=== PATIENT | male | born 1950 | race Caucasian/White ===

== ENCOUNTER 2023-01-15 08:57 | Outpatient (OUT) | payer MEDICARE, SELFPAY ==
[2023-01-16 02:07] LABS: Testosterone 367 ng/dL (264-916)
== END 2023-01-15 08:58 | disposition home or self-care (01) ==
LOC: LAB 08:59
PROVIDERS: PCP Internal Medicine; Visit Provider Internal Medicine
DX: R53.83 Other fatigue (principal)
CPT/HCPCS: 36415; 84403

== ENCOUNTER 2023-03-29 12:37 | Outpatient (OUT) | payer MEDICARE, SELFPAY ==
--- NOTE | 2023-03-29 12:39 | CA_ITS ---
[facility] Test Date: 2023-04-15 Pat Name: JERRI SOSA Department: Room: - Gender: Male Bartender: : 1950 Requested By: CLARE RODRIGUES Order Number: [id number] Reading MD: CLARE RODRIGUES Interpretive Statements Predominant rhythm is sinus with average rate of 67 bpm Tachycardia - max rate of 139 bpm - one episode of PSVT w/ duration of 3 beats - longest episode of 13sec with rates between 102-103 bpm Bradycardia - min rate of 52 bpm - longest episode [id number] w/ rates between 52-56 bpm Ventricular ectopy - none Patient triggered events: 2 - associated with palpitations and fatigue - associated with NSR Impression: Predominant rhythm is sinus with average rate of 67 bpm Fastest rate of 139 bpm and slowest rate of 52 bpm No ventricular ectopy No atrial fibrillation No pauses or blocks Electronically Signed On 04-18-2023 12:30:31 EST by CLARE RODRIGUES
== END 2023-03-29 12:38 | disposition home or self-care (01) ==
LOC: CARD 12:38
PROVIDERS: PCP Internal Medicine; Visit Provider Internal Medicine
DX: I47.9 Paroxysmal tachycardia, unspecified (principal)
CPT/HCPCS: 93242

== ENCOUNTER 2023-09-15 21:59 | Emergency (ER) | payer MEDICARE, SELFPAY ==
[2023-09-15 22:06] VITALS: BP 189/101; PULSE 89; TEMP 36.9; O2SAT 96; BMI 36.5
--- OUTSIDE RECORDS SUMMARY | 2023-09-15 22:08 | XMS_ITS | CCD ---
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 Screening and history of mental health and substance abuse codes (19 sources) Ex-smoker; Translations: [Personal history of tobacco use] Onset: 06-25-2017 Episodic Comment on above: QUIT 2001 2PPD; Skin and subcutaneous tissue infections (11 sources) Cellulitis and abscess of trunk; Translations: [Cellulitis and abscess of trunk] Onset: 01-25-2015 Episodic Unclassified (11 sources) Long-term current use of drug therapy; Translations: [Long-term (current) use of other medications] Onset: 01-24-2018 Viral infection (15 sources) Disease caused by 2019-nCoV; Translations: [COVID-19] Results Test Name Value Interpretation Reference Range Facility [facility] 04-30-2023 L Specimen: [id number] Received: 04/30/23 Status: SOFIA Hoffmann Num: [id number] Spec Type: Surgical Subm Dr: Emerson Contreras MD Tissues: A Colon Biopsy (CECAL POLYPS) B Colon Biopsy (SIGMOID POLYP) Procedures: HE/4, Gross/Micro L4/2 Age/ Patient Sex Location Account Attending Physician Jerri Horne 72/M [id number] Emerson Contreras MD SPEC NUM: [id number] RECD: 04/30/23 STATUS: SOFIA HOFFMANN NUM: [id number] WERNER: 04/30/[address]: Emerson Contreras MD ENTERED: 04/30/[address] [facility] DR: SPEC TYPE: Surgical DEPT: S ORDERED: HE/4, Gross/Micro L4/2 ORDERED: HE/4, Gross/Micro L4/2 Pathological Diagnosis A. Cecal polyp, biopsies: - Fragments of tubular adenoma with no high-grade dysplasia. B. Sigmoid polyp, biopsies: - Tubular adenoma with no high-grade dysplasia. Clinical Information Screening Gross Description A. Received in formalin labeled with the patient's name, date of and cecal polyp are multiple tamayo tissues fragments and vegetative material together aggregating 2.2 x 0.6 x 0.2 cm. Entirely submitted in one cassette labeled A1. B. Received in formalin labeled with the patient's name, date of and sigmoid polyp are multiple tamayo tissues fragments and vegetative material together aggregating 1.2 x 0.9 x 0.3 cm. There is 1 dominant polypoid fragment, 0.5 x 0.3 x 0.2 cm. Entirely submitted in one cassette labeled B1. Specimen: [id number] Received: 04/30/23 Status: SOFIA Hoffmann Num: [id number] Spec Type: Surgical Subm Dr: Emerson Contreras MD Tissues: A Colon Biopsy (CECAL POLYPS) B Colon Biopsy (SIGMOID POLYP) Procedures: HE/Neema, Gross/Micro L4/2 Patient: IrenemabelJerri [id number] (Continued) Specimen: [id number] Received: 04/30/23 (Continued) Signed (signature on file) Jackie Padgett MD 05/03/23 1013 Specimen: [id number] Received: 04/30/23 Status: SOFIA Hoffmann Num: [id number] Spec Type: Surgical Subm Dr: Emerson Contreras MD Tissues: A Colon Biopsy (CECAL POLYPS) B Colon Biopsy (SIGMOID POLYP) Procedures: HE/Neema, Gross/Micro L4/2 Patient: Jerri Horne [id number] (Continued) Specimen: [id number] Received: 04/30/23 (Continued) CPT Codes 24526d7 Specimen: [id number] Received: 04/30/23 Status: SOFIA Hoffmann Num: [id number] Spec Type: Surgical Subm Dr: Emerson Contreras MD Tissues: A Colon Biopsy (CECAL POLYPS) B Colon Biopsy (SIGMOID POLYP) Procedures: HE/Neema, Janette/Fred L4/2 Patient: Jerri Horne [id number] (Continued) Signed (signature on file) Jackie Padgett MD 05/03/23 [facility]3 [facility] Coding Summary.on 07-15-2022 Coding Summary. CD:[id number] Ww+PG hlYWQ+SH8ULHAjF22yjFQtfQ9 bA8BHJYwPNdbzXJPQMMpHWbCi msLgXO8hzZSrUHYk IC8+NK8rZXFjXificUOrk4U2q DW6H20cbw6fKAaoeYB9ONMcIo Bnmppja7gtaWm3QWkuDisaCxH t DSOqyX59MIB6bP85Zw95aJZla AOxz0pyyBt1UfTrUVSwAEJ3mE qmSVgkf9PhDNXaK43czWSib9D 6 BQLkmGkmeQYdRiYexEJ5oZ3hE Ozpymnuj6atqgjeVbk9qc02gQ Mqc4R7zEQ2G9MdqpE4IGMmpSI g SvynuRXInM2pfhoge1bdhyokO eMnUOKdIFe6ITi3KZPfkNenNd PvMM57VYH0GTHqrkObR3EhTPW s uAmsKmW9l8S7Xk4EE6HMAlkbV 1VNTUFSWTwvdGQ+GR97by44O6 RwArajUmg9NMPfEBK4uSI1nJ4 n XXYwXPjat0C5kYX2R2YetvXpc t7hc3yuSOUqPWqbE30snLPyr8 Q1GFRhrWJ8JJWqkKzdKuQsvA2 3 Oyc+UAPefOlmn0SuYsqeq3phu 5ocjBh4JxptDNTpwcPyzMitOV A1b7TvTn4wATVdnGO2qUY0wJ9 i YrBjHlH5YJqaV616ZiUeeIXpH dciS25jG4VonGZ+EDQyFos6EH GwaLojZD9oY6PpRQKxbodrfUR m mOilJE1kGQLnbsnsGNLtiQ9jW XRhW4a0QcLxOuY9PEazE5GzAS HilxsqFr72oG2nVhHeKbI5KPw u P2AtuxR0OBUhoVGeQSzsWCE8Y 05qe0Q8KFFcNPCcMLX6gMZ1iP 1hbGlnbjogbGVmdDsgdmVydGl j HBjfMWejG076IRLwwVikLqJeF GluZyBEYXRlOiAgMDQvMDUvMj AyMzwvdGQ+PMIxKNS7cKbaBLV n zBXyFFedAj9dfFfzqBlkIA2zN AQihutxCHWvuS8xJARwyFBdjJ pjFP0oAVWenqcsx009EdOvUCM 0 XTCgdIVeS5IdcI0iGgOpEQYjM SEbM7ZowSLvRZbhG998GWhvJt A9DLYdqcOxJ9InWONfgRieYuS 0 w6A4Rm4Fj2GbkdyqH5ZrmSWtH tPpAquuFNg2W2NsKiysaED+PC 43TJSkKG50JAf8WEG2uSwoGKg i VSJuG2FxoS3sGnCdNHBhGSHdL yc+PHRhYmxlIHdpZHRoPScxMD HpHzYwxCroRA9aAc3fFGGyODZ v iIqzlKDvHgAcr7qaSLWgBAokD W2wnDefX6JhyNP1DHDyl0e2Ra 29A19uB7CxlPE+WPArcHD8vKX 0 uI5cDjIsNiK6POmpP781McOei KCdPorof3uwr3dhwKh0ZcA0GI GpmtBjnAhrWQB5k3WmPl87W45 s IHdpZHRoPSIxNSUiIHZhbGlnb n6fvG8eNj7+LZCrvQM7aZA3eN 6yVaLzAcN1ORzkV139OpLygDM v Crfmj4rlu7vsfTw4FiFnDHNrr pGeaHlgYWY7s6QmDp16G6UjtS teo4PpAci6us66qFMgl4O2wCZ 9 M3YqXECtphwhlBDyrOcwGA3sF JLefhqgYQMcpF9jKWRpB1n3Wf AlZjR6OWwxN9PpblN7HIUjfZC g MSOhvARZuX9nhrdmn7avndzeZ aFeYKKwWIa1AIn9PCBetAcmGh ZjPHW4ZuW5FAZ4fBFatE4wpUj n afacjR8lGwo+TPS4lISfxVQTK F4cKuamqFX+XTHmBRC9cRciTM usWPUloF8yYUAhB9n6BdPjHsV 1 JCdzA9MpfuX6YEGpkLVvPDUka UPKrG8yyzlwt4sucuzkGtTgNW ZbDAq2TGq7BBZhvSwjAcSxPAB 0 OfP8YMV8wVYycC8czDezvctfl G9wOyc+GwldpNxtNOU3WCz0U5 JePzq4URKjhCvrBB1beLKyQEk u Ko5ogYbciPflZX3oHBCnircwc 457JkQgk6daYCUjyNTzMBkjMD R5E77nk7W6NKNuYIOpAIR5pLP 4 wO7tlDtotxwheJJruSrbeuHkh PptLWbqHRxfU245IPGawGunTw WwHKk0S1TjXxa3QJBfxPqpYT5 n yBZqVVscSz2nqWozzEpkEC1fZ THzflonr353AqGxp3fnDLIjqS SkCLhhOCL4C62oq9S5EAIiSJI w DOO1jZE0qE5olDzddnhrsVWio MhnbvAmiXliRTldCGkuN666FY GzaEgvZxPthVr4T6LdMcx5GUE z uJtjCJ4cpBEtOLngDb3nxVbmb KklBX1wXAXyawmlx352CxIsx5 ipDXCapHKjXFedMGT8C99ig7U 6 JFGlTPAcGOR3uXZ6rD6hzPwqn jogbGVmdDsgdmVydGljYWwtYW gqH569GHCqrHeuSnCnvLrmgrA g REqiXQw7I4IuGaifsVY+PC90Y TScME28yNSwsDQek1qshAa9Xq EpQPCsJCW2jCbvKQrzt4YxZTE t Q82dpPAek0X7NOOitHtrpXBdF fNgmOR3dG3hSEwdarfgb6hrbh fxSgfqp9clch39pH44U33lJGu p WNGoLRBqTWAdRAFdyBwehc0aq G9wIi8+QTWxjUU4eIS7iO6mGP DgTzY4OGbsN907EuSoyEShImq j u3ipj4avaUl9ZjJ6YNLicnXxm YpcMLN5h8CuKv38V55cRWukKU XdPLLwMQNaLNFanSnmuz9tkT3 w Ii8+VBVsvBE3kCW5vL2rWaThJ qY9LJmeW714SjNjeEGvMuuyM8 3uY0PnrRX+TFGdPan3IFXgeNs s LR1xpGSbIEdlUb4vUWN0DiJnN vFfFWmqF0WaFKHrudphvvnegC F0ADVrQETwrR46Pb9jkFfzAEF w eGYPpU7wazruq2iyuxrsWrMiY EIaKLs5ZCv2ZLVzrShlCdWoKY Z1VaX3QUX4hLZphW7yeHkpboz g gS4iE0CmNRBmzhjfTl38yT4oS tNtArZ2SMbuUps+A1ZFVLXUNB tRBEWTZOUJUTRSKT82UB38rBO g j9R5jVP8Q4PtNSWspbvhmnrhg UR8BMKfFLHyuX44dPKiICzjXs 6rp6U4u647NODiEGVgjR61Uy4 u qGbmYRTtbUTYrR9qyxiun6ozo gpsAhHuKCQzZZh3IMf5HHWeyQ cdIiOhOVI7WjU6VSX6lJVkvW1 h xIhrotqpjD7wWtt+MDQvMjkvM Ut8XgjdkEA+MARcQLV0mQpnEU yfFSSypT9lKZTdR9c1LgPsFlW 1 TSrkN6KaKTUacmoyUc00lJ7xJ uYdToF4SYkmO7AgyiS9WIPtwL FrFPlnZMI2S43jl4F9UVHsXEQ w IDB1kPF0nB9crJgxmaglfTVdy VagikRfzRjeDVfwYGglJ742OD IpuPdgUhM5ZPeiCTNyLG34DB6 8 tKWqc2F3oRC4Z7HzEGJsaujwg begnQU4WFAlHSUarB29mKSnPU rmAj9sj1F7q859NBKlYNYfhF9 7 Qm2vbKohDUHnvIVPpC0usyqdz 8twfepyOlDwITKuBIw8QIb6IY NqjAwjGzMyDNP0GqW9QFS6sWW h hC6rtGfaidpnoS3bJdk+TWFsZ TwvdGQ+QYFxIYA7aOaqIHdpER GoyW7yYBYsC7g4GdZqCaP3JRg u W0XiIRJtqgfqBb73iI2tZlIcQ gP3WVgaF8PwmaX0NPOsdTVfVX auSNW6S66be9W8KQMzROKqSOB 7 wFP9jE5itGizdwyfnYKslHidk fQcgEwvAFmhFStcR617JOUjwP rgJx67jBVzuMxvozA8F2RfLik v dHI+FF13SHWuAI19qZJybUByf 1qwmAr9QrPrHNIlPAI6sKvcLS eng9AgQXNzH44ewVBjh6O5FJX v dDalsDSbHwFelVS1mJ6nZFurr ezzm1lchbxhBinpf9voxr42fS 12F74fQFtoRPLrVTSnDGJjMWQ h hTipsm9izS2bSt5+EIXzwCV8f EU2sR2yYpIxLtY7CLebH125Eb AlkXUeYitzn2myo8tvsJz2GbI w GPSpoeYbxApeSMC6h3JpZt38O 29sIHdpZHRoPSIyMCUiIHZhbG edol5brN9mBv8+UN7uk2cjbz0 1 bE25vPK+OTDkBKR1uCedHFflJ ZUgrD3kGBhdOmJ7PPPgZpSiyG 93rMYbMNlqTz7vhGpkrYqaUX4 w OCCjhczwu057QzTzr3htQANuz WMqNNnxDAE4Q01rb1B8RNOyAH YcFXV1cWE0vH0jmIatvaiceTV m fFyonhOnuNwlBRmfWDnsU904Q OHuiLlcOnFutQKfR9dnhiOOTQ 1lOjwvdGQ+RDAnAGZ5aAulGCz w AYRlgG3bZIJuR3r8BoEnFzQ4F KrkX1RkugZ8TRVswBNjFOCvtV GJrB2jjyvdh6uqetzuPxTmTDF w DQs7YVz9NHKydQiwXyZcZNJ8C aG7LGK0nPUtrR3baAijdsxyrZ 9wOyc+RklOOjwvdGQ+PHRkIHN 0 kVakOLeaOQMflT7gHRPmL8l9S hWaYbK7ZWyyH2JjuvW0WGCcgZ TgGCNfgNSAzH3engczr9pgjul g PzUuDORvXIy6TRk4HNNssVzhU gMlWWS9OqC9XEO4iMVzfL7qwZ hwetzxzC7xEif+TVJOOjwvdGQ + NDSaUBO0cLvpPUccCFNdmO8mC TIqQ2l2LoDoReG0VMjgJ2Rwey H1YMOevGLiBDTkzWEKuW9dljg j u2isoifiAdHtKEKlUBd6RLv2U WCzlUdqAvOpNQM5RxW7VRD4hI BwtL0msPfrqpgjcB0pJys+UGF 5 TAU7RP82PK60W6OdAlucwNKun +PHRhYmxlIHdpZHRoPScxMD IoKdAubTrmVW9zJg5uEQJoAAK v bGxhcHNl (more content not included)... Normal [facility] Basic Metabolic Panelon 06-10 Basic Metabolic Panel [facility] [place] Other CBC AUTO DIFFon 06-26-2022 BASO # 0.0 103/ul Normal 0.0-0.1 [facility] Comment on above: Performed By: #### D [facility], DAT[facility]A #### [facility] [address] [place] [address] Dr. Maureen Mcdonough Basophils/100 WBC (Bld) 0.7 % Normal 0.2-2.0 [facility] Comment on above: Performed By: #### D ATP, DATPSA #### [facility] [address] [place] [address] Dr. Maureen Mcdonough EO # 0.3 103/ul Normal 0.0-0.7 [facility] Comment on above: Performed By: #### D [facility], DATPSA #### [facility] [address] [place] [address] Dr. Maureen Mcdonough Eosinophils/100 WBC (Bld) 4.3 % Normal 0.9-7.0 [facility] Comment on above: Performed By: #### D [facility], DAT[facility]A #### [facility] [address] [place] [address] Dr. Maureen Mcdonough Erythrocyte distribution width (RBC) [Ratio] 13.5 % Normal 11.0-15.0 [facility] Comment on above: Performed By: #### D [facility], [facility] #### [facility] [address] [place] [address] Dr. Maureen Mcdonough Hematocrit (Bld) [Volume fraction] 40.2 % Critically low 42.0-54.0 [facility] Comment on above: Performed By: #### D [facility], [facility] #### [facility] [address] [place] [address] Dr. Maureen Mcdonough Hemoglobin (Bld) [Mass/Vol] 13.4 g/dL Critically low 14.0-18.0 [facility] Comment on above: Performed By: #### D ATP, DATPSA #### [facility] [address] [place] [address] Dr. Maureen Mcdonough IG # 0.02 10e3/ul Normal 0.00-0.03 [facility] Comment on above: Performed By: #### D ATBMP, DATPSA #### [facility] [address] [place] [address] Dr. Maureen Mcdonough IG % 0.3 % Normal 0.0-0.5 [facility] Comment on above: Performed By: #### D ATBMP, DATPSA #### [facility] [address] [place] [address] Dr. Maureen Mcdonough LYMPH # 2.1 103/ul Normal 1.2-3.8 [facility] Comment on above: Performed By: #### D ATBMP, DATPSA #### [facility] [address] [place] [address] Dr. Maureen Mcdonough Lymphocytes/100 WBC (Bld) 34.3 % Normal 20.5-60.0 [facility] Comment on above: Performed By: #### D ATBMP, DATPSA #### [facility] [address] [place] [address] Dr. Maureen Mcdonough MANUAL DIFF REQ NO Normal [facility] Comment on above: Performed By: #### D ATP, DATPSA #### [facility] [address] [place] [address] Dr. Maureen Mcdonough MCH (RBC) [Entitic mass] 29.8 pg Normal 25.9-34.0 [facility] Comment on above: Performed By: #### D ATBMP, DATPSA #### [facility] [address] [place] [address] Dr. Maureen Mcdonough MCHC (RBC) [Mass/Vol] 33.3 g/dL Normal 29.9-35.2 [facility] Comment on above: Performed By: #### D ATBMP, DATPSA #### [facility] [address] [place] [address] Dr. Maureen Mcdonough MCV (RBC) [Entitic vol] 89.5 fL Normal 80.0-94.0 [facility] Comment on above: Performed By: #### D ATBMP, DATPSA #### [facility] [address] [place] [address] Dr. Maureen Mcdonough MONO # 0.7 103/ul Normal 0.3-0.8 [facility] Comment on above: Performed By: #### D [facility], [facility] #### [facility] [address] [place] [address] Dr. Maureen Mcdonough Monocytes/100 WBC (Bld) 11.4 % Normal 1.7-12.0 [facility] Comment on above: Performed By: #### D [facility], [facility] #### [facility] [address] [place] [address] Dr. Maureen Mcdonough NEUT # 2.9 103/ul Normal 1.4-6.5 [facility] Comment on above: Performed By: #### D [facility], [facility] #### [facility] [address] [place] [address] Dr. Maureen Mcdonough Neutrophils/100 WBC (Bld) 49.0 % Normal 43.0-75.0 [facility] Comment on above: Performed By: #### D [facility], [facility] #### [facility] [address] [place] [address] Dr. Maureen Mcdonough Platelet mean volume (Bld) [Entitic vol] 9.6 fL Normal 9.5-13.5 [facility] Comment on above: Performed By: #### D [facility], [facility] #### [facility] [address] [place] [address] Dr. Maureen Mcdonough PLT 198 103/ul Normal 150-450 [facility] Comment on above: Performed By: #### D ATP, DATPSA #### [facility] [address] [place] [address] Dr. Maureen Mcdonough RBC 4.49 106/ul Critically low 4.70-6.10 [facility] Comment on above: Performed By: #### D ATP, DATPSA #### [facility] [address] [place] [address] Dr. Maureen Mcdonough WBC 6.0 103/ul Normal 4.0-11.0 [facility] Comment on above: Performed By: #### D ATBMP, DATPSA #### [facility] [address] [address] [address] Maureen Mcdonough Complete Blood Count and Dif lucia 06-26-2022 Anisocytosis Ql (Bld) [facility] Other Basophilic stippling LM Ql (Bld) [facility] Other RBC morphology finding Nom (Bld) [facility] Other PROF CHEM 8 (BAS METB)on Anion gap [Moles/Vol] 12.2 mmol/L Normal [facility] Comment on above: Performed By: #### B MP #### [facility] [address] [place] [address] Dr. Maureen Mcdonough Calcium [Mass/Vol] 9.1 mg/dL Normal 8.5-10.1 [facility] Comment on above: Performed By: #### B MP #### [facility] [address] [address] [address] Maureen Mcdonough Chloride [Moles/Vol] 106 mmol/L Normal 98-107 [facility] Comment on above: Performed By: #### B MP #### [facility] [address] [address] [address] Maureen Mcdonough CO2 [Moles/Vol] 28.7 mmol/L Normal 21.0-32.0 [facility] Comment on above: Performed By: #### B MP #### [facility] [address] [address] [address] Maureen Mcdonough Creatinine [Mass/Vol] 0.85 mg/dL Normal 0.70-1.30 [facility] Comment on above: Performed By: #### B MP #### [facility] [address] [place] [address] Dr. Maureen Mcdonough EGFR-AF COMORAN >60 Normal >=60 [facility] Comment on above: Performed By: #### B MP #### [facility] [address] [place] [address] Dr. Maureen Mcdonough EGFR-NON AF COMORAN >60 Normal >=60 [facility] Comment on above: Performed By: #### B MP #### [facility] [address] [address] [address] Maureen Mcdonough Glucose [Mass/Vol] 97 mg/dL Normal 74-106 [facility] Comment on above: Performed By: #### B MP #### [facility] [address] [address] [address] Maureen Mcdonough Potassium [Moles/Vol] 4.9 mmol/L Normal 3.5-5.1 [facility] Comment on above: Performed By: #### B MP #### [facility] [address] [address] [address] Maureen Mcdonough Sodium [Moles/Vol] 142 mmol/L Normal 136-145 [facility] Comment on above: Performed By: #### B MP #### [facility] [address] [address] [address] Maureen Mcdonough Urea nitrogen [Mass/Vol] 11.0 mg/dL Normal 7.0-18.0 [facility] Comment on above: Performed By: #### B MP #### [facility] [address] [address] [address] Maureen Mcdonough Urea nitrogen/Creatinine [Mass ratio] 12.9 mg/mg Normal [facility] Comment on above: Performed By: #### B MP #### [facility] [address] [address] [address] Maureen Mcdonough Heart and Vascular Office/Cl inic Noteon 06-18-2022 Heart and Vascular Office/Clinic Note Chief Complaint 3 month F/U History of Present Illness Jerri Horne is a 71-year-old male patient recently established with Dr. Martinez with past medical history positive for CAD post CABG x2 in January [address] Guillen at . He has normal LV function. He has hypertension, hyperlipidemia. He is here today for 3-month follow-up. He has no new cardiac complaints and feels he is progressing well postoperatively. Patient specifically denies chest pain, palpitations, SOB at rest, GARCIA, edema, orthopnea, PND, dizziness, near syncope, or syncope. Recently started on levothyroxine and has questions if this medication needs to be continued. Review of Systems PHQ Score Initial Depression Screen Score: 0 Constitutional: no fever, no chills, no weakness, no fatigue Respiratory: no shortness of breath, no cough, no orthopnea, no wheezing Cardiovascular: no chest pain, no palpitations, no edema Neuro:no dizziness no light headed no syncope Additional ROS info: Except as noted in the above Review of Systems and in the History of Present Illness all other systems have been reviewed and are negative or noncontributory. Physical Exam Vitals & Measurements HR: 67(Peripheral) BP: 140/82 SpO2: 99% HT: 68 in HT: 172 cm WT: 100.0 kg WT: 220 lb BMI: 33.8 General: alert, no acute distress Neck: Supple, noJVD nocarotid bruit Cardiovascular: regular rate and rhythm, no murmur normal peripheral perfusion Respiratory: Lungs CTA, respirations non labored Extremities:no edema Neurological: oriented x 4, LOC appropriate for age, sensation equal & normal bilaterally, speech normal Skin: Warm, dry, intact- no rash or concerning lesions Assessment/Plan 1. CAD in ruby artery (I25.10: Atherosclerotic heart disease of ruby coronary artery without angina pectoris) CAD with prior bypass. Normal LV function. He will continue his aspirin, beta-rossana, statin. No anginal symptoms. 2. Hx of CABG (Z95.1: Presence of aortocoronary bypass graft) 3. Hypertension (I10: Essential (primary) hypertension) Blood pressure is controlled for his age on present medications. 4. Hyperlipidemia (E78.5: Hyperlipidemia, unspecified) Patient is currently on statin and tolerating without myalgias. We will check lipid panel. 5. Hypothyroid (E03.9: Hypothyroidism, unspecified) Check TSH and will forward results to PCP. Jerri is doing well from cardiac perspective. He will continue current medications. We will check labs and call with results. Follow-up with MD in 6 months, call for new/worsening symptoms. Follow-up With When Contact Information Juan MANDEL, Suresh Foster Within [address] [place] [phone] Additional Instructions: Problem List/Past Medical History Ongoing No qualifying data Historical No qualifying data Procedure/Surgical History CABG x 2 - Coronary artery bypass grafts x 2. Medications aspirin Lasix 20 mg Tab, Not taking levothyroxine 50 mcg (0.05 mg) Tab Metoprolol tartrate 25 mg Tab rosuvastatin 10 mg Tab Allergies rosuvastatin (Other, Unknown, Abdominal pain, Cramping of the Muscles) Social History Alcohol Current, 03/09/2022 Tobacco - Denies Tobacco Use, 03/09/2022 Former smoker, quit more than 30 days ago Tobacco Use:. Never Smokeless Tobacco Use:., 06/09/[address] [facility] Comment on above: Result Comment: Elec tronically Signed By: Regina RASCON CNP\.br\Date and Time Signed: 06/18/22 12:08 EST Coding Summary.on 06-13-2022 Coding Summary. [id number] Gh0bW w+PGhlYWQ+TA9MZIKuM13crZH tvM7NQ9hERI4QQZZYVVUSUV4E LU7swRX1ITitI3VuvgPf MpbtkXNpSQ46RIh6LCG6jRnhS ZldnX0poMRqJ4t8KbRrFG20cT 29CJohZQAuTtL8GbPdgerdbPE y X2wxPaXxmMUqMid+PHRhYmxlI HdpZHRoPScxMDAlJyBzdHlsZT 3mCj1pITEmNMTkvTkisUDxQuY j v7flPLElVHkpOW2feGpqW1Qtb CU9SWRax7d9Mf59jYS+PHRkIH G4aNpzRMufp434UbAlw5vsZYL 3 rLCiBBwbZLD5V49kf0S5PLCaD PDtPHP7tCO1vE5xuGcexiueX5 HtyQYbUkD7XZE9lPOeyX6rfCj n fwqkmR6zEdp+H33YUY3FTAUST O2KFvn2Z0XdAeoofRO+PC90YW HrYC50hJTqzGCuj3cquLp9XsK w PTUyAZM0dJosKMntd0SgDDEaC 90qdNTjc1V9BHDrtWmcrLXiVz TwbUJ9rT8rXQdnswdqy0hiyhg n Lsevr4bxly00xI89I15iTUseU LKiXWK2BFKbNJUviTskhm9wiM 9wIi8+HBgut3ppo2ixvUq1JyQ w RBNuelFbfZiyKTZ1f0NiQh41D 8LeuKqki0McHha3qy19tDEvs7 P2lCQ0XDeyNETeeT1dTHodXkA 6 SQFlAaHryK31uEVvOMkkKr9zs AabuGhoPK7cPNRfxgkmEMNxqY 0iJDWfnQPakWlpKG7aSWApyjg m j142HsCrEJB4YSHpjMPnM2Scm R2yEeJvBWVpSGJmN3XzyMUrLP xkD956LMcyQrP1CRCjtnFxD3M s MMFgcFtmPeO1t1L5Ji8Ja8Tem tjfQGJ0ZIulKXNkFfH0NhVaKz Y6M7JiRih3WMKveDbaCQ7jG0Z h NMYfrfqqnbuorTC2MJAiPRHtd L08vBEcQEoaVb4ay4H0e649PJ QaDVVhbM76It7zxKguWNQrwHO U xV5lkhaat7sbyneyLnRuLOCnM Eq0GJw0GGVftZolKcUeUIU0Fa K7XHI3lDKzsZ2ueMqlrrolzT7 w Oyc+O12vcW9rESU5SKB3qkrsP ZAifrSdRX28ZL94H2LeOgnsaI FibGU+THGmxfRdkAozPQ6nXuY j m4ssl4IvFAeqA6HcMSXfNWawO xy9HYYwPSX0qVE9aL0fACJrYS ual8E6aDQ5M6LtufSulz7pf7f s KCXeJHlzW89vgPFmr3I8WUKwr UY9SZEcoUybGeKizI17Jme+PG WkuFfyq2OtTcojl1wxv0sdrBr 9 IqTaDZLsvfLjhRepOAY2y4ClI a86P81xUKjhSNAwSLWnUOKdFU BtpNmeji6gaP4aYk9+PGNvbCB 3 sJR2qW2gIXJbSkE6RUejK309D wKfgXKeCzcdm4qei6ymiLd3Ip CmVDOcvbKueUijEDT6h7FdYj0 8 Y68qOUibJFGoFPWfHTSfFLQtf Wlaph5syL7cTt3+NH5rp5jnxt 01lF64gOM+QAReFYY5mLbxHJa w FTVaqT0ePNesKpT9AZGdTmMhb S53iUSuJVdmPv1miLszbSovBU 1cZVSpkfoxm086JfAkh4jfFYP w cRYzLIhqEOA9O46ai7K5PZSuB GXdARP2dQW0cP7lpMdabxtmtR XtjLjecnJsxHdhTNulNGfrJ21 6 IHRvcDsnPlBhdGllbnQgTmFtZ Ex4H4XvVut1KHGhtGqiHX6qnT QtFQdbEo2jhJircCzvNU4tMNB p khisx226XuXtz7irKYXxcKDbR LcsOVQ9S48ys8U0MFFyPSRoNF R0xNR9tP1dvNxstgnukFEipTn g kiEtaQmaHXqbJTmwD200KWTtf FwjOlJozoQeJWGeuLH6KT76XA 14wMQhr3I1sNI0I8JjCAUfegn t sardzNR7PMEwDPOzmG51Yb4bf JryCe1sHDEwWJG8KXPawYJuN7 AcnR3vApFuKFUuMRFiF2CbpIS t UQtfM682PWjiHeB4UXQmdpNfY 2GxBSPcqRerYbU5b3B1Yt4PD2 O3ST14NM48iDYlf4P6oLY6V5J h JIWubftjmmhmvQE4WTAgNGEdb D96Fk4izIjxGv0vHIHlGAY0XD FroZZvV8UjaB7dBiOrLYJbSUG w N2GilXKrBZogV094QLwvWmL9N SAvqiOaU7KoMQSvqFysDmP3r4 E1Wu0BQAr0GR68UY33iYMri4Z 5 uPN1V8QeIBNynqhytquagLT1S EIuRCLhqA25Zb6mpOdrBs4oNS KzTLB9GVSvqGPsE8ZwdG7aUeQ j QRXgRSEzR7KidFAvFCbmW352V WkeKcF3KCNhmyVrK6DzUXQguD ssUjF0g8V3Qb7DXDXrBM42OMP 5 vGO5LV36YL01B0ApMimxeOGun +PHRhYmxlIHdpZHRoPScxMD PvBpVygLuoNR5mXg2tKBMnFHH v aLzutKTyZmNxj7voRWOwVFaxX O9bdChvN4KqdZF0GZYbm2z0Gg 35W81rO1OrnXO+UEMbkSH0mCZ 0 vB1xKzEpTtZ1FYzjW406AtNes SUyPfhuu4uki0cjeGc7HzU3FE CsdqWfkZeuYQB5y4OlDi15D64 s IHdpZHRoPSIxNSUiIHZhbGlnb c8deS7xZm7+TPIrrJY7xZV6cE 8oYmNoMdG0URxxY196TdLfmOH v Mvede2uuh0ujvIy2YhFqIDBik yPexScrVZF3x7EiVj16L6OqgD eif7OrKun0qm92oVZxi6I9oWZ 9 L7LbOSNpocfkkPOxeDxfBW0iD IXopsvzVCOssJ5yNNBiP0y6Co RuOvW0IGoiM8ZjodB6MCFpeAF g IWwsFVB8V47ic3L8XVJmQXZnD WS1mRA0uD8rsArqjfgutQMmqQ tkwkRdsIfzOClaFDmrZ939QIN v jHyqWHJpuA3dBICpkCIlyAubA V6nJQCdwvldDeFAV33VUGGKSV wgUklDSEFSRDwvdGQ+PHRkIHN 0 iKnbRGujRNGobU0kNOPmN9k1E yReFkC3AMrpR7TsDIHypihsYj 85kD0mTdKwOlS4SQkzY6YgipK 6 FHNymOTkRQvaXAL7N50yu7K0A SSfQDCbAFW6cJR0fC2otMiqnc ogbGVmdDsgdmVydGljYWwtYWx p F987MTSjtQenFgD2BdV6MfK7L AK8C4UpOzd2VNFzhOdkKI8lxW GyMCmzAo3uuHdynOxcLL7tTNS p qnxxFJCyvK7kOPBngZCdhLaoL Z5sSOZzhgyfc454OkLmTEU5PK VmgPYxR4ArqY8pZsHcFTCnTKB w I1OonRWzPJqoZ251SFlfTeL1B BCmcgYaL1IaZJKwgAdjPbE2r9 P8Ou28XJOGFZLtqbqhtVJ+PHR k CRY5eUixLZysQFLmnE2gONHiY 1m5ZuDhAfZ3XKftX2VeWXAmpo goRh96cG9pXbFhEkB0FRapP8Y v tyR6BTCbuKLrVFlpLRB9U91jm 4A3RMMdMVZhJBO5iLE1rL1ykZ lnbjogbGVmdDsgdmVydGljYWw t RJmfX054MPKzdVhiZp2lpFL2X 9YaKoc8LONvcAzpPQ6lcLUpFQ yfYf6izXgmyDhsRE1eHUXhhur w BUNmsV0pIDDijCVjkQelJN9lU BSsnakqa953VnCoSLI6FEPprF UxA3NcbZ0kYePjDGTyMJVgO0P l zRLyGTmaK207XAmeWvR8HIBns tZeW3WqLPOaiSrlPuP1p3X7Rc 3ZtINeTVRnID91TY40KD71I9T y PjwvdGFibGU+PHRhYmxlIHdpZ VJbAKhyKQLlXbAfnDbsWZ9vIv 5lQQGxZLIeeAyzfIHdEzZhe1t s RPKcRCzsRS3msTvvG8YtcBX4A FBjn7i3Gf97K44vP2EixGA+PG TksRG8mJV7oL5vYnSxEmK4RCf p J735VdOjiQSzPzjum9rnp1siu Dg8TwPpZYMfixYbhOdfQKY3f2 OrOj58W49lEHxpFISfMZVnXUR i OROerPqtkd0gtV8zSk6+PGNvb TV0eTW3aH1bQpYkAzA6MYygX0 80YiJnuTVmQldjG17lM9GuaUB + RMJdByz6PLHqcGlzPS6qgMDdQ OmdNw6cFUD2TuTvYkUnJJdgI7 HaZRXgfqrpdtixhGF2EHQhTNM w vV64Jr1ghIrqCd6hCKOmOWC9I LLclNSsO2FpwX2zGfBiVPQmIH EjG1BweDMbPFgsH833IOkjCbD 7 BCOsodCxG2JxYYXswHmiMrV6a 3O9Ia1VbJbrwHIcTQ2xBnPdSP s4T7UxQzj0RJWsjRgvKZ9lfHZ k JRnuCf5uqBvstYijZQ6jBEWti jeoi245OpAos9kfSAUmpSBuQH vdRIQ4H93qd7F3EXHiOQUzNEZ 7 hLN2hE3xhEvwqegpiMHysNcir kUnpEvlFAnhLRluC123EECjwH uxZtGOJxa5L3YbSha3DLVpwEp s IW1rdGKkVUmnZn5vzPkqfKmbZ G4wSLGqnhccz275NvOdg3lcJO NzaMWwSIodVLM1V63au4K1RIV w BINoPUX1dBP4iI7dlZrzsydwz GVmdDsgdmVydGljYWwtYWxpZ2 04MVXgeAezNi7YRmj8R7QvOsc 0 LMDnaWniHY2uhADnIGueHa9sf XnmuOvmRE8tICWoxzbao678Qz Fjz0hxIOUavRLqUIevPKS8I83 s x2R0IOYdPYDqHSN3yRA9bI7uu GlnbjogbGVmdDsgdmVydGljYW kzPIwhF216IAIqgTrvUcGsaRO y OjwvdGQ+ND15dh78L0TxXrpaI wf0IYPjZYC3sNZ8wW6zWNRhRE pbn0R0bZI8R0GhtjJhva2fv5y s YXBz (more content not included)... Normal [facility] CHEMISTRYOrdered By: SYSTEM SYSTEM on 06-09-2022 Cholesterol [Mass/Vol] 128 mg/dL Normal 120 - 200 mg/dL [facility] Cholesterol in HDL [Mass/Vol] 60 mg/dL Invalid Interpretation Code [facility] Cholesterol in LDL [Mass/Vol] 59 mg/dL Normal <=129mg/dL [facility] Cholesterol in VLDL [Mass/Vol] 11 mg/dL Normal 7 - 40 mg/dL [facility] Triglyceride [Mass/Vol] 57 mg/dL Normal <=149mg/dL [facility] TSH Qn 3.32 m[IU]/L Normal 0.34 - 5.60 mcIU/mL [facility] Consent for Treatmenton 05-14 Consent for Treatment [id number]#1.00CD:[address] [facility] Consent for Treatment [id number]#1.00CD:[address] [facility] Lipid Panelon 06-09-2022 Cholesterol [Mass/Vol] 128 mg/dL Normal 120-200 [facility] Comment on above: Performed By: #### 1 [id number], [id number] ####[facility] [address]N[place] [address] Cholesterol in HDL [Mass/Vol] 60 mg/dL Invalid Interpretation Code [facility] Comment on above: Result Comment: HDL > or equal to 60 mg/dL: Low cardiovascular risk HDL < 40 mg/dL : High cardiovascular risk Performed By: #### 1 [id number], [id number] ####[facility] [address] [address] Cholesterol in LDL [Mass/Vol] 59 mg/dL Normal <=129 [facility] Comment on above: Performed By: #### 1 [id number], [id number] ####[facility] [address] [place] [address] Cholesterol in VLDL [Mass/Vol] 11 mg/dL Normal 7-40 [facility] Comment on above: Performed By: #### 1 [id number], [id number] ####[facility] [address] [place] [address] Triglyceride [Mass/Vol] 57 mg/dL Normal <=149 [facility] Comment on above: Performed By: #### 1 [id number], [id number] ####[facility] [address] [address] Outside Labson 06-09-2022 Outside Labs [id number]#1.00CD:[address] [facility] Progress Note-Nurseon 2022 Progress Note-Nurse [id number]#1.00CD:[address] [facility] Reminderson 06-09-2022 Reminders - From: Ashley Blackwell To: Mary Rodriguez; Sent: 06/09/2022 13:41:18 EST Show up: 11/06/2022 14:41:00 EDT Subject: 6 month follow up Due Date/Time: 12/07/2022 14:41:00 EDT Reminder/Recall 6 month follow up with Dr. Martinez (November 2022) Normal [facility] TSH With T4fr Reflexon 06-09 TSH Qn 3.32 m[IU]/L Normal 0.34-5.60 [facility] Comment on above: Performed By: #### 1 [id number], [id number] ####[facility] [address] [place] [address] CBC AUTO DIFFon 04-30-2022 BASO # 0.0 103/ul Normal 0.0-0.1 [facility] Comment on above: Performed By: #### D ATP, DATPSA #### [facility] [address] [place] [address] Dr. Maureen Mcdonough Basophils/100 WBC (Bld) 0.6 % Normal 0.2-2.0 [facility] Comment on above: Performed By: #### D ATBMAmber, DATPSA #### [facility] [address] [place] [address] Dr. Maureen Mcdonough EO # 0.2 103/ul Normal 0.0-0.7 [facility] Comment on above: Performed By: #### D ATBMP, DATPSA #### [facility] [address] [place] [address] Dr. Maureen Mcdonough Eosinophils/100 WBC (Bld) 3.3 % Normal 0.9-7.0 [facility] Comment on above: Performed By: #### D ATBMP, DATPSA #### [facility] [address] [place] [address] Dr. Maureen Mcdonough Erythrocyte distribution width (RBC) [Ratio] 13.1 % Normal 11.0-15.0 [facility] Comment on above: Performed By: #### D ATBMP, DATPSA #### [facility] [address] [place] [address] Dr. Maureen Mcdonough Hematocrit (Bld) [Volume fraction] 41.1 % Critically low 42.0-54.0 [facility] Comment on above: Performed By: #### D [facility], DATPSA #### [facility] [address] [place] [address] Dr. Maureen Mcdonough Hemoglobin (Bld) [Mass/Vol] 13.4 g/dL Critically low 14.0-18.0 [facility] Comment on above: Performed By: #### D [facility], DATPSA #### [facility] [address] [place] [address] Dr. Maureen Mcdonough IG # 0.03 10e3/ul Normal 0.00-0.03 [facility] Comment on above: Performed By: #### D [facility], DATPSA #### [facility] [address] [place] [address] Dr. Maureen Mcdonough IG % 0.4 % Normal 0.0-0.5 [facility] Comment on above: Performed By: #### D [facility], DATPSA #### [facility] [address] [place] [address] Dr. Maureen Mcdonough LYMPH # 2.5 103/ul Normal 1.2-3.8 [facility] Comment on above: Performed By: #### D [facility], DATPSA #### [facility] [address] [place] [address] Dr. Maureen Mcdonough Lymphocytes/100 WBC (Bld) 35.2 % Normal 20.5-60.0 [facility] Comment on above: Performed By: #### D [facility], DATPSA #### [facility] [address] [place] [address] Dr. Maureen Mcdonough MANUAL DIFF REQ NO Normal [facility] Comment on above: Performed By: #### D ATP, DATPSA #### [facility] [address] [place] [address] Dr. Maureen Mcdonough MCH (RBC) [Entitic mass] 29.6 pg Normal 25.9-34.0 [facility] Comment on above: Performed By: #### D ATP, DATPSA #### [facility] [address] [place] [address] Dr. Maureen Mcdonough MCHC (RBC) [Mass/Vol] 32.6 g/dL Normal 29.9-35.2 [facility] Comment on above: Performed By: #### D ATP, DATPSA #### [facility] [address] [place] [address] Dr. Maureen Mcdonough MCV (RBC) [Entitic vol] 90.9 fL Normal 80.0-94.0 [facility] Comment on above: Performed By: #### D ATP, DATPSA #### [facility] [address] [place] [address] Dr. Maureen Mcdonough MONO # 0.8 103/ul Normal 0.3-0.8 [facility] Comment on above: Performed By: #### D [facility], DATPSA #### [facility] [address] [place] [address] Dr. Maureen Mcdonough Monocytes/100 WBC (Bld) 10.7 % Normal 1.7-12.0 [facility] Comment on above: Performed By: #### D ATP, DATPSA #### [facility] [address] [place] [address] Dr. Maureen Mcdonough NEUT # 3.5 103/ul Normal 1.4-6.5 [facility] Comment on above: Performed By: #### D ATP, DATPSA #### [facility] [address] [place] [address] Dr. Maureen Mcdonough Neutrophils/100 WBC (Bld) 49.8 % Normal 43.0-75.0 [facility] Comment on above: Performed By: #### D ATP, DATPSA #### [facility] [address] [place] [address] Dr. Maureen Mcdonough Platelet mean volume (Bld) [Entitic vol] 9.2 fL Critically low 9.5-13.5 [facility] Comment on above: Performed By: #### D ATP, DATPSA #### [facility] [address] [place] [address] Dr. Maureen Mcdonough PLT 204 103/ul Normal 150-450 [facility] Comment on above: Performed By: #### D ATP, DATPSA #### [facility] [address] [place] [address] Dr. Maureen Mcdonough RBC 4.52 106/ul Critically low 4.70-6.10 [facility] Comment on above: Performed By: #### D ATP, DATPSA #### [facility] [address] [place] [address] Dr. Maureen Mcdonough WBC 7.0 103/ul Normal 4.0-11.0 [facility] Comment on above: Performed By: #### D [facility], DATPSA #### [facility] [address] [place] [address] Dr. Maureen Mcdonough CKMBon 04-30-2022 CK.MB [Mass/Vol] 1.23 ng/mL Normal <=3.60 [facility] Comment on above: Performed By: #### L IPA, CKMB #### [facility] [address] [place] [address] Dr. Maureen Mcdonough LIPASEon 04-30-2022 Lipase [Catalytic activity/Vol] 67.0 U/L Critically low 73.0-393.0 [facility] Comment on above: Performed By: #### L IPA, CKMB #### [facility] [address] [place] [address] Dr. Maureen Mcdonough UA RANDOM W/MICROSCOPICon BACTERIA NONE SEEN Normal NONE SEEN [facility] Comment on above: Performed By: #### U AMIC #### [facility] [address] [place] [address] Dr. Maureen Mcdonough Bilirubin Ql (U) Negative Normal NEGATIVE [facility] Comment on above: Performed By: #### U AMIC #### [facility] [address] [place] [address] Dr. Maureen Mcdonough CAST NONE SEEN Normal NONE SEEN [facility] Comment on above: Performed By: #### U AMIC #### [facility] [address] [address] [address] Maureen Mcdonough Clarity (U) CLEAR Normal CLEAR [facility] Comment on above: Performed By: #### U AMIC #### [facility] [address] [address] [address] Maureen Mcdonough Color (U) YELLOW Normal YELLOW [facility] Comment on above: Performed By: #### U AMIC #### [facility] [address] [place] [address] Dr. Maureen Mcdonough Crystals LM Nom (Urine sed) NONE SEEN Normal NONE SEEN [facility] Comment on above: Performed By: #### U AMIC #### [facility] [address] [place] [address] Dr. Maureen Mcdonough Epithelial cells LM Ql (Urine sed) RARE Normal NONE SEEN /RARE [facility] Comment on above: Performed By: #### U AMIC #### [facility] [address] [address] [address] Maureen Mcdonough Glucose Ql (U) Negative Normal NEGATIVE [facility] Comment on above: Performed By: #### U AMIC #### [facility] [address] [place] [address] Dr. Maureen Mcdonough Hemoglobin Ql (U) Negative Normal NEGATIVE [facility] Comment on above: Performed By: #### U AMIC #### [facility] [address] [address] [address] Maureen Mcdonough Ketones Ql (U) Negative Normal NEGATIVE [facility] Comment on above: Performed By: #### U AMIC #### [facility] [address] [address] [address] Maureen Mcdonough LEUKOCYTES Negative Normal NEGATIVE [facility] Comment on above: Performed By: #### U AMIC #### [facility] [address] [place] [address] Dr. Maureen Mcdonough MUCOUS NONE SEEN Normal NONE SEEN [facility] Comment on above: Performed By: #### U AMIC #### [facility] [address] [place] [address] Dr. Maureen Mcdonough Nitrite Ql (U) Negative Normal NEGATIVE [facility] Comment on above: Performed By: #### U AMIC #### [facility] [address] [address] [address] Maureen Mcdonough pH (U) 5.0 [pH] Normal 5-9 [facility] Comment on above: Performed By: #### U AMIC #### [facility] [address] [address] [address] Maureen Mcdonough RBC NONE SEEN Abnormal 0-2 [facility] Comment on above: Performed By: #### U AMIC #### [facility] [address] [address] [address] Maureen Mcdonough SPEC GRAVITY 1.025 Normal 1.005-<=1. 025 [facility] Comment on above: Performed By: #### U AMIC #### [facility] [address] [place] [address] Dr. Maureen Mcdonough UA PROTEIN Negative Normal NEGATIVE/ TRACE [facility] Comment on above: Performed By: #### U AMIC #### [facility] [address] [address] [address] Maureen Mcdonough Urobilinogen Qn (U) 0.2 {Jose David'U}/dL Normal 0.2 - 1. 0 [facility] Comment on above: Performed By: #### U AMIC #### [facility] [address] [place] [address] Dr. Maureen Mcdonough WBC NONE SEEN Normal NONE SEEN [facility] Comment on above: Performed By: #### U AMIC #### [facility] [address] [place] [address] Dr. Maureen Mcdonough CBC AUTO DIFFon 04-08-2022 BASO # 0.0 103/ul Normal 0.0-0.1 [facility] Comment on above: Performed By: #### D ATBMP, DATPSA #### [facility] [address] [address] [address] Maureen Mcdonough Basophils/100 WBC (Bld) 0.6 % Normal 0.2-2.0 [facility] Comment on above: Performed By: #### D [facility], DATPSA #### [facility] [address] [place] [address] Dr. Maureen Mcdonough EO # 0.2 103/ul Normal 0.0-0.7 [facility] Comment on above: Performed By: #### D ATP, DATPSA #### [facility] [address] [place] [address] Dr. Maureen Mcdonuogh Eosinophils/100 WBC (Bld) 3.4 % Normal 0.9-7.0 [facility] Comment on above: Performed By: #### D [facility], DATPSA #### [facility] [address] [place] [address] Dr. Maureen Mcdonough Erythrocyte distribution width (RBC) [Ratio] 13.0 % Normal 11.0-15.0 [facility] Comment on above: Performed By: #### D [facility], DATPSA #### [facility] [address] [place] [address] Dr. Maureen Mcdonough Hematocrit (Bld) [Volume fraction] 40.9 % Critically low 42.0-54.0 [facility] Comment on above: Performed By: #### D [facility], DATPSA #### [facility] [address] [place] [address] Dr. Maureen Mcdonough Hemoglobin (Bld) [Mass/Vol] 13.2 g/dL Critically low 14.0-18.0 [facility] Comment on above: Performed By: #### D [facility], DATPSA #### [facility] [address] [place] [address] Dr. Maureen Mcdonough IG # 0.03 10e3/ul Normal 0.00-0.03 [facility] Comment on above: Performed By: #### D ATP, DATPSA #### [facility] [address] [place] [address] Dr. Maureen Mcdonough IG % 0.5 % Normal 0.0-0.5 [facility] Comment on above: Performed By: #### D ATBMP, DATPSA #### [facility] [address] [place] [address] Dr. Maureen Mcdonough LYMPH # 2.5 103/ul Normal 1.2-3.8 [facility] Comment on above: Performed By: #### D ATP, DATPSA #### [facility] [address] [place] [address] Dr. Maureen Mcdonough Lymphocytes/100 WBC (Bld) 38.3 % Normal 20.5-60.0 [facility] Comment on above: Performed By: #### D [facility], DATPSA #### [facility] [address] [place] [address] Dr. Maureen Mcdonough MANUAL DIFF REQ NO Normal [facility] Comment on above: Performed By: #### D [facility], DATPSA #### [facility] [address] [place] [address] Dr. Maureen Mcdonough MCH (RBC) [Entitic mass] 29.5 pg Normal 25.9-34.0 [facility] Comment on above: Performed By: #### D [facility], DATPSA #### [facility] [address] [place] [address] Dr. Maureen Mcdonough MCHC (RBC) [Mass/Vol] 32.3 g/dL Normal 29.9-35.2 [facility] Comment on above: Performed By: #### D [facility], DATPSA #### [facility] [address] [place] [address] Dr. Maureen Mcdonough MCV (RBC) [Entitic vol] 91.5 fL Normal 80.0-94.0 [facility] Comment on above: Performed By: #### D [facility], DATPSA #### [facility] [address] [place] [address] Dr. Maureen Mcdonough MONO # 0.7 103/ul Normal 0.3-0.8 [facility] Comment on above: Performed By: #### D ATBMP, DATPSA #### [facility] [address] [place] [address] Dr. Maureen Mcdonough Monocytes/100 WBC (Bld) 10.9 % Normal 1.7-12.0 [facility] Comment on above: Performed By: #### D ATAmber DATPSA #### [facility] [address] [address] [address] Maureen Mcdonough NEUT # 3.0 103/ul Normal 1.4-6.5 [facility] Comment on above: Performed By: #### D ATAmber DATPSA #### [facility] [address] [place] [address] Dr. Maureen Mcdonough Neutrophils/100 WBC (Bld) 46.3 % Normal 43.0-75.0 [facility] Comment on above: Performed By: #### D ATAmber DATPSA #### [facility] [address] [place] [address] Dr. Maureen Mcdonough Platelet mean volume (Bld) [Entitic vol] 9.3 fL Critically low 9.5-13.5 [facility] Comment on above: Performed By: #### D ATAmber DATPSA #### [facility] [address] [place] [address] Dr. Maureen Mcdonough PLT 208 103/ul Normal 150-450 [facility] Comment on above: Performed By: #### D ATAmber DATPSA #### [facility] [address] [place] [address] Dr. Maureen Mcdonough RBC 4.47 106/ul Critically low 4.70-6.10 [facility] Comment on above: Performed By: #### D ATAmber, DATPSA #### [facility] [address] [place] [address] Dr. Maureen Mcdonough WBC 6.5 103/ul Normal 4.0-11.0 [facility] Comment on above: Performed By: #### D ATAmber, DATPSA #### [facility] [address] [place] [address] Dr. Maureen Mcdonough TSHon 04-08-2022 TSH 12.231 uIU/mL Critically high 0.358-3.74 0 [facility] Comment on above: Performed By: #### D [facility], DATPSA #### [facility] [address] [place] [address] Dr. Maureen Mcdonough Coding Summary.on 03-18-2022 Coding Summary. CD:[id number] Gh0bW w+PGhlYWQ+YF5BMRLvW73exYH wyA2QH6xVFW8WRBUALTSZSQ6E CQ1dxBS3RMgrT0QpcjMq TvypjQGfLV34MDi6WYT6bHwmO YiwvJ1zuJTsX8u8SkGnBS16iH 21XExjQYFkJdY7GeZqiyhkqVY y I1mvWrGmtYJnQwi+PHRhYmxlI HdpZHRoPScxMDAlJyBzdHlsZT 0yMs7zJNSsCCAbiMddmZQtVwS j p8fgDDUnPPibIZ8lmRjtD2Pkj QI7DTNhw0r3Ib85kEU+PHRkIH S8fCpbDIoha607UvKva5cwDQL 3 oALkRFzzKED5J49td8H8DJKyM DKyLQM1sGD6fA2juVeguuobY0 FcnMJzMkA2BVV3hQReyA7cnPo n cghdxT4wVyd+K74MKP8UTNTNE R0TVab5B7OmWfhxtQY+PC90YW JcDH65nPGjaHOez0ifoVd3ZvI w XTHaWAF8xMpvBXyoy2LcMHQdF 63utRGxb6J3KVYrnGgrbCYzSq OjbXX0xX0eZMhfmsgpd4tkykb n Rcmed9pcwb32nQ24N76xIGhxO HGgURR3CHWrOVDjgKvxgn1ueD 9wIi8+NQows8hxv1rilRu8RtS w QAVdnhSuxPyoQUA1n2LaAk53J 7JawEqzz2WwInp7ja40kTOpz6 U9cZD6ASixRAHvcW0gDDqmDzT 6 VNAzHcZqwA17wLDfMKyoQs1ip HxoqYsrCW6kNHCwmbfqNTOnqW 5hTZOgjYXgsWziTS6vAHEmhbl m o571QiKrQBZ2MBKgaHPxX1Qty A3oDnWxGYHwTQQhX8HcyCLdVK taO783AElzSpP0RIYqkrBgG4X s BNBquDnxCpX1s5C9Ag3Pz6Yec vadKYU2SWzfVKTuVzW6FdVcLb C7F4DoBwv6TSPblJgxNV3oN7C h MJFouvsrsjblcZH4ZHYvDZVzh V00xFDqWDyiGx9qv2U4e119OF UhYPTsmR32Vj7lfGvkKLYgfUX U xM7ponjlm6pgslovUiIpFAOqY Uh8RJu7YIWuiIfnOwQyGQF3Xm W1AYO6fSFbvN1anJibcmknnE9 w Oyc+P05gtH1lFBT5VXE2fxuuR GDcjqJrTS55PZ28D7OqYyexkM FibGU+BXXpuyQfhSuuQR0eRzA j v8rpv5HcBZpcN4SyMWRgWGsdQ kg0GIWmBTZ5iND4eD1cYDJrNM lfk9U2xFW2W7QhhhAijk4lx4c s DCBsVBtxU25uyIUew0X9JLKto EP1XZZnuOzyNfZknC28Gzh+PG XnhVjuo3TuTzgyt1tte8btmKi 9 DpBeYGVvokFpsHsiVOO2w1CdX m22F97dQQagBXYzEJZzVUByMT OscJlrbb1xqI7xTi0+PGNvbCB 3 lZS4jF8wOEUqHxN7YLzbL623F rUvwNXfKyuph9zgm3nooQt0Pk YiDHEfbvAkpXotDGY2y4OnZw5 8 S09mJKmtNPZkPPWsWXJbZDNcl Qklzr1yhY4wTv0+ET8gd4qdvn 05dJ85rSD+IOLaXPL3yFvtCRs w DEEejN8sNLxtShM4KBTmQtEpx U91eTJnQLejPn5qpYttmOroKA 8jUPLywzzmk599VaNvq1gwSMG w sACcSXhfYTD1Y56cs2D9EPJmM MYvEPG2eRV8jY7fhUddvsseqY DdnVdpemKhePugGEnvBIrrE26 6 IHRvcDsnPlBhdGllbnQgTmFtZ Is8H0BtVwl0AKAvsFluUA7fjP CzRQnlCe1czExkxLqpYJ0zXFY p wzjnd108NeDrw6axLINctJPfM YsfSYQ8L95az6E1VQJiNYCxYJ D2cIZ8iB3zqFvourloaTTyeUu g wbCgkVylCVlaNJpoE078MMPgk PnfRfEvzvRgUGSdqSO3LU37YY 96pLKkc6P0cTK3Z5LaKTDfzmn t heipwTA6ZDOjVRXcjH61Hf9fn OdhFr4oVTSqKGA8VFOkuIWaK5 VizP6cTmKbURKnOYYpQ9AerEU t DCegP983AIbtAtX4WOUadtDeP 2ZcATCasZwjFxF3u8X5Ox0IC9 I1AU75VS60mTRkv4W2zWC0U4R h BJDnrodldeaxqLZ0RPGmKITdy G71Ba2kuFygWc8wZGBfGPW6GB LugBNrH9ZanS6jPzThJQSuTBI w Z7NqoDAgGPedV354UAzwBvI1H SFnzaOfK3XfPQFpmAhuVyL3c8 V6Yo0JVLh5AF35ZB54gIMcd3I 5 mEN7N2BiWTXygwltpqujeDV9B HUsGQFgwK63Su1jwHliFv8zKG CqFPR1ZVNqbHBbI2GqzV9nTqK j BWQkIMNcU1PbsUWoYDdnH093N TvqZuR5QJMqufGvE5FsRQHgsM prDcS3v8K7Tt3XAFMuHA48ZYN 5 kGY6WC02YD84B4SiKjiiaCEhu +PHRhYmxlIHdpZHRoPScxMD IkElJkvAxnIS8gTm8cOROgUUI v iZzagDLhNwFds0slYCNkJZfkS L9olQteD6KurCM5CLEvg6l1Sg 77E78wM6HaqYN+HKMggEX0oJA 0 gI0hDwSpDaB2CUddJ927MxAnh SOkXrtlp4okj9tcwXl3WuK9BF FvxsWoaTiqBDQ7t8BcLf70P05 s IHdpZHRoPSIxNSUiIHZhbGlnb f7osP5yBj1+PFLfsRL3nPD8kQ 8kDbUfIkV4VMwyM469FlTgeHU v Oguik3kdu1gkmVg9XrXfZHXtu gKcaZtvMLO1i3YrXn38K5CblE jov2FoVya1yh57lVEys8U7oCZ 9 N1TeFWOmsjcnlROazPqgWB0cS BLfzvpoEFKcsL3uVETcN5s8Lw AdNaU5SLtpL8IkyfI4ATChpWQ g WTiuTYZ1N79ii0B2PJDaLURlA UY8kTL0oC6zsUhesbsivFYbvD somwUluXshVTpwVUosU385PGH v dZbzRSVthA8aZSJzjXXwoYwwD Q9dUIXovmqsUlTKU02KAZNZJQ wgUklDSEFSRDwvdGQ+PHRkIHN 0 xGscOTnsJGVrzY8lILBdL2n1Z oOpKaD9XBvuD7ZsHAJgikqwGo 03aK4mJbCgImI0SZkkZ3YoneM 6 MFYbdNCwLLjwJHK8V28na7G8J VJoGOQjQXC1zSY5oN3jaNhmwc ogbGVmdDsgdmVydGljYWwtYWx p H001DQNskLrxWpU8MxJ3TxW5F QD9Y2GkNyb5PPZnfJbzTN4srE YlRJotWr2wmInafAnfUC9yGWT p htoxYEObiR1pLCFoeAPklBunF X5wFVBsmzgfm604JaXkMJK9QV JdvXLbP7QtyN1iGeQlJTRxWPH w O7TirYLvAPnxB426UPerWyW1I WMtrvTyF4XyHHAtmCyfXaZ1r6 Y3Ja44KXFUFTJjcsipgSZ+PHR k YAL6eFteJQsqBXVetO9kMANtO 9e4QnXvTpZ3UJkdD2SeIJAggk kxEg16aY8cGxCuAmZ3RAfmZ6V v otJ4NBBsgGLsXXetEXX8G51ds 2K5DRAyJAJgQAZ5aPW8iD7kuY lnbjogbGVmdDsgdmVydGljYWw t ZRrjG378ZAHdwArnEu0htYX5Y 7MdVue3JHGrsWdmWE4kwWKsQR izLg5hcZlonSkaLP7aBYXtwcz w MYCmuQ7lSESztKHkaHmcRP2kB AUdyryec060SvNjAAC5CBTjeF HhF1AbpW3gYoXxTXVnTMFlS5F l sVAhLVpaW482AAuvVcF0YYCun sVuA5OyQZUheBroCcW6a4G0Zx 3HmOJjJKGpFH52SM00QB38K9A y PjwvdGFibGU+PHRhYmxlIHdpZ SHbXZiqRVMiOxIgiYbmYQ6nRe 7mJONnDWJjzOksqCNuAeYyr7v s HYTfKMqeAT0waWnpQ0RxxIZ7O IXav3e2Fz63D53rA6PcjNC+PG WptGK2xGM0qV6bHeJpSaB7PDn p H425KtEocYHiBzwxd3ree1cjl Hz1PeIbOMScqaPhaAzkYFI4j0 WmFw90T41wJAegURRfCNPaUOC i YLNbgRooye7oiK7nEx2+PGNvb EY7lPP3cZ7hPzIsThA9LZwoX0 12PuNqnCXyKlqtY84xG7IbqWP + LAAhMhv5YUXajPeoIA9yaZWcA PhyWs2bMKL3UbYlNxRsLOoiU3 FoBNZzajoivfevqWS1QKGwVBG w mT81Ap8mlYbxYb7pUMLtZFT0K JCfqLLlR9UsfD2iEzDkYPXzLU DlL7TttHKrXJzyI226GSyeZhZ 7 VLIwkxDgR5VsZURzyLtrKtO7o 9P1Tb4XgIkarKDqNX1xVfIwRH o7S5JwQjz7HIHvjAauUT7xjXD k KMpwCn7bpHwyqTtfSE8pVQTej khkm733UxIhy0nvGIXjzCNoQB zeYIJ7B78iv2U6TUKoHBTlTCU 7 uLD7tG0awBmauwwkoYDxtImbt iHooZqpIPhiMTxiW670TEHgyQ idGoSTSmp9D4QtNct8WWKsnWk s GA3zaHHdVUldNa7naTrtpEhyP P5mNVHroiztk309PaVde2izKN IbvPNaGPadUNX6R97if8Y6IKR w HKEoXMA7jFE9cE4siSklbgvqf GVmdDsgdmVydGljYWwtYWxpZ2 42TYKpaDxhUi0FJkl1X5AeVcs 0 ZVAcqDaqSW7kjCLqUEofBa7ny TqwlCpoXB7lWSZmcihld186Gi Ovm1skERSeoLZsYYrjBIJ8M54 s w0N8GBByQZLbVXL6qAC7zH0gi GlnbjogbGVmdDsgdmVydGljYW epRDgjY215VVNjbGzrCvRpcDD y OjwvdGQ+HO75jv27P0BuSrktI mb4BUQePKI8hMG7sS0sEEXnDL vwd7C1xMR9B6HijoTgrj1km7c s YXBz (more content not included)... Normal [facility] Physician Orderon 03-10-2022 Physician Order [id number]#1.00CD:[address] [facility] Consent for Treatmenton 02-11 Consent for Treatment [id number]#1.00CD:[address] [facility] Heart and Vascular Office/Cl inic Noteon 03-09-2022 Heart and Vascular Office/Clinic Note Chief Complaint CABG x 2 Follow Up History of Present Illness Jerri Horne is a 71-year-old male who presents to [facility]. He is accompanied by an adult female. Mr. 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 Mr. Horne was started on isosorbide by Dr. Rodrigues who also referred him to Dr. Deisy Rausch for chest pains. He was then sent to Dr. Simon in [place] who performed his cardiac catheterization six weeks ago. Prior to the catheterization, he was suffering and could hardly walk. He was also having a difficult time breathing. He was not using nitroglycerine. Today, he reports that he is still having a little discomfort with deep breathing and that he would like to start cardiac rehab. Dr. Simon has asked him not to drive until the new year. He admits to recently overdoing it and possibly pulling a muscle. He explains that he is a slow healer and anemic. He explains that he has an unspecified ankle deformity that requires him to wear a large boot due to swelling and a lack of support. There is also swelling in his left lower extremity that he wears compression stockings for. The swelling is located where he has had past vascular surgery. Mr. Horne also explains that he had a skin graft on this leg which has left a line that looks like swelling. His feet are always cold, but he is unsure if he has ever been checked for blockages in his lower extremities. Review of Systems PHQ Score Initial Depression Screen Score: 0 Constitutional: no fever, no sweats, no weakness Skin: no rash, no lesions, no bruising/petechiae ENMT: no sore throat, no congestion, no hoarseness Respiratory: no shortness of breath, no cough, no orthopnea, no wheezing Cardiovascular: no chest pain, no palpitations, no edema Gastrointestinal: no nausea, no vomiting, no diarrhea, no GI bleeding Genitourinary: no anuria/oliguria no hematuria Musculoskeletal: no back pain, no trauma Neurologic: no headache, no dizziness, no numbness, no weakness Psychiatric: no sleeping problems, no irritability, no anxiety/depression. Heme/Lymph: no bleeding tendency, no bruising tendency Allergy/Immunologic: no recurrent infections, no impaired immunity Additional ROS info: Except as noted in the above Review of Systems and in the History of Present Illness all other systems have been reviewed and are negative or noncontributory Physical Exam Vitals & Measurements HR: 89(Peripheral) RR: 18 BP: 134/80 SpO2: 98% HT: 68 in HT: 172 cm WT: 97 kg WT: 213.4 lb BMI: 32.79 General: alert, no acute distress Skin: warm, dry intact Head: atraumatic, normocephalic Neck: Trachea midline, no JVD, no bruit Eye: normal conjunctiva, sclera clear ENMT: oral mucosa moist Cardiovascular: regular rate and rhythm, no murmur, normal peripheral perfusion Respiratory: Lungs CTA, respirations non labored Chest wall: no deformity. Gastrointestinal: soft, non-distended, no tenderness, no guarding. Back: No tenderness, Normal ROM, Normal alignment. Extremities: no edema, no deformity, no trauma Neurological: oriented x 4, LOC appropriate for age, sensation equal & normal bilaterally, speech normal Psychiatric: cooperative, affect appropriate for age, normal judgement, normal psychiatric thoughts. Assessment/Plan 1. 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 I advised the patient to continue wearing the compression stockings and to let me know if he starts to have any redness or pain. 2. Hyperlipidemia. Patient will continue on his statin as before. 3. Chest pain. I have referred the patient to cardiac rehabilitation at [place]. Follow Up: 3 months. Documentation services were performed after patient or guardian consented to allow Aniyah Chandni Garcia to record this visit. LISA customer relations specialist and provider reviewed before signing. LISA: Elif Ruiz. Follow-up No qualifying data available Problem List/Past Medical History Ongoing No qualifying data Historical No qualifying data Procedure/Surgical History CABG x 2 - Coronary artery bypass grafts x 2. Medications acetaminophen 325 mg Tab aspirin atorvastatin 40 mg Tab Lasix 20 mg Tab levothyroxine 50 mcg (0.05 mg) Tab magnesium oxide Metoprolol tartrate 25 mg Tab potassium chloride 20 mEq ER Tab rosuvastatin 10 mg Tab Allergies rosuvastatin (Other, Unknown, Abdominal pain, Cramping of the Muscles) Social History Alcohol Current, 03/09/2022 Tobacco - Denies Tobacco Use, 03/09/2022 [facility] Comment on above: Result Comment: Elec tronically Signed By: Juan MANDEL, Suresh Foster\.br\Date and Time Signed: 03/09/22 19:55 EST\.br\Electronically Co-Signed By: Elif Ibanez\.br\Date and Time Co-Signed: 03/09/22 16:35 EST Outside Cardiovascularon Outside Cardiovascular [id number]#1.00CD:1 27 [facility] Facesheeton 03-02-2022 Facesheet [id number]#1.00CD:1 27 [facility] Outside Cardiovascularon Outside Cardiovascular [id number]#1.00CD:1 27 [facility] Outside Labson 03-02-2022 Outside Labs [id number]#1.00CD:[address] [facility] Outside Operativeon 03-02-20 22 Outside Operative [id number]#1.00CD:[address] [facility] Outside Operative [id number]#1.00CD:[address] [facility] Outside Radiologyon 03-02-20 Outside Radiology [id number]#1.00CD:1 27 [facility] CHEST 2 VIEW PA AND LATon CHEST 2 VIEW PA AND LAT Normal [facility] Facesheeton 02-27-2022 Facesheet [id number]#1.00CD:1 27 [facility] Office Visit (Cardiac Surger y)on 02-27-2022 Follow-up visit Diagnoses/Problems Assessed S/P CABG (coronary artery bypass graft) (V45.81) (Z95.1) Chief Complaint History of Present IllnessThis 71 year old status [place] [facility] discharged from hospital on 02/03/22. Patient seen today as post operative visit. Midline sternal incision is well approximated with no redness or drainage noted. Lungs are clear bilaterally, CXR looks normal. Right leg vein harvest sites X2 are well approximated with no redness or drainage noted. He has no complaints of pain at this time. He has no edema and pedal pulses palpable bilaterally. He has been taking short walks without shortness of breath. Heart sounds are normal. Bowel sounds are active with patient reporting normal bowel movements. Patient instructed to call with any questions or concerns. Active Problems Problems 2-vessel coronary artery disease (414.00) (I25.10) Abnormal stress test (794.39) (R94.39) Angina pectoris (413.9) (I20.9) Benign prostatic hyperplasia with nocturia (600.01,788.43) (N40.1,R35.1) Chest pain (786.50) (R07.9) Class 1 obesity with body mass index (BMI) of 33.0 to 33.9 in adult (278.00,V85.33) (E66.9,Z68.33) Dyspnea on exertion (786.09) (R06.09) Former smoker (V15.82) (Z87.891) QUIT 2000 2PPD Hyperlipidemia (272.4) (E78.5) Hypertension (401.9) (I10) S/P CABG (coronary artery bypass graft) (V45.81) (Z95.1) Surgical History Problems History of Colonoscopy History of Stomach surgery MUSCLE REMOVED History of [place] tooth extraction Family History Father Family history of myocardial infarction (V17.3) (Z82.49) Sister Family history of stent (V19.8) (Z84.89) Social History Problems Daily alcohol use 4-6 BEERS DAILY Daily caffeine consumption, 1 serving a day 1 1/2 COFFEE DAILY Former smoker (V15.82) (Z87.891) QUIT 2000 2PPD 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 Benazepril HCl - 20 MG Oral TabletTAKE 1 TABLET DAILY. Docusate Sodium 100 MG Oral TabletTAKE 1 TABLET TWICE DAILY WHILE ON IRON Iron TABSTAKE 1 TABLET ONCE DAILY. Isosorbide Mononitrate 30 MG ZR38NKPS 1 TABLET DAILY. Levothyroxine Sodium 50 MCG Oral CapsuleTAKE 1 CAPSULE BY MOUTH EVERY MORNING BEFORE BREAKFAST ON EMPTY STOMACH Metoprolol Tartrate 25 MG Oral TabletTAKE 1 TABLET TWICE DAILY. Multi Vitamin TABSTAKE 1 TABLET EVERYOTHER DAY DAILY. Nitroglycerin 0.4 MG Sublingual Tablet SublingualPLACE 1 TABLET UNDER THE TONGUE EVERY 5 MINUTES FOR UP TO 3 DOSES NEEDED FOR CHEST PAIN.CALL 911 IF PAIN PERSISTS. Polyethylene Glycol 3350 17 GM Oral PacketMIX 1 PACKET IN 8 OUNCES OF LIQUID AND DRINK ONCE DAILY NEEDED Rosuvastatin Calcium 10 MG Oral TabletTAKE 1 TABLET AT BEDTIME traMADol HCl - 50 MG Oral TabletTAKE 1 TABLET EVERY 6 HOURS NEEDED FOR PAIN. Vitamin B + C Complex TABS1 tab every other day Vitamin C TABSTAKE 1 TABLET EVRY OTHER DAY. Zinc CAPS1 tab every other day Vitals Vital Signs Recorded: 27Feb2022 11:04AM Hclactpkxqf14.1 F Heart Vnaw632 Ipvmsqgmvgu68 Zhdzjyog047 Xfnlvsacf56 Height5 ft 8 in Vypyga074 lb BMI Vddosavsrd36.69 kg/m2 BSA Calculated2.11 O2 Pdpypdetlh68 Signatures Electronically signed by : Jt Guillen MD; Feb 27 2022 11:38AM EST (Author) Normal [facility] Outside Cardiovascularon Outside Cardiovascular [id number]#1.00CD:[address] [facility] Outside Cardiovascular [id number]#1.00CD:[address] [facility] Outside Cardiovascular [id number]#1.00CD:[address] [facility] Outside Cardiovascular [id number]#1.00CD:[address] [facility] Outside Cardiovascular [id number]#1.00CD:[address] [facility] Outside Cardiovascular [id number]#1.00CD:[address] [facility] Outside Cardiovascular [id number]#1.00CD:[address] [facility] Outside HPon 02-27-2022 Outside HP [id number]#1.00CD:[address] [facility] Outside Labson 02-27-2022 Outside Labs [id number]#1.00CD:[address] [facility] Outside Operativeon 02-28-20 Outside Operative [id number]#1.00CD:[address] [facility] Outside Radiologyon 02-28-20 22 Outside Radiology [id number]#1.00CD:[address] [facility] Outside Radiology [id number]#1.00CD:[address] [facility] Radiologyon 02-27-2022 XR Chest 2 Views Please click on the link to view the study images Normal [facility] [facility] Work Phone: CBCon 02-13-2022 Erythrocyte distribution width (RBC) [Ratio] 12.5 % Normal 11.5 - 14.5 [facility] Comment on above: Performed By: #### C BC ####[address] [id number] Hematocrit (Bld) [Volume fraction] 31.4 % Low 41.0 - 52.0 [facility] Comment on above: Performed By: #### C BC ####[address] [id number] Hemoglobin (Bld) [Mass/Vol] 10.2 g/dL Low 13.5 - 17.5 [facility] Comment on above: Performed By: #### C BC ####[address] [id number] MCHC (RBC) [Mass/Vol] 32.5 g/dL Normal 32.0 - 36.0 [facility] Comment on above: Performed By: #### C BC ####[address] [id number] MCV (RBC) [Entitic vol] 96 fL Normal 80 - 100 [facility] Comment on above: Performed By: #### C BC ####[address] [id number] Platelets (Bld) [#/Vol] 406 10*3/uL Normal 150 - 450 [facility] Comment on above: Result Comment: Delt a Check investigation completed per policy.Platelet count verified by smear review. Performed By: #### C BC ####[address] [id number] RBC 3.26 x10E12/L Low 4.50 - 5.90 [facility] Comment on above: Performed By: #### C BC ####[address] [id number] WBC (Bld) [#/Vol] 7.9 10*3/uL Normal 4.4 - 11.3 [facility] Comment on above: Performed By: #### C BC ####[address] [id number] COMPREHENSIVE PANELon 2021 Albumin [Mass/Vol] 4.1 g/dL Normal 3.4 - 5.0 [facility] Comment on above: Performed By: #### C MP ####[address] [id number] ALP [Catalytic activity/Vol] 52 U/L Normal 33 - 136 [facility] Comment on above: Performed By: #### C MP ####[address] [id number] ALT [Catalytic activity/Vol] 22 U/L Normal 10 - 52 [facility] Comment on above: Result Comment: Lynn ents treated with Sulfasalazine may generate falsely decreased results for ALT. Performed By: #### C MP ####[address] [id number] Anion gap [Moles/Vol] 11 mmol/L Normal 10 - 20 [facility] Comment on above: Performed By: #### C MP ####[address] [id number] AST [Catalytic activity/Vol] 21 U/L Normal 9 - 39 [facility] Comment on above: Performed By: #### C MP ####[address] [id number] Bilirubin [Mass/Vol] 0.4 mg/dL Normal 0.0 - 1.2 [facility] Comment on above: Performed By: #### C MP ####[address] [place], [place] [id number] Calcium [Mass/Vol] 9.3 mg/dL Normal 8.6 - 10.3 [facility] Comment on above: Performed By: #### C MP ####[address] [id number] Chloride [Moles/Vol] 102 mmol/L Normal 98 - 107 [facility] Comment on above: Performed By: #### C MP ####[address] [id number] Creatinine [Mass/Vol] 1.06 mg/dL Normal 0.50 - 1.30 [facility] Comment on above: Performed By: #### C MP ####[address] [id number] GFR/1.73 sq M.predicted among non-blacks MDRD (S/P/Bld) [Vol rate/Area] 76 mL/min/{1.73_m2} Normal >90 [facility] Comment on above: Result Comment: CALC ULATIONS OF ESTIMATED GFR ARE PERFORMED USING THE 2020 CKD-EPI STUDY REFIT EQUATION WITHOUT THE RACE VARIABLE FOR THE IDMS-TRACEABLE CREATININE METHODS.https://jasn.asnjournals.org/content//A .4159288843 Performed By: #### C MP ####[address] [place], [place] [id number] Glucose [Mass/Vol] 98 mg/dL Normal 74 - 99 [facility] Comment on above: Performed By: #### C MP ####[address] [place], [place] [id number] HCO3 (Bld) [Moles/Vol] 29 mmol/L Normal 21 - 32 [facility] Comment on above: Performed By: #### C MP ####[facility] [place], [place] [id number] Potassium [Moles/Vol] 3.9 mmol/L Normal 3.5 - 5.3 [facility] Comment on above: Performed By: #### C MP ####[facility] [place], [place] [id number] Protein [Mass/Vol] 7.5 g/dL Normal 6.4 - 8.2 [facility] Comment on above: Performed By: #### C MP ####[facility] [place], [place] [id number] Sodium [Moles/Vol] 138 mmol/L Normal 136 - 145 [facility] Comment on above: Performed By: #### C MP ####[facility] [place], [place] [id number] Urea nitrogen [Mass/Vol] 15 mg/dL Normal 6 - 23 [facility] Comment on above: Performed By: #### C MP ####[facility] [place], [place] [id number] Laboratory - Chemistry and C hemistry - challengeon 02-13-2022 Albumin BCP dye [Mass/Vol] 4.1 g/dL 3.4 - 5.0 [facility] Work Phone: ALP [Catalytic activity/Vol] 52 U/L 33 - 136 [facility] Work Phone: ALT With P-5'-P [Catalytic activity/Vol] 22 U/L 10 - 52 [facility] Work Phone: Comment on above: Patients treated wit h Sulfasalazine may generate falsely decreased results for ALT. Anion gap [Moles/Vol] 11 mmol/L 10 - [address] [facility] Work Phone: AST With P-5'-P [Catalytic activity/Vol] 21 U/L 9 - 39 [facility] Work Phone: Bilirubin [Mass/Vol] 0.4 mg/dL 0.0 - 1.2 [facility] Work Phone: Calcium [Mass/Vol] 9.3 mg/dL 8.6 - 10.3 [facility] Work Phone: Chloride [Moles/Vol] 102 mmol/L 98 - 107 [facility] Work Phone: CO2 [Moles/Vol] 29 mmol/L 21 - 32 [facility] Work Phone: Creatinine [Mass/Vol] 1.06 mg/dL See Below [facility] Work Phone: Comment on above: Reference Range: 0.5 0 - 1.30 Glucose [Mass/Vol] 98 mg/dL 74 - 99 [facility] Work Phone: Potassium [Moles/Vol] 3.9 mmol/L 3.5 - 5.3 [facility] Work Phone: Protein [Mass/Vol] 7.5 g/dL 6.4 - 8.2 [facility] Work Phone: Sodium [Moles/Vol] 138 mmol/L 136 - 145 [facility] Work Phone: Urea nitrogen [Mass/Vol] 15 mg/dL 6 - 23 [facility] Work Phone: Laboratory - Hematology and Cell countson 02-13-2022 Erythrocyte distribution width (RBC) [Ratio] 12.5 % See Below [facility] Work Phone: Comment on above: Reference Range: 11. 5 - 14.5 Hematocrit (Bld) [Volume fraction] 31.4 % below low threshold See Below [facility] Work Phone: Comment on above: Reference Range: 41. 0 - 52.0 Hemoglobin (Bld) [Mass/Vol] 10.2 g/dL below low threshold See Below [facility] Work Phone: Comment on above: Reference Range: 13. 5 - 17.5 MCHC (RBC) [Mass/Vol] 32.5 g/dL See Below [facility] Work Phone: Comment on above: Reference Range: 32. 0 - 36.0 MCV (RBC) [Entitic vol] 96 fL 80 - 100 [facility] Work Phone: Platelets (Bld) [#/Vol] 406 10*3/uL 150 - 450 [facility] Work Phone: Comment on above: Delta Check investig ation completed per policy.Platelet count verified by smear review. RBC (Bld) [#/Vol] 3.26 {x10E12/L} below low threshold See Below [facility] Work Phone: Comment on above: Reference Range: 4.5 0 - 5.90 WBC (Bld) [#/Vol] 7.9 10*3/uL 4.4 - 11.3 [facility] Work Phone: MAGNESIUMon 02-13-2022 Magnesium [Mass/Vol] 2.10 mg/dL Normal 1.60 - 2.40 [facility] Comment on above: Performed By: #### M G ####[facility] [place], [place] [id number] Magnesium, Serumon Magnesium [Mass/Vol] 2.10 mg/dL See Below [facility] Work Phone: Comment on above: Reference Range: 1.6 0 - 2.40 No Panel Informationon 02-13 76 {mL/min/1.73m2} >90 [facility] Work Phone: Comment on above: CALCULATIONS OF ALVINA MATED GFR ARE PERFORMED USING THE 2020 CKD-EPI STUDY REFIT EQUATION WITHOUT THE RACE VARIABLE FOR THE IDMS-TRACEABLE CREATININE METHODS.https://jasn.asnjournals.org/content//A SN.9781003823 Tobacco Screening.on 022 Fall risk assessment a) No falls within the last year [facility] Work Phone: Tobacco use status CP b) No [facility] Work Phone: COMPREHENSIVE PANELon 2021 Albumin [Mass/Vol] 3.6 g/dL Normal 3.4 - 5.0 [facility] Comment on above: Performed By: #### C MP ####[address] [id number] ALP [Catalytic activity/Vol] 37 U/L Normal 33 - 136 [facility] Comment on above: Performed By: #### C MP ####[address] [id number] ALT [Catalytic activity/Vol] 21 U/L Normal 10 - 52 [facility] Comment on above: Result Comment: Lynn ents treated with Sulfasalazine may generate falsely decreased results for ALT. Performed By: #### C MP ####[address] [id number] Anion gap [Moles/Vol] 10 mmol/L Normal 10 - 20 [facility] Comment on above: Performed By: #### C MP ####[address] [id number] AST [Catalytic activity/Vol] 21 U/L Normal 9 - 39 [facility] Comment on above: Performed By: #### C MP ####[address] [id number] Bilirubin [Mass/Vol] 0.5 mg/dL Normal 0.0 - 1.2 [facility] Comment on above: Performed By: #### C MP ####[address] [id number] Calcium [Mass/Vol] 9.0 mg/dL Normal 8.6 - 10.3 [facility] Comment on above: Performed By: #### C MP ####[address] [place], [place] [id number] Chloride [Moles/Vol] 97 mmol/L Low 98 - 107 [facility] Comment on above: Performed By: #### C MP ####[address] [place], [place] [id number] Creatinine [Mass/Vol] 1.07 mg/dL Normal 0.50 - 1.30 [facility] Comment on above: Performed By: #### C MP ####[address] [id number] GFR/1.73 sq M.predicted among non-blacks MDRD (S/P/Bld) [Vol rate/Area] 75 mL/min/{1.73_m2} Normal >90 [facility] Comment on above: Result Comment: CALC ULATIONS OF ESTIMATED GFR ARE PERFORMED USING THE 2020 CKD-EPI STUDY REFIT EQUATION WITHOUT THE RACE VARIABLE FOR THE IDMS-TRACEABLE CREATININE METHODS.https://jasn.asnjournals.org/content//[email or web address] Performed By: #### C MP ####[address] [place], [place] [id number] Glucose [Mass/Vol] 95 mg/dL Normal 74 - 99 [facility] Comment on above: Performed By: #### C MP ####[address] [place], [place] [id number] HCO3 (Bld) [Moles/Vol] 32 mmol/L Normal 21 - 32 [facility] Comment on above: Performed By: #### C MP ####[address] [place], [place] [id number] Potassium [Moles/Vol] 4.2 mmol/L Normal 3.5 - 5.3 [facility] Comment on above: Performed By: #### C MP ####[facility] [place], [place] [id number] Protein [Mass/Vol] 6.6 g/dL Normal 6.4 - 8.2 [facility] Comment on above: Performed By: #### C MP ####[facility] [place] [address] [id number] Sodium [Moles/Vol] 135 mmol/L Low 136 - 145 [facility] Comment on above: Performed By: #### C MP ####[facility] [place] [address] [phone] Urea nitrogen [Mass/Vol] 15 mg/dL Normal 6 - 23 [facility] Comment on above: Performed By: #### C MP ####[id number] [place], [place] [id number] Daily Progress Note-Cardiac Surgeryon 02-03-2022 Daily Progress Note-Cardiac Surgery Normal [facility] Daily Progress Note-Cardiolo gyon 02-03-2022 Daily Progress Note-Cardiology Normal [facility] GLUCOSE-POCTon 02-03-2022 Glucose [Mass/Vol] 100 mg/dL High 74 - 99 [facility] Comment on above: Performed By: #### G ALEC ####[id number] [place], [place] [id number] Glucose [Mass/Vol] 79 mg/dL Normal 74 - 99 [facility] Comment on above: Performed By: #### G ALEC ####[address] [id number] Laboratory - Chemistry and C hemistry - challengeon 02-03-2022 Glucose [Mass/Vol] 100 mg/dL above high threshold 74 - 99 [facility]: Glucose [Mass/Vol] 79 mg/dL 74 - 99 [facility] Work [facility]: Albumin BCP dye [Mass/Vol] 3.6 g/dL 3.4 - 5.0 [facility] Work Phone: ALP [Catalytic activity/Vol] 37 U/L 33 - 136 [facility] Work Phone: ALT With P-5'-P [Catalytic activity/Vol] 21 U/L 10 - 52 [facility] Work Phone: Comment on above: Patients treated wit h Sulfasalazine may generate falsely decreased results for ALT. Anion gap [Moles/Vol] 10 mmol/L 10 - 20 MG- CT Surgery-[facility] Work Phone: AST With P-5'-P [Catalytic activity/Vol] 21 U/L 9 - 39 [facility] Work Phone: Bilirubin [Mass/Vol] 0.5 mg/dL 0.0 - 1.2 MG-C T Surgery-[facility] Work Phone: Calcium [Mass/Vol] 9.0 mg/dL 8.6 - 10.3 [facility] Work Phone: Chloride [Moles/Vol] 97 mmol/L below low threshold 98 - 107 [facility] Work Phone: CO2 [Moles/Vol] 32 mmol/L 21 - 32 [facility] Work Phone: Creatinine [Mass/Vol] 1.07 mg/dL See Below MG- CT Surgery-[facility] Work Phone: Comment on above: Reference Range: 0.5 0 - 1.30 Glucose [Mass/Vol] 95 mg/dL 74 - 99 [facility] Work Phone: Potassium [Moles/Vol] 4.2 mmol/L 3.5 - 5.3 MG- CT Surgery-[facility] Work Phone: Protein [Mass/Vol] 6.6 g/dL 6.4 - 8.2 [facility] Work Phone: Sodium [Moles/Vol] 135 mmol/L below low threshold 136 - 145 [facility] Work Phone: Urea nitrogen [Mass/Vol] 15 mg/dL 6 - 23 [facility] Work Phone: MAGNESIUMon 02-03-2022 Magnesium [Mass/Vol] 2.00 mg/dL Normal 1.60 - 2.40 [facility] Comment on above: Performed By: #### M G ####[facility] [place], [place] [phone] Magnesium, Serumon Magnesium [Mass/Vol] 2.00 mg/dL See Below MG-C T Surgery-[facility] Work Phone: Comment on above: Reference Range: 1.6 0 - 2.40 No Panel Informationon 02-03 75 {mL/min/1.73m2} >90 MG-CT Surgery-[facility] Work Phone: Comment on above: CALCULATIONS OF ALVINA MATED GFR ARE PERFORMED USING THE 2020 CKD-EPI STUDY REFIT EQUATION WITHOUT THE RACE VARIABLE FOR THE IDMS-TRACEABLE CREATININE METHODS.https://jasn.asnjournals.org/content//A SN.1140800221 BASIC METABOLIC PANELon -2 Anion gap [Moles/Vol] 9 mmol/L Low 10 - 20 [facility] Comment on above: Performed By: #### B MP ####[facility] [place], [place] [phone] Calcium [Mass/Vol] 9.2 mg/dL Normal 8.6 - 10.3 [facility] Comment on above: Performed By: #### B MP ####[facility] [place], [place] [phone] Chloride [Moles/Vol] 95 mmol/L Low 98 - 107 [facility] Comment on above: Performed By: #### B MP ####[facility] [place], [place] [phone] Creatinine [Mass/Vol] 0.94 mg/dL Normal 0.50 - 1.30 [facility] Comment on above: Performed By: #### B MP ####[address] [id number] GFR/1.73 sq M.predicted among non-blacks MDRD (S/P/Bld) [Vol rate/Area] 87 mL/min/{1.73_m2} Normal >90 [facility] Comment on above: Result Comment: CALC ULATIONS OF ESTIMATED GFR ARE PERFORMED USING THE 2020 CKD-EPI STUDY REFIT EQUATION WITHOUT THE RACE VARIABLE FOR THE IDMS-TRACEABLE CREATININE METHODS.https://jasn.asnjournals.org/content//A SN.2683634342 Performed By: #### B MP ####[address] [id number] Glucose [Mass/Vol] 96 mg/dL Normal 74 - 99 [facility] Comment on above: Performed By: #### B MP ####[address] [id number] HCO3 (Bld) [Moles/Vol] 32 mmol/L Normal 21 - 32 [facility] Comment on above: Performed By: #### B MP ####[address] [id number] Potassium [Moles/Vol] 4.3 mmol/L Normal 3.5 - 5.3 [facility] Comment on above: Performed By: #### B MP ####[address] [id number] Sodium [Moles/Vol] 132 mmol/L Low 136 - 145 [facility] Comment on above: Performed By: #### B MP ####[address] [id number] Urea nitrogen [Mass/Vol] 17 mg/dL Normal 6 - 23 [facility] Comment on above: Performed By: #### B MP ####[address], [place] [id number] CBCon 02-02-2022 Erythrocyte distribution width (RBC) [Ratio] 11.7 % Normal 11.5 - 14.5 [facility] Comment on above: Performed By: #### C BC ####[facility] [place], [place] [phone] Hematocrit (Bld) [Volume fraction] 27.8 % Low 41.0 - 52.0 [facility] Comment on above: Performed By: #### C BC ####[address] [id number] Hemoglobin (Bld) [Mass/Vol] 9.0 g/dL Low 13.5 - 17.5 [facility] Comment on above: Performed By: #### C BC ####[address] [id number] MCHC (RBC) [Mass/Vol] 32.4 g/dL Normal 32.0 - 36.0 [facility] Comment on above: Performed By: #### C BC ####[address] [id number] MCV (RBC) [Entitic vol] 95 fL Normal 80 - 100 [facility] Comment on above: Performed By: #### C BC ####[address] [id number] Platelets (Bld) [#/Vol] 254 10*3/uL Normal 150 - 450 [facility] Comment on above: Performed By: #### C BC ####[address] [id number] RBC 2.93 x10E12/L Low 4.50 - 5.90 [facility] Comment on above: Performed By: #### C BC ####[address] [id number] WBC (Bld) [#/Vol] 7.9 10*3/uL Normal 4.4 - 11.3 [facility] Comment on above: Performed By: #### C BC ####[facility] [place] [address] [phone] Daily Progress Note-Cardiac Surgeryon 02-02-2022 Daily Progress Note-Cardiac Surgery Normal [facility] Daily Progress Note-Cardiolo gyon 02-02-2022 Daily Progress Note-Cardiology Normal [facility] Daily Progress Note-Endocrin ologyon 02-02-2022 Daily Progress Note-Endocrinology Normal [facility] GLUCOSE-POCTon 02-02-2022 Glucose [Mass/Vol] 169 mg/dL High 74 - 99 [facility] Comment on above: Performed By: #### G ALEC ####[address] [id number] Glucose [Mass/Vol] 83 mg/dL Normal 74 - 99 [facility] Comment on above: Performed By: #### Adrianne MICHAEL ####[address] [place], [place] [phone] Glucose [Mass/Vol] 139 mg/dL High 74 - 99 [facility] Work Phone: Comment on above: Performed By: #### Adrianne MICHAEL ####[address] [id number] Glucose [Mass/Vol] 90 mg/dL Normal 74 - 99 [facility] Comment on above: Performed By: #### Adrianne MICHAEL ####[address] [id number] Laboratory - Chemistry and C hemistry - challengeon 02-02-2022 Glucose [Mass/Vol] 169 mg/dL above high threshold 74 - 99 [facility] Work Phone: Glucose [Mass/Vol] 83 mg/dL 74 - 99 [facility] Work Phone: Glucose [Mass/Vol] 90 mg/dL 74 - 99 [facility] Work Phone: Anion gap [Moles/Vol] 9 mmol/L below low threshold 10 - 20 [facility] Work Phone: Calcium [Mass/Vol] 9.2 mg/dL 8.6 - 10.3 [facility] Work Phone: Chloride [Moles/Vol] 95 mmol/L below low threshold 98 - 107 [facility] Work Phone: CO2 [Moles/Vol] 32 mmol/L 21 - 32 [facility] Work Phone: Creatinine [Mass/Vol] 0.94 mg/dL See Below MG- CT Surgery[facility] Work Phone: Comment on above: Reference Range: 0.5 0 - 1.30 Glucose [Mass/Vol] 96 mg/dL 74 - 99 [facility] Work Phone: Potassium [Moles/Vol] 4.3 mmol/L 3.5 - 5.3 MG- CT [facility] Work Phone: Sodium [Moles/Vol] 132 mmol/L below low threshold 136 - 145 [facility] Work Phone: Urea nitrogen [Mass/Vol] 17 mg/dL 6 - 23 [facility] Work Phone: Laboratory - Hematology and Cell countson 02-02-2022 Erythrocyte distribution width (RBC) [Ratio] 11.7 % See Below MG-CT [facility] Work Phone: Comment on above: Reference Range: 11. 5 - 14.5 Hematocrit (Bld) [Volume fraction] 27.8 % below low threshold See Below MG-CT Surgery[facility] Work Phone: Comment on above: Reference Range: 41. 0 - 52.0 Hemoglobin (Bld) [Mass/Vol] 9.0 g/dL below low threshold See Below MG-CT [facility] Work Phone: Comment on above: Reference Range: 13. 5 - 17.5 MCHC (RBC) [Mass/Vol] 32.4 g/dL See Below MG- CT Surgery-[facility] Work Phone: Comment on above: Reference Range: 32. 0 - 36.0 MCV (RBC) [Entitic vol] 95 fL 80 - 100 [facility] Work Phone: [phone] Platelets (Bld) [#/Vol] 254 10*3/uL 150 - 450 [facility] Work Phone: [phone] RBC (Bld) [#/Vol] 2.93 {x10E12/L} below low threshold See Below MG-CT [facility] Work Phone: Comment on above: Reference Range: 4.5 0 - 5.90 WBC (Bld) [#/Vol] 7.9 10*3/uL 4.4 - 11.3 [facility] Work Phone: MAGNESIUMon 02-02-2022 Magnesium [Mass/Vol] 2.10 mg/dL Normal 1.60 - 2.40 [facility] Comment on above: Performed By: #### M G ####[facility] [place], [place] [phone] Magnesium, Serumon Magnesium [Mass/Vol] 2.10 mg/dL See Below MG-C T Surgery[facility] Work Phone: Comment on above: Reference Range: 1.6 0 - 2.40 No Panel Informationon 02-02 87 {mL/min/1.73m2} >90 MG[facility]CT [facility] Work Phone: Comment on above: CALCULATIONS OF ALVINA MATED GFR ARE PERFORMED USING THE 2020 CKD-EPI STUDY REFIT EQUATION WITHOUT THE RACE VARIABLE FOR THE IDMS-TRACEABLE CREATININE METHODS.https://jasn.asnjournals.org/content//A SN.2935936350 Order Reconciliationon 02-02 Order Reconciliation Normal [facility] Rehab Note-occupational therapy aides teacher apyon 02-02-2022 Rehab Note-occupational therapy Normal [facility] Rehab Note-physical therapyo n 02-02-2022 Rehab Note-physical therapy Normal [facility] BASIC METABOLIC PANELon 01-11 Anion gap [Moles/Vol] 10 mmol/L Normal 10 - 20 [facility] Comment on above: Performed By: #### B MP ####[facility] [place], [place] [id number] Calcium [Mass/Vol] 8.5 mg/dL Low 8.6 - 10.3 [facility] Comment on above: Performed By: #### B MP ####[address] [place], [place] [phone] Chloride [Moles/Vol] 96 mmol/L Low 98 - 107 [facility] Comment on above: Performed By: #### B MP ####[address] [id number] Creatinine [Mass/Vol] 0.91 mg/dL Normal 0.50 - 1.30 [facility] Comment on above: Performed By: #### B MP ####[address] [id number] eGFR MALE >90 Normal >90 [facility] Comment on above: Result Comment: CALC ULATIONS OF ESTIMATED GFR ARE PERFORMED USING THE 2020 CKD-EPI STUDY REFIT EQUATION WITHOUT THE RACE VARIABLE FOR THE IDMS-TRACEABLE CREATININE METHODS.https://jasn.asnjournals.org/content//A SN.8412840865 Performed By: #### B MP ####[facility] [place], [place] [phone] Glucose [Mass/Vol] 104 mg/dL High 74 - 99 [facility] Comment on above: Performed By: #### B MP ####[address] [id number] HCO3 (Bld) [Moles/Vol] 30 mmol/L Normal 21 - 32 [facility] Comment on above: Performed By: #### B MP ####[facility] [place] [address] [phone] Potassium [Moles/Vol] 3.6 mmol/L Normal 3.5 - 5.3 [facility] Comment on above: Performed By: #### B MP ####[facility] [place] [address] [phone] Sodium [Moles/Vol] 132 mmol/L Low 136 - 145 [facility] Comment on above: Performed By: #### B MP ####[address] [id number] Urea nitrogen [Mass/Vol] 14 mg/dL Normal 6 - 23 [facility] Comment on above: Performed By: #### B MP ####[address] [id number] CBCon 02-01-2022 Erythrocyte distribution width (RBC) [Ratio] 11.7 % Normal 11.5 - 14.5 [facility] Comment on above: Performed By: #### C BC ####[address] [id number] Hematocrit (Bld) [Volume fraction] 26.3 % Low 41.0 - 52.0 [facility] Comment on above: Performed By: #### C BC ####[address] [id number] Hemoglobin (Bld) [Mass/Vol] 8.8 g/dL Low 13.5 - 17.5 [facility] Comment on above: Performed By: #### C BC ####[address] [id number] MCHC (RBC) [Mass/Vol] 33.5 g/dL Normal 32.0 - 36.0 [facility] Comment on above: Performed By: #### C BC ####[address] [id number] MCV (RBC) [Entitic vol] 94 fL Normal 80 - 100 [facility] Comment on above: Performed By: #### C BC ####[facility] [place], [place] [id number] Platelets (Bld) [#/Vol] 188 10*3/uL Normal 150 - 450 [facility] Comment on above: Performed By: #### C BC ####[facility] [place], [place] [id number] RBC 2.81 x10E12/L Low 4.50 - 5.90 [facility] Comment on above: Performed By: #### C BC ####[facility] [place] [address] [phone] WBC (Bld) [#/Vol] 7.9 10*3/uL Normal 4.4 - 11.3 [facility] Comment on above: Performed By: #### C BC ####[address] [id number] Daily Progress Note-Cardiac Surgeryon 02-01-2022 Daily Progress Note-Cardiac Surgery Normal [facility] Daily Progress Note-Cardiolo gyon 02-01-2022 Daily Progress Note-Cardiology Normal [facility] GLUCOSE-POCTon 02-01-2022 Glucose [Mass/Vol] 120 mg/dL High 74 - 99 [facility] Comment on above: Performed By: #### G ALEC ####[address] [id number] Glucose [Mass/Vol] 117 mg/dL High 74 - 99 [facility] Comment on above: Performed By: #### G ALEC ####[address] [id number] Glucose [Mass/Vol] 106 mg/dL High 74 - 99 [facility] Comment on above: Performed By: #### G ALEC ####[address] [id number] Glucose [Mass/Vol] 104 mg/dL High 74 - 99 [facility] Comment on above: Performed By: #### G ALEC ####[facility] [place], [place] [phone] Laboratory - Chemistry and C hemistry - challengeon 02-01-2022 Glucose [Mass/Vol] 120 mg/dL above high threshold 74 - 99 [facility] Work Phone: Glucose [Mass/Vol] 117 mg/dL above high threshold 74 - 99 [facility] Work Phone: [phone] Glucose [Mass/Vol] 106 mg/dL above high threshold 74 - 99 [facility] Work Phone: Glucose [Mass/Vol] 104 mg/dL above high threshold 74 - 99 [facility] Work Phone: Anion gap [Moles/Vol] 10 mmol/L 10 - 20 MG- CT [facility] Work Phone: Calcium [Mass/Vol] 8.5 mg/dL below low threshold 8.6 - 10.3 [facility] Work Phone: Chloride [Moles/Vol] 96 mmol/L below low threshold 98 - 107 [facility] Work Phone: CO2 [Moles/Vol] 30 mmol/L 21 - 32 [facility] Work Phone: [phone] Creatinine [Mass/Vol] 0.91 mg/dL See Below MG- CT [facility] Work Phone: Comment on above: Reference Range: 0.5 0 - 1.30 Glucose [Mass/Vol] 104 mg/dL above high threshold 74 - 99 [facility] Work Phone: [phone] Potassium [Moles/Vol] 3.6 mmol/L 3.5 - 5.3 MG- CT [facility] Work Phone: Sodium [Moles/Vol] 132 mmol/L below low threshold 136 - 145 [facility] Work Phone: Urea nitrogen [Mass/Vol] 14 mg/dL 6 - 23 [facility] Work Phone: Laboratory - Hematology and Cell countson 02-01-2022 Erythrocyte distribution width (RBC) [Ratio] 11.7 % See Below MG-CT [facility] Work Phone: Comment on above: Reference Range: 11. 5 - 14.5 Hematocrit (Bld) [Volume fraction] 26.3 % below low threshold See Below MG-CT [facility] Work Phone: Comment on above: Reference Range: 41. 0 - 52.0 Hemoglobin (Bld) [Mass/Vol] 8.8 g/dL below low threshold See Below MG-CT [facility] Work Phone: Comment on above: Reference Range: 13. 5 - 17.5 MCHC (RBC) [Mass/Vol] 33.5 g/dL See Below MG- CT [facility] Work Phone: Comment on above: Reference Range: 32. 0 - 36.0 MCV (RBC) [Entitic vol] 94 fL 80 - 100 [facility] Work Phone: Platelets (Bld) [#/Vol] 188 10*3/uL 150 - 450 [facility] Work Phone: RBC (Bld) [#/Vol] 2.81 {x10E12/L} below low threshold See Below MG-CT [facility] Work Phone: Comment on above: Reference Range: 4.5 0 - 5.90 WBC (Bld) [#/Vol] 7.9 10*3/uL 4.4 - 11.3 [facility] Work Phone: MAGNESIUMon 02-01-2022 Magnesium [Mass/Vol] 2.20 mg/dL Normal 1.60 - 2.40 [facility] Comment on above: Performed By: #### M G ####[facility] [place], [place] [phone] Magnesium, Serumon 2 Magnesium [Mass/Vol] 2.20 mg/dL See Below MG-C T Surgery-[facility] a Work Phone: Comment on above: Reference Range: 1.6 0 - 2.40 No Panel Informationon 02-01 >90 >90 [facility] Work [facility]: Comment on above: CALCULATIONS OF ALVINA MATED GFR ARE PERFORMED USING THE 2020 CKD-EPI STUDY REFIT EQUATION WITHOUT THE RACE VARIABLE FOR THE IDMS-TRACEABLE CREATININE METHODS.https://jasn.asnjournals.org/content/early//A .7673406910 Rehab Note-physical therapyo n 02-01-2022 Rehab Note-physical therapy Normal [facility] CALCIUM, IONIZEDon 2 CALCIUM,IONIZED Canceled Normal [facility] Comment on above: Order Comment: TEST CALCIUM, IONIZED WAS CANCELLED, 01/31/2022 21:07 NO SPECIMEN IN LAB 01/31/2022 21:07. Performed By: #### I ONC1 ####[address] [id number] CBCon 01-31-2022 Erythrocyte distribution width (RBC) [Ratio] 11.9 % Normal 11.5 - 14.5 [facility] Comment on above: Performed By: #### C BC ####[address] [id number] Hematocrit (Bld) [Volume fraction] 25.7 % Low 41.0 - 52.0 [facility] Comment on above: Performed By: #### C BC ####[address] [id number] Hemoglobin (Bld) [Mass/Vol] 8.6 g/dL Low 13.5 - 17.5 [facility] Comment on above: Performed By: #### C BC ####[address] [id number] MCHC (RBC) [Mass/Vol] 33.5 g/dL Normal 32.0 - 36.0 [facility] Comment on above: Performed By: #### C BC ####[address] [id number] MCV (RBC) [Entitic vol] 96 fL Normal 80 - 100 [facility] Comment on above: Performed By: #### C BC ####[address] [id number] Platelets (Bld) [#/Vol] 156 10*3/uL Normal 150 - 450 [facility] Comment on above: Performed By: #### C BC ####[address] [id number] RBC 2.69 x10E12/L Low 4.50 - 5.90 [facility] Comment on above: Performed By: #### C BC ####[address] [id number] WBC (Bld) [#/Vol] 8.0 10*3/uL Normal 4.4 - 11.3 [facility] Comment on above: Performed By: #### C BC ####[address] [id number] COMPREHENSIVE PANELon 2021 Albumin [Mass/Vol] 3.5 g/dL Normal 3.4 - 5.0 [facility] Comment on above: Performed By: #### C MP ####[address] [id number] ALP [Catalytic activity/Vol] 30 U/L Low 33 - 136 [facility] Comment on above: Performed By: #### C MP ####[address] [id number] ALT [Catalytic activity/Vol] 13 U/L Normal 10 - 52 [facility] Comment on above: Result Comment: Lynn ents treated with Sulfasalazine may generate falsely decreased results for ALT. Performed By: #### C MP ####[facility] [place], [place] [id number] Anion gap [Moles/Vol] 8 mmol/L Low 10 - 20 [facility] Comment on above: Performed By: #### C MP ####[facility] [place], [place] [id number] AST [Catalytic activity/Vol] 18 U/L Normal 9 - 39 [facility] Comment on above: Performed By: #### C MP ####[facility] [place], [place] [id number] Bilirubin [Mass/Vol] 0.6 mg/dL Normal 0.0 - 1.2 [facility] Comment on above: Performed By: #### C MP ####[facility] [place], [place] [phone] Calcium [Mass/Vol] 8.3 mg/dL Low 8.6 - 10.3 [facility] Comment on above: Performed By: #### C MP ####[facility] [place], [place] [phone] Chloride [Moles/Vol] 95 mmol/L Low 98 - 107 [facility] Comment on above: Performed By: #### C MP ####[facility] [place], [place] [id number] Creatinine [Mass/Vol] 1.03 mg/dL Normal 0.50 - 1.30 [facility] Comment on above: Performed By: #### C MP ####[facility] [place] [address] [phone] GFR/1.73 sq M.predicted among non-blacks MDRD (S/P/Bld) [Vol rate/Area] 78 mL/min/{1.73_m2} Normal >90 [facility] Comment on above: Result Comment: CALC ULATIONS OF ESTIMATED GFR ARE PERFORMED USING THE 2020 CKD-EPI STUDY REFIT EQUATION WITHOUT THE RACE VARIABLE FOR THE IDMS-TRACEABLE CREATININE METHODS.https://jasn.asnjournals.org/content/early//A SN.1572678995 Performed By: #### C MP ####[facility] [place], [place] [id number] Glucose [Mass/Vol] 106 mg/dL High 74 - 99 [facility] Comment on above: Performed By: #### C MP ####[facility] [place], [place] [phone] HCO3 (Bld) [Moles/Vol] 30 mmol/L Normal 21 - 32 [facility] Comment on above: Performed By: #### C MP ####[facility] [place] [address] [phone] Potassium [Moles/Vol] 4.3 mmol/L Normal 3.5 - 5.3 [facility] Comment on above: Performed By: #### C MP ####[facility] [place] [address] [phone] Protein [Mass/Vol] 6.3 g/dL Low 6.4 - 8.2 [facility] Comment on above: Performed By: #### C MP ####[address] [id number] Sodium [Moles/Vol] 129 mmol/L Low 136 - 145 [facility] Comment on above: Performed By: #### C MP ####[facility] [place] [address] [id number] Urea nitrogen [Mass/Vol] 12 mg/dL Normal 6 - 23 [facility] Comment on above: Performed By: #### C MP ####[facility] [place] [address] [phone] Daily Progress Note-Cardiac Surgeryon 01-31-2022 Daily Progress Note-Cardiac Surgery Normal [facility] Daily Progress Note-Cardiolo gyon 01-31-2022 Daily Progress Note-Cardiology Normal [facility] GLUCOSE-POCTon 01-31-2022 Glucose [Mass/Vol] 124 mg/dL High 74 - 99 [facility] Comment on above: Performed By: #### G ALEC ####[facility] [place], [place] [id number] Glucose [Mass/Vol] 113 mg/dL High 74 - 99 [facility] Comment on above: Performed By: #### G ALEC ####[facility] [place], [place] [phone] Glucose [Mass/Vol] 97 mg/dL Normal 74 - 99 [facility] Comment on above: Performed By: #### G ALEC ####[facility] [place], [place] [id number] Glucose [Mass/Vol] 88 mg/dL Normal 74 - 99 [facility] Comment on above: Performed By: #### G ALEC ####[address] [place], [place] [phone] LIPID PANEL (CORONARY RISK 2 )on 01-31-2022 Cholesterol [Mass/Vol] 89 mg/dL Normal 0 - 199 [facility] Comment on above: Result Comment: . AG E DESIRABLE BORDERLINE HIGH HIGH 0-19 Y 0 - 169 170 - 199 >/= 200 20-24 Y 0 - 189 190 - 224 >/= 225 >24 Y 0 - 199 200 - 239 >/= 240 All ranges are based on fasting samples. Specific therapeutic targets will vary based on patient-specific cardiac risk.. Pediatric guidelines reference:Pediatrics 2011, 128(S5). Adult guidelines reference: NCEP ATPIII Guidelines, ABBY 2001, 258:2486-97. Venipuncture immediately after or during the administration of Metamizole may lead to falsely low results. Testing should be performed immediately prior to Metamizole dosing. Performed By: #### L IPID ####[address] [id number] Cholesterol in HDL [Mass/Vol] 42.0 mg/dL Normal [facility] Comment on above: Result Comment: . AG E VERY LOW LOW NORMAL HIGH 0-19 Y < 35 < 40 40-45 ---- 20-24 Y ---- < 40 >45 ---- >24 Y ---- < 40 40-60 >60. Performed By: #### L IPID ####[id number] [place], [place] [id number] Cholesterol in LDL [Mass/Vol] 33 mg/dL Normal 0 - 99 [facility] Comment on above: Result Comment: . VISHNU RANKIN AGE DESIRABLE OPTIMAL HIGH HIGH VERY HIGH 0-19 Y 0 - 109 --- 110-129 >/= 130 ---- 20-24 Y 0 - 119 --- 120-159 >/= 160 ---- >24 Y 0 - 99 100-129 130-159 160-189 >/=190. Performed By: #### L IPID ####[address] [id number] Cholesterol in VLDL [Mass/Vol] 14 mg/dL Normal 0 - 40 [facility] Comment on above: Performed By: #### L IPID ####[address] [id number] Cholesterol.total/Chol esterol in HDL [Mass ratio] 2.1 {ratio} Normal [facility] Comment on above: Result Comment: REF VALUESDESIRABLE < 3.4HIGH RISK > 5.0 Performed By: #### L IPID ####[address] [id number] Triglyceride [Mass/Vol] 70 mg/dL Normal 0 - 149 [facility] Comment on above: Result Comment: . AG E DESIRABLE BORDERLINE HIGH HIGH VERY HIGH 0 D-90 D 19 - 174 ---- ---- ----91 D- 9 Y 0 - 74 75 - 99 >/= 100 ---- 10-19 Y 0 - 89 90 - 129 >/= 130 ---- 20-24 Y 0 - 114 115 - 149 >/= 150 ---- >24 Y 0 - 149 150 - 199 200- 499 >/= 500. Venipuncture immediately after or during the administration of Metamizole may lead to falsely low results. Testing should be performed immediately prior to Metamizole dosing. Performed By: #### L IPID ####[address] [id number] Laboratory - Chemistry and C hemistry - challenge 01-31-2022 Glucose [Mass/Vol] 124 mg/dL above high threshold 74 - 99 [facility] Work Phone: Glucose [Mass/Vol] 113 mg/dL above high threshold 74 - 99 [facility] Work Phone: Glucose [Mass/Vol] 97 mg/dL 74 - 99 [facility] Work Phone: Glucose [Mass/Vol] 88 mg/dL 74 - 99 [facility] Work Phone: Albumin BCP dye [Mass/Vol] 3.5 g/dL 3.4 - 5.0 [facility] Work Phone: ALP [Catalytic activity/Vol] 30 U/L below low threshold 33 - 136 [facility] Work Phone: ALT With P-5'-P [Catalytic activity/Vol] 13 U/L 10 - 52 [facility] Work Phone: Comment on above: Patients treated wit h Sulfasalazine may generate falsely decreased results for ALT. Anion gap [Moles/Vol] 8 mmol/L below low threshold 10 - 20 [facility] Work Phone: AST With P-5'-P [Catalytic activity/Vol] 18 U/L 9 - 39 [facility] Work Phone: Bilirubin [Mass/Vol] 0.6 mg/dL 0.0 - 1.2 [facility] Work Phone: Calcium [Mass/Vol] 8.3 mg/dL below low threshold 8.6 - 10.3 [facility] Work Phone: Chloride [Moles/Vol] 95 mmol/L below low threshold 98 - 107 [facility] Work Phone: CO2 [Moles/Vol] 30 mmol/L 21 - 32 [facility] Work Phone: Creatinine [Mass/Vol] 1.03 mg/dL See Below [facility]- [facility] Work Phone: Comment on above: Reference Range: 0.5 0 - 1.30 Glucose [Mass/Vol] 106 mg/dL above high threshold 74 - 99 [facility] Work Phone: Potassium [Moles/Vol] 4.3 mmol/L 3.5 - 5.3 MG- [facility] Work Phone: Protein [Mass/Vol] 6.3 g/dL below low threshold 6.4 - 8.2 [facility] Work Phone: Sodium [Moles/Vol] 129 mmol/L below low threshold 136 - 145 [facility] Work Phone: Urea nitrogen [Mass/Vol] 12 mg/dL 6 - 23 [facility] Work Phone: Laboratory - Hematology and Cell countson 01-31-2022 Erythrocyte distribution width (RBC) [Ratio] 11.9 % See Below [facility] Work Phone: Comment on above: Reference Range: 11. 5 - 14.5 Hematocrit (Bld) [Volume fraction] 25.7 % below low threshold See Below [facility] Work Phone: Comment on above: Reference Range: 41. 0 - 52.0 Hemoglobin (Bld) [Mass/Vol] 8.6 g/dL below low threshold See Below [facility] Work Phone: Comment on above: Reference Range: 13. 5 - 17.5 MCHC (RBC) [Mass/Vol] 33.5 g/dL See Below MG- [facility] Work Phone: Comment on above: Reference Range: 32. 0 - 36.0 MCV (RBC) [Entitic vol] 96 fL 80 - 100 [facility] Work Phone: Platelets (Bld) [#/Vol] 156 10*3/uL 150 - 450 [facility] Work Phone: RBC (Bld) [#/Vol] 2.69 {x10E12/L} below low threshold See Below [facility] Work Phone: Comment on above: Reference Range: 4.5 0 - 5.90 WBC (Bld) [#/Vol] 8.0 10*3/uL 4.4 - 11.3 [facility] Work Phone: Lipid Panelon 01-31-2022 Cholesterol [Mass/Vol] 89 mg/dL 0 - 199 [facility] Work Phone: Comment on above: . AGE DESIRABLE BORD PEG HIGH HIGH 0-19 Y 0 - 169 170 - 199 >/= 200 20-24 Y 0 - 189 190 - 224 >/= 225 >24 Y 0 - 199 200 - 239 >/= 240 All ranges are based on fasting samples. Specific therapeutic targets will vary based on patient-specific cardiac risk.. Pediatric guidelines reference:Pediatrics 2011, 128(S5). Adult guidelines reference: NCEP ATPIII Guidelines, ABBY 2001, 258:2486-97. Venipuncture immediately after or during the administration of Metamizole may lead to falsely low results. Testing should be performed immediately prior to Metamizole dosing. Cholesterol in HDL [Mass/Vol] 42.0 mg/dL [facility] Work Phone: Comment on above: . AGE VERY LOW LOW N ORMAL HIGH 0-19 Y < 35 < 40 40-45 ---- 20-24 Y ---- < 40 >45 ---- >24 Y ---- < 40 40-60 >60. Cholesterol in LDL [Mass/Vol] 33 mg/dL 0 - 99 [facility] Work Phone: Comment on above: . NEAR BORD AGE NIKKO RABLE OPTIMAL HIGH HIGH VERY HIGH 0-19 Y 0 - 109 --- 110-129 >/= 130 ---- 20-24 Y 0 - 119 --- 120-159 >/= 160 ---- >24 Y 0 - 99 100-129 130-159 160-189 >/=190. Cholesterol.total/Chol esterol in HDL [Mass ratio] 2.1 {ratio} [facility] Work Phone: Comment on above: REF VALUESDESIRABLE < 3.4HIGH RISK > 5.0 Triglyceride [Mass/Vol] 70 mg/dL 0 - 149 [facility] Work Phone: Comment on above: . AGE DESIRABLE BORD PEG HIGH HIGH VERY HIGH 0 D-90 D 19 - 174 ---- ---- ----91 D- 9 Y 0 - 74 75 - 99 >/= 100 ---- 10-19 Y 0 - 89 90 - 129 >/= 130 ---- 20-24 Y 0 - 114 115 - 149 >/= 150 ---- >24 Y 0 - 149 150 - 199 200- 499 >/= 500. Venipuncture immediately after or during the administration of Metamizole may lead to falsely low results. Testing should be performed immediately prior to Metamizole dosing. Lipid Panel 14 mg/dL 0 - 40 [facility] Work Phone: MAGNESIUMon 01-31-2022 Magnesium [Mass/Vol] 2.30 mg/dL Normal 1.60 - 2.40 [facility] Comment on above: Performed By: #### M G ####[facility] [place], [place] [id number] Magnesium, Serumon Magnesium [Mass/Vol] 2.30 mg/dL See Below [facility] Work Phone: Comment on above: Reference Range: 1.6 0 - 2.40 No Panel Informationon 01-31 78 {mL/min/1.73m2} >90 [facility] Work Phone: Comment on above: CALCULATIONS OF ALVINA MATED GFR ARE PERFORMED USING THE 2020 CKD-EPI STUDY REFIT EQUATION WITHOUT THE RACE VARIABLE FOR THE IDMS-TRACEABLE CREATININE METHODS.https://jasn.asnjournals.org/content/early/A SN.3309950743 PHOSPHORUSon 01-31-2022 Phosphate [Mass/Vol] 3.0 mg/dL Normal 2.5 - 4.9 [facility] Comment on above: Result Comment: The performance characteristics of phosphorus testing in heparinized plasma have been validated by the individual laboratory site where testing is performed. Testing on heparinized plasma is not approved by the FDA; however, such approval is not necessary. Performed By: #### P HOS ####[facility] [place], [place] [id number] Phosphorus, Serumon 02-01-20 Phosphate [Mass/Vol] 3.0 mg/dL 2.5 - 4.9 [facility] Work Phone: Comment on above: The performance lucas acteristics of phosphorus testing in heparinized plasma have been validated by the individual laboratory site where testing is performed. Testing on heparinized plasma is not approved by the FDA; however, such approval is not necessary. Radiologyon 01-31-2022 XR Chest Single view Normal [facility] Work Phone: CBCon 01-30-2022 Erythrocyte distribution width (RBC) [Ratio] 12.2 % Normal 11.5 - 14.5 [facility] Comment on above: Performed By: #### C BC ####[facility] [place], [place] [id number] Hematocrit (Bld) [Volume fraction] 28.6 % Low 41.0 - 52.0 [facility] Comment on above: Performed By: #### C BC ####[facility] [place], [place] [id number] Hemoglobin (Bld) [Mass/Vol] 9.2 g/dL Low 13.5 - 17.5 [facility] Comment on above: Performed By: #### C BC ####[address] [id number] MCHC (RBC) [Mass/Vol] 32.2 g/dL Normal 32.0 - 36.0 [facility] Comment on above: Performed By: #### C BC ####[address] [id number] MCV (RBC) [Entitic vol] 97 fL Normal 80 - 100 [facility] Comment on above: Performed By: #### C BC ####[address] [id number] Platelets (Bld) [#/Vol] 147 10*3/uL Low 150 - 450 [facility] Comment on above: Performed By: #### C BC ####[address] [id number] RBC 2.95 x10E12/L Low 4.50 - 5.90 [facility] Comment on above: Performed By: #### C BC ####[address] [id number] WBC (Bld) [#/Vol] 10.8 10*3/uL Normal 4.4 - 11.3 [facility] Comment on above: Performed By: #### C BC ####[address] [id number] COAGULATION SCREENon 01-30- 022 aPTT Coag (Bld) [Time] 27 s Normal 26 - 39 [facility] Comment on above: Result Comment: THE APTT IS NO LONGER USED FOR MONITORING UNFRACTIONATED HEPARIN THERAPY. FOR MONITORING HEPARIN THERAPY, USE THE HEPARIN ASSAY. Performed By: #### C OAGS ####[address] [id number] PT Coag (PPP) [Time] 14.9 s High 9.8 - 13.4 [facility] Comment on above: Performed By: #### C OAGS ####[address] [id number] PT, INR 1.3 High 0.9 - 1.1 [facility] Comment on above: Performed By: #### C OAGS ####[address] [id number] COMPREHENSIVE PANELon 2021 Albumin [Mass/Vol] 3.2 g/dL Low 3.4 - 5.0 [facility] Comment on above: Performed By: #### C MP ####[facility] [place], [place] [id number] ALP [Catalytic activity/Vol] 28 U/L Low 33 - 136 [facility] Comment on above: Performed By: #### C MP ####[address] [place], [place] [id number] ALT [Catalytic activity/Vol] 15 U/L Normal 10 - 52 [facility] Comment on above: Result Comment: Lynn ents treated with Sulfasalazine may generate falsely decreased results for ALT. Performed By: #### C MP ####[address] [id number] Anion gap [Moles/Vol] 8 mmol/L Low 10 - 20 [facility] Comment on above: Performed By: #### C MP ####[address] [id number] AST [Catalytic activity/Vol] 21 U/L Normal 9 - 39 [facility] Comment on above: Performed By: #### C MP ####[address] [id number] Bilirubin [Mass/Vol] 0.6 mg/dL Normal 0.0 - 1.2 [facility] Comment on above: Performed By: #### C MP ####[address] [id number] Calcium [Mass/Vol] 8.1 mg/dL Low 8.6 - 10.3 [facility] Comment on above: Performed By: #### C MP ####[address] [place] [id number] Chloride [Moles/Vol] 100 mmol/L Normal 98 - 107 [facility] Comment on above: Performed By: #### C MP ####[address] [place], [place] [id number] Creatinine [Mass/Vol] 0.90 mg/dL Normal 0.50 - 1.30 [facility] Comment on above: Performed By: #### C MP ####[address] [id number] eGFR MALE >90 Normal >90 [facility] Comment on above: Result Comment: CALC ULATIONS OF ESTIMATED GFR ARE PERFORMED USING THE 2020 CKD-EPI STUDY REFIT EQUATION WITHOUT THE RACE VARIABLE FOR THE IDMS-TRACEABLE CREATININE METHODS.https://jasn.asnjournals.org/content//A .2311196892 Performed By: #### C MP ####[address] [id number] Glucose [Mass/Vol] 107 mg/dL High 74 - 99 [facility] Comment on above: Performed By: #### C MP ####[address] [id number] HCO3 (Bld) [Moles/Vol] 28 mmol/L Normal 21 - 32 [facility] Comment on above: Performed By: #### C MP ####[address] [id number] Potassium [Moles/Vol] 4.1 mmol/L Normal 3.5 - 5.3 [facility] Comment on above: Performed By: #### C MP ####[address] [id number] Protein [Mass/Vol] 5.9 g/dL Low 6.4 - 8.2 [facility] Comment on above: Performed By: #### C MP ####[address] [id number] Sodium [Moles/Vol] 132 mmol/L Low 136 - 145 [facility] Comment on above: Performed By: #### C MP ####[facility] [place], [place] [id number] Urea nitrogen [Mass/Vol] 10 mg/dL Normal 6 - 23 [facility] Comment on above: Performed By: #### C MP ####[facility] [place], [place] [id number] Daily Progress Note - Critic al Care-SICUon 01-30-2022 Daily Progress Note - Critical Care-SICU Normal [facility] Daily Progress Note-Cardiac Surgeryon 01-30-2022 Daily Progress Note-Cardiac Surgery Normal [facility] Daily Progress Note-Cardiolo gyon 01-30-2022 Daily Progress Note-Cardiology Normal [facility] Daily Progress Note-Endocrin ologyon 01-30-2022 Daily Progress Note-Endocrinology Normal [facility] Daily Progress Note-Endocrinology Normal [facility] Discharge [id number] Discharge Profile2 Normal [facility] Electrocardiogram 12 Leadon 01-30-2022 Electrocardiogram 12 Lead Ventricular Rate 83 Atrial Rate 83 P-R Interval 178 QRS Duration 82 Q-T Interval 354 QTC Calculation(Bazett) 415 P Sherman 5 R Sherman -9 T Sherman 11 QRS Count 13 Q Onset 225 P Onset 136 P Offset 196 T Offset 402 QTC Fredericia 394 Diagnosis Class Borderline Abnormal Diagnosis Normal sinus rhythm Moderate voltage criteria for LVH, may be normal variant Borderline ECG When compared with ECG of 29-JAN-2022 06:25, No significant change was found Confirmed by Boris Light ([id number]) on 01/30/2022 10:34:46 AM Normal [facility] GLUCOSE-POCTon 01-30-2022 Glucose [Mass/Vol] 127 mg/dL High 74 - 99 [facility] Comment on above: Performed By: #### G ALEC ####[facility] [place], [place] [id number] Glucose [Mass/Vol] 104 mg/dL High 74 - 99 [facility] Comment on above: Performed By: #### G ALEC ####[facility] [place], [place] [id number] Glucose [Mass/Vol] 97 mg/dL Normal 74 - 99 [facility] Comment on above: Performed By: #### G ALEC ####[facility] [place], [place] [id number] Glucose [Mass/Vol] 99 mg/dL Normal 74 - 99 [facility] Comment on above: Performed By: #### G ALEC ####[facility] [place], [place] [id number] Glucose [Mass/Vol] 96 mg/dL Normal 74 - 99 [facility] Comment on above: Performed By: #### G ALEC ####[facility] [place], [place] [phone] Laboratory - Chemistry and C hemistry - challengeon 01-30-2022 Glucose [Mass/Vol] 127 mg/dL above high threshold 74 - 99 [facility] Work Phone: Glucose [Mass/Vol] 104 mg/dL above high threshold 74 - 99 [facility] Work Phone: Glucose [Mass/Vol] 97 mg/dL 74 - 99 [facility] Work Phone: Albumin BCP dye [Mass/Vol] 3.2 g/dL below low threshold 3.4 - 5.0 [facility] Work Phone: ALP [Catalytic activity/Vol] 28 U/L below low threshold 33 - 136 [facility] Work Phone: ALT With P-5'-P [Catalytic activity/Vol] 15 U/L 10 - 52 [facility] Work Phone: Comment on above: Patients treated wit h Sulfasalazine may generate falsely decreased results for ALT. Anion gap [Moles/Vol] 8 mmol/L below low threshold 10 - 20 [facility] Work Phone: AST With P-5'-P [Catalytic activity/Vol] 21 U/L 9 - 39 [facility] Work Phone: Bilirubin [Mass/Vol] 0.6 mg/dL 0.0 - 1.2 [facility] Work Phone: Calcium [Mass/Vol] 8.1 mg/dL below low threshold 8.6 - 10.3 [facility] Work Phone: [phone] Chloride [Moles/Vol] 100 mmol/L 98 - 107 [facility] Work Phone: CO2 [Moles/Vol] 28 mmol/L 21 - 32 [facility] Work Phone: Creatinine [Mass/Vol] 0.90 mg/dL See Below MG- [facility] Work Phone: Comment on above: Reference Range: 0.5 0 - 1.30 Glucose [Mass/Vol] 107 mg/dL above high threshold 74 - 99 [facility] Work Phone: [phone] Potassium [Moles/Vol] 4.1 mmol/L 3.5 - 5.3 MG- [facility] Work Phone: Protein [Mass/Vol] 5.9 g/dL below low threshold 6.4 - 8.2 [facility] Work Phone: Sodium [Moles/Vol] 132 mmol/L below low threshold 136 - 145 [facility] Work Phone: [phone] Urea nitrogen [Mass/Vol] 10 mg/dL 6 - 23 [facility] Work Phone: Glucose [Mass/Vol] 99 mg/dL 74 - 99 [facility] Work Phone: [phone] Laboratory - Coagulationon 1 0- aPTT Coag (PPP) [Time] 27 s 26 - 39 [facility] Work Phone: Comment on above: THE APTT IS NO LONGE R USED FOR MONITORING UNFRACTIONATED HEPARIN THERAPY. FOR MONITORING HEPARIN THERAPY, USE THE HEPARIN ASSAY. INR Coag (PPP) [Relative time] 1.3 {INR} above high threshold 0.9 - 1.1 [facility] Work Phone: PT Coag (PPP) [Time] 14.9 s above high threshold 9.8 - 13.4 [facility] Work Phone: Laboratory - Hematology and Cell countson 01-30-2022 Erythrocyte distribution width (RBC) [Ratio] 12.2 % See Below [facility] Work Phone: Comment on above: Reference Range: 11. 5 - 14.5 Hematocrit (Bld) [Volume fraction] 28.6 % below low threshold See Below [facility] Work Phone: Comment on above: Reference Range: 41. 0 - 52.0 Hemoglobin (Bld) [Mass/Vol] 9.2 g/dL below low threshold See Below [facility] Work Phone: Comment on above: Reference Range: 13. 5 - 17.5 MCHC (RBC) [Mass/Vol] 32.2 g/dL See Below MG- [facility] Work Phone: Comment on above: Reference Range: 32. 0 - 36.0 MCV (RBC) [Entitic vol] 97 fL 80 - 100 [facility] Work Phone: Platelets (Bld) [#/Vol] 147 10*3/uL below low threshold 150 - 450 [facility] Work Phone: RBC (Bld) [#/Vol] 2.95 {x10E12/L} below low threshold See Below [facility] Work Phone: Comment on above: Reference Range: 4.5 0 - 5.90 WBC (Bld) [#/Vol] 10.8 10*3/uL 4.4 - 11.3 [facility] Work Phone: [phone] MAGNESIUMon 01-30-2022 Magnesium [Mass/Vol] 2.10 mg/dL Normal 1.60 - 2.40 [facility] Comment on above: Performed By: #### M G ####[facility] [place], [place] [id number] Magnesium, Serumon 2 Magnesium [Mass/Vol] 2.10 mg/dL See Below [facility] Work Phone: [phone] Comment on above: Reference Range: 1.6 0 - 2.40 No Panel Informationon 01-30 [email or web address] ?[email or web address]&Date =30-01-2022&Time=07%3a23% 3a45%3a00&TestType=ECG&Si te=11&OutputType=PDF&Ext= PDF [facility] Work Phone: [phone] Normal sinus rhythm [facility] Work Phone: [phone] Borderline Abnormal [facility] Work Phone: [phone] 1 [facility] Work Phone: [phone] 1 [facility] Work Phone: [phone] 1 [facility] Work Phone: [phone] 1 [facility] Work Phone: [phone] 1 [facility] Work Phone: [phone] 1 [facility] Work Phone: [phone] 1 [facility] Work Phone: [phone] [facility] Work Phone: [phone] 1 [facility] Work Phone: [phone] 1 [facility] Work Phone: [phone] 1 [facility] Work Phone: [phone] [facility] Work Phone: [phone] 1 [facility] Work Phone: [phone] 1 [facility] Work Phone: [phone] >90 >90 [facility] Work Phone: [phone] Comment on above: CALCULATIONS OF ALVINA MATED GFR ARE PERFORMED USING THE 2020 CKD-EPI STUDY REFIT EQUATION WITHOUT THE RACE VARIABLE FOR THE IDMS-TRACEABLE CREATININE METHODS.https://jasn.asnjournals.org/content/early/A .1916158337 OT Evaluation v2-occupationa l therapyon 01-30-2022 OT Evaluation v2-occupational therapy Normal [facility] PHOSPHORUSon 01-30-2022 Phosphate [Mass/Vol] 2.3 mg/dL Low 2.5 - 4.9 [facility] Comment on above: Result Comment: The performance characteristics of phosphorus testing in heparinized plasma have been validated by the individual laboratory site where testing is performed. Testing on heparinized plasma is not approved by the FDA; however, such approval is not necessary. Performed By: #### P HOS ####[facility] [place], [place] [id number] PT Evaluation v2-physical th erapyon 01-30-2022 PT Evaluation v2-physical therapy Normal [facility] Phosphorus, Serumon 01-31-20 Phosphate [Mass/Vol] 2.3 mg/dL below low threshold 2.5 - 4.9 [facility] Work Phone: Comment on above: The performance lucas acteristics of phosphorus testing in heparinized plasma have been validated by the individual laboratory site where testing is performed. Testing on heparinized plasma is not approved by the FDA; however, such approval is not necessary. Radiologyon 01-30-2022 XR Chest Single view Normal [facility] Work Phone: XR Chest Single view Normal [facility] Work Phone: VANCOMYCINon 01-30-2022 VANCOMYCIN 11.9 ug/mL Normal [facility] Comment on above: Result Comment: .The rapeutic Ranges: Peak: All ages: 30.0-40.0 ug/mL. Trough: Age <18y: 5.0-10.0 ug/mL. Age >/= 18y: 5.0-20.0 ug/mL. Vancomycin trough concentrations drawn immediately prior to the next dose at steady-state are preferred for monitoring patients treated with vancomycin. Ref.: Am J Health-Syst Pharm 66: 83-98, 2008. Performed By: #### V ANCU ####[address] [place], [place] [id number] VANCOMYCIN,TROUGHon 01-31-20 VANCOMYCIN,TROUGH 14.0 ug/mL Normal 5.0 - 20.0 [facility] Comment on above: Result Comment: Vanc omycin levels should be interpreted in conjunction with the dose, disease being treated, vancomycin JESSICA, time of draw (trough concentrations should be obtained just before the next dose at steady-state), and other clinical information. Trough concentrations of 15-20 ug/mL are desired for severe infections. Ref.: Am J Health-Syst Pharm 66: 83-98, 2008. Performed By: #### V ANCT ####[address] [place], [place] [id number] Vancomycin Level, Troughon Vancomycin trough [Mass/Vol] 14.0 ug/mL 5.0 - 20.0 [facility] Work Phone: Comment on above: Vancomycin levels sh ould be interpreted in conjunction with the dose, disease being treated, vancomycin JESSICA, time of draw (trough concentrations should be obtained just before the next dose at steady-state), and other clinical information. Trough concentrations of 15-20 ug/mL are desired for severe infections. Ref.: Am J Health-Syst Pharm 66: 83-98, 2009. ARTERIAL FULL PANELon 2021 OMAIRA'S TEST[COLLATERAL CIRCULATION] Normal [facility] Comment on above: Performed By: #### A FPA4 ####[facility] [place], [place] [phone] Anion gap [Moles/Vol] 10 mmol/L Normal 10 - 25 [facility] Comment on above: Performed By: #### A FPA4 ####[address] [place], [place] [id number] BASE EXCESS-BLOOD 0.5 mmol/L Normal -2.0 - 3.0 [facility] Comment on above: Performed By: #### A FPA4 ####[address] [id number] BICARB, CALCULATED 25.4 mmol/L Normal 22.0 - 26.0 [facility] Comment on above: Performed By: #### A FPA4 ####[address] [id number] CALCIUM,IONIZED 1.15 mmol/L Normal 1.10 - 1.33 [facility] Comment on above: Performed By: #### A FPA4 ####[address] [id number] Chloride [Moles/Vol] 104 mmol/L Normal 98 - 107 [facility] Comment on above: Performed By: #### A FPA4 ####[address] [id number] Glucose [Mass/Vol] 151 mg/dL High 74 - 99 [facility] Comment on above: Performed By: #### A FPA4 ####[address] [id number] Hematocrit (Bld) [Volume fraction] 35.0 % Low 41.0 - 52.0 [facility] Comment on above: Performed By: #### A FPA4 ####[address] [id number] Hemoglobin (Bld) [Mass/Vol] 11.7 g/dL Low 13.5 - 17.5 [facility] Comment on above: Performed By: #### A FPA4 ####[address] [id number] Lactate [Moles/Vol] 0.8 mmol/L Normal 0.4 - 2.0 [facility] Comment on above: Performed By: #### A FPA4 ####[address] [id number] OXY HGB 94.9 % Normal 94.0 - 98.0 [facility] Comment on above: Performed By: #### A FPA4 ####[address] [id number] Oxygen (Bld) [Partial pressure] 81 mm[Hg] Low 85 - 95 [facility] Comment on above: Performed By: #### A FPA4 ####[address] [id number] PATIENT TEMPERATURE 37.0 degrees C Normal [facility] Comment on above: Result Comment: NOTE : PATIENT RESULTS ARE NOT CORRECTED FOR TEMPERATURE. Performed By: #### A FPA4 ####[address] [id number] PCO2 41 mmHg Normal 38 - 42 [facility] Comment on above: Performed By: #### A FPA4 ####[address] [id number] pH (Bld) 7.40 [pH] Normal 7.38 - 7.42 [facility] Comment on above: Performed By: #### A FPA4 ####[address] [id number] Potassium [Moles/Vol] 4.6 mmol/L Normal 3.5 - 5.3 [facility] Comment on above: Performed By: #### A FPA4 ####[address] [id number] SITE OF ARTERIAL PUNCTURE DANYELLE Normal [facility] Comment on above: Performed By: #### A FPA4 ####[address] [place], [place] [id number] SO2 96 % Normal 94 - 100 [facility] Comment on above: Performed By: #### A FPA4 ####[address] [id number] Sodium [Moles/Vol] 135 mmol/L Low 136 - 145 [facility] Comment on above: Performed By: #### A FPA4 ####[address] [id number] CALCIUM, IONIZEDon 2 CALCIUM,IONIZED Canceled Normal [facility] Comment on above: Order Comment: TEST CALCIUM, IONIZED WAS CANCELLED, 01/29/2022 19:01 Performed By: #### I ONC1 ####[address] [id number] CBCon 01-29-2022 Erythrocyte distribution width (RBC) [Ratio] 12.1 % Normal 11.5 - 14.5 [facility] Comment on above: Performed By: #### C BC ####[address] [id number] Hematocrit (Bld) [Volume fraction] 34.2 % Low 41.0 - 52.0 [facility] Comment on above: Performed By: #### C BC ####[address] [id number] Hemoglobin (Bld) [Mass/Vol] 11.2 g/dL Low 13.5 - 17.5 [facility] Comment on above: Performed By: #### C BC ####[address] [id number] MCHC (RBC) [Mass/Vol] 32.7 g/dL Normal 32.0 - 36.0 [facility] Comment on above: Performed By: #### C BC ####[address] [id number] MCV (RBC) [Entitic vol] 95 fL Normal 80 - 100 [facility] Comment on above: Performed By: #### C BC ####[address] [place], [place] [id number] Platelets (Bld) [#/Vol] 200 10*3/uL Normal 150 - 450 [facility] Comment on above: Performed By: #### C BC ####[address] [id number] RBC 3.59 x10E12/L Low 4.50 - 5.90 [facility] Comment on above: Performed By: #### C BC ####[address] [id number] WBC (Bld) [#/Vol] 11.8 10*3/uL High 4.4 - 11.3 [facility] Comment on above: Performed By: #### C BC ####[address] [id number] COAGULATION SCREENon 022 aPTT Coag (Bld) [Time] 30 s Normal 26 - 39 [facility] Comment on above: Result Comment: THE APTT IS NO LONGER USED FOR MONITORING UNFRACTIONATED HEPARIN THERAPY. FOR MONITORING HEPARIN THERAPY, USE THE HEPARIN ASSAY. Performed By: #### C OAGS ####[address] [id number] PT Coag (PPP) [Time] 15.5 s High 9.8 - 13.4 [facility] Comment on above: Performed By: #### C OAGS ####[address] [id number] PT, INR 1.3 High 0.9 - 1.1 [facility] Comment on above: Performed By: #### C OAGS ####[address] [id number] COMPREHENSIVE PANELon 2021 Albumin [Mass/Vol] 3.7 g/dL Normal 3.4 - 5.0 [facility] Comment on above: Performed By: #### C MP ####[address] [id number] ALP [Catalytic activity/Vol] 29 U/L Low 33 - 136 [facility] Comment on above: Performed By: #### C MP ####[address] [id number] ALT [Catalytic activity/Vol] 18 U/L Normal 10 - 52 [facility] Comment on above: Result Comment: Lynn ents treated with Sulfasalazine may generate falsely decreased results for ALT. Performed By: #### C MP ####[address] [id number] Anion gap [Moles/Vol] 11 mmol/L Normal 10 - 20 [facility] Comment on above: Performed By: #### C MP ####[address] [id number] AST [Catalytic activity/Vol] 27 U/L Normal 9 - 39 [facility] Comment on above: Performed By: #### C MP ####[address] [id number] Bilirubin [Mass/Vol] 0.4 mg/dL Normal 0.0 - 1.2 [facility] Comment on above: Performed By: #### C MP ####[address] [id number] Calcium [Mass/Vol] 8.4 mg/dL Low 8.6 - 10.3 [facility] Comment on above: Performed By: #### C MP ####[address] [id number] Chloride [Moles/Vol] 104 mmol/L Normal 98 - 107 [facility] Comment on above: Performed By: #### C MP ####[address] [id number] Creatinine [Mass/Vol] 0.81 mg/dL Normal 0.50 - 1.30 [facility] Comment on above: Performed By: #### C MP ####[address] [id number] eGFR MALE >90 Normal >90 [facility] Comment on above: Result Comment: CALC ULATIONS OF ESTIMATED GFR ARE PERFORMED USING THE 2020 CKD-EPI STUDY REFIT EQUATION WITHOUT THE RACE VARIABLE FOR THE IDMS-TRACEABLE CREATININE METHODS.https://jasn.asnjournals.org/content/early/A SN.8923698011 Performed By: #### C MP ####[address] [id number] Glucose [Mass/Vol] 142 mg/dL High 74 - 99 [facility] Comment on above: Performed By: #### C MP ####[address] [id number] HCO3 (Bld) [Moles/Vol] 25 mmol/L Normal 21 - 32 [facility] Comment on above: Performed By: #### C MP ####[address] [id number] Potassium [Moles/Vol] 4.3 mmol/L Normal 3.5 - 5.3 [facility] Comment on above: Performed By: #### C MP ####[address] [id number] Protein [Mass/Vol] 6.2 g/dL Low 6.4 - 8.2 [facility] Comment on above: Performed By: #### C MP ####[address] [id number] Sodium [Moles/Vol] 136 mmol/L Normal 136 - 145 [facility] Comment on above: Performed By: #### C MP ####[address] [id number] Urea nitrogen [Mass/Vol] 10 mg/dL Normal 6 - 23 [facility] Comment on above: Performed By: #### C MP ####[facility] [place], [place] [id number] Calcium, Ionized Levelon Calcium, Ionized Level Canceled MG -CT [facility] a Work Phone: Consult-Cardiologyon 022 Consult-Cardiology Normal [facility] Daily Progress Note - Critic al Care-SICUon 01-29-2022 Daily Progress Note - Critical Care-SICU Normal [facility] Daily Progress Note-Cardiac Surgeryon 01-29-2022 Daily Progress Note-Cardiac Surgery Normal [facility] Discharge Planning [id number] 1 Discharge Planning Note2 Normal [facility] Electrocardiogram 12 Leadon 01-29-2022 Electrocardiogram 12 Lead Ventricular Rate 77 Atrial Rate 77 P-R Interval 158 QRS Duration 80 Q-T Interval 368 QTC Calculation(Bazett) 416 P Sherman 32 R Sherman -5 T Sherman 22 QRS Count 13 Q Onset 226 P Onset 147 P Offset 200 T Offset 410 QTC Fredericia 399 Diagnosis Class Borderline Abnormal Diagnosis Normal sinus rhythm Moderate voltage criteria for LVH, may be normal variant Borderline ECG When compared with ECG of 28-JAN-2022 14:03, No significant change was found Confirmed by Boris Light ([id number]) on 01/30/2022 10:22:32 AM Normal [facility] GLUCOSE-POCTon 01-29-2022 Glucose [Mass/Vol] 112 mg/dL High 74 - 99 [facility] Comment on above: Performed By: #### G ALEC ####[facility] [place], [place] [phone] Glucose [Mass/Vol] 124 mg/dL High 74 - 99 [facility] Comment on above: Performed By: #### G ALEC ####[facility] [place], [place] [id number] Glucose [Mass/Vol] 194 mg/dL High 74 - 99 [facility] Comment on above: Performed By: #### G ALEC ####[facility] [place], [place] [id number] Glucose [Mass/Vol] 141 mg/dL High 74 - 99 [facility] Comment on above: Performed By: #### G ALEC ####[facility] [place], [place] [id number] Glucose [Mass/Vol] 108 mg/dL High 74 - 99 [facility] Comment on above: Performed By: #### G ALEC ####[facility] [place], [place] [id number] Glucose [Mass/Vol] 129 mg/dL High 74 - 99 [facility] Comment on above: Performed By: #### G ALEC ####[facility] [place], [place] [id number] Laboratory - Chemistry and C hemistry - challengeon 01-29-2022 Glucose [Mass/Vol] 96 mg/dL 74 - 99 [facility] a Work Phone: Glucose [Mass/Vol] 112 mg/dL above high threshold 74 - 99 [facility] Work Phone: Glucose [Mass/Vol] 124 mg/dL above high threshold 74 - 99 [facility] Work Phone: Glucose [Mass/Vol] 194 mg/dL above high threshold 74 - 99 [facility] Work Phone: Glucose [Mass/Vol] 141 mg/dL above high threshold 74 - 99 [facility] Work Phone: [phone] Anion gap 4 (BldA) [Moles/Vol] 10 mmol/L 10 - 25 [facility] Work Phone: Base excess Calc (Bld) [Moles/Vol] 0.5 mmol/L -2.0 - 3.0 [facility] Work Phone: Calcium.ionized (BldA) [Moles/Vol] 1.15 mmol/L See Below [facility] Work Phone: Comment on above: Reference Range: 1.1 0 - 1.33 Chloride (BldA) [Moles/Vol] 104 mmol/L 98 - 107 [facility] Work Phone: CO2 (Bld) [Partial pressure] 41 mm[Hg] 38 - 42 [facility] Work Phone: Glucose [Mass/Vol] 151 mg/dL above high threshold 74 - 99 [facility] Work Phone: HCO3 (Bld) [Moles/Vol] 25.4 mmol/L See Below M [facility] Work Phone: Comment on above: Reference Range: 22. 0 - 26.0 Lactate (BldA) [Moles/Vol] 0.8 mmol/L 0.4 - 2.0 [facility] Work Phone: Oxygen (Bld) [Partial pressure] 81 mm[Hg] below low threshold 85 - 95 [facility] Work Phone: Oxyhemoglobin (BldA) [Mass fraction] 94.9 % See Below [facility] Work Phone: Comment on above: Reference Range: 94. 0 - 98.0 pH (Bld) 7.40 [pH] See Below [facility] Work Phone: Comment on above: Reference Range: 7.3 8 - 7.42 Potassium (BldA) [Moles/Vol] 4.6 mmol/L 3.5 - 5.3 [facility] Work Phone: Sodium (BldA) [Moles/Vol] 135 mmol/L below low threshold 136 - 145 [facility] Work Phone: Albumin BCP dye [Mass/Vol] 3.7 g/dL 3.4 - 5.0 [facility] Work Phone: ALP [Catalytic activity/Vol] 29 U/L below low threshold 33 - 136 [facility] Work Phone: ALT With P-5'-P [Catalytic activity/Vol] 18 U/L 10 - 52 [facility] Work Phone: Comment on above: Patients treated wit h Sulfasalazine may generate falsely decreased results for ALT. Anion gap [Moles/Vol] 11 mmol/L 10 - 20 MG- CT [facility] Work Phone: AST With P-5'-P [Catalytic activity/Vol] 27 U/L 9 - 39 [facility] Work Phone: Bilirubin [Mass/Vol] 0.4 mg/dL 0.0 - 1.2 [facility] T [facility] Work Phone: Calcium [Mass/Vol] 8.4 mg/dL below low threshold 8.6 - 10.3 [facility] Work Phone: Chloride [Moles/Vol] 104 mmol/L 98 - 107 [facility] Work Phone: CO2 [Moles/Vol] 25 mmol/L 21 - 32 [facility] Work Phone: Creatinine [Mass/Vol] 0.81 mg/dL See Below MG- [facility] Work Phone: Comment on above: Reference Range: 0.5 0 - 1.30 Glucose [Mass/Vol] 142 mg/dL above high threshold 74 - 99 [facility] Work Phone: Potassium [Moles/Vol] 4.3 mmol/L 3.5 - 5.3 MG- [facility] Work Phone: Protein [Mass/Vol] 6.2 g/dL below low threshold 6.4 - 8.2 [facility] Work Phone: Sodium [Moles/Vol] 136 mmol/L 136 - 145 [facility] Work Phone: Urea nitrogen [Mass/Vol] 10 mg/dL 6 - 23 [facility] Work Phone: Glucose [Mass/Vol] 108 mg/dL above high threshold 74 - 99 [facility] Work Phone: Laboratory - Coagulationon 1 aPTT Coag (PPP) [Time] 30 s 26 - 39 [facility] Work Phone: Comment on above: THE APTT IS NO LONGE R USED FOR MONITORING UNFRACTIONATED HEPARIN THERAPY. FOR MONITORING HEPARIN THERAPY, USE THE HEPARIN ASSAY. INR Coag (PPP) [Relative time] 1.3 {INR} above high threshold 0.9 - 1.1 [facility] Work Phone: PT Coag (PPP) [Time] 15.5 s above high threshold 9.8 - 13.4 [facility] Work Phone: Laboratory - Hematology and Cell countson 01-29-2022 Hematocrit Est (Bld) [Volume fraction] 35.0 % below low threshold See Below [facility] Work Phone: Comment on above: Reference Range: 41. 0 - 52.0 Hemoglobin (Bld) [Mass/Vol] 11.7 g/dL below low threshold See Below [facility] Work Phone: Comment on above: Reference Range: 13. 5 - 17.5 Erythrocyte distribution width (RBC) [Ratio] 12.1 % See Below [facility] Work Phone: Comment on above: Reference Range: 11. 5 - 14.5 Hematocrit (Bld) [Volume fraction] 34.2 % below low threshold See Below [facility] Work Phone: Comment on above: Reference Range: 41. 0 - 52.0 Hemoglobin (Bld) [Mass/Vol] 11.2 g/dL below low threshold See Below [facility] Work Phone: Comment on above: Reference Range: 13. 5 - 17.5 MCHC (RBC) [Mass/Vol] 32.7 g/dL See Below MG- CT [facility] Work Phone: Comment on above: Reference Range: 32. 0 - 36.0 MCV (RBC) [Entitic vol] 95 fL 80 - 100 [facility] Work Phone: Platelets (Bld) [#/Vol] 200 10*3/uL 150 - 450 [facility] Work Phone: RBC (Bld) [#/Vol] 3.59 {x10E12/L} below low threshold See Below [facility] Work Phone: Comment on above: Reference Range: 4.5 0 - 5.90 WBC (Bld) [#/Vol] 11.8 10*3/uL above high threshold 4.4 - 11.3 [facility] Work Phone: MAGNESIUMon 01-29-2022 Magnesium [Mass/Vol] 2.00 mg/dL Normal 1.60 - 2.40 [facility] Comment on above: Performed By: #### M G ####[facility] [place], [place] [id number] Magnesium, Serumon 2 Magnesium [Mass/Vol] 2.00 mg/dL See Below [facility] Work Phone: Comment on above: Reference Range: 1.6 0 - 2.40 No Panel Informationon 01-29 [email or web address] ?[email or web address]&Date =29-01-2022&Time=06%3a25% 3a19%3a00&TestType=ECG&Si te=11&OutputType=PDF&Ext= PDF [facility] Work Phone: Normal sinus rhythm [facility] Work Phone: [phone] Borderline Abnormal [facility] Work Phone: [phone] 1 [facility] Work Phone: [phone] 1 [facility] Work Phone: [phone] 1 [facility] Work Phone: [phone] 1 [facility] Work Phone: [phone] 1 [facility] Work Phone: [phone] 1 [facility] Work Phone: [phone] 1 [facility] Work Phone: [phone] 1 [facility] Work Phone: [phone] 1 [facility] Work Phone: [phone] 1 [facility] Work Phone: [phone] 1 [facility] Work Phone: [phone] 1 [facility] Work Phone: [phone] 1 [facility] Work Phone: [phone] 1 [facility] Work Phone: [phone] Arterial patency Wrist artery --pre arterial puncture [facility] Work Phone: [phone] DANYELLE [facility] Work Phone: [phone] >[phone] >90 [facility] Work Phone: [phone] Comment on above: CALCULATIONS OF ALVINA MATED GFR ARE PERFORMED USING THE 2020 CKD-EPI STUDY REFIT EQUATION WITHOUT THE RACE VARIABLE FOR THE IDMS-TRACEABLE CREATININE METHODS.https://jasn.asnjournals.org/content//A SN.2232305473 OT Evaluation v2-attemptedon 01-29-2022 OT Evaluation v2-attempted Normal [facility] PHOSPHORUSon 01-29-2022 Phosphate [Mass/Vol] 3.5 mg/dL Normal 2.5 - 4.9 [facility] Comment on above: Result Comment: The performance characteristics of phosphorus testing in heparinized plasma have been validated by the individual laboratory site where testing is performed. Testing on heparinized plasma is not approved by the FDA; however, such approval is not necessary. Performed By: #### P HOS ####[facility] [place], [place] [id number] PT Evaluation v2-attemptedon 01-29-2022 PT Evaluation v2-attempted Normal [facility] Phosphorus, Serumon 01-30-20 Phosphate [Mass/Vol] 3.5 mg/dL 2.5 - 4.9 [facility] T [facility] a Work Phone: Comment on above: The performance lucas acteristics of phosphorus testing in heparinized plasma have been validated by the individual laboratory site where testing is performed. Testing on heparinized plasma is not approved by the FDA; however, such approval is not necessary. Radiologyon 01-29-2022 XR Chest Single view Normal [facility] a Work Phone: Vancomycin Level, Randomon 1 Vancomycin [Mass/Vol] 11.9 ug/mL [facility]: Comment on above: .Therapeutic Ranges: Peak: All ages: 30.0-40.0 ug/mL. Trough: Age <18y: 5.0-10.0 ug/mL. Age >/= 18y: 5.0-20.0 ug/mL. Vancomycin trough concentrations drawn immediately prior to the next dose at steady-state are preferred for monitoring patients treated with vancomycin. Ref.: Am J Health-Syst Pharm 66: 83-98, 2009. ACT-HIGH RANGEon 01-28-2022 ACT-HIGH RANGE 118 SECONDS Normal 96 - 152 [facility] Comment on above: Result Comment: Note new reference range as of 07/15/2018. Target ACT range will vary based on the patient population, clinical status, and surgical intervention occurring. Performed By: #### A CTP ####[address] [id number] ACT-HIGH RANGE 534 SECONDS High 96 - 152 [facility] Comment on above: Result Comment: Note new reference range as of 07/15/2018. Target ACT range will vary based on the patient population, clinical status, and surgical intervention occurring. Performed By: #### A CTP ####[address] [id number] ACT-HIGH RANGE 605 SECONDS High 96 - 152 [facility] Comment on above: Result Comment: Note new reference range as of 07/15/2018. Target ACT range will vary based on the patient population, clinical status, and surgical intervention occurring. Performed By: #### A CTP ####[address] [id number] ACT-HIGH RANGE 884 SECONDS High 96 - 152 [facility] Comment on above: Result Comment: Note new reference range as of 07/15/2018. Target ACT range will vary based on the patient population, clinical status, and surgical intervention occurring. Performed By: #### A CTP ####[address] [id number] ACT-HIGH RANGE 116 SECONDS Normal 96 - 152 [facility] Comment on above: Result Comment: Note new reference range as of 07/15/2018. Target ACT range will vary based on the patient population, clinical status, and surgical intervention occurring. Performed By: #### A CTP ####[address] [id number] ARTERIAL FULL PANELon 2021 OMAIRA'S TEST[COLLATERAL CIRCULATION] Normal [facility] Comment on above: Performed By: #### A FPA4 ####[address] [id number] Anion gap [Moles/Vol] 9 mmol/L Low 10 - 25 [facility] Comment on above: Performed By: #### A FPA4 ####[facility] [place], [place] [id number] BASE EXCESS-BLOOD -1.6 mmol/L Normal -2.0 - 3.0 [facility] Comment on above: Performed By: #### A FPA4 ####[facility] [place], [place] [id number] BICARB, CALCULATED 24.3 mmol/L Normal 22.0 - 26.0 [facility] Comment on above: Performed By: #### A FPA4 ####[facility] [place], [place] [id number] CALCIUM,IONIZED 1.13 mmol/L Normal 1.10 - 1.33 [facility] Comment on above: Performed By: #### A FPA4 ####[facility] [place], [place] [id number] Chloride [Moles/Vol] 106 mmol/L Normal 98 - 107 [facility] Comment on above: Performed By: #### A FPA4 ####[address] [place], [place] [id number] Glucose [Mass/Vol] 137 mg/dL High 74 - 99 [facility] Comment on above: Performed By: #### A FPA4 ####[address] [place], [place] [id number] Hematocrit (Bld) [Volume fraction] 34.0 % Low 41.0 - 52.0 [facility] Comment on above: Performed By: #### A FPA4 ####[facility] [place], [place] [phone] Hemoglobin (Bld) [Mass/Vol] 11.3 g/dL Low 13.5 - 17.5 [facility] Comment on above: Performed By: #### A FPA4 ####[facility] [place], [place] [phone] Lactate [Moles/Vol] 0.7 mmol/L Normal 0.4 - 2.0 [facility] Comment on above: Performed By: #### A FPA4 ####[address] [id number] OXY HGB 96.2 % Normal 94.0 - 98.0 [facility] Comment on above: Performed By: #### A FPA4 ####[address] [id number] Oxygen (Bld) [Partial pressure] 97 mm[Hg] High 85 - 95 [facility] Comment on above: Performed By: #### A FPA4 ####[address] [id number] PATIENT TEMPERATURE 37.0 degrees C Normal [facility] Comment on above: Result Comment: NOTE : PATIENT RESULTS ARE NOT CORRECTED FOR TEMPERATURE. Performed By: #### A FPA4 ####[address] [id number] PCO2 45 mmHg High 38 - 42 [facility] Comment on above: Performed By: #### A FPA4 ####[address] [id number] pH (Bld) 7.34 [pH] Low 7.38 - 7.42 [facility] Comment on above: Performed By: #### A FPA4 ####[address] [id number] Potassium [Moles/Vol] 4.7 mmol/L Normal 3.5 - 5.3 [facility] Comment on above: Performed By: #### A FPA4 ####[address] [id number] SITE OF ARTERIAL PUNCTURE DANYELLE Normal [facility] Comment on above: Performed By: #### A FPA4 ####[address] [id number] SO2 97 % Normal 94 - 100 [facility] Comment on above: Performed By: #### A FPA4 ####[address] [id number] Sodium [Moles/Vol] 135 mmol/L Low 136 - 145 [facility] Comment on above: Performed By: #### A FPA4 ####[address] [id number] Performed By: #### Gonzalez FPA4 ####[address] [id number] OMAIRA'S TEST[COLLATERAL CIRCULATION] Normal [facility] Comment on above: Performed By: #### A FPA4 ####[address] [id number] Anion gap [Moles/Vol] 10 mmol/L Normal 10 - 25 [facility] Comment on above: Performed By: #### A FPA4 ####[address] [id number] BASE EXCESS-BLOOD -1.5 mmol/L Normal -2.0 - 3.0 [facility] Comment on above: Performed By: #### A FPA4 ####[address] [id number] BICARB, CALCULATED 24.8 mmol/L Normal 22.0 - 26.0 [facility] Comment on above: Performed By: #### A FPA4 ####[address] [id number] CALCIUM,IONIZED 1.16 mmol/L Normal 1.10 - 1.33 [facility] Comment on above: Performed By: #### A FPA4 ####[address] [id number] Chloride [Moles/Vol] 104 mmol/L Normal 98 - 107 [facility] Comment on above: Performed By: #### A FPA4 ####[address] [id number] Performed By: #### Gonzalez FPA4 ####[address] [id number] FIO2 40 % Normal [facility] Comment on above: Performed By: #### A FPA4 ####[address] [id number] Glucose [Mass/Vol] 138 mg/dL High 74 - 99 [facility] Comment on above: Performed By: #### A FPA4 ####[address] [id number] Hematocrit (Bld) [Volume fraction] 38.0 % Low 41.0 - 52.0 [facility] Comment on above: Performed By: #### A FPA4 ####[address] [id number] Hemoglobin (Bld) [Mass/Vol] 12.6 g/dL Low 13.5 - 17.5 [facility] Comment on above: Performed By: #### A FPA4 ####[address] [id number] Lactate [Moles/Vol] 0.9 mmol/L Normal 0.4 - 2.0 [facility] Comment on above: Performed By: #### A FPA4 ####[address] [id number] OXY HGB 96.2 % Normal 94.0 - 98.0 [facility] Comment on above: Performed By: #### A FPA4 ####[address] [id number] Oxygen (Bld) [Partial pressure] 99 mm[Hg] High 85 - 95 [facility] Comment on above: Performed By: #### A FPA4 ####[address] [id number] PATIENT TEMPERATURE 37.0 degrees C Normal [facility] Comment on above: Result Comment: NOTE : PATIENT RESULTS ARE NOT CORRECTED FOR TEMPERATURE. Performed By: #### A FPA4 ####[address] [id number] Performed By: #### V FPA4 ####[address] [id number] PCO2 47 mmHg High 38 - 42 [facility] Comment on above: Performed By: #### A FPA4 ####[address] [id number] PEEP CMH2O 5.0 cm H2O Normal [facility] Comment on above: Performed By: #### A FPA4 ####[address] [id number] Performed By: #### V FPA4 ####[address] [id number] pH (Bld) 7.33 [pH] Low 7.38 - 7.42 [facility] Comment on above: Performed By: #### A FPA4 ####[address] [id number] Potassium [Moles/Vol] 4.5 mmol/L Normal 3.5 - 5.3 [facility] Comment on above: Performed By: #### A FPA4 ####[address] [id number] SITE OF ARTERIAL PUNCTURE DANYELLE Normal [facility] Comment on above: Performed By: #### A FPA4 ####[address] [id number] SO2 97 % Normal 94 - 100 [facility] Comment on above: Performed By: #### A FPA4 ####[address] [id number] Sodium [Moles/Vol] 134 mmol/L Low 136 - 145 [facility] Comment on above: Performed By: #### A FPA4 ####[address] [id number] VENTILATOR MODE CPAP Normal [facility] Comment on above: Performed By: #### A FPA4 ####[address] [id number] OMAIRA'S TEST[COLLATERAL CIRCULATION] Normal [facility] Comment on above: Performed By: #### A FPA4 ####[facility] [place], [place] [id number] Anion gap [Moles/Vol] 9 mmol/L Low 10 - 25 [facility] Comment on above: Performed By: #### A FPA4 ####[address] [place], [place] [id number] BASE EXCESS-BLOOD -0.5 mmol/L Normal -2.0 - 3.0 [facility] Comment on above: Performed By: #### A FPA4 ####[address] [id number] BICARB, CALCULATED 24.2 mmol/L Normal 22.0 - 26.0 [facility] Comment on above: Performed By: #### A FPA4 ####[address] [id number] CALCIUM,IONIZED 1.22 mmol/L Normal 1.10 - 1.33 [facility] Comment on above: Performed By: #### A FPA4 ####[address] [id number] Chloride [Moles/Vol] 105 mmol/L Normal 98 - 107 [facility] Comment on above: Performed By: #### A FPA4 ####[address] [id number] Glucose [Mass/Vol] 117 mg/dL High 74 - 99 [facility] Comment on above: Performed By: #### A FPA4 ####[address] [id number] Lactate [Moles/Vol] 1.0 mmol/L Normal 0.4 - 2.0 [facility] Comment on above: Performed By: #### A FPA4 ####[address] [id number] OXY HGB 96.1 % Normal 94.0 - 98.0 [facility] Comment on above: Performed By: #### A FPA4 ####[address] [id number] Oxygen (Bld) [Partial pressure] 88 mm[Hg] Normal 85 - 95 [facility] Comment on above: Performed By: #### A FPA4 ####[address] [id number] PATIENT TEMPERATURE 37.0 degrees C Normal [facility] Comment on above: Result Comment: NOTE : PATIENT RESULTS ARE NOT CORRECTED FOR TEMPERATURE. Performed By: #### A FPA4 ####[address] [id number] PCO2 39 mmHg Normal 38 - 42 [facility] Comment on above: Performed By: #### A FPA4 ####[address] [id number] PEEP CMH2O 5.0 cm H2O Normal [facility] Comment on above: Performed By: #### A FPA4 ####[address] [id number] pH (Bld) 7.40 [pH] Normal 7.38 - 7.42 [facility] Comment on above: Performed By: #### A FPA4 ####[address] [id number] Potassium [Moles/Vol] 4.1 mmol/L Normal 3.5 - 5.3 [facility] Comment on above: Performed By: #### A FPA4 ####[address] [id number] SITE OF ARTERIAL PUNCTURE DANYELLE Normal [facility] Comment on above: Performed By: #### A FPA4 ####[address] [id number] SO2 97 % Normal 94 - 100 [facility] Comment on above: Performed By: #### A FPA4 ####[address] [id number] Sodium [Moles/Vol] 134 mmol/L Low 136 - 145 [facility] Comment on above: Performed By: #### A FPA4 ####[address] [id number] Anion gap [Moles/Vol] 9 mmol/L Low 10 - 25 [facility] Comment on above: Performed By: #### A FPA4 ####[address] [id number] BASE EXCESS-BLOOD -1.2 mmol/L Normal -2.0 - 3.0 [facility] Comment on above: Performed By: #### A FPA4 ####[address] [id number] BICARB, CALCULATED 23.6 mmol/L Normal 22.0 - 26.0 [facility] Comment on above: Performed By: #### A FPA4 ####[address] [id number] CALCIUM,IONIZED 1.34 mmol/L High 1.10 - 1.33 [facility] Comment on above: Performed By: #### A FPA4 ####[address] [id number] Chloride [Moles/Vol] 105 mmol/L Normal 98 - 107 [facility] Comment on above: Performed By: #### A FPA4 ####[address] [id number] FIO2 100 % Normal [facility] Comment on above: Performed By: #### A FPA4 ####[address] [id number] Glucose [Mass/Vol] 98 mg/dL Normal 74 - 99 [facility] Comment on above: Performed By: #### A FPA4 ####[address] [id number] Hematocrit (Bld) [Volume fraction] 34.0 % Low 41.0 - 52.0 [facility] Comment on above: Performed By: #### A FPA4 ####[address] [id number] Oxygen (Bld) [Partial pressure] 234 mm[Hg] High 85 - 95 [facility] Comment on above: Performed By: #### A FPA4 ####[address] [id number] PATIENT TEMPERATURE 37.0 degrees C Normal [facility] Comment on above: Result Comment: NOTE : PATIENT RESULTS ARE NOT CORRECTED FOR TEMPERATURE. Performed By: #### A FPA4 ####[address] [id number] PCO2 39 mmHg Normal 38 - 42 [facility] Comment on above: Performed By: #### A FPA4 ####[address] [id number] pH (Bld) 7.39 [pH] Normal 7.38 - 7.42 [facility] Comment on above: Performed By: #### A FPA4 ####[address] [id number] Potassium [Moles/Vol] 4.6 mmol/L Normal 3.5 - 5.3 [facility] Comment on above: Performed By: #### A FPA4 ####[address] [id number] SO2 98 % Normal 94 - 100 [facility] Comment on above: Performed By: #### A FPA4 ####[address] [id number] Sodium [Moles/Vol] 133 mmol/L Low 136 - 145 [facility] Comment on above: Performed By: #### A FPA4 ####[address] [id number] Anion gap [Moles/Vol] 9 mmol/L Low 10 - 25 [facility] Comment on above: Performed By: #### A FPA4 ####[address] [id number] BASE EXCESS-BLOOD -1.2 mmol/L Normal -2.0 - 3.0 [facility] Comment on above: Performed By: #### A FPA4 ####[address] [id number] BICARB, CALCULATED 24.3 mmol/L Normal 22.0 - 26.0 [facility] Comment on above: Performed By: #### A FPA4 ####[address] [id number] CALCIUM,IONIZED 1.12 mmol/L Normal 1.10 - 1.33 [facility] Comment on above: Performed By: #### A FPA4 ####[address] [id number] Chloride [Moles/Vol] 104 mmol/L Normal 98 - 107 [facility] Comment on above: Performed By: #### A FPA4 ####[address] [id number] FIO2 70 % Normal [facility] Comment on above: Performed By: #### A FPA4 ####[address] [id number] Hematocrit (Bld) [Volume fraction] 31.0 % Low 41.0 - 52.0 [facility] Comment on above: Performed By: #### A FPA4 ####[address] [id number] Hemoglobin (Bld) [Mass/Vol] 10.2 g/dL Low 13.5 - 17.5 [facility] Comment on above: Performed By: #### A FPA4 ####[address] [id number] Performed By: #### C OXA1 ####[address] [id number] Lactate [Moles/Vol] 1.0 mmol/L Normal 0.4 - 2.0 [facility] Comment on above: Performed By: #### A FPA4 ####[address] [id number] OXY HGB 98.0 % Normal 94.0 - 98.0 [facility] Comment on above: Performed By: #### A FPA4 ####[address] [id number] Performed By: #### C OXA1 ####[address] [id number] Oxygen (Bld) [Partial pressure] 319 mm[Hg] High 85 - 95 [facility] Comment on above: Performed By: #### A FPA4 ####[address] [id number] PATIENT TEMPERATURE 37.0 degrees C Normal [facility] Comment on above: Result Comment: NOTE : PATIENT RESULTS ARE NOT CORRECTED FOR TEMPERATURE. Performed By: #### A FPA4 ####[address] [id number] PCO2 43 mmHg High 38 - 42 [facility] Comment on above: Performed By: #### A FPA4 ####[address] [id number] pH (Bld) 7.36 [pH] Low 7.38 - 7.42 [facility] Comment on above: Performed By: #### A FPA4 ####[address] [id number] Potassium [Moles/Vol] 5.4 mmol/L High 3.5 - 5.3 [facility] Comment on above: Performed By: #### A FPA4 ####[address] [id number] SO2 99 % Normal 94 - 100 [facility] Comment on above: Performed By: #### A FPA4 ####[address] [id number] Sodium [Moles/Vol] 132 mmol/L Low 136 - 145 [facility] Comment on above: Performed By: #### A FPA4 ####[address] [id number] Anion gap [Moles/Vol] 8 mmol/L Low 10 - 25 [facility] Comment on above: Performed By: #### A FPA4 ####[address] [id number] BASE EXCESS-BLOOD 1.2 mmol/L Normal -2.0 - 3.0 [facility] Comment on above: Performed By: #### A FPA4 ####[address] [id number] BICARB, CALCULATED 26.0 mmol/L Normal 22.0 - 26.0 [facility] Comment on above: Performed By: #### A FPA4 ####[address] [id number] CALCIUM,IONIZED 1.04 mmol/L Low 1.10 - 1.33 [facility] Comment on above: Performed By: #### A FPA4 ####[address] [id number] Chloride [Moles/Vol] 105 mmol/L Normal 98 - 107 [facility] Comment on above: Performed By: #### A FPA4 ####[address] [id number] FIO2 80 % Normal [facility] Comment on above: Performed By: #### A FPA4 ####[address] [id number] Glucose [Mass/Vol] 105 mg/dL High 74 - 99 [facility] Comment on above: Performed By: #### A FPA4 ####[address] [id number] Hematocrit (Bld) [Volume fraction] 30.0 % Low 41.0 - 52.0 [facility] Comment on above: Performed By: #### A FPA4 ####[address] [id number] Lactate [Moles/Vol] 1.1 mmol/L Normal 0.4 - 2.0 [facility] Comment on above: Performed By: #### A FPA4 ####[address] [place], [place] [id number] Oxygen (Bld) [Partial pressure] 485 mm[Hg] High 85 - 95 [facility] Comment on above: Performed By: #### A FPA4 ####[address] [id number] PATIENT TEMPERATURE 37.0 degrees C Normal [facility] Comment on above: Result Comment: NOTE : PATIENT RESULTS ARE NOT CORRECTED FOR TEMPERATURE. Performed By: #### A FPA4 ####[address] [id number] PCO2 41 mmHg Normal 38 - 42 [facility] Comment on above: Performed By: #### A FPA4 ####[address] [id number] pH (Bld) 7.41 [pH] Normal 7.38 - 7.42 [facility] Comment on above: Performed By: #### A FPA4 ####[address] [id number] Potassium [Moles/Vol] 5.3 mmol/L Normal 3.5 - 5.3 [facility] Comment on above: Performed By: #### A FPA4 ####[address] [id number] SO2 98 % Normal 94 - 100 [facility] Comment on above: Performed By: #### A FPA4 ####[address] [id number] Sodium [Moles/Vol] 134 mmol/L Low 136 - 145 [facility] Comment on above: Performed By: #### A FPA4 ####[address] [id number] Anion gap [Moles/Vol] 9 mmol/L Low 10 - 25 [facility] Comment on above: Performed By: #### A FPA4 ####[address] [place], [place] [id number] BASE EXCESS-BLOOD -0.8 mmol/L Normal -2.0 - 3.0 [facility] Comment on above: Performed By: #### A FPA4 ####[address] [id number] BICARB, CALCULATED 24.3 mmol/L Normal 22.0 - 26.0 [facility] Comment on above: Performed By: #### A FPA4 ####[address] [id number] CALCIUM,IONIZED 1.10 mmol/L Normal 1.10 - 1.33 [facility] Comment on above: Performed By: #### A FPA4 ####[address] [id number] Chloride [Moles/Vol] 105 mmol/L Normal 98 - 107 [facility] Comment on above: Performed By: #### A FPA4 ####[address] [id number] FIO2 100 % Normal [facility] Comment on above: Performed By: #### A FPA4 ####[address] [id number] Glucose [Mass/Vol] 98 mg/dL Normal 74 - 99 [facility] Comment on above: Performed By: #### A FPA4 ####[address] [id number] Hematocrit (Bld) [Volume fraction] 34.0 % Low 41.0 - 52.0 [facility] Comment on above: Performed By: #### A FPA4 ####[address] [id number] Lactate [Moles/Vol] 1.1 mmol/L Normal 0.4 - 2.0 [facility] Comment on above: Performed By: #### A FPA4 ####[address] [id number] Oxygen (Bld) [Partial pressure] 365 mm[Hg] High 85 - 95 [facility] Comment on above: Performed By: #### A FPA4 ####[address] [id number] PATIENT TEMPERATURE 37.0 degrees C Normal [facility] Comment on above: Result Comment: NOTE : PATIENT RESULTS ARE NOT CORRECTED FOR TEMPERATURE. Performed By: #### A FPA4 ####[address] [id number] PCO2 41 mmHg Normal 38 - 42 [facility] Comment on above: Performed By: #### A FPA4 ####[address] [id number] pH (Bld) 7.38 [pH] Normal 7.38 - 7.42 [facility] Comment on above: Performed By: #### A FPA4 ####[address] [id number] Potassium [Moles/Vol] 3.9 mmol/L Normal 3.5 - 5.3 [facility] Comment on above: Performed By: #### A FPA4 ####[address] [id number] SO2 99 % Normal 94 - 100 [facility] Comment on above: Performed By: #### A FPA4 ####[address] [id number] Sodium [Moles/Vol] 134 mmol/L Low 136 - 145 [facility] Comment on above: Performed By: #### A FPA4 ####[address] [id number] Anion gap [Moles/Vol] 9 mmol/L Low 10 - 25 [facility] Comment on above: Performed By: #### A FPA4 ####[address] [place], [place] [id number] BASE EXCESS-BLOOD 1.6 mmol/L Normal -2.0 - 3.0 [facility] Comment on above: Performed By: #### A FPA4 ####[facility] [place], [place] [id number] BICARB, CALCULATED 27.7 mmol/L High 22.0 - 26.0 [facility] Comment on above: Performed By: #### A FPA4 ####[address] [place], [place] [id number] CALCIUM,IONIZED 1.17 mmol/L Normal 1.10 - 1.33 [facility] Comment on above: Performed By: #### A FPA4 ####[address] [id number] Chloride [Moles/Vol] 102 mmol/L Normal 98 - 107 [facility] Comment on above: Performed By: #### A FPA4 ####[address] [id number] FIO2 21 % Normal [facility] Comment on above: Performed By: #### A FPA4 ####[address] [id number] Glucose [Mass/Vol] 94 mg/dL Normal 74 - 99 [facility] Comment on above: Performed By: #### A FPA4 ####[address] [id number] Hematocrit (Bld) [Volume fraction] 37.0 % Low 41.0 - 52.0 [facility] Comment on above: Performed By: #### A FPA4 ####[address] [id number] Lactate [Moles/Vol] 0.9 mmol/L Normal 0.4 - 2.0 [facility] Comment on above: Performed By: #### A FPA4 ####[address] [id number] Oxygen (Bld) [Partial pressure] 83 mm[Hg] Low 85 - 95 [facility] Comment on above: Performed By: #### A FPA4 ####[address] [id number] PATIENT TEMPERATURE 37.0 degrees C Normal [facility] Comment on above: Result Comment: NOTE : PATIENT RESULTS ARE NOT CORRECTED FOR TEMPERATURE. Performed By: #### A FPA4 ####[address] [id number] PCO2 49 mmHg High 38 - 42 [facility] Comment on above: Performed By: #### A FPA4 ####[address] [id number] pH (Bld) 7.36 [pH] Low 7.38 - 7.42 [facility] Comment on above: Performed By: #### A FPA4 ####[address] [id number] SO2 97 % Normal 94 - 100 [facility] Comment on above: Performed By: #### A FPA4 ####[address] [id number] Sodium [Moles/Vol] 135 mmol/L Low 136 - 145 [facility] Comment on above: Performed By: #### A FPA4 ####[address] [id number] CBCon 01-28-2022 HCT Canceled Normal [facility] Comment on above: Order Comment: TEST CBC WAS CANCELLED, 01/28/2022 15:37 DUPLICATE ORDER. Performed By: #### C BC ####[address] [id number] HGB Canceled Normal [facility] Comment on above: Order Comment: TEST CBC WAS CANCELLED, 01/28/2022 15:37 DUPLICATE ORDER. Performed By: #### C BC ####[address] [id number] MCHC Canceled Normal [facility] Comment on above: Order Comment: TEST CBC WAS CANCELLED, 01/28/2022 15:37 DUPLICATE ORDER. Performed By: #### C BC ####[address] [id number] MCV Canceled Normal [facility] Comment on above: Order Comment: TEST CBC WAS CANCELLED, 01/28/2022 15:37 DUPLICATE ORDER. Performed By: #### C BC ####[address] [id number] NUCLEATED RBC Canceled Normal [facility] Comment on above: Order Comment: TEST CBC WAS CANCELLED, 01/28/2022 15:37 DUPLICATE ORDER. Performed By: #### C BC ####[address] [id number] PLT Canceled Normal [facility] Comment on above: Order Comment: TEST CBC WAS CANCELLED, 01/28/2022 15:37 DUPLICATE ORDER. Performed By: #### C BC ####[address] [id number] RBC Canceled Normal [facility] Comment on above: Order Comment: TEST CBC WAS CANCELLED, 01/28/2022 15:37 DUPLICATE ORDER. Performed By: #### C BC ####[address] [id number] RDW-CV Canceled Normal [facility] Comment on above: Order Comment: TEST CBC WAS CANCELLED, 01/28/2022 15:37 DUPLICATE ORDER. Performed By: #### C BC ####[address] [id number] WBC Canceled Normal [facility] Comment on above: Order Comment: TEST CBC WAS CANCELLED, 01/28/2022 15:37 DUPLICATE ORDER. Performed By: #### C BC ####[address] [id number] Erythrocyte distribution width (RBC) [Ratio] 11.9 % Normal 11.5 - 14.5 [facility] Comment on above: Performed By: #### C BC ####[address] [place], [place] [id number] Hematocrit (Bld) [Volume fraction] 34.2 % Low 41.0 - 52.0 [facility] Comment on above: Performed By: #### C BC ####[address] [id number] Hemoglobin (Bld) [Mass/Vol] 11.5 g/dL Low 13.5 - 17.5 [facility] Comment on above: Performed By: #### C BC ####[address] [place], [place] [id number] MCHC (RBC) [Mass/Vol] 33.6 g/dL Normal 32.0 - 36.0 [facility] Comment on above: Performed By: #### C BC ####[address] [id number] MCV (RBC) [Entitic vol] 93 fL Normal 80 - 100 [facility] Comment on above: Performed By: #### C BC ####[address] [id number] Platelets (Bld) [#/Vol] 198 10*3/uL Normal 150 - 450 [facility] Comment on above: Performed By: #### C BC ####[address] [id number] RBC 3.68 x10E12/L Low 4.50 - 5.90 [facility] Comment on above: Performed By: #### C BC ####[address] [id number] WBC (Bld) [#/Vol] 13.1 10*3/uL High 4.4 - 11.3 [facility] Comment on above: Performed By: #### C BC ####[address] [id number] CHEST 1 VIEWon 10-19-2022 CHEST 1 VIEW Normal [facility] CHEST 1 VIEW Normal [facility] COAGULATION SCREENon 022 APTT Canceled Normal [facility] Comment on above: Order Comment: TEST COAGULATION SCREEN WAS CANCELLED, 01/28/2022 15:37 DUPLICATE ORDER. Result Comment: THE APTT IS NO LONGER USED FOR MONITORING UNFRACTIONATED HEPARIN THERAPY. FOR MONITORING HEPARIN THERAPY, USE THE HEPARIN ASSAY. Performed By: #### C OAGS ####[address] [id number] PROTHROMBIN TIME Canceled Normal [facility] Comment on above: Order Comment: TEST COAGULATION SCREEN WAS CANCELLED, 01/28/2022 15:37 DUPLICATE ORDER. Performed By: #### C OAGS ####[address] [id number] PT, INR Canceled Normal [facility] Comment on above: Order Comment: TEST COAGULATION SCREEN WAS CANCELLED, 01/28/2022 15:37 DUPLICATE ORDER. Performed By: #### C OAGS ####[address] [id number] aPTT Coag (Bld) [Time] 29 s Normal 26 - 39 [facility] Comment on above: Result Comment: THE APTT IS NO LONGER USED FOR MONITORING UNFRACTIONATED HEPARIN THERAPY. FOR MONITORING HEPARIN THERAPY, USE THE HEPARIN ASSAY. Performed By: #### C OAGS ####[address] [id number] PT Coag (PPP) [Time] 14.3 s High 9.8 - 13.4 [facility] Comment on above: Performed By: #### C OAGS ####[address] [id number] PT, INR 1.2 High 0.9 - 1.1 [facility] Comment on above: Performed By: #### C OAGS ####[address] [id number] COOX PANEL, ARTERIALon 01-28 CO HGB 0.2 % Normal [facility] Comment on above: Result Comment: REF VALUESNONSMOKERS 0.5-1.5%SMOKERS 0.5-10.0% Performed By: #### C OXA1 ####[address] [id number] DEOXY HGB 1.9 % Normal 0.0 - 5.0 [facility] Comment on above: Performed By: #### C OXA1 ####[address] [id number] Hemoglobin (Bld) [Mass/Vol] 11.3 g/dL Low 13.5 - 17.5 [facility] Comment on above: Performed By: #### C OXA1 ####[address] [id number] Performed By: #### A FPA4 ####[address] [id number] MET HGB 0.6 % Normal 0.0 - 1.5 [facility] Comment on above: Performed By: #### C OXA1 ####[address] [id number] OXY HGB 97.3 % Normal 94.0 - 98.0 [facility] Comment on above: Performed By: #### C OXA1 ####[address] [id number] Performed By: #### A FPA4 ####[address] [id number] CO HGB 0.9 % Normal [facility] Comment on above: Result Comment: REF VALUESNONSMOKERS 0.5-1.5%SMOKERS 0.5-10.0% Performed By: #### C OXA1 ####[address] [id number] DEOXY HGB 0.8 % Normal 0.0 - 5.0 [facility] Comment on above: Performed By: #### C OXA1 ####[address] [place] [id number] MET HGB 0.3 % Normal 0.0 - 1.5 [facility] Comment on above: Performed By: #### C OXA1 ####[address] [id number] CO HGB 0.3 % Normal [facility] Comment on above: Result Comment: REF VALUESNONSMOKERS 0.5-1.5%SMOKERS 0.5-10.0% Performed By: #### C OXA1 ####[address] [id number] DEOXY HGB 1.6 % Normal 0.0 - 5.0 [facility] Comment on above: Performed By: #### C OXA1 ####[address] [id number] Hemoglobin (Bld) [Mass/Vol] 9.9 g/dL Low 13.5 - 17.5 [facility] Comment on above: Performed By: #### C OXA1 ####[address] [id number] Performed By: #### A FPA4 ####[address] [id number] MET HGB 0.0 % Normal 0.0 - 1.5 [facility] Comment on above: Performed By: #### C OXA1 ####[address] [id number] OXY HGB 98.1 % High 94.0 - 98.0 [facility] Comment on above: Performed By: #### C OXA1 ####[address] [id number] Performed By: #### A FPA4 ####[address] [id number] CO HGB 0.6 % Normal [facility] Comment on above: Result Comment: REF VALUESNONSMOKERS 0.5-1.5%SMOKERS 0.5-10.0% Performed By: #### C OXA1 ####[address] [id number] DEOXY HGB 1.1 % Normal 0.0 - 5.0 [facility] Comment on above: Performed By: #### C OXA1 ####[address] [id number] Hemoglobin (Bld) [Mass/Vol] 11.3 g/dL Low 13.5 - 17.5 [facility] Comment on above: Performed By: #### C OXA1 ####[address] [id number] Performed By: #### A FPA4 ####[address] [id number] MET HGB 0.1 % Normal 0.0 - 1.5 [facility] Comment on above: Performed By: #### C OXA1 ####[address] [id number] OXY HGB 98.2 % High 94.0 - 98.0 [facility] Comment on above: Performed By: #### C OXA1 ####[address] [id number] Performed By: #### A FPA4 ####[address] [id number] CO HGB 1.0 % Normal [facility] Comment on above: Result Comment: REF VALUESNONSMOKERS 0.5-1.5%SMOKERS 0.5-10.0% Performed By: #### C OXA1 ####[address] [id number] DEOXY HGB 3.3 % Normal 0.0 - 5.0 [facility] Comment on above: Performed By: #### C OXA1 ####[address] [id number] Hemoglobin (Bld) [Mass/Vol] 12.4 g/dL Low 13.5 - 17.5 [facility] Comment on above: Performed By: #### C OXA1 ####[address] [id number] Performed By: #### A FPA4 ####[address] [id number] MET HGB 0.2 % Normal 0.0 - 1.5 [facility] Comment on above: Performed By: #### C OXA1 ####[address] [id number] OXY HGB 95.4 % Normal 94.0 - 98.0 [facility] Comment on above: Performed By: #### C OXA1 ####[address] [id number] Performed By: #### A FPA4 ####[address] [id number] COOX PANEL,VENOUSon 01-29-20 22 CO HGB 1.5 % Normal [facility] Comment on above: Result Comment: REF VALUESNONSMOKERS 0.5-1.5%SMOKERS 0.5-10.0% Performed By: #### C OXV1 ####[address] [id number] MET HGB 0.1 % Normal 0.0 - 1.5 [facility] Comment on above: Performed By: #### C OXV1 ####[address] [id number] Calcium, Ionized Levelon Calcium, Ionized Level Canceled [facility] Work Phone: Comment on above: CALCULATIONS OF ALVINA MATED GFR ARE PERFORMED USING THE 2020 CKD-EPI STUDY REFIT EQUATION WITHOUT THE RACE VARIABLE FOR THE IDMS-TRACEABLE CREATININE METHODS.https://jasn.asnjournals.org/content/early/A SN.5628845929 Clinical Event Note-Second s urgical assistanton 01-28-2022 Clinical Event Note-Second surgical assistant certified Normal [facility] Consult-Critical Careon 01-10 Consult-Critical Care Normal [facility] Electrocardiogram 12 Leadon 01-28-2022 Electrocardiogram 12 Lead Ventricular Rate 74 Atrial Rate 74 P-R Interval 206 QRS Duration 88 Q-T Interval 390 QTC Calculation(Bazett) 432 P Sherman 38 R Sherman 18 T Sherman -2 QRS Count 12 Q Onset 223 P Onset 120 P Offset 179 T Offset 418 QTC Fredericia 418 Diagnosis Class Normal Diagnosis Normal sinus rhythm Normal ECG When compared with ECG of 27-JAN-2022 15:25, No significant change was found Confirmed by Boris Light ([id number]) on 01/29/2022 4:13:14 PM Normal [facility] GLUCOSE-POCTon 01-28-2022 Glucose [Mass/Vol] 135 mg/dL High 74 - 99 [facility] Comment on above: Performed By: #### G ALEC ####[facility] [place], [place] [id number] Glucose [Mass/Vol] 129 mg/dL High 74 - 99 [facility] Comment on above: Performed By: #### G ALEC ####[facility] [place], [place] [id number] Glucose [Mass/Vol] 118 mg/dL High 74 - 99 [facility] Comment on above: Performed By: #### G ALEC ####[facility] [place], [place] [id number] Laboratory - Chemistry and C hemistry - challengeon 01-28-2022 Glucose [Mass/Vol] 129 mg/dL above high threshold 74 - 99 MG-CT Surgery[facility] a Work Phone: Anion gap 4 (BldA) [Moles/Vol] 9 mmol/L below low threshold 10 - 25 [facility] Work Phone: Base excess Calc (Bld) [Moles/Vol] -1.6000 mmol/L -2.0 - 3.0 [facility] Work Phone: Calcium.ionized (BldA) [Moles/Vol] 1.13 mmol/L See Below MG-CT Surgery-[facility] Work Phone: Comment on above: Reference Range: 1.1 0 - 1.33 Chloride (BldA) [Moles/Vol] 106 mmol/L 98 - 107 [facility] Work Phone: CO2 (Bld) [Partial pressure] 45 mm[Hg] above high threshold 38 - 42 [facility] Work Phone: Glucose [Mass/Vol] 137 mg/dL above high threshold 74 - 99 [facility] Work Phone: HCO3 (Bld) [Moles/Vol] 24.3 mmol/L See Below M G-CT Surgery-[facility] Work Phone: Comment on above: Reference Range: 22. 0 - 26.0 Lactate (BldA) [Moles/Vol] 0.7 mmol/L 0.4 - 2.0 MG[facility] Work Phone: Oxygen (Bld) [Partial pressure] 97 mm[Hg] above high threshold 85 - 95 MG[facility] Work Phone: Oxyhemoglobin (BldA) [Mass fraction] 96.2 % See Below MG-CT Surgery-[facility] Work Phone: Comment on above: Reference Range: 94. 0 - 98.0 pH (Bld) 7.34 [pH] below low threshold See Below MG-CT Surgery-[facility] Work Phone: Comment on above: Reference Range: 7.3 8 - 7.42 Potassium (BldA) [Moles/Vol] 4.7 mmol/L 3.5 - 5.3 MG[facility] Work Phone: Sodium (BldA) [Moles/Vol] 135 mmol/L below low threshold 136 - 145 [facility] Work Phone: [phone] Potassium [Moles/Vol] 4.3 mmol/L 3.5 - 5.3 MG- CT Surgery-[facility] Work Phone: Glucose [Mass/Vol] 135 mg/dL above high threshold 74 - 99 [facility] Work Phone: Anion gap 4 (BldA) [Moles/Vol] 10 mmol/L 10 - 25 MG[facility] Work Phone: Base excess Calc (Bld) [Moles/Vol] -1.5000 mmol/L -2.0 - 3.0 [facility] Work Phone: Calcium.ionized (BldA) [Moles/Vol] 1.16 mmol/L See Below MG-CT [facility] Work Phone: Comment on above: Reference Range: 1.1 0 - 1.33 Chloride (BldA) [Moles/Vol] 104 mmol/L 98 - 107 [facility] Work Phone: CO2 (Bld) [Partial pressure] 47 mm[Hg] above high threshold 38 - 42 MG[facility] Work Phone: Glucose [Mass/Vol] 138 mg/dL above high threshold 74 - 99 [facility] Work Phone: HCO3 (Bld) [Moles/Vol] 24.8 mmol/L See Below M G-CT Surgery-[facility] Work Phone: Comment on above: Reference Range: 22. 0 - 26.0 Lactate (BldA) [Moles/Vol] 0.9 mmol/L 0.4 - 2.0 MG-[facility] Work Phone: Oxygen (Bld) [Partial pressure] 99 mm[Hg] above high threshold 85 - 95 MG[facility] Work Phone: Oxyhemoglobin (BldA) [Mass fraction] 96.2 % See Below MG-CT [facility] Work Phone: Comment on above: Reference Range: 94. 0 - 98.0 pH (Bld) 7.33 [pH] below low threshold See Below MG-CT Surgery-[facility] Work Phone: Comment on above: Reference Range: 7.3 8 - 7.42 Potassium (BldA) [Moles/Vol] 4.5 mmol/L 3.5 - 5.3 [facility] Work Phone: Sodium (BldA) [Moles/Vol] 134 mmol/L below low threshold 136 - 145 [facility] Work Phone: Glucose [Mass/Vol] 129 mg/dL above high threshold 74 - 99 [facility] Work Phone: Anion gap 4 (BldV) [Moles/Vol] 10 mmol/L 10 - 25 MG[facility] Work Phone: Base excess Calc (BldV) [Moles/Vol] -0.7000 mmol/L -2.0 - 3.0 MG[facility] Work Phone: Calcium.ionized (BldV) [Moles/Vol] 1.24 mmol/L See Below MG-CT [facility] Work Phone: Comment on above: Reference Range: 1.1 0 - 1.33 Chloride (BldV) [Moles/Vol] 104 mmol/L 98 - 107 [facility] Work Phone: CO2 (BldV) [Partial pressure] 44 mm[Hg] 41 - 51 MG[facility] Work Phone: HCO3 (Bld) [Moles/Vol] 24.9 mmol/L See Below M G-CT Surgery-[facility] Work Phone: Comment on above: Reference Range: 22. 0 - 26.0 Lactate (BldV) [Moles/Vol] 1.2 mmol/L 0.4 - 2.0 MG-CT [facility] Work Phone: Oxygen (BldV) [Partial pressure] 45 mm[Hg] 35 - 45 MG[facility] Work Phone: Oxyhemoglobin (BldV) [Mass fraction] 72.4 % See Below MG-CT [facility] Work Phone: Comment on above: Reference Range: 45. 0 - 75.0 Potassium (BldV) [Moles/Vol] 4.0 mmol/L 3.5 - 5.3 MG-CT [facility] Work Phone: Sodium (BldV) [Moles/Vol] 135 mmol/L below low threshold 136 - 145 MG[facility] Work Phone: Anion gap 4 (BldA) [Moles/Vol] 9 mmol/L below low threshold 10 - 25 [facility] Work Phone: Base excess Calc (Bld) [Moles/Vol] -0.5000 mmol/L -2.0 - 3.0 MG[facility] Work Phone: Calcium.ionized (BldA) [Moles/Vol] 1.22 mmol/L See Below MG-CT [facility] Work Phone: Comment on above: Reference Range: 1.1 0 - 1.33 Chloride (BldA) [Moles/Vol] 105 mmol/L 98 - 107 [facility] Work Phone: [phone] CO2 (Bld) [Partial pressure] 39 mm[Hg] 38 - 42 [facility] Work Phone: Glucose [Mass/Vol] 117 mg/dL above high threshold 74 - 99 [facility] Work Phone: [phone] HCO3 (Bld) [Moles/Vol] 24.2 mmol/L See Below M G-CT [facility] Work Phone: Comment on above: Reference Range: 22. 0 - 26.0 Lactate (BldA) [Moles/Vol] 1.0 mmol/L 0.4 - 2.0 MG[facility] Work Phone: Oxygen (Bld) [Partial pressure] 88 mm[Hg] 85 - 95 [facility] Work Phone: Oxyhemoglobin (BldA) [Mass fraction] 96.1 % See Below MG-CT [facility] Work Phone: Comment on above: Reference Range: 94. 0 - 98.0 pH (Bld) 7.40 [pH] See Below MG-CT [facility] Work Phone: Comment on above: Reference Range: 7.3 8 - 7.42 Potassium (BldA) [Moles/Vol] 4.1 mmol/L 3.5 - 5.3 [facility] Work Phone: Sodium (BldA) [Moles/Vol] 134 mmol/L below low threshold 136 - 145 [facility] Work Phone: Glucose [Mass/Vol] 118 mg/dL above high threshold 74 - 99 [facility] Work Phone: Anion gap 4 (BldA) [Moles/Vol] 9 mmol/L below low threshold 10 - 25 [facility] Work Phone: Base excess Calc (Bld) [Moles/Vol] -1.2000 mmol/L -2.0 - 3.0 [facility] Work Phone: Calcium.ionized (BldA) [Moles/Vol] 1.34 mmol/L above high threshold See Below MG-CT [facility] Work Phone: Comment on above: Reference Range: 1.1 0 - 1.33 Carboxyhemoglobin (BldA) [Mass fraction] 0.2 % MG-CT [facility] Work Phone: Comment on above: REF VALUESNONSMOKERS 0.5-1.5%SMOKERS 0.5-10.0% Chloride (BldA) [Moles/Vol] 105 mmol/L 98 - 107 [facility] Work Phone: CO2 (Bld) [Partial pressure] 39 mm[Hg] 38 - 42 [facility] Work Phone: Glucose [Mass/Vol] 98 mg/dL 74 - 99 MG[facility] Work Phone: HCO3 (Bld) [Moles/Vol] 23.6 mmol/L See Below M G-CT Surgery[facility] Work Phone: Comment on above: Reference Range: 22. 0 - 26.0 Lactate (BldA) [Moles/Vol] 1.2 mmol/L 0.4 - 2.0 MG-CT [facility] Work Phone: Methemoglobin (BldA) [Mass fraction] 0.6 % 0.0 - 1.5 [facility] Work Phone: Oxygen (Bld) [Partial pressure] 234 mm[Hg] above high threshold 85 - 95 MG[facility] Work Phone: Oxyhemoglobin (BldA) [Mass fraction] 97.3 % See Below MG-CT Surgery[facility] Work Phone: Comment on above: Reference Range: 94. 0 - 98.0 pH (Bld) 7.39 [pH] See Below MG-CT Surgery[facility] Work Phone: Comment on above: Reference Range: 7.3 8 - 7.42 Potassium (BldA) [Moles/Vol] 4.6 mmol/L 3.5 - 5.3 MG[facility] Work Phone: Sodium (BldA) [Moles/Vol] 133 mmol/L below low threshold 136 - 145 [facility] Work Phone: Anion gap 4 (BldA) [Moles/Vol] 9 mmol/L below low threshold 10 - 25 MG[facility] Work Phone: Base excess Calc (Bld) [Moles/Vol] -1.2000 mmol/L -2.0 - 3.0 MG-[facility] Work Phone: Calcium.ionized (BldA) [Moles/Vol] 1.12 mmol/L See Below MG-CT Surgery[facility] Work Phone: Comment on above: Reference Range: 1.1 0 - 1.33 Carboxyhemoglobin (BldA) [Mass fraction] 0.9 % MG-CT Surgery[facility] Work Phone: Comment on above: REF VALUESNONSMOKERS 0.5-1.5%SMOKERS 0.5-10.0% Chloride (BldA) [Moles/Vol] 104 mmol/L 98 - 107 [facility] Work Phone: CO2 (Bld) [Partial pressure] 43 mm[Hg] above high threshold 38 - 42 [facility] Work Phone: HCO3 (Bld) [Moles/Vol] 24.3 mmol/L See Below M G-CT Surgery[facility] Work Phone: Comment on above: Reference Range: 22. 0 - 26.0 Lactate (BldA) [Moles/Vol] 1.0 mmol/L 0.4 - 2.0 MG[facility] Work Phone: Methemoglobin (BldA) [Mass fraction] 0.3 % 0.0 - 1.5 MG[facility] Work Phone: Oxygen (Bld) [Partial pressure] 319 mm[Hg] above high threshold 85 - 95 MG-[facility] Work Phone: Oxyhemoglobin (BldA) [Mass fraction] 98.0 % See Below MG-CT [facility] Work Phone: Comment on above: Reference Range: 94. 0 - 98.0 pH (Bld) 7.36 [pH] below low threshold See Below MG-CT Surgery[facility] Work Phone: Comment on above: Reference Range: 7.3 8 - 7.42 Potassium (BldA) [Moles/Vol] 5.4 mmol/L above high threshold 3.5 - 5.3 MG[facility]CT [facility] Work Phone: Sodium (BldA) [Moles/Vol] 132 mmol/L below low threshold 136 - 145 MG[facility] Work Phone: Anion gap 4 (BldV) [Moles/Vol] 9 mmol/L below low threshold 10 - 25 MG-[facility] Work Phone: Base excess Calc (BldV) [Moles/Vol] -0.2000 mmol/L -2.0 - 3.0 MG-CT [facility] Work Phone: Calcium.ionized (BldV) [Moles/Vol] 1.06 mmol/L below low threshold See Below MG-CT Surgery[facility] Work Phone: Comment on above: Reference Range: 1.1 0 - 1.33 Carboxyhemoglobin (BldV) [Mass fraction] 1.5 % MG-CT [facility] Work Phone: Comment on above: REF VALUESNONSMOKERS 0.5-1.5%SMOKERS 0.5-10.0% Chloride (BldV) [Moles/Vol] 103 mmol/L 98 - 107 MG[facility] Work Phone: CO2 (BldV) [Partial pressure] 45 mm[Hg] 41 - 51 MG-CT [facility] Work Phone: Glucose [Mass/Vol] 108 mg/dL above high threshold 74 - 99 MG[facility]CT [facility] Work Phone: HCO3 (Bld) [Moles/Vol] 25.4 mmol/L See Below M G-CT Surgery[facility] Work Phone: Comment on above: Reference Range: 22. 0 - 26.0 Lactate (BldV) [Moles/Vol] 1.1 mmol/L 0.4 - 2.0 MG-CT Surgery[facility] Work Phone: Methemoglobin (BldV) [Mass fraction] 0.1 % 0.0 - 1.5 [facility] Work Phone: Oxygen (BldV) [Partial pressure] 60 mm[Hg] above high threshold 35 - 45 MG-CT [facility] Work Phone: Oxyhemoglobin (BldV) [Mass fraction] 90.6 % above high threshold See Below MG-CT [facility] Work Phone: Comment on above: Reference Range: 45. 0 - 75.0 pH (BldV) 7.36 [pH] See Below MG-CT [facility] Work Phone: Comment on above: Reference Range: 7.3 3 - 7.43 Potassium (BldV) [Moles/Vol] 4.7 mmol/L 3.5 - 5.3 MG-CT [facility] Work Phone: Sodium (BldV) [Moles/Vol] 133 mmol/L below low threshold 136 - 145 MG[facility] Work Phone: Anion gap 4 (BldA) [Moles/Vol] 8 mmol/L below low threshold 10 - 25 MG[facility] Work Phone: Base excess Calc (Bld) [Moles/Vol] 1.2 mmol/L -2.0 - 3.0 MG[facility]CT [facility] Work Phone: Calcium.ionized (BldA) [Moles/Vol] 1.04 mmol/L below low threshold See Below MG-CT [facility] Work Phone: Comment on above: Reference Range: 1.1 0 - 1.33 Carboxyhemoglobin (BldA) [Mass fraction] 0.3 % MG[facility]CT [facility] Work Phone: Comment on above: REF VALUESNONSMOKERS 0.5-1.5%SMOKERS 0.5-10.0% Chloride (BldA) [Moles/Vol] 105 mmol/L 98 - 107 [facility] Work Phone: CO2 (Bld) [Partial pressure] 41 mm[Hg] 38 - 42 [facility] Work Phone: Glucose [Mass/Vol] 105 mg/dL above high threshold 74 - 99 [facility] Work Phone: HCO3 (Bld) [Moles/Vol] 26.0 mmol/L See Below M G-CT [facility] Work Phone: Comment on above: Reference Range: 22. 0 - 26.0 Lactate (BldA) [Moles/Vol] 1.1 mmol/L 0.4 - 2.0 MG[facility] Work Phone: Methemoglobin (BldA) [Mass fraction] 0.0 % 0.0 - 1.5 [facility] Work Phone: Oxygen (Bld) [Partial pressure] 485 mm[Hg] above high threshold 85 - 95 [facility] Work Phone: Oxyhemoglobin (BldA) [Mass fraction] 98.1 % above high threshold See Below MG[facility]CT [facility] Work Phone: Comment on above: Reference Range: 94. 0 - 98.0 pH (Bld) 7.41 [pH] See Below [facility]CT [facility] Work Phone: Comment on above: Reference Range: 7.3 8 - 7.42 Potassium (BldA) [Moles/Vol] 5.3 mmol/L 3.5 - 5.3 [facility] Work Phone: Sodium (BldA) [Moles/Vol] 134 mmol/L below low threshold 136 - 145 [facility] Work Phone: Anion gap 4 (BldA) [Moles/Vol] 9 mmol/L below low threshold 10 - 25 [facility] Work Phone: Base excess Calc (Bld) [Moles/Vol] -0.8000 mmol/L -2.0 - 3.0 [facility] Work Phone: Calcium.ionized (BldA) [Moles/Vol] 1.10 mmol/L See Below [facility] Work Phone: Comment on above: Reference Range: 1.1 0 - 1.33 Carboxyhemoglobin (BldA) [Mass fraction] 0.6 % [facility] Work Phone: Comment on above: REF VALUESNONSMOKERS 0.5-1.5%SMOKERS 0.5-10.0% Chloride (BldA) [Moles/Vol] 105 mmol/L 98 - 107 [facility] Work Phone: CO2 (Bld) [Partial pressure] 41 mm[Hg] 38 - 42 [facility] Work Phone: Glucose [Mass/Vol] 98 mg/dL 74 - 99 [facility] Work Phone: HCO3 (Bld) [Moles/Vol] 24.3 mmol/L See Below M G-CT [facility] Work Phone: Comment on above: Reference Range: 22. 0 - 26.0 Lactate (BldA) [Moles/Vol] 1.1 mmol/L 0.4 - 2.0 [facility] Work Phone: Methemoglobin (BldA) [Mass fraction] 0.1 % 0.0 - 1.5 [facility] Work Phone: Oxygen (Bld) [Partial pressure] 365 mm[Hg] above high threshold 85 - 95 [facility] Work Phone: Oxyhemoglobin (BldA) [Mass fraction] 98.2 % above high threshold See Below [facility] Work Phone: Comment on above: Reference Range: 94. 0 - 98.0 pH (Bld) 7.38 [pH] See Below [facility] Work Phone: Comment on above: Reference Range: 7.3 8 - 7.42 Potassium (BldA) [Moles/Vol] 3.9 mmol/L 3.5 - 5.3 [facility] Work Phone: Sodium (BldA) [Moles/Vol] 134 mmol/L below low threshold 136 - 145 [facility] Work Phone: Anion gap 4 (BldMV) [Moles/Vol] 9 mmol/L below low threshold 10 - 25 [facility] Work Phone: Base excess Calc (BldMV) [Moles/Vol] 0.9 mmol/L [facility] Work Phone: Calcium.ionized (BldMV) [Moles/Vol] 1.18 mmol/L See Below [facility] Work Phone: Comment on above: Reference Range: 1.1 0 - 1.33 Chloride [Moles/Vol] 103 mmol/L 98 - 107 MG-C T [facility] Work Phone: CO2 (BldMV) [Partial pressure] 49 {mmHg} MG[facility]CT [facility] Work Phone: Glucose [Mass/Vol] 91 mg/dL 74 - 99 [facility] Work Phone: HCO3 (BldMV) [Moles/Vol] 27.1 mmol/L [facility] Work Phone: Lactate (BldMV) [Moles/Vol] 0.9 mmol/L 0.4 - 2.0 [facility] Work Phone: Oxygen (BldMV) [Partial pressure] 44 {mmHg} [facility] Work Phone: Oxyhemoglobin (BldMV) [Mass fraction] 73.2 % See Below [facility] Work Phone: Comment on above: Reference Range: 45. 0 - 75.0 pH (BldMV) 7.35 1 [facility] Work Phone: Potassium (BldMV) [Moles/Vol] 3.9 mmol/L 3.5 - 5.3 [facility] Work Phone: Sodium (BldMV) [Moles/Vol] 135 mmol/L below low threshold 136 - 145 [facility] Work Phone: Anion gap 4 (BldA) [Moles/Vol] 9 mmol/L below low threshold 10 - 25 [facility] Work Phone: Base excess Calc (Bld) [Moles/Vol] 1.6 mmol/L -2.0 - 3.0 [facility] Work Phone: Calcium.ionized (BldA) [Moles/Vol] 1.17 mmol/L See Below [facility] Work Phone: Comment on above: Reference Range: 1.1 0 - 1.33 Carboxyhemoglobin (BldA) [Mass fraction] 1.0 % [facility] Work Phone: Comment on above: REF VALUESNONSMOKERS 0.5-1.5%SMOKERS 0.5-10.0% Chloride (BldA) [Moles/Vol] 102 mmol/L 98 - 107 [facility] Work Phone: CO2 (Bld) [Partial pressure] 49 mm[Hg] above high threshold 38 - 42 [facility] Work Phone: Glucose [Mass/Vol] 94 mg/dL 74 - 99 [facility] Work Phone: HCO3 (Bld) [Moles/Vol] 27.7 mmol/L above hig h threshold See Below [facility] Work Phone: Comment on above: Reference Range: 22. 0 - 26.0 Lactate (BldA) [Moles/Vol] 0.9 mmol/L 0.4 - 2.0 [facility] Work Phone: Methemoglobin (BldA) [Mass fraction] 0.2 % 0.0 - 1.5 [facility] Work Phone: Oxygen (Bld) [Partial pressure] 83 mm[Hg] below low threshold 85 - 95 [facility] Work Phone: Oxyhemoglobin (BldA) [Mass fraction] 95.4 % See Below [facility] Work Phone: Comment on above: Reference Range: 94. 0 - 98.0 Potassium (BldA) [Moles/Vol] 4.0 mmol/L 3.5 - 5.3 [facility] Work Phone: Sodium (BldA) [Moles/Vol] 135 mmol/L below low threshold 136 - 145 [facility] Work Phone: Laboratory - Coagulationon 1 aPTT Coag (PPP) [Time] 29 s 26 - 39 [facility] Work Phone: Comment on above: THE APTT IS NO LONGE R USED FOR MONITORING UNFRACTIONATED HEPARIN THERAPY. FOR MONITORING HEPARIN THERAPY, USE THE HEPARIN ASSAY. INR Coag (PPP) [Relative time] 1.2 {INR} above high threshold 0.9 - 1.1 [facility] Work Phone: PT Coag (PPP) [Time] 14.3 s above high threshold 9.8 - 13.4 [facility] Work Phone: aPTT Coag (PPP) [Time] Canceled [facility] Work Phone: Comment on above: THE APTT IS NO LONGE R USED FOR MONITORING UNFRACTIONATED HEPARIN THERAPY. FOR MONITORING HEPARIN THERAPY, USE THE HEPARIN ASSAY. INR Coag (PPP) [Relative time] Canceled [facility] Work Phone: PT Coag (PPP) [Time] Canceled MG-C T [facility] Work Phone: Laboratory - Hematology and Cell countson 01-28-2022 Hematocrit Est (Bld) [Volume fraction] 34.0 % below low threshold See Below [facility] Work Phone: Comment on above: Reference Range: 41. 0 - 52.0 Hemoglobin (Bld) [Mass/Vol] 11.3 g/dL below low threshold See Below [facility] Work Phone: Comment on above: Reference Range: 13. 5 - 17.5 Hematocrit Est (Bld) [Volume fraction] 38.0 % below low threshold See Below [facility] Work Phone: Comment on above: Reference Range: 41. 0 - 52.0 Hemoglobin (Bld) [Mass/Vol] 12.6 g/dL below low threshold See Below [facility] Work Phone: Comment on above: Reference Range: 13. 5 - 17.5 Erythrocyte distribution width (RBC) [Ratio] 11.9 % See Below [facility] Work Phone: Comment on above: Reference Range: 11. 5 - 14.5 Hematocrit (Bld) [Volume fraction] 34.2 % below low threshold See Below [facility] Work Phone: Comment on above: Reference Range: 41. 0 - 52.0 Hematocrit Est (Bld) [Volume fraction] 36.0 % below low threshold See Below [facility] Work Phone: Comment on above: Reference Range: 41. 0 - 52.0 Hemoglobin (Bld) [Mass/Vol] 11.5 g/dL below low threshold See Below [facility] Work Phone: Comment on above: Reference Range: 13. 5 - 17.5 MCHC (RBC) [Mass/Vol] 33.6 g/dL See Below MG- CT [facility] Work Phone: Comment on above: Reference Range: 32. 0 - 36.0 MCV (RBC) [Entitic vol] 93 fL 80 - 100 [facility] Work Phone: Platelets (Bld) [#/Vol] 198 10*3/uL 150 - 450 [facility] Work Phone: RBC (Bld) [#/Vol] 3.68 {[id number]/L} below low threshold See Below [facility] Work Phone: Comment on above: Reference Range: 4.5 0 - 5.90 WBC (Bld) [#/Vol] 13.1 10*3/uL above high threshold 4.4 - 11.3 [facility] Work Phone: Hematocrit (Bld) [Volume fraction] Canceled [facility] Work Phone: Hemoglobin (Bld) [Mass/Vol] Canceled [facility] Work Phone: Platelets (Bld) [#/Vol] Canceled [facility] Work Phone: RBC (Bld) [#/Vol] Canceled [facility] Work Phone: Deoxyhemoglobin (BldA) [Mass fraction] 1.9 % 0.0 - 5.0 [facility] Work Phone: Hematocrit Est (Bld) [Volume fraction] 34.0 % below low threshold See Below [facility] Work Phone: Comment on above: Reference Range: 41. 0 - 52.0 Hemoglobin (Bld) [Mass/Vol] 11.3 g/dL below low threshold See Below [facility] Work Phone: Comment on above: Reference Range: 13. 5 - 17.5 Deoxyhemoglobin (BldA) [Mass fraction] 0.8 % 0.0 - 5.0 [facility] Work Phone: Hematocrit Est (Bld) [Volume fraction] 31.0 % below low threshold See Below [facility] Work Phone: Comment on above: Reference Range: 41. 0 - 52.0 Hemoglobin (Bld) [Mass/Vol] 10.2 g/dL below low threshold See Below [facility] Work Phone: Comment on above: Reference Range: 13. 5 - 17.5 Hematocrit Est (Bld) [Volume fraction] 30.0 % below low threshold See Below [facility] Work Phone: Comment on above: Reference Range: 41. 0 - 52.0 Hemoglobin (Bld) [Mass/Vol] 9.9 g/dL below low threshold See Below [facility] Work Phone: Comment on above: Reference Range: 13. 5 - 17.5 Deoxyhemoglobin (BldA) [Mass fraction] 1.6 % 0.0 - 5.0 [facility] Work Phone: Hematocrit Est (Bld) [Volume fraction] 30.0 % below low threshold See Below [facility] Work Phone: Comment on above: Reference Range: 41. 0 - 52.0 Hemoglobin (Bld) [Mass/Vol] 9.9 g/dL below low threshold See Below [facility] Work Phone: Comment on above: Reference Range: 13. 5 - 17.5 Deoxyhemoglobin (BldA) [Mass fraction] 1.1 % 0.0 - 5.0 [facility] Work Phone: Hematocrit Est (Bld) [Volume fraction] 34.0 % below low threshold See Below [facility] Work Phone: Comment on above: Reference Range: 41. 0 - 52.0 Hemoglobin (Bld) [Mass/Vol] 11.3 g/dL below low threshold See Below [facility] Work Phone: Comment on above: Reference Range: 13. 5 - 17.5 Hematocrit Est (Bld) [Volume fraction] 37.0 % below low threshold See Below [facility] Work Phone: Comment on above: Reference Range: 41. 0 - 52.0 Hemoglobin (Bld) [Mass/Vol] 12.2 g/dL below low threshold See Below [facility] Work Phone: Comment on above: Reference Range: 13. 5 - 17.5 Deoxyhemoglobin (BldA) [Mass fraction] 3.3 % 0.0 - 5.0 [facility] Work Phone: Hematocrit Est (Bld) [Volume fraction] 37.0 % below low threshold See Below [facility] Work Phone: Comment on above: Reference Range: 41. 0 - 52.0 Hemoglobin (Bld) [Mass/Vol] 12.4 g/dL below low threshold See Below [facility] Work Phone: Comment on above: Reference Range: 13. 5 - 17.5 MAGNESIUMon 01-28-2022 Magnesium [Mass/Vol] 2.40 mg/dL Normal 1.60 - 2.40 [facility] Comment on above: Performed By: #### M G ####[address] [id number] MAGNESIUM Canceled Normal [facility] Comment on above: Order Comment: TEST MAGNESIUM WAS CANCELLED, 01/28/2022 15:37 DUPLICATE ORDER. Performed By: #### M G ####[address] [id number] Magnesium [Mass/Vol] 3.20 mg/dL High 1.60 - 2.40 [facility] Comment on above: Performed By: #### M G ####[address] [id number] MV FULL PANELon 01-28-2022 Anion gap [Moles/Vol] 9 mmol/L Low 10 - 25 [facility] Comment on above: Performed By: #### M VPA4 ####[address] [id number] BASE EXCESS-BLOOD 0.9 mmol/L Normal [facility] Comment on above: Performed By: #### M VPA4 ####[address] [id number] BICARB, CALCULATED 27.1 mmol/L Normal [facility] Comment on above: Performed By: #### M VPA4 ####[address] [id number] CALCIUM,IONIZED 1.18 mmol/L Normal 1.10 - 1.33 [facility] Comment on above: Performed By: #### M VPA4 ####[address] [id number] Chloride [Moles/Vol] 103 mmol/L Normal 98 - 107 [facility] Comment on above: Performed By: #### M VPA4 ####[address] [id number] FIO2 21 % Normal [facility] Comment on above: Performed By: #### M VPA4 ####[address] [id number] Glucose [Mass/Vol] 91 mg/dL Normal 74 - 99 [facility] Comment on above: Performed By: #### M VPA4 ####[address] [id number] Hematocrit (Bld) [Volume fraction] 37.0 % Low 41.0 - 52.0 [facility] Comment on above: Performed By: #### M VPA4 ####[address] [id number] Hemoglobin (Bld) [Mass/Vol] 12.2 g/dL Low 13.5 - 17.5 [facility] Comment on above: Performed By: #### M VPA4 ####[address] [id number] Lactate [Moles/Vol] 0.9 mmol/L Normal 0.4 - 2.0 [facility] Comment on above: Performed By: #### M VPA4 ####[address] [id number] OXY HGB 73.2 % Normal 45.0 - 75.0 [facility] Comment on above: Performed By: #### M VPA4 ####[address] [id number] Oxygen (Bld) [Partial pressure] 44 mm[Hg] Normal [facility] Comment on above: Performed By: #### M VPA4 ####[address] [id number] PATIENT TEMPERATURE 37.0 degrees Normal [facility] Comment on above: Result Comment: NOTE : PATIENT RESULTS ARE NOT CORRECTED FOR TEMPERATURE. Performed By: #### M VPA4 ####[address] [id number] PCO2 49 mmHg Normal [facility] Comment on above: Performed By: #### M VPA4 ####[address] [id number] pH (Bld) 7.35 [pH] Normal [facility] Comment on above: Performed By: #### M VPA4 ####[facility] [place], [place] [id number] Potassium [Moles/Vol] 3.9 mmol/L Normal 3.5 - 5.3 [facility] Comment on above: Performed By: #### M VPA4 ####[facility] [place], [place] [id number] SO2 74 % Normal [facility] Comment on above: Performed By: #### M VPA4 ####[facility] [place], [place] [id number] Sodium [Moles/Vol] 135 mmol/L Low 136 - 145 [facility] Comment on above: Performed By: #### M VPA4 ####[facility] [place], [place] [id number] Magnesium, Serumon 2 Magnesium [Mass/Vol] 2.40 mg/dL See Below [facility] Work Phone: Comment on above: Reference Range: 1.6 0 - 2.40 Magnesium [Mass/Vol] 3.20 mg/dL above high threshold See Below [facility] Work Phone: Comment on above: Reference Range: 1.6 0 - 2.40 Magnesium [Mass/Vol] Canceled [facility] Work Phone: No Panel Informationon 01-28 Arterial patency Wrist artery --pre arterial puncture [facility] Work Phone: DANYELLE [facility] Work Phone: Arterial patency Wrist artery --pre arterial puncture [facility] Work Phone: Inhaled oxygen concentration 40 % [facility] Work Phone: 5.0 {cm_H2O} [facility] Work Phone: [phone] [facility] Work Phone: [phone] DANYELLE [facility] Work Phone: [phone] [email or web address] ?[email or web address]&Date =28-01-2022&Time=14%3a03% 3a38%3a00&TestType=ECG&Si te=11&OutputType=PDF&Ext= PDF [facility] Work Phone: [phone] Normal sinus rhythm [facility] Work Phone: [phone] Normal [facility] Work Phone: [phone] 1 [facility] Work Phone: [phone] 1 [facility] Work Phone: [phone] 1 [facility] Work Phone: [phone] 1 [facility] Work Phone: [phone] 1 [facility] Work Phone: [phone] [facility] Work Phone: [phone] 1 [facility] Work Phone: [phone] 1 [facility] Work Phone: [phone] 1 [facility] Work Phone: [phone] 1 [facility] Work Phone: [phone] 1 [facility] Work Phone: [phone] 1 [facility] Work Phone: [phone] 1 [facility] Work Phone: [phone] Arterial patency Wrist artery --pre arterial puncture [facility] Work Phone: Inhaled oxygen concentration 60 % [facility] Work Phone: 500 mL [facility] Work Phone: 12 {bpm} [facility] Work Phone: A/C [facility] Work Phone: 5.0 {cm_H2O} [facility] Work Phone: DANYELLE [facility] Work Phone: Inhaled oxygen concentration 100 % [facility] Work Phone: 118 {SECONDS} 96 - 152 [facility] Work Phone: Comment on above: Note new reference r dannie as of 07/15/2018. Target ACT range will vary based on the patient population, clinical status, and surgical intervention occurring. Inhaled oxygen concentration 70 % [facility] Work Phone: [phone] {SECONDS} above high threshold 96 - 152 [facility] Work Phone: Comment on above: Note new reference r dannie as of 07/15/2018. Target ACT range will vary based on the patient population, clinical status, and surgical intervention occurring. Inhaled oxygen concentration 70 % [facility] Work Phone: [phone] {SECONDS} above high threshold 96 - 152 [facility] Work Phone: Comment on above: Note new reference r dannie as of 07/15/2018. Target ACT range will vary based on the patient population, clinical status, and surgical intervention occurring. Inhaled oxygen concentration 80 % [facility] Work Phone: Inhaled oxygen concentration 100 % [facility] Work Phone: [phone] {SECONDS} above high threshold 96 - 152 [facility] Work Phone: Comment on above: Note new reference r dannie as of 07/15/2018. Target ACT range will vary based on the patient population, clinical status, and surgical intervention occurring. 74 % [facility] Work Phone: 21 % [facility] Work Phone: 37.0 {degrees} [facility] Work Phone: Comment on above: NOTE: PATIENT RESULT S ARE NOT CORRECTED FOR TEMPERATURE. Inhaled oxygen concentration 21 % [facility] Work Phone: 116 {SECONDS} 96 - 152 [facility] Work Phone: Comment on above: Note new reference r dannie as of 07/15/2018. Target ACT range will vary based on the patient population, clinical status, and surgical intervention occurring. Please click on the link to view the study images Normal [facility] Work Phone: Operative Reports - [place] 01-28-2022 Operative Reports - [place] Normal [facility] POTASSIUMon 01-28-2022 Potassium [Moles/Vol] 4.3 mmol/L Normal 3.5 - 5.3 [facility] Comment on above: Performed By: #### K ####[address] [id number] RENAL FUNCTION PANELon 01-28 ALBUMIN Canceled Normal [facility] Comment on above: Order Comment: TEST RENAL FUNCTION PANEL WAS CANCELLED, 01/28/2022 15:37 DUPLICATE ORDER. Performed By: #### R ENAL ####[address] [id number] ANION GAP Canceled Normal [facility] Comment on above: Order Comment: TEST RENAL FUNCTION PANEL WAS CANCELLED, 01/28/2022 15:37 DUPLICATE ORDER. Performed By: #### R ENAL ####[address] [place] [id number] BICARBONATE Canceled Normal [facility] Comment on above: Order Comment: TEST RENAL FUNCTION PANEL WAS CANCELLED, 01/28/2022 15:37 DUPLICATE ORDER. Performed By: #### R ENAL ####[address] [id number] CALCIUM Canceled Normal [facility] Comment on above: Order Comment: TEST RENAL FUNCTION PANEL WAS CANCELLED, 01/28/2022 15:37 DUPLICATE ORDER. Performed By: #### R ENAL ####[address] [id number] CHLORIDE Canceled Normal [facility] Comment on above: Order Comment: TEST RENAL FUNCTION PANEL WAS CANCELLED, 01/28/2022 15:37 DUPLICATE ORDER. Performed By: #### R ENAL ####[address] [id number] CREATININE Canceled Normal [facility] Comment on above: Order Comment: TEST RENAL FUNCTION PANEL WAS CANCELLED, 01/28/2022 15:37 DUPLICATE ORDER. Performed By: #### R ENAL ####[address] [id number] eGFR FEMALE Canceled Normal [facility] Comment on above: Order Comment: TEST RENAL FUNCTION PANEL WAS CANCELLED, 01/28/2022 15:37 DUPLICATE ORDER. Result Comment: CALC ULATIONS OF ESTIMATED GFR ARE PERFORMED USING THE 2020 CKD-EPI STUDY REFIT EQUATION WITHOUT THE RACE VARIABLE FOR THE IDMS-TRACEABLE CREATININE METHODS.https://jasn.asnjournals.org/content///A SN.1259719540 Performed By: #### R ENAL ####[address] [id number] eGFR MALE Canceled Normal [facility] Comment on above: Order Comment: TEST RENAL FUNCTION PANEL WAS CANCELLED, 01/28/2022 15:37 DUPLICATE ORDER. Result Comment: CALC ULATIONS OF ESTIMATED GFR ARE PERFORMED USING THE 2020 CKD-EPI STUDY REFIT EQUATION WITHOUT THE RACE VARIABLE FOR THE IDMS-TRACEABLE CREATININE METHODS.https://jasn.asnjournals.org/content//A SN.0109396732 Performed By: #### R ENAL ####[address] [id number] GLUCOSE Canceled Normal [facility] Comment on above: Order Comment: TEST RENAL FUNCTION PANEL WAS CANCELLED, 01/28/2022 15:37 DUPLICATE ORDER. Performed By: #### R ENAL ####[address] [id number] PHOSPHORUS Canceled Normal [facility] Comment on above: Order Comment: TEST RENAL FUNCTION PANEL WAS CANCELLED, 01/28/2022 15:37 DUPLICATE ORDER. Result Comment: The performance characteristics of phosphorus testing in heparinized plasma have been validated by the individual laboratory site where testing is performed. Testing on heparinized plasma is not approved by the FDA; however, such approval is not necessary. Performed By: #### R ENAL ####[address] [id number] POTASSIUM Canceled Normal [facility] Comment on above: Order Comment: TEST RENAL FUNCTION PANEL WAS CANCELLED, 01/28/2022 15:37 DUPLICATE ORDER. Performed By: #### R ENAL ####[address] [id number] SODIUM Canceled Normal [facility] Comment on above: Order Comment: TEST RENAL FUNCTION PANEL WAS CANCELLED, 01/28/2022 15:37 DUPLICATE ORDER. Performed By: #### R ENAL ####[address] [id number] UREA NITROGEN Canceled Normal [facility] Comment on above: Order Comment: TEST RENAL FUNCTION PANEL WAS CANCELLED, 01/28/2022 15:37 DUPLICATE ORDER. Performed By: #### R ENAL ####[address] [id number] Albumin [Mass/Vol] 3.5 g/dL Normal 3.4 - 5.0 [facility] Comment on above: Performed By: #### R ENAL ####[address] [id number] Anion gap [Moles/Vol] 10 mmol/L Normal 10 - 20 [facility] Comment on above: Performed By: #### R ENAL ####[address] [id number] Calcium [Mass/Vol] 8.8 mg/dL Normal 8.6 - 10.3 [facility] Comment on above: Performed By: #### R ENAL ####[address] [id number] Chloride [Moles/Vol] 105 mmol/L Normal 98 - 107 [facility] Comment on above: Performed By: #### R ENAL ####[address] [id number] Creatinine [Mass/Vol] 0.89 mg/dL Normal 0.50 - 1.30 [facility] Comment on above: Performed By: #### R ENAL ####[address] [id number] eGFR MALE >90 Normal >90 [facility] Comment on above: Result Comment: CALC ULATIONS OF ESTIMATED GFR ARE PERFORMED USING THE 2020 CKD-EPI STUDY REFIT EQUATION WITHOUT THE RACE VARIABLE FOR THE IDMS-TRACEABLE CREATININE METHODS.https://jasn.asnjournals.org/content/early//A SN.1843224350 Performed By: #### R ENAL ####[address] [id number] Glucose [Mass/Vol] 117 mg/dL High 74 - 99 [facility] Comment on above: Performed By: #### R ENAL ####[address] [id number] HCO3 (Bld) [Moles/Vol] 25 mmol/L Normal 21 - 32 [facility] Comment on above: Performed By: #### R ENAL ####[facility] [place], [place] [id number] Phosphate [Mass/Vol] 2.8 mg/dL Normal 2.5 - 4.9 [facility] Comment on above: Result Comment: The performance characteristics of phosphorus testing in heparinized plasma have been validated by the individual laboratory site where testing is performed. Testing on heparinized plasma is not approved by the FDA; however, such approval is not necessary. Performed By: #### R ENAL ####[facility] [place], [place] [id number] Potassium [Moles/Vol] 4.1 mmol/L Normal 3.5 - 5.3 [facility] Comment on above: Performed By: #### R ENAL ####[facility] [place], [place] [id number] Sodium [Moles/Vol] 136 mmol/L Normal 136 - 145 [facility] Comment on above: Performed By: #### R ENAL ####[facility] [place], [place] [id number] Urea nitrogen [Mass/Vol] 12 mg/dL Normal 6 - 23 [facility] Comment on above: Performed By: #### R ENAL ####[facility] [place], [place] [id number] Radiologyon 01-28-2022 XR Chest Single view Normal [facility] Work Phone: XR Chest Single view Normal [facility] Work Phone: Renal Function Panelon 01-28 Albumin BCP dye [Mass/Vol] 3.5 g/dL 3.4 - 5.0 [facility] Work Phone: Anion gap [Moles/Vol] 10 mmol/L Normal 10 - [address] [facility] Work Phone: Comment on above: Performed By: #### V FPA4 ####[facility] [place], [place] [id number] Calcium [Mass/Vol] 8.8 mg/dL 8.6 - 10.3 [facility] Work Phone: Chloride [Moles/Vol] 105 mmol/L 98 - 107 [facility] Work Phone: CO2 [Moles/Vol] 25 mmol/L 21 - 32 [facility] Work Phone: Creatinine [Mass/Vol] 0.89 mg/dL See Below [facility] Work Phone: Comment on above: Reference Range: 0.5 0 - 1.30 Glucose [Mass/Vol] 117 mg/dL above high threshold 74 - 99 [facility] Work Phone: Phosphate [Mass/Vol] 2.8 mg/dL 2.5 - 4.9 [facility] Work Phone: Comment on above: The performance lucas acteristics of phosphorus testing in heparinized plasma have been validated by the individual laboratory site where testing is performed. Testing on heparinized plasma is not approved by the FDA; however, such approval is not necessary. Potassium [Moles/Vol] 4.1 mmol/L 3.5 - 5.[address] [facility] Work Phone: Sodium [Moles/Vol] 136 mmol/L 136 - 145 [facility] Work Phone: Urea nitrogen [Mass/Vol] 12 mg/dL 6 - 23 [facility] Work Phone: Renal Function Panel >90 >90 [facility] Work Phone: Comment on above: CALCULATIONS OF ALVINA MATED GFR ARE PERFORMED USING THE 2020 CKD-EPI STUDY REFIT EQUATION WITHOUT THE RACE VARIABLE FOR THE IDMS-TRACEABLE CREATININE METHODS.https://jasn.asnjournals.org/content/early//A .2632009814 Albumin BCP dye [Mass/Vol] Canceled [facility] Work Phone: [phone] Calcium [Mass/Vol] Canceled [facility] Work Phone: Chloride [Moles/Vol] Canceled [facility] Work Phone: [phone] CO2 [Moles/Vol] Canceled [facility] Work Phone: [phone] Creatinine [Mass/Vol] Canceled [facility] Work Phone: [phone] Glucose [Mass/Vol] Canceled [facility] Work Phone: [phone] Phosphate [Mass/Vol] Canceled [facility] Work Phone: Comment on above: The performance lucas acteristics of phosphorus testing in heparinized plasma have been validated by the individual laboratory site where testing is performed. Testing on heparinized plasma is not approved by the FDA; however, such approval is not necessary. Potassium [Moles/Vol] Canceled [facility] Work Phone: Sodium [Moles/Vol] Canceled [facility] Work Phone: Urea nitrogen [Mass/Vol] Canceled [facility] Work Phone: [phone] THYROXINEon 01-28-2022 T4 [Mass/Vol] 4.9 ug/dL Normal 4.5 - 11.1 [facility] Comment on above: Performed By: #### T 4 ####[id number] [place] [address] TRIIODOTHYRONINEon 2 TRIIODOTHYRONINE 91 ng/dL Normal 60 - 200 [facility] Comment on above: Performed By: #### T 3 ####[id number] [place] [address] VENOUS FULL PANELon 01-29-20 BASE EXCESS-BLOOD -0.7 mmol/L Normal -2.0 - 3.0 [facility] Comment on above: Performed By: #### Gonzalez FPA4 ####[address] [id number] BICARB, CALCULATED 24.9 mmol/L Normal 22.0 - 26.0 [facility] Comment on above: Performed By: #### Gonzalez FPA4 ####[address] [id number] CALCIUM,IONIZED 1.24 mmol/L Normal 1.10 - 1.33 [facility] Comment on above: Performed By: #### Gonzalez FPA4 ####[address] [id number] OXY HGB 72.4 % Normal 45.0 - 75.0 [facility] Comment on above: Performed By: #### Gonzalez FPA4 ####[address] [id number] Oxygen (Bld) [Partial pressure] 45 mm[Hg] Normal 35 - 45 [facility] Comment on above: Performed By: #### Gonzalez FPA4 ####[address] [id number] PCO2 44 mmHg Normal 41 - 51 [facility] Comment on above: Performed By: #### Gonzalez FPA4 ####[address] [id number] SO2 73 % Normal 45 - 75 [facility] Comment on above: Performed By: #### Gonzalez FPA4 ####[address] [id number] FIO2 60 % Normal [facility] Comment on above: Performed By: #### Gonzalez FPA4 ####[address] [id number] Performed By: #### A FPA4 ####[address] [id number] Hematocrit (Bld) [Volume fraction] 36.0 % Low 41.0 - 52.0 [facility] Comment on above: Performed By: #### V FPA4 ####[address] [id number] Performed By: #### A FPA4 ####[address] [id number] TIDAL VOLUME 500 mL Normal [facility] Comment on above: Performed By: #### V FPA4 ####[address] [id number] Performed By: #### A FPA4 ####[address] [id number] VENTILATOR MODE A/C Normal [facility] Comment on above: Performed By: #### V FPA4 ####[address] [id number] Performed By: #### A FPA4 ####[address] [id number] VENTILATOR RATE 12 bpm Normal [facility] Comment on above: Performed By: #### V FPA4 ####[address] [id number] Performed By: #### A FPA4 ####[address] [id number] Lactate [Moles/Vol] 1.2 mmol/L Normal 0.4 - 2.0 [facility] Comment on above: Performed By: #### V FPA4 ####[address] [id number] Performed By: #### A FPA4 ####[address] [id number] Hemoglobin (Bld) [Mass/Vol] 12.0 g/dL Low 13.5 - 17.5 [facility] Work Phone: Comment on above: Reference Range: 13. 5 - 17.5 Performed By: #### Gonzalez FPA4 ####[address] [id number] Performed By: #### Dimitry FPA4 ####[address] [id number] Anion gap [Moles/Vol] 9 mmol/L Low 10 - 25 [facility] Comment on above: Performed By: #### Gonzalez FPA4 ####[address] [id number] BASE EXCESS-BLOOD -0.2 mmol/L Normal -2.0 - 3.0 [facility] Comment on above: Performed By: #### Gonzalez FPA4 ####[address] [id number] BICARB, CALCULATED 25.4 mmol/L Normal 22.0 - 26.0 [facility] Comment on above: Performed By: #### Gonzalez FPA4 ####[address] [id number] CALCIUM,IONIZED 1.06 mmol/L Low 1.10 - 1.33 [facility] Comment on above: Performed By: #### V FPA4 ####[address] [id number] Chloride [Moles/Vol] 103 mmol/L Normal 98 - 107 [facility] Comment on above: Performed By: #### Gonzalez FPA4 ####[address] [id number] FIO2 70 % Normal [facility] Comment on above: Performed By: #### Gonzalez FPA4 ####[address] [id number] Glucose [Mass/Vol] 108 mg/dL High 74 - 99 [facility] Comment on above: Performed By: #### Gonzalez FPA4 ####[address] [id number] Hematocrit (Bld) [Volume fraction] 30.0 % Low 41.0 - 52.0 [facility] Comment on above: Performed By: #### V FPA4 ####[address] [id number] Hemoglobin (Bld) [Mass/Vol] 9.9 g/dL Low 13.5 - 17.5 [facility] Comment on above: Performed By: #### V FPA4 ####[address] [id number] Lactate [Moles/Vol] 1.1 mmol/L Normal 0.4 - 2.0 [facility] Comment on above: Performed By: #### V FPA4 ####[address] [id number] OXY HGB 90.6 % High 45.0 - 75.0 [facility] Comment on above: Performed By: #### V FPA4 ####[address] [id number] Oxygen (Bld) [Partial pressure] 60 mm[Hg] High 35 - 45 [facility] Comment on above: Performed By: #### V FPA4 ####[address] [id number] PATIENT TEMPERATURE 37.0 degrees C Normal U [facility] Comment on above: Result Comment: NOTE : PATIENT RESULTS ARE NOT CORRECTED FOR TEMPERATURE. Performed By: #### V FPA4 ####[address] [id number] PCO2 45 mmHg Normal 41 - 51 [facility] Comment on above: Performed By: #### V FPA4 ####[address] [id number] pH (Bld) 7.36 [pH] Normal 7.33 - 7.43 [facility] Comment on above: Performed By: #### V FPA4 ####[address] [id number] Potassium [Moles/Vol] 4.7 mmol/L Normal 3.5 - 5.3 [facility] Comment on above: Performed By: #### V FPA4 ####[address] [id number] SO2 92 % High 45 - 75 [facility] Comment on above: Performed By: #### V FPA4 ####[address] [id number] Sodium [Moles/Vol] 133 mmol/L Low 136 - 145 [facility] Comment on above: Performed By: #### V FPA4 ####[address] [id number] Glucose [Mass/Vol] 115 mg/dL High 74 - 99 [facility] a Work Phone: Comment on above: Performed By: #### Gonzalez FPA4 ####[address] [id number] Performed By: #### A FPA4 ####[address] [id number] Potassium [Moles/Vol] 4.0 mmol/L Normal 3.5 - 5.3 [facility] Comment on above: Performed By: #### V FPA4 ####[address] [id number] Performed By: #### A FPA4 ####[address] [id number] pH (Bld) 7.36 [pH] Normal 7.33 - 7.43 [facility] Work Phone: Comment on above: Reference Range: 7.3 8 - 7.42 Performed By: #### V FPA4 ####[address] [id number] Vital signson 01-28-2022 Oxygen saturation in Venous blood 73 % 45 - 75 [facility] Work Phone: Oxygen saturation in Venous blood 92 % above high threshold 45 - 75 MG-CT Surgery-[facility] a Work Phone: ABO/RH GROUP TESTon 01-28-20 22 ABO TYPE AB Normal [facility] Comment on above: Performed By: #### V ERAB ####[address] [place], [place] [id number] RH TYPE Positive Normal [facility] Comment on above: Performed By: #### V ERAB ####[address] [id number] Admission Risk Screen - Adul ton 01-27-2022 Admission Risk Screen - Adult Normal [facility] CBC AND DIFFERENTIALon 01-27 % AUTOMATED IMMATURE GRAN 0.8 % Normal 0.0 - 0.9 [facility] Comment on above: Result Comment: Jodi ture Granulocyte Count (IG) includes promyelocytes, myelocytes and metamyelocytes but does not include bands. Percent differential counts (%) should be interpreted in the context of the absolute cell counts (cells/L). Performed By: #### C BCDF ####[address] [id number] Basophils (Bld) [#/Vol] 0.05 10*3/uL Normal 0.00 - 0.10 [facility] Comment on above: Performed By: #### C BCDF ####[address] [id number] Basophils/100 WBC (Bld) 0.8 % Normal 0.0 - 2.0 [facility] Comment on above: Performed By: #### C BCDF ####[address] [id number] Eosinophils (Bld) [#/Vol] 0.23 10*3/uL Normal 0.00 - 0.70 [facility] Comment on above: Performed By: #### C BCDF ####[address] [id number] Eosinophils/100 WBC (Bld) 3.6 % Normal 0.0 - 6.0 [facility] Comment on above: Performed By: #### C BCDF ####[address] [id number] Erythrocyte distribution width (RBC) [Ratio] 12.1 % Normal 11.5 - 14.5 [facility] Comment on above: Performed By: #### C BCDF ####[address] [id number] Hematocrit (Bld) [Volume fraction] 37.0 % Low 41.0 - 52.0 [facility] Comment on above: Performed By: #### C BCDF ####[address] [id number] Hemoglobin (Bld) [Mass/Vol] 12.3 g/dL Low 13.5 - 17.5 [facility] Comment on above: Performed By: #### C BCDF ####[address] [id number] Lymphocytes (Bld) [#/Vol] 2.31 10*3/uL Normal 1.20 - 4.80 [facility] Comment on above: Performed By: #### C BCDF ####[address] [id number] Lymphocytes/100 WBC (Bld) 35.8 % Normal 13.0 - 44.0 [facility] Comment on above: Performed By: #### C BCDF ####[address] [id number] MCHC (RBC) [Mass/Vol] 33.2 g/dL Normal 32.0 - 36.0 [facility] Comment on above: Performed By: #### C BCDF ####[address] [id number] MCV (RBC) [Entitic vol] 95 fL Normal 80 - 100 [facility] Comment on above: Performed By: #### C BCDF ####[address] [id number] Monocytes (Bld) [#/Vol] 0.73 10*3/uL Normal 0.10 - 1.00 [facility] Comment on above: Performed By: #### C BCDF ####[facility] [place], [place] [id number] Monocytes/100 WBC (Bld) 11.3 % Normal 2.0 - 10.0 [facility] Comment on above: Performed By: #### C BCDF ####[address] [id number] Neutrophils (Bld) [#/Vol] 3.09 10*3/uL Normal 1.20 - 7.70 [facility] Comment on above: Performed By: #### C BCDF ####[address] [id number] Neutrophils/100 WBC (Bld) 47.7 % Normal 40.0 - 80.0 [facility] Comment on above: Performed By: #### C BCDF ####[address] [id number] Platelets (Bld) [#/Vol] 216 10*3/uL Normal 150 - 450 [facility] Comment on above: Performed By: #### C BCDF ####[address] [id number] RBC 3.91 x10E12/L Low 4.50 - 5.90 [facility] Comment on above: Performed By: #### C BCDF ####[address] [id number] WBC (Bld) [#/Vol] 6.5 10*3/uL Normal 4.4 - 11.3 [facility] Comment on above: Performed By: #### C BCDF ####[address] [id number] COAGULATION SCREENon 01-27- 022 aPTT Coag (Bld) [Time] 31 s Normal 26 - 39 [facility] Comment on above: Result Comment: THE APTT IS NO LONGER USED FOR MONITORING UNFRACTIONATED HEPARIN THERAPY. FOR MONITORING HEPARIN THERAPY, USE THE HEPARIN ASSAY. Performed By: #### C OAGS ####[address] [place], [place] [id number] PT Coag (PPP) [Time] 12.8 s Normal 9.8 - 13.4 [facility] Comment on above: Performed By: #### C OAGS ####[address] [id number] PT, INR 1.1 Normal 0.9 - 1.1 [facility] Comment on above: Performed By: #### C OAGS ####[address] [id number] COMPREHENSIVE PANELon 2021 Albumin [Mass/Vol] 4.2 g/dL Normal 3.4 - 5.0 [facility] Comment on above: Performed By: #### C MP ####[address] [id number] ALP [Catalytic activity/Vol] 34 U/L Normal 33 - 136 [facility] Comment on above: Performed By: #### C MP ####[address] [id number] ALT [Catalytic activity/Vol] 24 U/L Normal 10 - 52 [facility] Comment on above: Result Comment: Lynn ents treated with Sulfasalazine may generate falsely decreased results for ALT. Performed By: #### C MP ####[address] [id number] Anion gap [Moles/Vol] 9 mmol/L Low 10 - 20 [facility] Comment on above: Performed By: #### C MP ####[address] [id number] AST [Catalytic activity/Vol] 22 U/L Normal 9 - 39 [facility] Comment on above: Performed By: #### C MP ####[facility] [place], [place] [id number] Bilirubin [Mass/Vol] 0.4 mg/dL Normal 0.0 - 1.2 [facility] Comment on above: Performed By: #### C MP ####[facility] [place], [place] [id number] Calcium [Mass/Vol] 9.2 mg/dL Normal 8.6 - 10.3 [facility] Comment on above: Performed By: #### C MP ####[address] [id number] Chloride [Moles/Vol] 102 mmol/L Normal 98 - 107 [facility] Comment on above: Performed By: #### C MP ####[address] [id number] Creatinine [Mass/Vol] 1.02 mg/dL Normal 0.50 - 1.30 [facility] Comment on above: Performed By: #### C MP ####[address] [id number] GFR/1.73 sq M.predicted among non-blacks MDRD (S/P/Bld) [Vol rate/Area] 79 mL/min/{1.73_m2} Normal >90 [facility] Comment on above: Result Comment: CALC ULATIONS OF ESTIMATED GFR ARE PERFORMED USING THE 2020 CKD-EPI STUDY REFIT EQUATION WITHOUT THE RACE VARIABLE FOR THE IDMS-TRACEABLE CREATININE METHODS.https://jasn.asnjournals.org/content/early//A SN.8530120127 Performed By: #### C MP ####[address] [id number] Glucose [Mass/Vol] 94 mg/dL Normal 74 - 99 [facility] Comment on above: Performed By: #### C MP ####[address] [id number] HCO3 (Bld) [Moles/Vol] 29 mmol/L Normal 21 - 32 [facility] Comment on above: Performed By: #### C MP ####[facility] [place], [place] [id number] Potassium [Moles/Vol] 4.3 mmol/L Normal 3.5 - 5.3 [facility] Comment on above: Performed By: #### C MP ####[facility] [place], [place] [id number] Protein [Mass/Vol] 7.1 g/dL Normal 6.4 - 8.2 [facility] Comment on above: Performed By: #### C MP ####[facility] [place], [place] [id number] Sodium [Moles/Vol] 136 mmol/L Normal 136 - 145 [facility] Comment on above: Performed By: #### C MP ####[facility] [place], [place] [id number] Urea nitrogen [Mass/Vol] 14 mg/dL Normal 6 - 23 [facility] Comment on above: Performed By: #### C MP ####[address] [place], [place] [id number] CORONAVIRUS 2019, SCREEN ASY MPTOMATICon 01-27-2022 SARS-CoV-2 (COVID-19) RNA NATI+probe Ql (Unsp spec) Not detected Normal Not Detected [facility] Comment on above: Result Comment: .Thi s test has received FDA Emergency Use Authorization (EUA) and has beenverified by [facility]. This test is onlyauthorized for the duration of time that circumstances exist to justify theauthorization of the emergency use of in vitro diagnostic tests for thedetection of SARS-CoV-2 virus and/or diagnosis of COVID-19 infection undersection 564(b)(1) of the Act, 21 U.S.C. 360bbb-3(b)(1), unless theauthorization is terminated or revoked sooner.[facility] is certified under CLIA-88 asqualified to perform high complexity testing. Testing is performed in [facility] laboratory located at [address] [place] [address], [id number].SARS-CoV-2/Flu/RSV Multiplex Test:Fact sheet for providers: https://www.fda.gov/media/087980/downloadFact sheet for patients: https://www.fda.gov/media/914657/download Performed By: #### C OVSC ####[facility] [place], [place] [id number] Lab Specimen Source Nasal, Nasopharyngeal Normal [facility] Comment on above: Performed By: #### C OVSC ####[facility] [place], [place] [id number] CT Chest without Contraston 01-27-2022 CT Chest WO contrast Normal MG-C T Surgery-[facility] a Work Phone: Complete Blood Count + Diffe rentialon 01-27-2022 Basophils/100 WBC (Bld) 0.8 % 0.0 - 2.0 MG-CT Surgery-[facility] Work Phone: Erythrocyte distribution width (RBC) [Ratio] 12.1 % See Below MG-CT Surgery-[facility] Work Phone: Comment on above: Reference Range: 11. 5 - 14.5 Hematocrit (Bld) [Volume fraction] 37.0 % below low threshold See Below MG-CT Surgery-[facility] Work Phone: Comment on above: Reference Range: 41. 0 - 52.0 Hemoglobin (Bld) [Mass/Vol] 12.3 g/dL below low threshold See Below MG-CT Surgery-[facility] Work Phone: Comment on above: Reference Range: 13. 5 - 17.5 Lymphocytes/100 WBC (Bld) 35.8 % See Below MG-CT Surgery-[facility] Work Phone: Comment on above: Reference Range: 13. 0 - 44.0 MCHC (RBC) [Mass/Vol] 33.2 g/dL See Below MG- CT Surgery-[facility] Work Phone: Comment on above: Reference Range: 32. 0 - 36.0 MCV (RBC) [Entitic vol] 95 fL 80 - 100 [facility] Work Phone: Monocytes/100 WBC (Bld) 11.3 % 2.0 - 10.0 MG[facility] Work Phone: Neutrophils/100 WBC (Bld) 47.7 % See Below MG-CT Surgery-[facility] Work Phone: Comment on above: Reference Range: 40. 0 - 80.0 Platelets (Bld) [#/Vol] 216 10*3/uL 150 - 450 [facility] Work Phone: RBC (Bld) [#/Vol] 3.91 {x10E12/L} below low threshold See Below MG-CT Surgery-[facility] Work Phone: Comment on above: Reference Range: 4.5 0 - 5.90 WBC (Bld) [#/Vol] 6.5 10*3/uL 4.4 - 11.3 MG[facility] Work Phone: Complete Blood Count + Differential 0.05 {x10E9/L} See Below MG-CT Surgery-[facility] Work Phone: Comment on above: Reference Range: 0.0 0 - 0.10 Complete Blood Count + Differential 0.23 {x10E9/L} See Below MG-CT Surgery-[facility] Work Phone: Comment on above: Reference Range: 0.0 0 - 0.70 Complete Blood Count + Differential 0.73 {x10E9/L} See Below MG-CT Surgery-[facility] Work Phone: Comment on above: Reference Range: 0.1 0 - 1.00 Complete Blood Count + Differential 2.31 {x10E9/L} See Below MG-CT Surgery-[facility] Work Phone: Comment on above: Reference Range: 1.2 0 - 4.80 Complete Blood Count + Differential 3.09 {x10E9/L} See Below [facility] Work Phone: Comment on above: Reference Range: 1.2 0 - 7.70 Complete Blood Count + Differential 3.6 % 0.0 - 6.0 MG-CT Surgery-[facility] a Work Phone: Complete Blood Count + Differential 0.8 % 0.0 - 0.9 -CT Surgery-[facility] a Work Phone: Comment on above: Immature Granulocyte Count (IG) includes promyelocytes, myelocytes and metamyelocytes but does not include bands. Percent differential counts (%) should be interpreted in the context of the absolute cell counts (cells/L). Consult-Endocrinologyon 10- Consult-Endocrinology Normal [facility] Coronavirus 2019 RNA by PCR, Screening Asymptomticon 01-27-2022 Coronavirus 2019 RNA by PCR, Screening Asymptomtic Not detected Normal [facility] Work [facility]: Comment on above: SOURCE: Nasal, Nasop haryngealReference Range: Not Detected.This test has received [facility] Emergency Use Authorization (EUA) and has been verified by [facility]. This test is only authorized for the duration of time that circumstances exist to justify the authorization of the emergency use of in vitro diagnostic tests for the detection of SARS-CoV-2 virus and/or diagnosis of COVID-19 infection under section 564(b)(1) of the Act, 21 U.S.C. 360bbb-3(b)(1), unless the authorization is terminated or revoked sooner. [facility] is certified under CLIA-88 as qualified to perform high complexity testing. Testing is performed in the [facility] laboratory located at [address] [place] [address].SARS-CoV-2/Flu/RSV Multiplex Test: Fact sheet for providers: https://www.fda.gov/media/117188/downloadFact sheet for patients: https://www.fda.gov/media/793987/download Covid 19 Resultson 2 SARS-CoV-2 (COVID-19) RNA NATI+probe Ql (Unsp spec) Normal [facility] DUPLEX UPPER EXTREMITY VEINS , BILATERALon 01-27-2022 DUPLEX UPPER EXTREMITY VEINS, BILATERAL Normal [facility] Echocardiogramon 01-27-2022 Echocardiography Please click on the link to view the study images Normal MG-CT Surgery-[facility] Work Phone: Electrocardiogram 12 Leadon 01-27-2022 Electrocardiogram 12 Lead Ventricular Rate 61 Atrial Rate 61 P-R Interval 180 QRS Duration 84 Q-T Interval 404 QTC Calculation(Bazett) 406 P Sherman 24 R Sherman -9 T Sherman 11 QRS Count 10 Q Onset 221 P Onset 131 P Offset 188 T Offset 423 QTC Fredericia 406 Diagnosis Class Borderline Abnormal Diagnosis Normal sinus rhythm Minimal voltage criteria for LVH, may be normal variant Borderline ECG No previous ECGs available Confirmed by Boris Light ([id number]) on 01/27/2022 8:54:40 PM Normal [facility] HEMOGLOBIN A1Con 01-27-2022 Glucose [Mass/Vol] 126 mg/dL Normal [facility] Comment on above: Performed By: #### H BA1E ####[id number] [place] [address] HbA1c (Bld) [Mass fraction] 6.0 % Abnormal [facility] Comment on above: Result Comment: Diag nosis of Diabetes-Adults Non-Diabetic: < or = 5.6% Increased risk for developing diabetes: 5.7-6.4% Diagnostic of diabetes: > or = 6.5%. Monitoring of Diabetes Age (y) Therapeutic Goal (%) Adults: >18 <7.0 Pediatrics: 13-18 <7.5 7-12 <8.0 0- 6 7.5-8.5 [place] [employer]. Diabetes Care 33(S1), Apr 2009. Performed By: #### H BA1E ####[id number] [place] [address] Hemoglobin A1Con 01-27-2022 Glucose [Mass/Vol] 126 mg/dL MG-CT Surgery-[facility] Work Phone: HbA1c (Bld) [Mass fraction] 6.0 % Abnormal MG-CT Surgery-[facility] Work Phone: Comment on above: Diagnosis of Diabete s-Adults Non-Diabetic: < or = 5.6% Increased risk for developing diabetes: 5.7-6.4% Diagnostic of diabetes: > or = 6.5%. Monitoring of Diabetes Age (y) Therapeutic Goal (%) Adults: >18 <7.0 Pediatrics: 13-18 <7.5 7-12 <8.0 0- 6 7.5-8.5 [place] [employer]. Diabetes Care 33(S1), Apr 2009. Intraoperative Transesophage al Echoon 01-27-2022 Intraoperative Transesophageal Echo Normal [facility] Laboratory - Blood bankon ABO group Nom (Bld) AB MG-CT Surgery-[facility] a Work Phone: Rh immune globulin screen (Bld) [Interp] Positive MG-CT Surgery-[facility] Work Phone: ABO group Nom (Bld) AB [facility] Work Phone: Comment on above: No previous history found to confirm this result.If transfusion of RBC's or FFP is requested, a second sample must be collected at a separate phlebotomy to confirm the ABORH. Confirmatory ABORH can only be ordered by Lab Hydraulic Chair Assembler. Blood group antibody screen Ql Negative [facility]-CT [facility] Work Phone: Rh immune globulin screen (Bld) [Interp] Positive MG-[facility] Work Phone: Laboratory - Chemistry and C hemistry - challengeon 01-27-2022 Albumin BCP dye [Mass/Vol] 4.2 g/dL 3.4 - 5.0 [facility] Work Phone: ALP [Catalytic activity/Vol] 34 U/L 33 - 136 [facility] Work Phone: ALT With P-5'-P [Catalytic activity/Vol] 24 U/L 10 - 52 [facility] Work Phone: Comment on above: Patients treated wit h Sulfasalazine may generate falsely decreased results for ALT. Anion gap [Moles/Vol] 9 mmol/L below low threshold 10 - 20 MG[facility] Surgery-[facility] Work Phone: AST With P-5'-P [Catalytic activity/Vol] 22 U/L 9 - 39 [facility] Work Phone: Bilirubin [Mass/Vol] 0.4 mg/dL 0.0 - 1.2 MG-C T Surgery-[facility] Work Phone: Calcium [Mass/Vol] 9.2 mg/dL 8.6 - 10.3 MG[facility]CT [facility] Work Phone: Chloride [Moles/Vol] 102 mmol/L 98 - 107 MG-C T Surgery-[facility] Work Phone: CO2 [Moles/Vol] 29 mmol/L 21 - 32 [facility] Work Phone: Creatinine [Mass/Vol] 1.02 mg/dL See Below MG- CT Surgery-[facility] Work Phone: Comment on above: Reference Range: 0.5 0 - 1.30 Glucose [Mass/Vol] 94 mg/dL 74 - 99 [facility] Work Phone: Potassium [Moles/Vol] 4.3 mmol/L 3.5 - 5.3 MG- CT Surgery-[facility] Work Phone: Protein [Mass/Vol] 7.1 g/dL 6.4 - 8.2 MG-CT Surgery-[facility] Work Phone: Sodium [Moles/Vol] 136 mmol/L 136 - 145 [facility] Work Phone: Urea nitrogen [Mass/Vol] 14 mg/dL 6 - 23 MG-CT Surgery-[facility] Work Phone: Laboratory - Coagulationon 1 0 aPTT Coag (PPP) [Time] 31 s 26 - 39 MG -CT Surgery-[facility] Work Phone: Comment on above: THE APTT IS NO LONGE R USED FOR MONITORING UNFRACTIONATED HEPARIN THERAPY. FOR MONITORING HEPARIN THERAPY, USE THE HEPARIN ASSAY. INR Coag (PPP) [Relative time] 1.1 {INR} 0.9 - 1.1 MG-CT Surgery-[facility] Work Phone: PT Coag (PPP) [Time] 12.8 s 9.8 - 13.4 MG-C T Surgery-[facility] Work Phone: [phone] MRSA Screenon 01-27-2022 Staphylococcus sp identified Org specific cx Nom (Unsp spec) MG-CT Surgery-[facility] Work Phone: No Panel Informationon 01-27 [email or web address] ?[email or web address]&Date =27-01-2022&Time=15%3a25% 3a57%3a00&TestType=ECG&Si te=11&OutputType=PDF&Ext= PDF [facility] Work Phone: Normal sinus rhythm [facility] Work Phone: Borderline Abnormal MG-CT [facility] Work Phone: [phone] MG-CT [facility] Work Phone: [phone] MG-CT [facility] Work Phone: [phone] 1 MG-CT [facility] Work Phone: 131 1 [facility] Work Phone: [phone] 221 1 MG-[facility] Work Phone: [phone] 1 [facility] Work Phone: [phone] 11 1 [facility] Work Phone: [phone] -[phone] 1 MG-[facility] Work Phone: 24 1 [facility] Work Phone: [phone] 404 1 [facility] Work Phone: [phone] 84 1 MG-[facility] Work Phone: [phone] 180 1 [facility] Work Phone: [phone] 61 1 [facility] Work Phone: [phone] MG-CT [facility] Work Phone: 79 {mL/min/1.73m2} >90 MG-CT [facility] Work Phone: Comment on above: CALCULATIONS OF ALVINA MATED GFR ARE PERFORMED USING THE 2020 CKD-EPI STUDY REFIT EQUATION WITHOUT THE RACE VARIABLE FOR THE IDMS-TRACEABLE CREATININE METHODS.https://jasn.asnjournals.org/content//A .5482066415 ORDER RECD MG-CT Surgery-[facility] Work Phone: Comment on above: If this patient is R h Negative and if the Plateletproduct transfused is Rh Positive, review the useof WinRho Prophylaxis for this patient. Order Reconciliationon 01-27 Order Reconciliation Normal [facility] PLATELETSon 01-27-2022 PLATELETS ORDER RECD Normal [facility] Comment on above: Result Comment: If t his patient is Rh Negative and if the Plateletproduct transfused is Rh Positive, review the useof WinRho Prophylaxis for this patient. Performed By: #### P LT ####[facility] [place], [place] [id number] REQUEST-LEUKOREDUCED RED MARIE LSon 01-27-2022 REQUEST-LEUKOREDUCED RED CELLS ORDER RECD Normal [facility] Comment on above: Performed By: #### O SUSTAINABILITY COMMUNICATOR ####[facility] [place], [place] [id number] Radiologyon 01-27-2022 US Carotid arteries - bilateral Normal MG-CT Surgery-[facility] Work Phone: US.doppler Upper extremity vein - bilateral Normal [facility] a Work Phone: XR Chest 2 Views Normal [facility] a Work Phone: STAPH/MRSA SCREENon 01-28-20 22 STAPH/MRSA SCREEN Normal [facility] Comment on above: Performed By: #### S TAPH ####[id number] [place] [address] TSHon 01-27-2022 TSH Qn 12.28 m[IU]/L High 0.44 - 3.98 [facility] Comment on above: Result Comment: TSH testing is performed using different testing methodology at [facility] than at other [facility]. Direct result comparisons should only be made within the same method. Performed By: #### T SH2 ####[address] [id number] TSH - Thyroid Stimulating Ho rmone, Serumon 01-27-2022 TSH Qn 12.28 m[IU]/L above high threshold See Below MG-CT Surgery[facility] a Work Phone: Comment on above: Reference Range: 0.4 4 - 3.98 TSH testing is performed using different testing methodology at [facility] than at other [facility]. Direct result comparisons should only be made within the same method. TYPE + SCREENon 01-27-2022 ABO TYPE AB Normal [facility] Comment on above: Result Comment: No p revious history found to confirm this result.If transfusion of RBC's or FFP is requested, a second sample must becollected at a separate phlebotomy to confirm the ABORH. Confirmatory ABORHcan only be ordered by Lab Hydraulic Chair Assembler. Performed By: #### T +S ####[address] [id number] RH TYPE Positive Normal [facility] Comment on above: Performed By: #### T +S ####[address] [id number] Thyroxine, Serum (T4)on 01-10 T4 [Mass/Vol] 4.9 ug/dL 4.5 - 11.1 MG-CT Surgery-[facility] Work Phone: Triiodothyronine, Level (T3) on 01-27-2022 T3 [Mass/Vol] 91 ng/dL 60 - 200 MG[facility] Surgery[facility] a Work Phone: URINALYSISon 01-27-2022 Appearance (U) Canceled Normal [facility] Comment on above: Order Comment: TEST URINALYSIS WAS CANCELLED, 01/27/2022 19:06 DUPLICATE ORDER. Performed By: #### U A ####[address] [id number] ASCORBIC ACID Canceled Normal [facility] Comment on above: Order Comment: TEST URINALYSIS WAS CANCELLED, 01/27/2022 19:06 DUPLICATE ORDER. Result Comment: Conc entrations > = 20 mg/dL of ascorbic acid can be expected to cause stronginterference in the reactions testing for glucose, nitrite and blood. It isrecommended to discontinue Vitamin C administration and retest in 10 hours. Performed By: #### U A ####[address] [id number] Bilirubin Ql (U) Canceled Normal [facility] Comment on above: Order Comment: TEST URINALYSIS WAS CANCELLED, 01/27/2022 19:06 DUPLICATE ORDER. Performed By: #### U A ####[address] [id number] Color (U) Canceled Normal [facility] Comment on above: Order Comment: TEST URINALYSIS WAS CANCELLED, 01/27/2022 19:06 DUPLICATE ORDER. Performed By: #### U A ####[address] [id number] Glucose Ql (U) Canceled Normal [facility] Comment on above: Order Comment: TEST URINALYSIS WAS CANCELLED, 01/27/2022 19:06 DUPLICATE ORDER. Performed By: #### U A ####[address] [id number] Hemoglobin Ql (U) Canceled Normal [facility] Comment on above: Order Comment: TEST URINALYSIS WAS CANCELLED, 01/27/2022 19:06 DUPLICATE ORDER. Performed By: #### U A ####[address] [id number] Ketones Ql (U) Canceled Normal [facility] Comment on above: Order Comment: TEST URINALYSIS WAS CANCELLED, 01/27/2022 19:06 DUPLICATE ORDER. Performed By: #### U A ####[address] [id number] Leukocyte esterase Test strip Ql (U) Canceled Normal [facility] Comment on above: Order Comment: TEST URINALYSIS WAS CANCELLED, 01/27/2022 19:06 DUPLICATE ORDER. Performed By: #### U A ####[address] [id number] Nitrite Ql (U) Canceled Normal [facility] Comment on above: Order Comment: TEST URINALYSIS WAS CANCELLED, 01/27/2022 19:06 DUPLICATE ORDER. Performed By: #### U A ####[address] [id number] pH Canceled Normal [facility] Comment on above: Order Comment: TEST URINALYSIS WAS CANCELLED, 01/27/2022 19:06 DUPLICATE ORDER. Performed By: #### U A ####[address] [id number] Protein Ql (U) Canceled Normal [facility] Comment on above: Order Comment: TEST URINALYSIS WAS CANCELLED, 01/27/2022 19:06 DUPLICATE ORDER. Performed By: #### U A ####[address] [id number] Specific gravity (U) [Rel density] Canceled Normal [facility] Comment on above: Order Comment: TEST URINALYSIS WAS CANCELLED, 01/27/2022 19:06 DUPLICATE ORDER. Performed By: #### U A ####[address] [id number] UROBILINOGEN Canceled Normal [facility] Comment on above: Order Comment: TEST URINALYSIS WAS CANCELLED, 01/27/2022 19:06 DUPLICATE ORDER. Performed By: #### U A ####[address] [id number] URINALYSIS WITH CULTURE IF I NDICATEDon 01-27-2022 Appearance (U) CLEAR Normal CLEAR [facility] Comment on above: Performed By: #### U ARFX ####[address] [id number] Bilirubin Ql (U) Negative Normal NEGATIVE [facility] Comment on above: Performed By: #### U ARFX ####[address] [id number] Color (U) YELLOW Normal STRAW,YELL OW [facility] Comment on above: Performed By: #### U ARFX ####[address] [id number] Glucose Ql (U) Negative Normal NEGATIVE [facility] Comment on above: Performed By: #### U ARFX ####[address] [id number] Hemoglobin Ql (U) Negative Normal NEGATIVE [facility] Comment on above: Performed By: #### U ARFX ####[address] [id number] Ketones Ql (U) Negative Normal NEGATIVE [facility] Comment on above: Performed By: #### U ARFX ####[address] [id number] Leukocyte esterase Test strip Ql (U) Negative Normal NEGATIVE [facility] Comment on above: Performed By: #### U ARFX ####[address] [place], [place] [id number] Nitrite Ql (U) Negative Normal NEGATIVE [facility] Comment on above: Performed By: #### U ARFX ####[address] [place], [place] [id number] pH (U) 5.0 [pH] Normal 5.0 - 8.0 [facility] Comment on above: Performed By: #### U ARFX ####[facility] [place], [place] [id number] Protein Ql (U) Negative Normal NEGATIVE [facility] Comment on above: Performed By: #### U ARFX ####[address] [place], [place] [phone] Specific gravity (U) [Rel density] 1.014 Normal 1.005 - 1.035 [facility] Comment on above: Performed By: #### U ARFX ####[address] [id number] Urobilinogen (U) [Mass/Vol] mg/dL Normal 0.0 - 1.9 [facility] Comment on above: Performed By: #### U ARFX ####[address] [id number] Color (U) YELLOW See Below [facility] Work Phone: Comment on above: Reference Range: STR AW,YELLOW Glucose Ql (U) Negative NEGATIVE [facility] Work Phone: Ketones Ql (U) Negative NEGATIVE [facility] Work Phone: [phone] Leukocyte esterase Test strip Ql (U) Negative NEGATIVE [facility] Work Phone: pH (U) 5.0 [pH] 5.0 - 8.0 [facility] Work Phone: [phone] Protein (U) [Mass/Vol] Negative NEGATIVE [facility] Work Phone: RBC (U) [#/Vol] Negative NEGATIVE [facility] Work Phone: Specific gravity (U) [Rel density] 1.014 1 See Below [facility] Work Phone: Comment on above: Reference Range: 1.0 05 - 1.035 URINALYSIS WITH CULTURE IF INDICATED Negative NEGATIVE [facility] Work Phone: URINALYSIS WITH CULTURE IF INDICATED <2.0 0.0 - 1.9 [facility] Work Phone: URINALYSIS WITH CULTURE IF INDICATED CLEAR CLEAR [facility] Work Phone: US CAROTID BILATERAL DUPLEXo n 01-27-2022 US CAROTID BILATERAL DUPLEX Normal [facility] US VENOUS DUPLEX LOWER EXTRE MITY VEINS BILATERALon 01-27-2022 US VENOUS DUPLEX LOWER EXTREMITY VEINS BILATERAL Normal [facility] Urinalysison 01-27-2022 Appearance (U) Canceled [facility] Work Phone: Color (U) Canceled [facility] Work Phone: Glucose Ql (U) Canceled [facility] Work Phone: Ketones Ql (U) Canceled [facility] Work Phone: Leukocyte esterase Test strip Ql (U) Canceled [facility] Work Phone: Protein (U) [Mass/Vol] Canceled [facility] Work Phone: RBC (U) [#/Vol] Canceled [facility] Work Phone: Specific gravity (U) [Rel density] Canceled [facility] Work Phone: Urinalysis Canceled [facility] Work Phone: Comment on above: Concentrations > = 2 0 mg/dL of ascorbic acid can be expected to cause strong interference in the reactions testing for glucose, nitrite and blood. It is recommended to discontinue Vitamin C administration and retest in 10 hours. Office Visit (Cardiac Surger y)on 01-26-2022 Follow-up visit Diagnoses/Problems Assessed 2-vessel coronary artery disease (414.00) (I25.10) Provider Impressions In summary, this 71-year-old man has significant coronary artery disease with low-level symptoms, CCS class IV. I reviewed his coronary angiogram from January 20. The LAD shows a subtotal occlusion. The circumflex has mild disease. The RCA shows a complete occlusion. He has good distal targets to the LAD and the distal RCA systems. A stress test was done in December. There is decreased perfusion in the left ventricular apex, inferior jiménez and mid left ventricle. There was a normal ejection fraction. . At this point, we do not have an echo for this patient. He will need to have that completed before surgery. His BMI is 33.9. Based on the available information, he would meet class I indications based on AHA and ACC criteria for surgical revascularization. He has unstable coronary artery disease, in the setting of high-grade lesions. The goal of surgery would be to improve his quality of life, to decrease his symptoms and to improve his long-term survival. The risks of surgery, based on the available information, should be relatively low at 1 to 2% for major adverse events such as stroke or mortality. I suggested that we proceed with his operation imminently, given his symptoms. We will plan to admit him at [facility]. I will have Dr. Jt Guillen coordinate his care. It may make most sense to admit him to the hospital on 27 January, to complete his testing, and to proceed with surgery on the . The surgical strategy would be to place a RANGEL to the LAD, and either a radial artery or a vein to the RCA target. He may also require a graft to the diagonal. Chief Complaint A telephone visit (audio only) between the patient (at the originating site) and the provider (at the distant site) was utilized to provide this telehealth service. Verbal consent was requested and obtained from JERRI HORNE on this date, 01/26/2022 09:30 AM , for a telehealth visit. Patient is having a virtual surgical evaluation for CAD following a referral by Dr. Errol Simon. MARCIA Louie, RN Adult Risk ScreeningThere are no spiritual/cultural practices/values/needs that are important to know Initial Fall Risk Screening: JERRI has not fallen in the last 6 months. Living Will. Living Will: No living will on file. Healthcare POA: No healthcare proxy on file. History of Present Illness Dr. Jayden Simon had asked us to assess this patient urgently. He is a 71-year-old man, with evidence of coronary artery disease. A coronary angiogram last week showed significant three-vessel disease. He is retired, but has been very symptomatic recently. He is unable to go very far, without significant fatigue, chest tightness and shortness of breath. His symptoms are frequent, and he has symptoms even walking to the bathroom. He has been housebound because of the symptoms for the past 1 or 2 weeks. His past history significant for coronary artery disease, hypertension and dyslipidemia. He is a former smoker. There is a question of alcohol intake, listed in his chart for 4-6 beers per day. Review of Systems Constitutional: not feeling tired. Eyes: no eyesight problems. ENT: no hearing loss and no nosebleeds. Cardiovascular: chest pain and tightness or heavy pressure, but no intermittent leg claudication and as noted in HPI. Respiratory: no chronic cough and no shortness of breath. Gastrointestinal: no change in bowel habits and no blood in stools. Genitourinary: no urinary frequency and no hematuria. Skin: no skin rashes. Neurological: no seizures and no frequent falls. Psychiatric: no depression and not suicidal. All other systems have been reviewed and are negative for complaint. Active Problems Problems 2-vessel coronary artery disease (414.00) (I25.10) Abnormal stress test (794.39) (R94.39) Angina pectoris (413.9) (I20.9) Benign prostatic hyperplasia with nocturia (600.01,788.43) (N40.1,R35.1) Chest pain (786.50) (R07.9) Class 1 obesity with body mass index (BMI) of 33.0 to 33.9 in adult (278.00,V85.33) (E66.9,Z68.33) Dyspnea on exertion (786.09) (R06.09) Former smoker (V15.82) (Z87.891) QUIT 2000 2PPD Hyperlipidemia (272.4) (E78.5) Hypertension (401.9) (I10) Surgical History Problems History of Colonoscopy History of Stomach surgery MUSCLE REMOVED History of [place] tooth extraction Family History Father Family history of myocardial infarction (V17.3) (Z82.49) Sister Family history of stent (V19.8) (Z84.89) Social History Problems Daily alcohol use 4-6 BEERS DAILY Daily caffeine consumption, 1 serving a day 1 1/2 COFFEE DAILY Former smoker (V15.82) (Z87.891) QUIT 2000 2PPD Illicit drug use (305.90) (F19.90) OCCASIONAL MARIJAUNA Allergies Medication rosuvastatin Adverse Reaction; Abdominal pain; Recorded By: Blanca Diamond; 01/23/2022 12:11:16 PM Current Meds Medication NameI (more content not included)... [facility] ([facility])on 01-23-2022 Follow-up visit Diagnoses/Problems Assessed 2-vessel coronary artery disease (414.00) (I25.10) Angina pectoris (413.9) (I20.9) Hyperlipidemia (272.4) (E78.5) Hypertension (401.9) (I10) Former smoker (V15.82) (Z87.891) QUIT 2000 2PPD Class 1 obesity with body mass index (BMI) of 33.0 to 33.9 in adult (278.00,V85.33) (E66.9,Z68.33) Orders Class 1 obesity with body mass index (BMI) of 33.0 to 33.9 in adult Healthy Weight Tips; Status:Complete - Retrospective Authorization; Done: [id number] Some eating tips that can help you lose weight.; Status:Complete - Retrospective Authorization; Done: [id number] SocHx: Former smoker Tobacco Use Screening; Status:Complete; Done: [id number] Patient Instructions Please bring all medicines, vitamins, and herbal supplements with you when you come to the office. Prescriptions will not be filled unless you are compliant with your follow up appointments or have a follow up appointment scheduled as per instruction of your physician. Refills should be requested at the time of your visit. Follow up in [6 ] weeks The provider reviewed the following test(s) and result(s) with the patient: cardiac catheterization Chief Complaint JERRI HORNE is being seen for Cath Results-future open heart. History of Present Illness 71 yo male here for follow-up. He recently underwent cardiac cath which demonstrated subtotal occlusion of LAD and EVENT AV OPERATOR of RCA. He has been referred for CABG (Dr. Jt Cuello). His R radial site healed nicely and he has good peripheral pulses. Surgical History Problems History of Colonoscopy History of Stomach surgery MUSCLE REMOVED History of [place] tooth extraction Current Meds Medication NameInstruction Aspirin EC 81 MG Oral Tablet Delayed ReleaseTAKE 1 TABLET DAILY. Atorvastatin Calcium 40 MG Oral TabletTAKE 1 TABLET AT BEDTIME. Benazepril HCl - 20 MG Oral TabletTAKE 1 TABLET DAILY. Fish Oil [id number] MG TWICE DAILY Iron [id number] EVERY OTHER DAY Isosorbide Mononitrate ER 60 MG Oral Tablet Extended Release 24 HourTAKE 1 TABLET DAILY DIRECTED. Metoprolol Tartrate 25 MG Oral TabletTAKE 1 TABLET TWICE DAILY. Multi Vitamin TABSTAKE 1 TABLET EVERYOTHER DAY DAILY. Nitroglycerin 0.4 MG Sublingual Tablet SublingualPLACE 1 TABLET UNDER THE TONGUE EVERY 5 MINUTES FOR UP TO 3 DOSES NEEDED FOR CHEST PAIN.CALL 911 IF PAIN PERSISTS. Vitamin B + C Complex TABS1 tab every other day Vitamin C TABSTAKE 1 TABLET EVRY OTHER DAY. Zinc CAPS1 tab every other day Allergies Medication rosuvastatin Adverse Reaction; Abdominal pain; Recorded By: Blanca Diamond; 01/23/2022 12:11:16 PM Social History Problems Daily alcohol use 4-6 BEERS DAILY Daily caffeine consumption, 1 serving a day 1 1/2 COFFEE DAILY Former smoker (V15.82) (Z87.891) QUIT 2000 2PPD Illicit drug use (305.90) (F19.90) OCCASIONAL MARIJAUNA Review of Systems Constitutional: not feeling tired. Cardiovascular: chest pain, but no intermittent leg claudication and as noted in HPI. Respiratory: shortness of breath during exertion, but no cough and no shortness of breath. Gastrointestinal: no change in bowel habits and no blood in stools. Integumentary: no skin rashes. Neurological: no seizures and no frequent falls. All other systems have been reviewed and are negative for complaint. Vitals Vital Signs Recorded: 23Jan2022 12:11PM Heart Rate76, L Radial Ibqwlnmg041, LUE, Sitting Jwzqyozeu01, LUE, Sitting Height5 ft 8 in Kcopyl056 lb BMI Omgvfpyzph52.91 kg/m2 BSA Calculated2.14 Tobacco Useb) No Falls Screening (Age 18+)a) No falls within the last year Physical Exam Constitutional: alert and in no acute distress. Eyes: no erythema, swelling or discharge from the eye . Neck: neck is supple, symmetric, trachea midline, no masses and no thyromegaly . Pulmonary: no increased work of breathing or signs of respiratory distress and lungs clear to auscultation. Cardiovascular: carotid pulses 2+ bilaterally with no bruit , JVP was normal, no thrills , regular rhythm, normal S1 and S2, no murmurs , pedal pulses 2+ bilaterally and no edema . Abdomen: abdomen non-tender, no masses and no hepatomegaly . Skin: skin warm and dry, normal skin turgor . Psychiatric judgment and insight is normal and oriented to person, place and time . Impressions 1. Coronary artery disease - Subtotal occlusion of LAD and EVENT AV OPERATOR of RCA, he has been referred to CTS - Continue ASA, high-intensity statin and BB - Continue imdur 2. HTN - Well-controlled - Continue current medical therapy 3. HLD - Continue lipitor as above 4. Hx of smoking - Will need to screen for AAA in the future Patient was given ED precautions. He expressed understanding of these precautions. Patient will f/u with me in 6-8 weeks. Signatures Electronically signed by : eDisy Rausch MD; Jan 23 2022 12:32PM EST (Author) [employer] Tobacco Screening.on 022 Fall risk assessment a) No falls within the last year [facility] [address] DO Work Phone: Tobacco use status [facility] b) No [facility] DO Work Phone: Activated partial thrombopla stin time (aPTT) in platelet poor plasma by coagulation aOrdered By: Eduardo Simon on 01-20-2022 aPTT Coag (PPP) [Time] 30.6 s 25.1-36.5 [facility] Basophils Auto (Bld) [#/Vol] Ordered By: Eduardo Simon on 01-20-2022 Basophils (Bld) [#/Vol] 0.0 10*3/uL 0.0-0.2 [facility] Basophils/100 WBC Auto (Bld) Ordered By: Eduardo Simon on 01-20-2022 Basophils/100 WBC (Bld) 0.6 % . [facility] Blood hemoglobin measurement (mass/volume)Ordered By: Eduardo Simon on 01-20-2022 Hemoglobin (Bld) [Mass/Vol] 12.8 g/dL 13.0-17.0 [facility] Blood leukocytes automated c ount (number/volume)Ordered By: Eduardo Simon on 01-20-2022 WBC (Bld) [#/Vol] 5.8 10*3/uL 4.5-11.0 [facility] COVID-19 SOFIAOrdered By: Eduardo Simon on 01-20-2022 SARS-CoV+SARS-CoV-2 (COVID-19) Ag IA.rapid Ql (Resp) Negative Negative [facility] Comment on above: This is a duplicate [employer] SARS Antigen (LURDES) result to be used for statistical tracking purpose only. Cholesterol [Mass/volume] in Serum or PlasmaOrdered By: Eduardo Simon on 01-20-2022 Cholesterol [Mass/Vol] 132 mg/dL 140-200 [facility] Comment on above: Chol less than 200 m g/dl low riskChol 201-239 mg/dl borderline riskChol 240 mg/dl and greater high risk Cholesterol in LDL Calc [Mas s/Vol]Ordered By: Eduardo Simon on 01-20-2022 Cholesterol in LDL [Mass/Vol] 67 mg/dL 0-100 [facility] Comment on above: LDL ATP III CLASSIFI CATIONLDL less than 100 mg/dL OptimalLDL 100-129 mg/dL Near or above optimalLDL 130-159 mg/dL Borderline highLDL 160-189 mg/dL HighLDL greater than 189 mg/dL Very high Cholesterol in VLDL Calc [Ma ss/Vol]Ordered By: Eduardo Simon on 01-20-2022 Cholesterol in VLDL [Mass/Vol] 15 mg/dL [facility] Creatinine and Glomerular fi ltration rate.predicted panel (S/P/Bld)Ordered By: Eduardo Simon on 01-20-2022 Creatinine [Mass/Vol] 1.04 mg/dL 0.64-1.27 [facility] Eosinophils Auto (Bld) [#/Vo l]Ordered By: Eduardo Simon on 01-20-2022 Eosinophils (Bld) [#/Vol] 0.2 10*3/uL 0.0-0.45 [facility] Eosinophils/100 WBC Auto (Bl d)Ordered By: Eduardo Simon on 01-20-2022 Eosinophils/100 WBC (Bld) 3.6 % . [facility] Erythrocyte distribution wid th Auto (RBC) [Ratio]Ordered By: Eduardo Simon on 01-20-2022 Erythrocyte distribution width (RBC) [Ratio] 12.5 % 12.0-14.8 [facility] Estimated glomerular filtrat ion rate (GFR) non- AmericanOrdered By: Eduardo Simon on 01-20-2022 GFR/1.73 sq M.predicted among non-blacks MDRD (S/P/Bld) [Vol rate/Area] > 60 mL/Min [facility] Hematocrit Auto (Bld) [Volum e fraction]Ordered By: Eduardo Simon on 01-20-2022 Hematocrit (Bld) [Volume fraction] 38.7 % 38.8-50.0 [facility] Laboratory - Chemistry and C hemistry - challengeon 01-20-2022 Cholesterol [Mass/Vol] 132\S\132 below low threshold 140-200 [facility] DO Work Phone: Comment on above: Chol less than 200 m g/dl low risk Chol 201-239 mg/dl borderline risk Chol 240 mg/dl and greater high risk Cholesterol in LDL [Mass/Vol] 67\S\67 Normal 0-100 [facility] DO Work Phone: Comment on above: LDL ATP III CLASSIFI CATION LDL less than 100 mg/dL Optimal LDL 100-129 mg/dL Near or above optimal LDL 130-159 mg/dL Borderline high LDL 160-189 mg/dL High LDL greater than 189 mg/dL Very high Laboratory - CoagulationOrde red By: Eduardo Simon on 01-20-2022 PT Coag (PPP) [Time] 13.9 s 9.0-12.9 [facility] Laboratory - Hematology and Cell countsOrdered By: Eduardo Simon on 01-20-2022 Nucleated RBC/100 WBC (Bld) [Ratio] 0.0 % 0-0.5 [facility] Laboratory - Microbiology an d Antimicrobial susceptibilityon 01-20-2022 SARS-CoV-2 (COVID-19) RNA NATI+probe Ql (Unsp spec) [facility] DO Work Phone: Lymphocytes Auto (Bld) [#/Vo l]Ordered By: Eduardo Simon on 01-20-2022 Lymphocytes (Bld) [#/Vol] 2.1 10*3/uL 1.00-4.8 [facility] Lymphocytes/100 WBC Auto (Bl d)Ordered By: Eduardo Simon on 01-20-2022 Lymphocytes/100 WBC (Bld) 35.3 % . [facility] MCH Auto (RBC) [Entitic mass ]Ordered By: Eduardo Simon on 01-20-2022 MCH (RBC) [Entitic mass] 31.1 pg 27.5-35.2 [facility] MCHC Auto (RBC) [Mass/Vol]Or dered By: Eduardo Simon on 01-20-2022 MCHC (RBC) [Mass/Vol] 33.1 g/dL 32.5-35.6 [facility] MCV Auto (RBC) [Entitic vol] Ordered By: Eduardo Simon on 01-20-2022 MCV (RBC) [Entitic vol] 93.9 fL 83.5-101 [facility] Monocytes Auto (Bld) [#/Vol] Ordered By: Eduardo Simon on 01-20-2022 Monocytes (Bld) [#/Vol] 0.6 10*3/uL 0.0-0.8 [facility] Monocytes/100 WBC Auto (Bld) Ordered By: Eduardo Simon on 01-20-2022 Monocytes/100 WBC (Bld) 10.6 % . [facility] Neutrophils Auto (Bld) [#/Vo l]Ordered By: Eduardo Simon on 01-20-2022 Neutrophils (Bld) [#/Vol] 2.9 10*3/uL 1.8-7.7 [facility] Neutrophils/100 WBC Auto (Bl d)Ordered By: Eduardo Simon on 01-20-2022 Neutrophils/100 WBC (Bld) 49.9 % . [facility] No Panel InformationOrdered By: Eduardo Simon on 01-20-2022 Estimated GFR () > 60 mL/Min [facility] Comment on above: GFR estimated refere nce range: According to KDOQI guidelines, <60 ml/min/1.73m2 is sufficient to diagnose a patient with chronic kidney disease. Pharmacy Creatinine Clearance (Chem 77.45 [facility] SARS Antigen (LFIA) [facility] No Panel Informationon 01-20 49.9\S\49.9 Normal . [facility] DO Work Phone: [phone] 7.7\S\7.7 Normal 6.6-10.1 [facility] DO Work Phone: [phone] 238\S\238 Normal 150-450 [facility] DO Work Phone: [phone] 12.5\S\12.5 Normal 12.0-14.8 [facility] DO Work Phone: [phone] 33.1\S\33.1 Normal 32.5-35.6 [facility] DO Work Phone: [phone] 31.1\S\31.1 Normal 27.5-35.2 [facility] DO Work Phone: [phone] 2.9\S\2.9 Normal 1.8-7.7 [facility] DO Work Phone: [phone] 0.0\S\0.0 Normal 0.0-0.2 [facility] DO Work Phone: [phone] Comment on above: PERFORMED BY:[facility] [place], [place] [id number] MEDICAL DIRECTORTERRIE GREEN M.D. 0.6\S\0.6 Normal 0.0-0.8 [facility] DO Work Phone: [phone] 3.6\S\3.6 Normal . [facility] DO Work Phone: [phone] 10.6\S\10.6 Normal . [facility] DO Work Phone: 35.3\S\35.3 Normal . [facility] DO Work Phone: [phone] 0.2\S\0.2 Normal 0.0-0.45 [facility] DO Work Phone: 2.1\S\2.1 Normal 1.00-4.8 [facility] DO Work Phone: 93.9\S\93.9 Normal 83.5-101 [facility] DO Work Phone: 38.7\S\38.7 below low threshold 38.8-50.0 [facility] DO Work Phone: [phone] 12.8\S\12.8 below low threshold 13.0-17.0 [facility] DO Work Phone: 4.12\S\4.12 Normal 3.90-5.60 [facility] DO Work Phone: [phone] 5.8\S\5.8 Normal 4.1-10.5 [facility] DO Work Phone: [phone] 30.6\S\30.6 Normal 25.1-36.5 [facility] DO Work Phone: [phone] Comment on above: PERFORMED BY:[facility] [place] [phone] MEDICAL DIRECTORTERRIE GREEN M.D. 1.2\S\1.2 Normal [facility] DO Work Phone: Comment on above: INR Therapeutic Rang e A) Pre- and Peroperative OAT started two weeks before surgery. NOT HIP SURGERY: 1.5 - 2.5 HIP SURGERY: 2 - 3 B) Primary and secondary prevention of venous THROMBOSIS: 2 - 3 C) Active venous thrombosis, pulmonary embolism and prevention of recurrent venous thrombosis: 2 - 3 D) Prevention of arterial thromboembolism including patients with mechanical heart valves: 3 - 4.5 13.9\S\13.9 above high threshold 9.0-12.9 [facility] DO Work Phone: [phone] 13.4\S\13.4 Normal 6.0-15.0 [facility] DO Work Phone: [phone] 26.8\S\26.8 Normal 22.0-30.0 [facility] DO Work Phone: [phone] 98\S\98 Normal 95-114 [facility] 250 DO Work Phone: [phone] 4.2\S\4.2 Normal 3.5-5.1 [facility] 250 DO Work Phone: [phone] 134\S\134 below low threshold 136-146 [facility] 250 DO Work Phone: [phone] 11\S\11 Normal 9-23 [facility] 250 DO Work Phone: [phone] 77.45\S\77.45 Normal [facility] [facility] 250 DO Work Phone: [phone] > 60 Normal [facility] 250 DO Work Phone: Comment on above: GFR estimated refere nce range: According to KDOQI guidelines, <60 ml/min/1.73m2 is sufficient to diagnose a patient with chronic kidney disease. 1.04\S\1.04 Normal 0.64-1.27 [facility] 250 DO Work Phone: 2.7\S\2.7 Normal <5.0 [facility] 250 DO Work Phone: Comment on above: PERFORMED BY:[facility] [place], [place] [id number] MEDICAL DIRECTORTERRIE GREEN M.D. 15\S\15 Normal [facility] [facility] 250 DO Work Phone: 78\S\78 Normal 35-149 [facility] 250 DO Work Phone: Comment on above: TRIG ATP III CLASSIF ICATION TRIG less than 150 mg/dL Normal TRIG 150-199 mg/dL Borderline high TRIG 200-500 mg/dL High TRIG greater than 500 mg/dL Very high Standard traceable to the Center for Disease Conrtrol and Prevention (CDC) test method. 49\S\49 Normal 29-71 [facility] 250 DO Work Phone: Comment on above: HDL CHOL ATP-III CLA SSIFICATION Cardiovascular Risk HDL > or equal to 60 mg/dL LOW HDL < 40 mg/dL HIGH Negative Normal Negative [facility] Work Phone: Comment on above: This is a duplicate Edita SARS Antigen (LURDES) result to be used for statistical tracking purpose only.PERFORMED BY:[place] [address] [place], [place] [id number] MEDICAL DIRECTORTERRIE GREEN M.D. Platelet mean volume Auto (B ld) [Entitic vol]Ordered By: Eduardo Simon on 01-20-2022 Platelet mean volume (Bld) [Entitic vol] 7.7 fL 6.6-10.1 [facility] Platelet poor plasma interna tional normalized ratio (INR) by coagulation assay (relatOrdered By: Eduardo Simon on 01-20-2022 INR Coag (PPP) [Relative time] 1.2 {INR} [facility] Comment on above: INR Therapeutic Rang e A) Pre- and Peroperative OAT started two weeks before surgery. NOT HIP SURGERY: 1.5 - 2.5 HIP SURGERY: 2 - 3B) Primary and secondary prevention of venous THROMBOSIS: 2 - 3C) Active venous thrombosis, pulmonary embolismand prevention of recurrent venous thrombosis: 2 - 3D) Prevention of arterial thromboembolismincluding patients with mechanical heart valves: 3 - 4.5 Platelets Auto (Bld) [#/Vol] Ordered By: Eduardo Simon on 01-20-2022 Platelets (Bld) [#/Vol] 238 10*3/uL 150-450 [facility] RBC Auto (Bld) [#/Vol]Ordere d By: Eduardo Simon on 01-20-2022 RBC (Bld) [#/Vol] 4.12 10*6/uL 3.90-5.60 [facility] Serum or plasma anion gap de terminationOrdered By: Eduardo Simon on 01-20-2022 Anion gap [Moles/Vol] 13.4 mmol/L 6.0-15.0 [facility] Serum or plasma chloride ridge surement (moles/volume)Ordered By: Eduardo Simon on 01-20-2022 Chloride [Moles/Vol] 98 mmol/L 95-114 [facility] Serum or plasma high density lipoprotein (HDL) cholesterol measurementOrdered By: Eduardo Simon on 01-20-2022 Cholesterol in HDL [Mass/Vol] 49 mg/dL 29-71 [facility] Comment on above: HDL CHOL ATP-III CLA SSIFICATION Cardiovascular RiskHDL > or equal to 60 mg/dL LOWHDL < 40 mg/dL HIGH Serum or plasma potassium me asurement (moles/volume)Ordered By: Eduardo Simon on 01-20-2022 Potassium [Moles/Vol] 4.2 mmol/L 3.5-5.1 [facility] Serum or plasma sodium measu rement (moles/volume)Ordered By: Eduardo Simon on 01-20-2022 Sodium [Moles/Vol] 134 mmol/L 136-146 [facility] Serum or plasma total carbon dioxide measurement (moles/volume)Ordered By: Eduardo Simon on 01-20-2022 CO2 [Moles/Vol] 26.8 mmol/L 22.0-30.0 [facility] Serum or plasma total choles terol/high density lipoprotein (HDL) cholesterol mass ratOrdered By: Eduardo Simon on 01-20-2022 Cholesterol.total/Chol esterol in HDL [Mass ratio] 2.7 {ratio} <5.0 [facility] Serum or plasma urea nitroge n measurement (mass/volume)Ordered By: Eduardo Simon on 01-20-2022 Urea nitrogen [Mass/Vol] 11 mg/dL 9-23 [facility] Triglyceride [Mass/volume] i n Serum or PlasmaOrdered By: Eduardo Simon on 01-20-2022 Triglyceride [Mass/Vol] 78 mg/dL 35-149 [facility] Comment on above: TRIG ATP III CLASSIF ICATIONTRIG less than 150 mg/dL NormalTRIG 150-199 mg/dL Borderline highTRIG 200-500 mg/dL High TRIG greater than 500 mg/dL Very highStandard traceable to the Center for Disease Conrtrol and Prevention (CDC) test method. Office Visit (Cardiology)on 01-16-2022 Follow-up visit Diagnoses/Problems Assessed Chest pain (786.50) (R07.9) Dyspnea on exertion (786.09) (R06.09) Abnormal stress test (794.39) (R94.39) Hypertension (401.9) (I10) Hyperlipidemia (272.4) (E78.5) Former smoker (V15.82) (Z87.891) QUIT 2000 2PPD Class 1 obesity with body mass index (BMI) of 34.0 to 34.9 in adult (278.00,V85.34) (E66.9,Z68.34) Orders Abnormal stress test IO EKG Electrocardiogram- 12 Lead; Status:Complete; Done: 16Jan2022 Abnormal stress test, Chest pain Start: Nitroglycerin 0.4 MG Sublingual Tablet Sublingual; PLACE 1 TABLET UNDER THE TONGUE EVERY 5 MINUTES FOR UP TO 3 DOSES NEEDED FOR CHEST PAIN.CALL 911 IF PAIN PERSISTS Abnormal stress test, Chest pain, Dyspnea on exertion Cardiac Catherization; Status:Active - Retrospective Authorization; Requested for:[id number]; Class 1 obesity with body mass index (BMI) of 34.0 to 34.9 in adult Healthy Weight Tips; Status:Complete - Retrospective Authorization; Done: 16Jan2022 Some eating tips that can help you lose weight.; Status:Complete - Retrospective Authorization; Done: 16Jan2022 Hyperlipidemia Start: Rosuvastatin Calcium 20 MG Oral Tablet; TAKE 1 TABLET DAILY SocHx: Former smoker Tobacco Use Screening; Status:Complete; Done: 16Jan2022 Unlinked Stop: Simvastatin 20 MG Oral Tablet Patient Instructions Please bring all medicines, vitamins, and herbal supplements with you when you come to the office. Prescriptions will not be filled unless you are compliant with your follow up appointments or have a follow up appointment scheduled as per instruction of your physician. Refills should be requested at the time of your visit. Echo requested from [facility] Stop Simvastatin. Take Rosuvastatin 20 mg daily Follow up after testing completed Chief Complaint JERRI HORNE is being seen for a consultation for. History of Present Illness 71 yo male here for evaluation of abnormal stress test. The patient underwent NST for exertional chest pain that had abnormalities in multiple areas. He describes having almost daily exertional chest pain that resolves with rest. This is associated with palpitations. No SOB, presyncope/syncope. BPs have been well-contolled per the patient. He has never had a cardiac cath before. He has a very strong family hx of CAD in multiple family members. Surgical History Problems History of Colonoscopy History of Stomach surgery MUSCLE REMOVED History of [place] tooth extraction Current Meds Medication NameInstruction Aspirin EC 81 MG Oral Tablet Delayed ReleaseTAKE 1 TABLET DAILY. Benazepril HCl - 20 MG Oral TabletTAKE 1 TABLET DAILY. Fish Oil [id number] MG TWICE DAILY Iron [id number] EVERY OTHER DAY Isosorbide Mononitrate ER 30 MG Oral Tablet Extended Release 24 HourTAKE 2 TABLET DAILY. Metoprolol Tartrate 25 MG Oral TabletTAKE 1 TABLET TWICE DAILY. Multi Vitamin TABSTAKE 1 TABLET EVERYOTHER DAY DAILY. Simvastatin 20 MG Oral TabletTAKE 1 TABLET AT BEDTIME. Vitamin B + C Complex TABS1 tab every other day Vitamin C TABSTAKE 1 TABLET EVRY OTHER DAY. Zinc CAPS1 tab every other day Allergies Medication No Known Drug Allergies Recorded By: Pham Linder; 01/16/2022 3:03:21 PM Social History Problems Daily alcohol use 4-6 BEERS DAILY Daily caffeine consumption, 1 serving a day 1 1/2 COFFEE DAILY Former smoker (V15.82) (Z87.891) QUIT 2000 2PPD Illicit drug use (305.90) (F19.90) OCCASIONAL MARIJAUNA Review of Systems Constitutional: not feeling tired. Eyes: no eyesight problems. ENT: no hearing loss and no nosebleeds. Cardiovascular: no intermittent leg claudication and as noted in HPI. Respiratory: no chronic cough and no shortness of breath. Gastrointestinal: no change in bowel habits and no blood in stools. Genitourinary: no urinary frequency and no hematuria. Skin: no skin rashes. Neurological: no seizures and no frequent falls. Psychiatric: no depression and not suicidal. All other systems have been reviewed and are negative for complaint. Vitals Vital Signs Recorded: 16Jan2022 03:14PMRecorded: 16Jan2022 03:11PM Ywfkhdlu132, LUE, Acaeylg975, RUE, Sitting Zmyfkqsop17, LUE, Nbktlwm79, RUE, Sitting Heart Rate66, Apical Height5 ft 8 in Gfhcdd333 lb BMI Uadymoqqdl70.06 kg/m2 BSA Calculated2.14 Tobacco Useb) No PHQ-2 #1. Over the last 2 weeks have you felt down, depressed or hopeless? (If yes, answer PHQ-9 below)No PHQ-2 #2. Over the last 2 weeks have you felt little interest or pleasure in doing things? (If yes, answer PHQ-9 below)No Falls Screening (Age 18+)a) No falls within the last year EKG done in office today. Physical Exam Constitutional: alert and in no acute distress. Eyes: no erythema, swelling or discharge from the eye . Neck: neck is supple, symmetric, trachea midline, no masses and no thyromegaly . Pulmonary: no increased work of breathing or signs of respiratory distress and lungs clear to auscultation. Cardio (more content not included)... [facility] Screening.on 022 Adult depression screening assessment No [facility] 305 DO Work Phone: Fall risk assessment a) No falls within the last year -Cardiology -[place] 305 DO Work Phone: Tobacco use status [facility] b) No [facility] 305 DO Work Phone: NM STRESS/REST MULTIon 01-01 NM STRESS/REST MULTI Patient: JERRI HORNE Exam Date: 01/01/2022 : 1950 Gender:M Ordering : DR FOREST RODRIGUES D.O. Admission #: [id number] Family : Order #: [id number] CLICK HERE TO VIEW EXAM RADIOLOGY REPORT PROCEDURE: RADIONUCLIDE IMAGING STRESS/REST MULTI COMPARISON: NM STRESS/REST MULTI, 2020. INDICATIONS: Chest pain TECHNIQUE: Exam Description: Stress/Rest one day protocol gated SPECT Rest Imagin.1 mCi Tc-99m Cardiolite IV on 01/01/2022 Stress Imaging 31.9 mCi Tc-99m Cardiolite IV on 01/01/2022 Exercise Protocol: 0.4 mg Lexiscan given IV Heart Rate (bpm): Rest: 61 Max: 85 PMHR: 56 Blood Pressure: Rest: 158/80 Max: 158/80 Symptoms: Rest and peak stress ECG findings were normal and the exercise portion of the study was normal per attending physician Dr. Kael Rodrigues . For more details please see separate cardiac stress test report. FINDINGS: QUALITY OF STUDY: Excellent. PERFUSION DEFECT: LOCATION: Mid-anteroseptal. Mid-inferoseptal. Apical anterior. Apical septal. Apical inferior. [place]. SIZE: Large. SEVERITY: Moderate-severe. TYPE: Mixed; Partially reversible. WALL MOTION: Mild hypokinesis: Apical anterior. Apical septal. Apical inferior. Apical lateral. [place]. LV SIZE: 108 mL. TID / TCD: 1.1 LVEF: Normal. Calculated EF 61%. SUMMARY: Myocardial perfusion imaging study has ABNORMAL findings. CONCLUSION: 1. Decreased perfusion of the apically left ventricle and the anterior, septal, and inferior jiménez of the mid left ventricle which demonstrates slight reversibility during rest imaging. 2. Mild hypokinesis of apex. 3. Normal ejection fraction. Findings are being called to the ordering provider. Dictated by: Elizabeth Ugalde M.D. on 01/01/2022 at 14:44 Approved by: Elizabeth Ugalde M.D. on 01/01/2022 at 14:49 Normal [facility] CBC AUTO DIFFon 12-24-2021 BASO # 0.1 103/ul Normal 0.0-0.1 [facility] Comment on above: Performed By: #### C BC #### [facility] [address] [address] [address] Maureen Mcdonough Basophils/100 WBC (Bld) 1.1 % Normal 0.2-2.0 [facility] Comment on above: Performed By: #### C BC #### [facility] [address] [address] [address] Maureen Mcdonough EO # 0.2 103/ul Normal 0.0-0.7 [facility] Comment on above: Performed By: #### C BC #### [facility] [address] [place] [address] Dr. Maureen Mcdonough Eosinophils/100 WBC (Bld) 2.7 % Normal 0.9-7.0 [facility] Comment on above: Performed By: #### C BC #### [facility] [address] [place] [address] Dr. Maureen Mcdonough Erythrocyte distribution width (RBC) [Ratio] 12.1 % Normal 11.0-15.0 [facility] Comment on above: Performed By: #### C BC #### [facility] [address] [place] [address] Dr. Maureen Mcdonough Hematocrit (Bld) [Volume fraction] 39.9 % Critically low 42.0-54.0 [facility] Comment on above: Performed By: #### C BC #### [facility] [address] [place] [address] Dr. Maureen Mcdonough Hemoglobin (Bld) [Mass/Vol] 13.2 g/dL Critically low 14.0-18.0 [facility] Comment on above: Performed By: #### C BC #### [facility] [address] [place] [address] Dr. Maureen Mcdonough IG # 0.09 10e3/ul Critically high 0.00-0.03 [facility] Comment on above: Performed By: #### C BC #### [facility] [address] [place] [address] Dr. Maureen Mcdonough IG % 1.4 % Critically high 0.0-0.5 [facility] Comment on above: Performed By: #### C BC #### [facility] [address] [place] [address] Dr. Maureen Mcdonough LYMPH # 2.8 103/ul Normal 1.2-3.8 [facility] Comment on above: Performed By: #### C BC #### [facility] [address] [place] [address] Dr. Maureen Mcdonough Lymphocytes/100 WBC (Bld) 42.9 % Normal 20.5-60.0 [facility] Comment on above: Performed By: #### C BC #### [facility] [address] [place] [address] Dr. Maureen Mcdonough MANUAL DIFF REQ NO Normal [facility] Comment on above: Performed By: #### C BC #### [facility] [address] [place] [address] Dr. Maureen Mcdonough MCH (RBC) [Entitic mass] 31.4 pg Normal 25.9-34.0 [facility] Comment on above: Performed By: #### C BC #### [facility] [address] [place] [address] Dr. Maureen Mcdonough MCHC (RBC) [Mass/Vol] 33.1 g/dL Normal 29.9-35.2 [facility] Comment on above: Performed By: #### C BC #### [facility] [address] [place] [address] Dr. Maureen Mcdonough MCV (RBC) [Entitic vol] 94.8 fL Critically high 80.0-94.0 [facility] Comment on above: Performed By: #### C BC #### [facility] [address] [place] [address] Dr. Maureen Mcdonough MONO # 0.7 103/ul Normal 0.3-0.8 [facility] Comment on above: Performed By: #### C BC #### [facility] [address] [place] [address] Dr. Maureen Mcdonough Monocytes/100 WBC (Bld) 10.1 % Normal 1.7-12.0 [facility] Comment on above: Performed By: #### C BC #### [facility] [address] [place] [address] Dr. Maureen Mcdonough NEUT # 2.8 103/ul Normal 1.4-6.5 [facility] Comment on above: Performed By: #### C BC #### [facility] [address] [place] [address] Dr. Maureen Mcdonough Neutrophils/100 WBC (Bld) 41.8 % Critically low 43.0-75.0 [facility] Comment on above: Performed By: #### C BC #### [facility] [address] [place] [address] Dr. Maureen Mcdonough Platelet mean volume (Bld) [Entitic vol] 9.5 fL Normal 9.5-13.5 [facility] Comment on above: Performed By: #### C BC #### [facility] [address] [place] [address] Dr. Maureen Mcdonough PLT 211 103/ul Normal 150-450 [facility] Comment on above: Performed By: #### C BC #### [facility] [address] [place] [address] Dr. Maureen Mcdonough RBC 4.21 106/ul Critically low 4.70-6.10 [facility] Comment on above: Performed By: #### C BC #### [facility] [address] [place] [address] Dr. Maureen Mcdonough WBC 6.6 103/ul Normal 4.0-11.0 [facility] Comment on above: Performed By: #### C BC #### [facility] [address] [place] [address] Dr. Maureen Mcdonough FERRITINon 12-24-2021 Ferritin [Mass/Vol] 236.0 ng/mL Normal 26.0-388.0 [facility] Comment on above: Performed By: #### D ATBMP, DATPSA #### [facility] [address] [place] [address] Dr. Maureen Mcdonough IRON AND TIBCon 12-24-2021 % SATURATION 34.6 % Normal [facility] Comment on above: Performed By: #### D ATBMP, DATPSA #### [facility] [address] [address] [address] Maureen Mcdonough Iron [Mass/Vol] 94.0 ug/dL Normal 65.0-175.0 [facility] Comment on above: Performed By: #### D ATBMP, DATPSA #### [facility] [address] [address] [address] Maureen Mcdonough TIBC DIRECT 272.0 ug/dL Normal 250.0-450. 0 [facility] Comment on above: Performed By: #### D ATBMP, DATPSA #### [facility] [address] [place] [address] Dr. Maureen Mcdonough PROF 14(COMP METB)on 022 Albumin [Mass/Vol] 3.9 g/dL Normal 3.4-5.0 [facility] Comment on above: Performed By: #### D ATBMP, DATPSA #### [facility] [address] [place] [address] Dr. Maureen Mcdonough Albumin/Globulin [Mass ratio] 1.0 {ratio} Normal [facility] Comment on above: Performed By: #### D ATBMP, DATPSA #### [facility] [address] [place] [address] Dr. Maureen Mcdonough ALP [Catalytic activity/Vol] 33 U/L Critically low 46-116 [facility] Comment on above: Performed By: #### D ATBMP, DATPSA #### [facility] [address] [place] [address] Dr. Maureen Mcdonough ALT [Catalytic activity/Vol] 32 U/L Normal 16-63 [facility] Comment on above: Performed By: #### D ATBMP, DATPSA #### [facility] [address] [place] [address] Dr. Maureen Mcdonough Anion gap [Moles/Vol] 10.8 mmol/L Normal [facility] Comment on above: Performed By: #### D ATBMP, DATPSA #### [facility] [address] [address] [address] Maureen Mcdonough AST [Catalytic activity/Vol] 22 U/L Normal 15-37 [facility] Comment on above: Performed By: #### D ATBMP, DATPSA #### [facility] [address] [place] [address] Dr. Maureen Mcdonough Bilirubin [Mass/Vol] 0.4 mg/dL Normal 0.2-1.0 [facility] Comment on above: Performed By: #### D ATBMP, DATPSA #### [facility] [address] [address] [address] Maureen Mcdonough Calcium [Mass/Vol] 9.0 mg/dL Normal 8.5-10.1 [facility] Comment on above: Performed By: #### D ATBMP, DATPSA #### [facility] [address] [place] [address] Dr. Maureen Mcdonough Chloride [Moles/Vol] 102 mmol/L Normal 98-107 [facility] Comment on above: Performed By: #### D ATP, DATPSA #### [facility] [address] [place] [address] Dr. Maureen Mcdonough CO2 [Moles/Vol] 27.7 mmol/L Normal 21.0-32.0 [facility] Comment on above: Performed By: #### D ATBMP, DATPSA #### [facility] [address] [place] [address] Dr. Maureen Mcdonough Creatinine [Mass/Vol] 1.04 mg/dL Normal 0.70-1.30 [facility] Comment on above: Performed By: #### D ATBMP, DATPSA #### [facility] [address] [place] [address] Dr. Maureen Mcdonough EGFR-AF COMORAN >60 Normal >=60 [facility] Comment on above: Performed By: #### D ATBMP, DATPSA #### [facility] [address] [place] [address] Dr. Maureen Mcdonough EGFR-NON AF COMORAN >60 Normal >=60 [facility] Comment on above: Performed By: #### D ATAmber, DATPSA #### [facility] [address] [address] [address] Maureen Mcdonough Globulin (S) [Mass/Vol] 4.0 g/dL Normal [facility] Comment on above: Performed By: #### D ATP, DATPSA #### [facility] [address] [address] [address] Maureen Mcdonough Glucose [Mass/Vol] 111 mg/dL Critically high 74-106 [facility] Comment on above: Performed By: #### D ATAmber, DATPSA #### [facility] [address] [place] [address] Dr. Maureen Mcdonough Potassium [Moles/Vol] 4.5 mmol/L Normal 3.5-5.1 [facility] Comment on above: Performed By: #### D ATAmber, DATPSA #### [facility] [address] [place] [address] Dr. Maureen Mcdonough Protein [Mass/Vol] 7.9 g/dL Normal 6.4-8.2 [facility] Comment on above: Performed By: #### D ATAmber, DATPSA #### [facility] [address] [place] [address] Dr. Maureen Mcdonough Sodium [Moles/Vol] 136 mmol/L Normal 136-145 [facility] Comment on above: Performed By: #### D ATP, DATPSA #### [facility] [address] [place] [address] Dr. Maureen Mcdonough Urea nitrogen [Mass/Vol] 13.0 mg/dL Normal 7.0-18.0 [facility] Comment on above: Performed By: #### D ATP, DATPSA #### [facility] [address] [place] [address] Dr. Maureen Mcdonough Urea nitrogen/Creatinine [Mass ratio] 12.5 mg/mg Normal [facility] Comment on above: Performed By: #### D ATP, DATPSA #### [facility] [address] [address] [address] Maureen Mcdonough LIPID PROFILEon 10-29-2021 CHOL-HDL RATIO NORM SEE BELOW Normal [facility] Comment on above: Result Comment: 3.3 - 4.4 LOW RISK 4.4 - 7.1 AVERAGE RISK 7.1 - 11.0 MODERATE RISK >11.0 HIGH RISK Performed By: #### L IPID, CMP #### [facility] [address] [address] [address] Maureen Mcdonough Cholesterol [Mass/Vol] 159 mg/dL Normal <=200 [facility] Comment on above: Performed By: #### L IPID, CMP #### [facility] [address] [address] [address] Maureen Mcdonough Cholesterol in HDL [Mass/Vol] 51 mg/dL Normal 40-60 [facility] Comment on above: Performed By: #### L IPID, CMP #### [facility] [address] [address] [address] Maureen Mcdonough Cholesterol in LDL [Mass/Vol] 93.4 mg/dL Normal [facility] Comment on above: Performed By: #### L IPID, CMP #### [facility] [address] [address] [address] Maureen Mcdonough Cholesterol.total/Chol esterol in HDL [Mass ratio] 3.1 {ratio} Normal [facility] Comment on above: Performed By: #### L IPID, CMP #### [facility] [address] [address] [address] Maureen Mcdonough HDL NORMAL > or = 60 mg/dl - LO W CARDIOVASCULAR RISK <40 mg/dl - HIGH CARDIOVASCULAR RISK Normal [facility] Comment on above: Performed By: #### L IPID, CMP #### [facility] [address] [address] [address] Maureen Mcdonough LDL CALC NORMAL SEE BELOW Normal [facility] Comment on above: Result Comment: <100 mg/dl OPTIMAL 100 - 129 mg/dl NEAR OR ABOVE OPTIMAL 130 - 159 mg/dl BORDERLINE HIGH 160 - 189 mg/dl HIGH >190 mg/dl VERY HIGH Performed By: #### L IPID, CMP #### [facility] [address] [place] [address] Dr. Maureen Mcdonough Triglyceride [Mass/Vol] 73 mg/dL Normal <=150 [facility] Comment on above: Performed By: #### L IPID, CMP #### [facility] [address] [address] [address] Maureen Mcdonough VLDL CALC 14.6 mg/dL Normal [facility] Comment on above: Performed By: #### L IPID, CMP #### [facility] [address] [place] [address] Dr. Maureen Mcdonough PROF 14(COMP METB)on 022 Albumin [Mass/Vol] 3.8 g/dL Normal 3.4-5.0 [facility] Comment on above: Performed By: #### L IPID, CMP #### [facility] [address] [place] [address] Dr. Maureen Mcdonough Albumin/Globulin [Mass ratio] 1.0 {ratio} Normal [facility] Comment on above: Performed By: #### L IPID, CMP #### [facility] [address] [place] [address] Dr. Maureen Mcdonough ALP [Catalytic activity/Vol] 33 U/L Critically low 46-116 [facility] Comment on above: Performed By: #### L IPID, CMP #### [facility] [address] [place] [address] Dr. Maureen Mcdonough ALT [Catalytic activity/Vol] 39 U/L Normal 16-63 [facility] Comment on above: Performed By: #### L IPID, CMP #### [facility] [address] [place] [address] Dr. Maureen Mcdonough Anion gap [Moles/Vol] 10.7 mmol/L Normal [facility] Comment on above: Performed By: #### L IPID, CMP #### [facility] [address] [place] [address] Dr. Maureen Mcdonough AST [Catalytic activity/Vol] 38 U/L Critically high 15-37 [facility] Comment on above: Performed By: #### L IPID, CMP #### [facility] [address] [place] [address] Dr. Maureen Mcdonough Bilirubin [Mass/Vol] 0.3 mg/dL Normal 0.2-1.0 [facility] Comment on above: Performed By: #### L IPID, CMP #### [facility] [address] [place] [address] Dr. Maureen Mcdonough Calcium [Mass/Vol] 8.9 mg/dL Normal 8.5-10.1 [facility] Comment on above: Performed By: #### L IPID, CMP #### [facility] [address] [place] [address] Dr. Maureen Mcdonough Chloride [Moles/Vol] 104 mmol/L Normal 98-107 [facility] Comment on above: Performed By: #### L IPID, CMP #### [facility] [address] [place] [address] Dr. Maureen Mcdonough CO2 [Moles/Vol] 28.0 mmol/L Normal 21.0-32.0 [facility] Comment on above: Performed By: #### L IPID, CMP #### [facility] [address] [place] [address] Dr. Maureen Mcdonough Creatinine [Mass/Vol] 1.03 mg/dL Normal 0.70-1.30 [facility] Comment on above: Performed By: #### L IPID, CMP #### [facility] [address] [place] [address] Dr. Maureen Mcdonough EGFR-AF COMORAN >60 Normal >=60 [facility] Comment on above: Performed By: #### L IPID, CMP #### [facility] [address] [place] [address] Dr. Maureen Mcdonough EGFR-NON AF COMORAN >60 Normal >=60 [facility] Comment on above: Performed By: #### L IPID, CMP #### [facility] [address] [place] [address] Dr. Maureen Mcdonough Globulin (S) [Mass/Vol] 3.8 g/dL Normal [facility] Comment on above: Performed By: #### L IPID, CMP #### [facility] [address] [place] [address] Dr. Maureen Mcdonough Glucose [Mass/Vol] 102 mg/dL Normal 74-106 [facility] Comment on above: Performed By: #### L IPID, CMP #### [facility] [address] [place] [address] Dr. Maureen Mcdonough Potassium [Moles/Vol] 4.7 mmol/L Normal 3.5-5.1 [facility] Comment on above: Performed By: #### L IPID, CMP #### [facility] [address] [place] [address] Dr. Maureen Mcdonough Protein [Mass/Vol] 7.6 g/dL Normal 6.4-8.2 [facility] Comment on above: Performed By: #### L IPID, CMP #### [facility] [address] [place] [address] Dr. Maureen Mcdonough Sodium [Moles/Vol] 138 mmol/L Normal 136-145 [facility] Comment on above: Performed By: #### L IPID, CMP #### [facility] [address] [place] [address] Dr. Maureen Mcdonough Urea nitrogen [Mass/Vol] 13.0 mg/dL Normal 7.0-18.0 [facility] Comment on above: Performed By: #### L IPID, CMP #### [facility] [address] [place] [address] Dr. Maureen Mcdonough Urea nitrogen/Creatinine [Mass ratio] 12.6 mg/mg Normal [facility] Comment on above: Performed By: #### L IPID, CMP #### [facility] [address] [place] [address] Dr. Maureen Mcdonough CBC AUTO DIFFon 07-22-2021 BASO # 0.0 103/ul Normal 0.0-0.1 [facility] Comment on above: Performed By: #### D ATCBC #### [facility] [address] [place] [address] Dr. Maureen Mcdonough Basophils/100 WBC (Bld) 0.6 % Normal 0.2-2.0 [facility] Comment on above: Performed By: #### D ATCBC #### [facility] [address] [place] [address] Dr. Maureen Mcdonough EO # 0.2 103/ul Normal 0.0-0.7 [facility] Comment on above: Performed By: #### D ATCBC #### [facility] [address] [place] [address] Dr. Maureen Mcdonough Eosinophils/100 WBC (Bld) 2.6 % Normal 0.9-7.0 [facility] Comment on above: Performed By: #### D ATCBC #### [facility] [address] [place] [address] Dr. Maureen Mcdonough Erythrocyte distribution width (RBC) [Ratio] 12.8 % Normal 11.0-15.0 [facility] Comment on above: Performed By: #### D ATCBC #### [facility] [address] [place] [address] Dr. Maureen Mcdonough Hematocrit (Bld) [Volume fraction] 39.3 % Critically low 42.0-54.0 [facility] Comment on above: Performed By: #### D ATCBC #### [facility] [address] [place] [address] Dr. Maureen Mcdonough Hemoglobin (Bld) [Mass/Vol] 13.2 g/dL Critically low 14.0-18.0 [facility] Comment on above: Performed By: #### D ATCBC #### [facility] [address] [place] [address] Dr. Maureen Mcdonough IG # 0.03 10e3/ul Normal 0.00-0.03 [facility] Comment on above: Performed By: #### D ATCBC #### [facility] [address] [place] [address] Dr. Maureen Mcdonough IG % 0.5 % Normal 0.0-0.5 [facility] Comment on above: Performed By: #### D ATCBC #### [facility] [address] [place] [address] Dr. Maureen Mcdonough LYMPH # 2.7 103/ul Normal 1.2-3.8 [facility] Comment on above: Performed By: #### D ATCBC #### [facility] [address] [place] [address] Dr. Maureen Mcdonough Lymphocytes/100 WBC (Bld) 41.5 % Normal 20.5-60.0 [facility] Comment on above: Performed By: #### D ATCBC #### [facility] [address] [place] [address] Dr. Maureen Mcdonough MCH (RBC) [Entitic mass] 31.8 pg Normal 25.9-34.0 [facility] Comment on above: Performed By: #### D ATCBC #### [facility] [address] [place] [address] Dr. Maureen Mcdonough MCHC (RBC) [Mass/Vol] 33.6 g/dL Normal 29.9-35.2 [facility] Comment on above: Performed By: #### D ATCBC #### [facility] [address] [place] [address] Dr. Maureen Mcdonough MCV (RBC) [Entitic vol] 94.7 fL Critically high 80.0-94.0 [facility] Comment on above: Performed By: #### D ATCBC #### [facility] [address] [place] [address] Dr. Maureen Mcdonough MONO # 0.7 103/ul Normal 0.3-0.8 [facility] Comment on above: Performed By: #### D ATCBC #### [facility] [address] [place] [address] Dr. Maureen Mcdonough Monocytes/100 WBC (Bld) 10.4 % Normal 1.7-12.0 [facility] Comment on above: Performed By: #### D ATCBC #### [facility] [address] [place] [address] Dr. Maureen Mcdonough NEUT # 2.9 103/ul Normal 1.4-6.5 [facility] Comment on above: Performed By: #### D ATCBC #### [facility] [address] [address] [address] Maureen Mcdonough Neutrophils/100 WBC (Bld) 44.4 % Normal 43.0-75.0 [facility] Comment on above: Performed By: #### D ATCBC #### [facility] [address] [address] [address] Maureen Mcdonough Platelet mean volume (Bld) [Entitic vol] 8.8 fL Critically low 9.5-13.5 [facility] Comment on above: Performed By: #### D ATCBC #### [facility] [address] [address] [address] Maureen Mcdonough PLT 194 103/ul Normal 150-450 [facility] Comment on above: Performed By: #### D ATCBC #### [facility] [address] [place] [address] Dr. Maureen Mcdonough RBC 4.15 106/ul Critically low 4.70-6.10 [facility] Comment on above: Performed By: #### D ATCBC #### [facility] [address] [place] [address] Dr. Maureen Mcdonough WBC 6.5 103/ul Normal 4.0-11.0 [facility] Comment on above: Performed By: #### D ATCBC #### [facility] [address] [place] [address] Dr. Maureen Mcdonough DORINDA- BMP WITH LIPIDon 2021 Anion gap [Moles/Vol] 15.3 mmol/L Normal [facility] Comment on above: Performed By: #### D ATBMP, DATPSA #### [facility] [address] [address] [address] Maureen Mcdonough Calcium [Mass/Vol] 9.1 mg/dL Normal 8.5-10.1 [facility] Comment on above: Performed By: #### D ATBMP, DATPSA #### [facility] [address] [place] [address] Dr. Maureen Mcdonough Chloride [Moles/Vol] 103 mmol/L Normal 98-107 [facility] Comment on above: Performed By: #### D ATBMP, DATPSA #### [facility] [address] [address] [address] Maureen Mcdonough Cholesterol [Mass/Vol] 186 mg/dL Normal <=200 [facility] Comment on above: Performed By: #### D ATBMP, DATPSA #### [facility] [address] [place] [address] Dr. Maureen Mcdonough Cholesterol in HDL [Mass/Vol] 58 mg/dL Normal 40-60 [facility] Comment on above: Performed By: #### D ATBMP, DATPSA #### [facility] [address] [place] [address] Dr. Maureen Mcdonough Cholesterol in LDL [Mass/Vol] 110.2 mg/dL Normal [facility] Comment on above: Performed By: #### D ATBMP, DATPSA #### [facility] [address] [place] [address] Dr. Maureen Mcdonough CO2 [Moles/Vol] 27.8 mmol/L Normal 22.0-30.0 [facility] Comment on above: Performed By: #### D ATBMP, DATPSA #### [facility] [address] [place] [address] Dr. Maureen Mcdonough Creatinine [Mass/Vol] 1.02 mg/dL Normal 0.66-1.25 [facility] Comment on above: Performed By: #### D ATBMP, DATPSA #### [facility] [address] [place] [address] Dr. Maureen Mcdonough EGFR-AF COMORAN >60 Normal >=60 [facility] Comment on above: Performed By: #### D ATBMP, DATPSA #### [facility] [address] [place] [address] Dr. Maureen Mcdonough EGFR-NON AF COMORAN >60 Normal >=60 [facility] Comment on above: Performed By: #### D ATBMP, DATPSA #### [facility] [address] [place] [address] Dr. Maureen Mcdonough Glucose [Mass/Vol] 104 mg/dL Normal 74-106 [facility] Comment on above: Performed By: #### D ATBMP, DATPSA #### [facility] [address] [address] [address] Maureen Mcdonough HDL NORMAL > or = 60 mg/dl - LO W CARDIOVASCULAR RISK <40 mg/dl - HIGH CARDIOVASCULAR RISK Normal [facility] Comment on above: Performed By: #### D ATBMP, DATPSA #### [facility] [address] [address] [address] Maureen Mcdonough LDL CALC NORMAL SEE BELOW Normal [facility] Comment on above: Result Comment: <100 mg/dl OPTIMAL 100 - 129 mg/dl NEAR OR ABOVE OPTIMAL 130 - 159 mg/dl BORDERLINE HIGH 160 - 189 mg/dl HIGH >190 mg/dl VERY HIGH Performed By: #### D ATBMP, DATPSA #### [facility] [address] [place] [address] Dr. Maureen Mcdonough Potassium [Moles/Vol] 5.1 mmol/L Critically high 3.4-5.0 [facility] Comment on above: Performed By: #### D ATBMP, DATPSA #### [facility] [address] [address] [address] Maureen Mcdonough Sodium [Moles/Vol] 141 mmol/L Normal 137-145 [facility] Comment on above: Performed By: #### D ATBMP, DATPSA #### [facility] [address] [address] [address] Maureen Mcdonough Triglyceride [Mass/Vol] 89 mg/dL Normal <=150 [facility] Comment on above: Performed By: #### D ATBMP, DATPSA #### [facility] [address] [address] [address] Maureen Mcdonough Urea nitrogen [Mass/Vol] 16.0 mg/dL Normal 7.0-18.0 [facility] Comment on above: Performed By: #### D ATBMP, DATPSA #### [facility] [address] [address] [address] Maureen Mcdonough Urea nitrogen/Creatinine [Mass ratio] 15.7 mg/mg Normal [facility] Comment on above: Performed By: #### D ATBMP, DATPSA #### [facility] [address] [address] [address] Maureen Mcdonough VLDL CALC 17.8 mg/dL Normal [facility] Comment on above: Performed By: #### D ATBMP, DATPSA #### [facility] [address] [address] [address] Maureen Mcdonough Vital Signs Date Time Vital Sign Value Performing Clinician Faci lity 04-30-2023 12:00-0500 Diastolic blood pressure 78 mm[Hg] [facility] 04-30-2023 12:00-0500 Heart rate 74 /min [facility] 04-30-2023 12:00-0500 Respiratory rate 18 /min [facility] 04-30-2023 12:00-0500 SaO2% (BldA) [Mass fraction] 97 % [facility] 04-30-2023 12:00-0500 Systolic blood pressure 165 mm[Hg] [facility] 04-30-2023 10:31-0500 Body height 172.72 cm [facility] 04-30-2023 10:31-0500 Body weight 104.32 kg [facility] 03-22-2023 13:30-0500 Body height 172.72 cm Forest Ball Other [facility] [employer] Other 03-22-2023 13:30-0500 Body mass index (BMI) [Ratio] 34.54 kg/m2 Forest Ball Other [facility] [employer] Other 03-22-2023 13:30-0500 Body weight 103.06 kg Forest Ball Other [facility] [employer] Other 03-22-2023 13:30-0500 Diastolic blood pressure 80 mm[Hg] Forest Ball Other [facility] [employer] Other 03-22-2023 13:30-0500 Respiratory rate 12 /min Forest Ball Other [employer] Other 03-22-2023 13:30-0500 Systolic blood pressure 147 mm[Hg] Forest Ball Other [employer] Other 12-18-2022 13:30-0400 Body height 172.72 cm Forest Ball Other [employer] Other 12-18-2022 13:30-0400 Body mass index (BMI) [Ratio] 33.36 kg/m2 Forest Ball Other [employer] Other 12-18-2022 13:30-0400 Body weight 99.52 kg Forest Ball Other [employer] Other 12-18-2022 13:30-0400 Diastolic blood pressure 94 mm[Hg] Forest Ball Other [employer] Other 12-18-2022 13:30-0400 Respiratory rate 12 /min Forest Ball Other [employer] Other 12-18-2022 13:30-0400 Systolic blood pressure 141 mm[Hg] Forest Ball Other [employer] Other 06-17-2022 14:30-0500 Body height 172.72 cm Forest Ball Other [employer] Other 06-17-2022 14:30-0500 Body mass index (BMI) [Ratio] 33.39 kg/m2 Forest Ball Other [employer] Other 06-17-2022 14:30-0500 Body weight 99.61 kg Forest Ball Other [employer] Other 06-17-2022 14:30-0500 Diastolic blood pressure 82 mm[Hg] Forest Ball Other [employer] Other 06-17-2022 14:30-0500 Respiratory rate 12 /min Forest Ball Other [employer] Other 06-17-2022 14:30-0500 Systolic blood pressure 132 mm[Hg] Forest Ball Other [facility] [employer] Other 06-09-2022 13:06-0500 Blood Pressure Location Reginacodie RASCON [facility] 06-09-2022 13:06-0500 Diastolic blood pressure 82 mm[Hg] Regina RASCON [facility] 06-09-2022 13:06-0500 Heart rate 67 /min Regina RASCON [facility] 06-09-2022 13:06-0500 SaO2% (BldA) [Mass fraction] 99 % Reginacodie RASCON [facility] 06-09-2022 13:06-0500 Systolic blood pressure 140 mm[Hg] Regina RASCON [facility] 04-30-2022 12:00-0500 Body height 172.72 cm Forest Ball Other [place] [employer] Other 04-30-2022 12:00-0500 Body mass index (BMI) [Ratio] 32.9 kg/m2 Forest Ball Other [employer] Other 04-30-2022 12:00-0500 Body weight 98.16 kg Forest Ball Other [employer] Other 04-30-2022 12:00-0500 Diastolic blood pressure 78 mm[Hg] Forest Ball Other [employer] Other 04-30-2022 12:00-0500 Respiratory rate 12 /min Forest Rodrigues Other [employer] Other 04-30-2022 12:00-0500 Systolic blood pressure 118 mm[Hg] Forest Rodrigues Other [employer] Other 03-09-2022 13:57-0500 Blood Pressure Location Suresh Martinez [facility] 03-09-2022 13:57-0500 Diastolic blood pressure 80 mm[Hg] Suresh Martinez [facility] 03-09-2022 13:57-0500 Heart rate 89 /min Suresh Martinez [facility] 03-09-2022 13:57-0500 Respiratory rate 18 /min Suresh Martinez [facility] 03-09-2022 13:57-0500 SaO2% (BldA) [Mass fraction] 98 % Suresh Martinez [facility] 03-09-2022 13:57-0500 Systolic blood pressure 134 mm[Hg] Suresh Martinez [facility] 02-27-2022 11:04-0500 Body height 172.72 cm Forest Rodrigues Work Phone: DG[facility]Tipxtlmubo-Nzsts [facility] Work Phone: 02-27-2022 11:04-0500 Body mass index (BMI) [Ratio] 32.69 kg/m2 Forest Rodrigues Work Phone: MU-Srwtmblqjk-Uzegy [facility] Work Phone: 02-27-2022 11:04-0500 Body surface area Derived from formula 2.11 m2 Forest Rodrigues Work Phone: TH-Jqripztmdy-Oclrn [facility] Work Phone: 02-27-2022 11:04-0500 Body temperature 97.1 [degF] Forest Al Ball Work Phone: BA-Spkvhxesjn-Qtlfy [facility] Work Phone: 02-27-2022 11:04-0500 Body weight 97.52 kg Forest Al Ball Work Phone: TG-Rvbezlzkqd-Usgro [facility] Work Phone: 02-27-2022 11:04-0500 Diastolic blood pressure 93 mm[Hg] Forest Al Ball Work Phone: GB-Tusbdeizkk-Lzbbj [facility] Work Phone: 02-27-2022 11:04-0500 Heart rate 112 /min Forest Al Ball Work Phone: TW-Zfxhvwrkii-Jwrkh [facility] Work Phone: 02-27-2022 11:04-0500 Respiratory rate 16 /min Forest Al Ball Work Phone: ZP-Jomibzqphd-Wmuhj [facility] Work Phone: 02-27-2022 11:04-0500 SaO2% (BldA) [Mass fraction] 98 % Forest Al Ball Work Phone: [facility]Invaptovgj[facility]Aqxif [facility] Work Phone: 02-27-2022 11:04-0500 Systolic blood pressure 155 mm[Hg] Forest Al Ball Work Phone: YW-Jqumpymaqa-Freso [facility] Work Phone: 02-13-2022 09:57-0400 Body height 172.72 cm Forest Al Ball Work Phone: [facility] Work Phone: 02-13-2022 09:57-0400 Body mass index (BMI) [Ratio] 32.69 kg/m2 Forest Al Ball Work Phone: [facility] Work Phone: 02-13-2022 09:57-0400 Body surface area Derived from formula 2.11 m2 Forest E Ball Work Phone: [facility] Work Phone: 02-13-2022 09:57-0400 Body temperature 96.6 [degF] Forest E Ball Work Phone: [facility] Work Phone: 02-13-2022 09:57-0400 Body weight 97.52 kg Foerst E Ball Work Phone: [facility] Work Phone: 02-13-2022 09:57-0400 Diastolic blood pressure 92 mm[Hg] Forest E Ball Work Phone: [facility] Work Phone: 02-13-2022 09:57-0400 Heart rate 102 /min Forest E Ball Work Phone: [facility] Work Phone: 02-13-2022 09:57-0400 Respiratory rate 16 /min Forest E Ball Work Phone: [facility] Work Phone: 02-13-2022 09:57-0400 SaO2% (BldA) [Mass fraction] 99 % Forest E Ball Work Phone: [facility] Work Phone: 02-13-2022 09:57-0400 Systolic blood pressure 139 mm[Hg] Forest E Ball Work Phone: [facility] Work Phone: 02-03-2022 10:46-0400 Body weight 99.4 kg Forest Ball Other Phone: [facility] 02-03-2022 09:57-0400 Body temperature 98.6 [degF] Forest Ball Other Phone: [facility] 02-03-2022 09:57-0400 Diastolic blood pressure 63 mm[Hg] Forest Rodrigues Other Phone: [facility] 02-03-2022 09:57-0400 Heart rate 88 /min Forest Rodrigues Other Phone: [facility] 02-03-2022 09:57-0400 SaO2% (BldA) [Mass fraction] 95 % Forest Rodrigues Other Phone: [facility] 02-03-2022 09:57-0400 Systolic blood pressure 128 mm[Hg] Forest Rodrigues Other Phone: [facility] 01-29-2022 03:54-0400 Body temperature 37.0 {degrees_C} Forest Al Ball Work Phone: [facility] Work Phone: Comment on above: NOTE: PATIENT RESULTS ARE NOT CORRECTED FOR TEMPERATURE. 01-29-2022 03:54-0400 SaO2% (BldA) [Mass fraction] 96 % Forest Al Ball Work Phone: [facility] Work Phone: 01-28-2022 21:50-0400 Body temperature 37.0 {degrees_C} Forest Al Ball Work Phone: [facility] Work Phone: Comment on above: NOTE: PATIENT RESULTS ARE NOT CORRECTED FOR TEMPERATURE. 01-28-2022 21:50-0400 SaO2% (BldA) [Mass fraction] 97 % Forest Al Ball Work Phone: [facility] Work Phone: 01-28-2022 17:39-0400 Body temperature 37.0 {degrees_C} Forest E Ball Work Phone: [facility] Work Phone: Comment on above: NOTE: PATIENT RESULTS ARE NOT CORRECTED FOR TEMPERATURE. 01-28-2022 17:39-0400 SaO2% (BldA) [Mass fraction] 97 % Forest Al Ball Work Phone: [facility] Work Phone: 01-28-2022 13:57-0400 Body temperature 37.0 {degrees_C} Forest E Ball Work Phone: [facility] Work Phone: Comment on above: NOTE: PATIENT RESULTS ARE NOT CORRECTED FOR TEMPERATURE. 01-28-2022 13:57-0400 SaO2% (BldA) [Mass fraction] 97 % Forest E Ball Work Phone: [facility] Work Phone: 01-28-2022 12:26-0400 Body temperature 37.0 {degrees_C} Forest Al Ball Work Phone: [facility] Work Phone: Comment on above: NOTE: PATIENT RESULTS ARE NOT CORRECTED FOR TEMPERATURE. 01-28-2022 12:26-0400 SaO2% (BldA) [Mass fraction] 98 % Forest Al Ball Work Phone: [facility] Work Phone: 01-28-2022 11:31-0400 Body temperature 37.0 {degrees_C} Forest Al Ball Work Phone: [facility] Work Phone: Comment on above: NOTE: PATIENT RESULTS ARE NOT CORRECTED FOR TEMPERATURE. 01-28-2022 11:31-0400 SaO2% (BldA) [Mass fraction] 99 % Forest E Ball Work Phone: [facility] Work Phone: 01-28-2022 11:07-0400 Body temperature 37.0 {degrees_C} Forest E Ball Work Phone: [facility] Work Phone: Comment on above: NOTE: PATIENT RESULTS ARE NOT CORRECTED FOR TEMPERATURE. 01-28-2022 10:58-0400 Body temperature 37.0 {degrees_C} Forest Al Ball Work Phone: [facility] Work Phone: Comment on above: NOTE: PATIENT RESULTS ARE NOT CORRECTED FOR TEMPERATURE. 01-28-2022 10:58-0400 SaO2% (BldA) [Mass fraction] 98 % Forest Al Ball Work Phone: [facility] Work Phone: 01-28-2022 10:39-0400 Body temperature 37.0 {degrees_C} Forest Al Ball Work Phone: [facility] Work Phone: Comment on above: NOTE: PATIENT RESULTS ARE NOT CORRECTED FOR TEMPERATURE. 01-28-2022 10:39-0400 SaO2% (BldA) [Mass fraction] 99 % Forest Al Ball Work Phone: [facility] Work Phone: 01-28-2022 09:06-0400 Body temperature 37.0 {degrees_C} Forest Al Ball Work Phone: [facility] Work Phone: Comment on above: NOTE: PATIENT RESULTS ARE NOT CORRECTED FOR TEMPERATURE. 01-28-2022 09:06-0400 SaO2% (BldA) [Mass fraction] 97 % Forest Al Ball Work Phone: [facility] Work Phone: 01-23-2022 12:11-0400 Body height 172.72 cm Forest Al Ball Work Phone: [facility] 250 DO Work Phone: 01-23-2022 12:11-0400 Body mass index (BMI) [Ratio] 33.91 kg/m2 Forest Al Ball Work Phone: [facility] 250 DO Work Phone: 01-23-2022 12:11-0400 Body surface area Derived from formula 2.14 m2 Forest E Ball Work Phone: [facility] 250 DO Work Phone: 01-23-2022 12:11-0400 Body weight 101.15 kg Forest E Ball Work Phone: [facility] 250 DO Work Phone: 01-23-2022 12:11-0400 Diastolic blood pressure 60 mm[Hg] Forest E Ball Work Phone: [facility] 250 DO Work Phone: 01-23-2022 12:11-0400 Heart rate 76 /min Forest E Ball Work Phone: [facility] 250 DO Work Phone: 01-23-2022 12:11-0400 Systolic blood pressure 104 mm[Hg] Forest E Ball Work Phone: [facility] 250 DO Work Phone: 01-20-2022 18:33-0400 Diastolic blood pressure 68 mm[Hg] DO Forest Ball Work Phone: [facility] 01-20-2022 18:33-0400 Heart rate 69 /min DO Forest Ball Work Phone: [facility] 01-20-2022 18:33-0400 Respiratory rate 18 /min DO Forest Ball Work Phone: [facility] 01-20-2022 18:33-0400 SaO2% (BldA) [Mass fraction] 98 % DO Forest Ball Work Phone: [facility] 01-20-2022 18:33-0400 Systolic blood pressure 124 mm[Hg] DO Forest Ball Work Phone: [facility] 01-20-2022 12:24-0400 Body height 172.72 cm DO Forest Ball Work Phone: [facility] 01-20-2022 12:24-0400 Body temperature 98.1 [degF] DO Forest Ball Work Phone: [facility] 01-20-2022 12:24-0400 Body weight 101.6 kg DO Forest Ball Work Phone: [facility] 01-16-2022 15:14-0400 Diastolic blood pressure 70 mm[Hg] Forest E Ball Work Phone: LI-Buulruqecv-Cjczi a 305 DO Work Phone: 01-16-2022 15:14-0400 Systolic blood pressure 136 mm[Hg] Forest E Ball Work Phone: HW-Eafprlthgy-Ryjxy a 305 DO Work Phone: 01-16-2022 15:11-0400 Body height 172.72 cm Forest E Ball Work Phone: SQ-Xdffqdncub-Liaop a 305 DO Work Phone: 01-16-2022 15:11-0400 Body mass index (BMI) [Ratio] 34.06 kg/m2 Forest E Ball Work Phone: ZU-Bkqtgjweoj-Mwjej a 305 DO Work Phone: 01-16-2022 15:11-0400 Body surface area Derived from formula 2.14 m2 Forest E Ball Work Phone: LI-Baduyjskvi-Sbyzh a 305 DO Work Phone: 01-16-2022 15:11-0400 Body weight 101.61 kg Forest E Ball Work Phone: GB-Acgxlfqfhv-Jhmwd a 305 DO Work Phone: 01-16-2022 15:11-0400 Diastolic blood pressure 72 mm[Hg] Forest E Ball Work Phone: EI-Vxzjpcqbsj-Nouqo a 305 DO Work Phone: 01-16-2022 15:11-0400 Heart rate 66 /min Forest E Ball Work Phone: GO-Dluqghgouv-Dfmnf a 305 DO Work Phone: 01-16-2022 15:11-0400 Systolic blood pressure 132 mm[Hg] Forest Al Gary Work Phone: IU-Pcvzeyafuh-Omwhw a 305 DO Work Phone: 11-26-2021 14:15-0400 Body height 172.72 cm Emerson Contreras Other [employer] Other 11-26-2021 14:15-0400 Body mass index (BMI) [Ratio] 34.21 kg/m2 Emerson Contreras Other [employer] Other 11-26-2021 14:15-0400 Body weight 102.06 kg Emerson Contreras Other [employer] Other 11-26-2021 14:15-0400 Diastolic blood pressure 81 mm[Hg] Emerson Contreras Other [employer] Other 11-26-2021 14:15-0400 Systolic blood pressure 127 mm[Hg] Emerson Contreras Other [employer] Other Encounters Encounter Date Encounter Type Care Provider Facility Start: 05-24-2023 End: 05-24-2023 ambulatory Forest Rodrigues Other [employer] Other Start: 05-24-2023 Telephone encounter [facility] Start: 05-10-2023 End: 05-10-2023 ambulatory Emerson Contreras Other [employer] Other Start: 05-10-2023 Telephone encounter Emerson [facility] Start: 04-30-2023 Telephone encounter [facility] Start: 04-30-2023 End: 04-30-2023 ambulatory Emerson Denny Ditty [facility] [employer] Other Start: 04-30-2023 Non-patient / Non-visit [facility] Work Phone: Start: 04-19-2023 End: 04-19-2023 ambulatory Forest Ball Other [employer] Other Start: 04-19-2023 Telephone encounter Forest Ball [facility] Start: 03-22-2023 End: 03-22-2023 ambulatory Forest Ball Other [employer] Other Start: 03-22-2023 Office outpatient visit 25 minutes Forest Ball [facility] Start: 03-22-2023 End: 03-22-2023 Patient encounter procedure [facility] Work Phone: Start: 02-03-2023 End: 02-03-2023 ambulatory Forest Ball Other [employer] Other Start: 02-03-2023 Telephone encounter Forest Ball [facility] Start: 01-18-2023 End: 01-18-2023 ambulatory Forest Ball Other [employer] Other Start: 01-18-2023 Telephone encounter Forest Ball [facility] Start: 12-18-2022 End: 12-18-2022 ambulatory Forest Ball Other [employer] Other Start: 12-18-2022 Office outpatient visit 25 minutes Forest Ball [facility] Start: 12-11-2022 End: 12-11-2022 ambulatory Forest Ball Other [employer] Other Start: 12-11-2022 Telephone encounter Forest Ball [facility] Start: 12-09-2022 End: 12-09-2022 ambulatory Forest Ball Other [employer] Other Start: 12-09-2022 Telephone encounter Forest Gary FP G [facility] Start: 10-16-2022 End: 10-16-2022 ambulatory Forest Rodrigues Other [employer] Other Start: 10-16-2022 Telephone encounter Forest Gary FP G [facility] Start: 07-09-2022 End: 07-09-2022 ambulatory Forest Rodrigues Other [employer] Other Start: 07-09-2022 Telephone encounter Forest Gary MORALES [facility] Start: 06-26-2022 End: 06-27-[address] FOREST RODRIGUES Facility: Start: 06-17-2022 End: 06-17-2022 ambulatory Forest Rodrigues Other [employer] Other Start: 06-17-2022 Patient encounter procedure Forest Rodrigues [facility] Start: 06-09-2022 End: 06-10-2022 ambulatory Regina RASCON Facility:[facility] Start: 06-09-2022 End: 06-10-2022 ambulatory Regina RASCON Facility:[facility] Start: 06-09-2022 End: 06-09-2022 Patient encounter procedure Regina Naseem RASCON [facility] Start: 06-09-2022 End: 06-09-2022 Patient encounter procedure Regina Naseem RASCON [facility] Start: 04-30-2022 Office outpatient visit 25 minutes Forest Rodrigues [facility] Start: 04-30-2022 End: 05-01-[address] FOREST RODRIGUES [facility] [employer] Other Start: 04-08-2022 End: 04-09-[address] FOREST RODRIGEUS Facility: Start: 03-09-2022 End: 03-10-2022 ambulatory Suresh Martinez Facility:[facility] Start: 03-09-2022 End: 03-09-2022 Patient encounter procedure Suresh Martinez [facility] Start: 02-27-2022 Postop follow up visit related to original px Forest Rodrigues Work Phone: XK-Mbdtyvtuku-Sjccjm 101 Work Phone: Start: 02-27-[address] JT Clayton ty:[id number] Start: 02-16-2022 Telephone encounter Forest Rodrigues Work Phone: BL-Uvpdbtbaqp-Gybkierx 3 DO Work Phone: Start: 02-13-2022 Patient encounter procedure Forest Mikaela Rodrigues Work Phone: [facility] Work Phone: Start: 02-13-[address] JT Clayton ty:[id number] Start: 01-27-2022 End: 02-03-2022 Evaluation and management of inpatient Jt Lowe 8 Cardio ICU 817 01 Start: 01-26-[address] MAHENDRA CULP [facility] Facility:[facility] Start: 01-26-2022 Office consultation new/estab patient 80 min Forest Mikaela Gary Work Phone: DC-Ldzxcpjbhu-Axbxk [place] Work Phone: Start: 01-23-[address] Deisy Clayton ty: Start: 01-23-2022 Office outpatient visit 25 minutes Forest Mikaela Gary Work Phone: -[facility] 250 DO Work Phone: Start: 01-20-[address] Errol Simon Fac ility:[id number] Start: 01-20-2022 [facility], Provider: Errol Simon, Status: Pen, Time: 1:00 PM Forest Rodrigues Work Phone: FL-Cxsqgjuusx-Awwfwa 305 DO Work Phone: Start: 01-20-2022 Telephone encounter Forest Mikaela Rodrigues Work Phone: ET-Uwnebjrotg-Rdyawl 305 DO Work Phone: Start: 01-20-2022 End: 01-20-2022 Admission to same day surgery center DO Forest Gary Work Phone: [facility] Start: 01-20-2022 End: 01-20-2022 ambulatory DO Forest Gary Work Phone: [facility] Work Phone: Start: 01-19-2022 AUDIT Forest Mcclendon l Work Phone: CJ-Tmkgafczbr-Edfzkm 305 DO Work Phone: Start: 01-16-[address] Deisy Clayton ty: Start: 01-06-2022 End: 01-06-2022 ambulatory Emerson Contreras Other [employer] Other Start: 01-06-2022 Telephone encounter Emerson Contreras [facility] Start: 01-01-2022 End: 01-02-[address] FOREST RODRIGUES Facility:[facility] Start: 12-24-2021 End: 12-25-[address] DOCTOR PABON Facility:[facility] Start: 11-26-2021 End: 11-26-2021 ambulatory Emerson Contreras Other [employer] Other Start: 11-26-2021 FQ[facility] visit new patient Emerson Contreras [facility] Start: 10-29-2021 End: 10-30-[address] CARLEY CHILDS Facility:[facility] Start: 07-22-2021 End: 07-23-[address] HARRISON LISTED REQUEST Facility:[facility] Start: 02-03-2021 Adult health examination Forest Rodrigues Other [employer] Other Procedures Date Procedure Procedure Detail Performing Clinician Start: 06-26-2022 End: 06-26-2022 PSA screening Forest Rodrigues Other Comment on above: Performed By: #### D ATBMP, DATPSA #### [facility] [address] [address] [address] Maureen Mcdonough Start: 01-29-2022 End: 01-29-2022 Arterial Full Panel -Next Draw Russ Villalta Start: 01-28-2022 End: 01-28-2022 Arterial Full Panel -Next Draw Russ Villalta Start: 01-28-2022 End: 01-28-2022 Gas panel - Arterial blood Elda Culver Start: 01-27-2022 End: 01-27-2022 Card Cath non-bill outside study Non [facility] Credentialed Referring Start: 01-27-[address] NAKIA GUILLEN Comment on above: Performed By: #### T +S ####[address] [id number] Start: 01-20-2022 [facility] Angio DO B enjapippa Rodrigues Work Phone: Start: 07-22-[address] CHRISTY MATTHEWS REQUEST Comment on above: Performed By: #### D ATP, DATPSA #### [facility] [address] [address] [address] Maureen Mcdonough Start: 02-09-2018 Viral screening Liz Rodrigues Other Start: 04-02-2016 Laboratory test resu lt abnormal Forest Rodrigues Other Start: 01-01-2016 Screening for malignant neoplasm of colon Forest Rodrigues Other Start: 01-01-2016 Screening for malignant neoplasm of prostate Forest Rodrigues Other Colonoscopy Forest Rodrigues Work Phone: Coronary artery bypa ss graft Forest Rodrigues Other Coronary artery bypa ss grafts x 2 Suresh Martinez Depression screening Benjami n Ball Other Depression screening Benjami n Gary Other Extraction of wisdom tooth Forest Rodrigues Work Phone: History of coronary artery bypass grafting S/P CABG (coronary artery bypass graft) Forest Rodrigues Work Phone: Operation on stomach Liz Rodrigues Work Phone: Comment on above: MUSCLE REMOVED; SARS Antigen (LFIA) DO Jeremy Rodrigues Work Phone: Screening for malignant neoplasm of prostate Forest Rodrigues Other Plan of Treatment Date Care Activity Detail Author Start: 04-30-2023 [facility] Start: 03-20-2022 FUV, Provider: Deisy Rausch, Status: Pen, Time: 11:00 AM FUV, Provider: Deisy Rausch, Status: Pen, Time: 11:00 [facility]: Start: 03-20-2022 Patient encounter procedure [facility] [place] Start: 02-27-2022 FUV, Provider: Deisy Rausch, Status: Pen, Time: 11:45 AM FUV, Provider: Deisy Rausch, Status: Pen, Time: 11:45 AM [facility] 250 DO Work Phone: Start: 02-27-2022 Patient encounter procedure [facility] [place] Start: 02-27-2022 POV, Provider: Jt Guillen, Status: Pen, Time: 11:00 AM POV, Provider: Jt Guillen, Status: Pen, Time: 11:00 AM [facility] Work Phone: Start: 02-13-2022 Patient encounter procedure [facility] Start: 01-31-2022 End: 02-01-2023 Magnesium Hydroxide Oral Liquid CONCENTRATE 10 mL Oral Every 24 Hours PRN ; (MILK OF MAGNESIA)DOSE = 10 mL Oral Every 24 Hours, PRN Constipation Start: 31-Jan-2022 End: 31-Jan-2023 Ordered: 31-Jan-2022 Harley Bernard [facility] Start: 01-30-2022 End: 01-31-2023 Insulin Lispro Customizable Corrective Scale Dose and Range Customizable ; Give SubCutaneous ( every 1 day: 07:30, 16:30 ) Hypogylcemia Protocol Call LIP unit(s) if Blood Glucose is between 0 - 70 0 unit(s) if Blood Glucose is between 71 - 150 2 unit(s) if Blood Glucose is between 151 - 200 4 unit(s) if Blood Glucose is between 201 - 250 6 unit(s) if Blood Glucose is between 251 - 300 8 unit(s) if Blood Glucose is between 301 - 350 10 unit(s) if Blood Glucose is between 351 - 400 Notify Provider unit(s) if Blood Glucose is greater than 400Notes from Pharmacy: [facility] Start: 30-Jan-2022 End: 30-Jan-2023 Ordered: 30-Jan-2022 Riya Kearney Intent [facility] Start: 01-30-2022 No post-op complications No post-op complications Date: 30-Jan-2022 [facility] Start: 01-29-2022 End: 01-30-2023 [facility] Start: 01-28-2022 Postoperative state Postoperat hadley state Date: 28-Jan-2022 [facility] Start: 01-28-2022 End: 01-29-2023 [facility] Comment on above: IF patient HAS a sec ure IV access & is Unconscious, Conscious, NPO or Unable to Eat or Drink. Repeat until BG reaches 100 mg/dL or greater. Push 2-3 mL/minute. Discontinue once BG reaches 100 mg/dL or greater. IF patient DOES NOT have secure IV access & is Unconscious, Conscious, NPO or Unable to Eat or Drink. Repeat until BG reaches 100 mg/dL or greater. Discontinue once BG reaches 100 mg/dL or greater. Start: 01-28-2022 End: 01-29-2023 Perflutren Lipid Microsphere (Activated) 1.3 mL / NaCL 0.9% T.V. 10 mL Injectable . ; DOSE = 0.5 mL IntraVenous Push OnceClinician Notes: 1. Dilute 1.3 mL of activated DEFINITY with 8.7 mL of normal saline in a 10 mL syringe.2. Inject 0.5 mL of diluted DEFINITY when notified the images/film are unclear to enhance view of Left Ventricular borders.3. Repeat 0.5 mL of DEFINITY until clear images are obtained, not to exceed 10 mLs.4. Once images are obtained or limit of medication is reached, flush line with 10 mL of Normal Saline. Start: 28-Jan-2022 End: 28-Jan-2023 Ordered: 27-Jan-2022 Harley Bernard Intent Comments: 1. Dilute 1.3 mL of activated DEFINITY with 8.7 mL of normal saline in a 10 mL syringe.2. Inject 0.5 mL of diluted DEFINITY when notified the images/film are unclear to enhance view of Left Ventricular borders.3. Repeat 0.5 mL of DEFINITY until clear images are obtained, not to exceed 10 mLs.4. Once images are obtained or limit of medication is reached, flush line with 10 mL of Normal Saline. [facility] Comment on above: 1. Dilute 1.3 mL of activated DEFINITY with 8.7 mL of normal saline in a 10 mL syringe.2. Inject 0.5 mL of diluted DEFINITY when notified the images/film are unclear to enhance view of Left Ventricular borders.3. Repeat 0.5 mL of DEFINITY until clear images are obtained, not to exceed 10 mLs.4. Once images are obtained or limit of medication is reached, flush line with 10 mL of Normal Saline. Start: 01-27-2022 End: 01-28-2023 [facility] Start: 01-27-2022 Preoperative testing [facility] Start: 01-26-2022 NPV, Provider: Mahendra Tuttle, Status: Pen, Time: 9:30 AM NPV, Provider: Mahendra Tuttle, Status: Pen, Time: 9:30 AM [facility] 250 DO Work Phone: Start: 01-23-2022 FUV, Provider: Deisy Rausch, Status: Pen, Time: 12:00 PM FUV, Provider: Deisy Rausch, Status: Pen, Time: 12:00 PM NB-Tkepxrdspz-Omhign 305 DO Work Phone: Start: 01-20-2022 [facility] Patient Education Colon polyps Diverticulosis (DC) [facility] Work Phone: Patient referral [facility] Work Phone: Immunizations Immunization Date Immunization Notes Care Provider Miguelito briggs 03-22-2023 influenza, high dose seasonal, preservative-free Forest Rodrigues Other [employer] Other 02-03-2021 influenza virus vaccine, split virus (incl. purified surface antigen) Forest Rodrigues Other [employer] Other 02-01-2020 influenza virus vaccine, split virus (incl. purified surface antigen) Forest Gary Other [employer] Other 02-09-2019 influenza virus vaccine, split virus (incl. purified surface antigen) Forest Gary Other [employer] Other 02-09-2019 pneumococcal polysaccharide vaccine, 23 valent Forest Rodrigues Other [employer] Other 02-09-2018 influenza virus vaccine, split virus (incl. purified surface antigen) Forest Gary Other [employer] Other 02-09-2018 pneumococcal conjuga te vaccine, 13 valent Forest Mikaela Gary Work Phone: [employer] DO Work Phone: 02-09-2018 Seasonal trivalent influenza vaccine, adjuvanted, preservative free Forest Rodrigues Work Phone: [employer] DO Work Phone: 12-21-2016 influenza virus vaccine, split virus (incl. purified surface antigen) Forest Gary Other [employer] Other 01-01-2016 influenza, seasonal, injectable Forest Rodrigues Work Phone: [employer] DO Work Phone: 01-01-2016 tetanus and diphther ia toxoids, adsorbed, preservative free, for adult use (5 Lf of tetanus toxoid and 2 Lf of diphtheria toxoid) Forest Rodrigues Other [facility] [employer] Other Payers Date Payer Category Payer Medicare [id number] 2.1 [id number] 1957 Self-pay 1950 Unknown [id number] 2.16. [id number] 1950 Unknown [id number] 2.16. [id number] 1950 Unknown [id number] 2.16. [id number] 1952 Unknown [id number] 2.16. 840.1.628869.3.579.2.356 1952 Unknown [id number] 2.16.8 40.1.605148.3.579.2.1068 1952 Unknown [id number] 2.16.8 40.1.216703.3.579.2.1068 1952 Unknown [id number] 2.16.8 40.1.103219.3.579.2.1068 1952 Unknown [id number] 2.16.8 40.1.771509.3.579.2.1068 1952 Unknown [id number] 2.16.8 40.1.021405.3.579.2.1068 1952 Unknown [id number] 2.16.84 0.1.355836.3.579.2.593 1952 Unknown [id number] 2.16.84 0.1.176868.3.579.2.593 1952 Unknown [id number] 2.16.84 0.1.212695.3.579.2.593 1952 Unknown [id number] 2.16.84 0.1.203210.3.579.2.593 1952 Unknown [id number] 2.16.84 0.1.614629.3.579.2.593 1952 Unknown [id number] 2.16.84 0.1.594223.3.579.2.593 1952 Unknown [id number] 2.16.8 40.1.215661.3.579.2.727 1952 Unknown [id number] 2.16.8 40.1.883021.3.579.2.727 1952 Unknown [id number] 2.16.8 40.1.477600.3.579.2.727 Unknown Unknown [id number] 2.16.84 0.1.323193.3.579.2.593 Unknown [id number] 2.16.8 40.1.936910.3.579.2.531 Social History Date Type Detail Facility Sex Assigned At [facility] Daily alcohol use Daily alcohol use [facility] 305 DO Work Phone: Comment on above: 4-6 BEERS DAILY; OCCASIONAL MARIJAUNA ; 1 1/2 COFFEE DAILY; QUIT 2000 2PPD; Start: 01-20-2022 [facility] Start: 1950 Sex Assigned At Male F [facility] Tobacco smoking consumption unknown [facility] Tobacco smoking status No Smokin g Status Entered [facility] Start: 06-09-2022 End: 04-30-2023 Tobacco smoking status Ex-smoker (finding) [facility] Tobacco smoking status Never [facility] Goals Date Patient Goal Desired Activity /State Functional Status Date Assessment Result Facility 06-09-2022 Functional Status No [facility] 03-09-2022 Functional Status N/A [facility] Functional observable [facility] Mental Status Date Assessment Result Facility 01-30-2022 Cognitive functions 09918:17 [facility] Clinical Notes 11-26-2021 to 03-22-2023 Note Date & Type Note Facility 03-22-2023 Evaluation note Encounter Date Diagnosis Assessment Notes Mar, ASHD (arteriosclerotic heart disease) (ICD-10 - I25.10) This patient is stable without activity related CP, dyspnea or lightheadedness . They are instructed to continue exercise and AHA diet plan. Continue secondary prevention measures. Mar, Primary hypertension (ICD-10 - I10) This patient is instructed to consume a healthy, low-fat, low-salt diet. They are also encouraged to continue exercise to achieve/maintai n a normal BMI. Patient is instructed on home BP measurements: - rest for 5 minutes w/o talking- positioned w/ feet on floor and arm supported- average best 2/3 readings w/ goal < 135/85 _update office w/ home readings Mar, Tachycardia, paroxysmal (ICD-10 - I47.9) Avoid stimulants, hydrate. Continue Metoprolol. Check Holter monitor to r/o AFib Mar, Autoimmune thyroiditis (ICD-10 - E06.3) TSH slightly elevated. Increase Levothyroxine to 88mcg qd Monitor response in 6-8 wks Mar, Other specified hypothyroidism (ICD-10 - E03.8) Mar, Carpal tunnel syndrome of left wrist (ICD-10 - G56.02) Instructed on night time bracing w/ cockup splint. Monitor symptoms for now. No improvement, EMG/NCS and referral for surgery Mar, Primary osteoarthritis of both first carpometacarpal joints (ICD-10 - M18.0) Mar, Gastroesophageal reflux disease with esophagitis without hemorrhage (ICD-10 - K21.00) Recurrent heartburn w/o dysphagia. Recommend EGD at time of colonoscopy Mar, Encounter for screening colonoscopy (ICD-10 - Z12.11) Asymptomatic patient w/o change in appetite, weight or bowel habits. Denies melena or hematochezia. [employer] Other 10-25-2023 Evaluation note* Encounter Date Diagnosis Assessment Notes Treatment Notes Treatment Clinical Notes Jan, ASHD (arteriosclerotic heart disease) (ICD-10 - I25.10) [facility] Other 09-08-2023 Evaluation note* Encounter Date Diagnosis Assessment Notes Treatment Notes Treatment Clinical Notes Dec, ASHD (arteriosclerot ic heart disease) (ICD-10 - I25.10) This patient is stable without activity related CP, dyspnea or lightheadedness. They are instructed to continue exercise and AHA diet plan. Continue secondary prevention measures. Dec, Primary hypertension (ICD-10 - I10) This patient is instructed to consume a healthy, low-fat, low-salt diet. They are also encouraged to continue exercise to achieve/maintain a normal BMI Patient is instructed on home BP measurements: - rest for 5 minutes w/o talking- positioned w/ feet on floor and arm supported- average best 2/3 readings w/ goal < 135/85 _update office in couple weeks Dec, Pure hypercholestero lemia (ICD-10 - E78.00) Instructed on diet and exercise with continued statin therapy.Discussed the beneficial effects of lowering cholesterol in reducing the risk for cerebrovascular and cardiovascular disease. Dec, Other specified hypothyroidism (ICD-10 - E03.8) Dec, Autoimmune thyroidit is (ICD-10 - E06.3) Clinically and chemically euthyroid. Recheck TSH in 3 mo Dec, Chronic venous insufficiency (ICD-10 - I87.2) Avoid salt and elevate lower extremities, support stockings, inspect legs and feet daily for blisters and ulcerations. Dec, Tachycardia (ICD-10 - R00.0) Avoid stimulants and hydrate. Monitor for now and update office w/ frequency and duration Dec, Other obesity due to excess calories (ICD-10 - E66.09) This patient has been instructed on a low-fat, high-fiber diet. They are instructed to reduce calories, portion sizes and snacks. It is recommended that they exercise for 30 minutes, 3-5 times weekly. Dec, Body mass index [BMI ] 33.0-33.9, adult (ICD-10 - Z68.33) Dec, Fatigue, unspecified type (ICD-10 - R53.83) Check CBC, BS, TSH and Testosterone [employer] [facility] Other 09-01-2023 Evaluation note* Encounter Date Diagnosis Assessment Notes Treatment Notes Treatment Clinical Notes Dec, Autoimmune thyroiditis (ICD-10 - E06.3) [facility] [employer] [facility] Other 08-30-2023 Evaluation note* Encounter Date Diagnosis Assessment Notes Treatment Notes Treatment Clinical Notes Nov, Autoimmune thyroiditis (ICD-10 - E06.3) [facility] [employer] [facility] Other 03-30-2023 Evaluation note* Encounter Date Diagnosis Assessment Notes Treatment Notes Treatment Clinical Notes Jun, Autoimmune thyroiditis (ICD-10 - E06.3) [employer] Other 03-08-2023 Evaluation note* Encounter Date Diagnosis Assessment Notes Treatment Notes Treatment Clinical Notes Jun, Medicare annual wellness visit, subsequent (ICD-10 - Z00.00) Personalized health advice was given to the beneficiary including a written plan for screenings discussed and provided. Advanced care planning reviewed and/or information given as requested. Additional counseling was provided here today in regards to, [ ]. The above visit was performed by [ ], under direct supervision of [ ]. Document reviewed and amended by provider signed below. Jun, ASHD (arteriosclerotic heart disease) (ICD-10 - I25.10) This patient is stable without activity related CP, dyspnea or lightheadedness. They are instructed to continue exercise and AHA diet plan. Jun, Essential hypertension (ICD-10 - I10) This patient is instructed to consume a healthy, low-fat, low-salt diet. They are also encouraged to continue exercise to achieve/maintain a normal BMI. Jun, Benign prostatic hyperplasia with lower urinary tract symptoms (ICD-10 - N40.1) Symptoms tolerable, yearly ARGELIA and PSA Jun, Hyperlipidemia type II (ICD-10 - E78.01) Diet and exercise with continued statin therapy. Jun, Other specified hypothyroidism (ICD-10 - E03.8) Jun, Autoimmune thyroiditis (ICD-10 - E06.3) Euthyroid, yearly TSH Jun, Screening PSA (prostate specific antigen) (ICD-10 - Z12.5) Jun, High risk medication use (ICD-10 - Z79.899) [facility] [employer] [facility] Other 01-19-2023 Evaluation note* Encounter Date Diagnosis Assessment Notes Treatment Notes Treatment Clinical Notes Apr, Left upper quadrant abdominal pain (ICD-10 - R10.12) Diet instructions, push fluids. Labs ordered. Imaging not indicated at this time: no fever/chills, bowel/bladder changes or loss of appetite Apr, ASHD (arteriosclerotic heart disease) (ICD-10 - I25.10) This patient is stable without activity related CP, dyspnea or lightheadedness. They are instructed to continue exercise and AHA diet plan. Apr, Essential hypertension (ICD-10 - I10) This patient is instructed to consume a healthy, low-fat, low-salt diet. They are also encouraged to continue exercise to achieve/maintain a normal BMI. Apr, Acquired autoimmune hypothyroidism (ICD-10 - E06.3) Held Levothyroxine w/ f/u TSH > 10. Recommend restarting Levothyroxine w/ recheck in 6-8 wks Apr, Hyperlipidemia type II (ICD-10 - E78.01) Diet and exercise with continued statin therapy. Apr, High risk medication use (ICD-10 - Z79.899) Statin use for HLD, checking CK [employer] Other 11-29-2022 Note [id number]:127 Cardiac Rehab referral & office note faxed to [facility] ( ) & verified with Jackie @ [facility] ([phone] Ext. [phone]) referral was received & she will call the patient. [facility]:Result Comment: Electronically Signed By: Ashley Blackwell\.compa\Date and Time Signed: 03/10/22 15:27 EST 03-02-2022 [id number]:127[facility] Note [id number]:127[facility]* Activity:Other activity instructions: Best exercise is walking 3-4 times per day. Taking short frequent walks instead of long walks helps to build stamina and reduces the incidence of DVTs. Graduallyincrease activity level every day.No pushing/pulling/lifting greater than 10 lbs. (no heavier than a gallon of milk) for 3 months after surgery. No arm exercises such as swimming, tennis, golf, bowling, rowing, arm bike, or elliptical for 3 months after surgery. No rotary drum tanner such as vacuuming, shoveling, snow, mowing the lawn, or unscrewing tight jars for 3 months.No driving for 6 weeks. May wear a seatbelt, but must ride in back seat.Do not peel off the Dermabond (glue) on the sternal incision prior to 2 weeks after surgery. Shower daily with mild soap and water and pat all incisions dry. No swimming or baths. * Labs 1 (Modify Template):Lab Test(s): CBC, Comprehensive Metabolic Panel, MagnesiumDate To Be Drawn: 02/13 before your appointment pleaseLab Instructions: Walk-in lab, no appointment required. * Tests 1:Test Name(s): Chest XrayScheduled Date/Time: February 27 @ 10:00-10:15->please complete prior to office follow-up appointmentLocation: [facility] * Oxygen:Administer oxygen at 2 liters/min via nasal cannula to maintain SpO2 % of 92% continuous. * Additional Orders:Weight: Please weight yourself every morning, after using the restroom, in the same amt of clothing and keep a log to bring with you to your appointmentAdditional Instructions: Patients Daily responsibilities Check your temperature with a thermometer if a fever is suspected, and should call the surgeons office if temperature is > 100.5 F. Weigh yourself every morning and keepa log of your weight. Bring the logs to your appointments. Diabetics should check your sugars and take a log to your PCP/endocrine appointments. You should attend ALL the appointments scheduled priorto discharge, and call to make any additional appointments as instructed. Continue taking medication regimen as prescribed.Who to Call: Call tape keller operator/PCP: 1. Difficulty breathing when lying flat2. New swelling in ankles/legs 3. New shortness of breath with activity or rest 4. Unrelenting headache 5. Unexplained bruising 6. 3 pound weight gain over 3 days 7. For medication refills/questions Call cardiac surgery office: 1. If you experience warmth, redness, swelling, increased incisional pain, drainage, or feeling sternal popping or clicking with movement 2. If your temperature is >100.5Call 911 for chest pain or pressure not related to chest incision, shortness of breath not relievedby rest, sudden change in heart rate (too fast or too slow), excessing bleeding from incisions, fainting or nearly fainting, stroke symptoms (new weakness on one side of body, drooping face, slurred speech, difficulty understanding speech, loss of balance), or for not feeling ``right /sense of impending doom.No NSAIDs (common qzxi-tyd-fqitdjy NSAIDs are ibuprofen/Motrin/Advil, naproxen/Naprosyn/Aleve), for 3 months after cardiac surgery, if NSAIDs needed after 3 months clear use with tape keller operator before starting.Pt instructed to inform Radiology of retained wires if ever needs MRI and to makeappointment with cardiac surgeon if wires ever poke out or pt develops chronic drainage from the site of the previous wires; pt expressed understanding. * Call Provider If:Any new concerning symptoms. * Activity:- Continue to increase activity and use incentive spirometer, cough and deep breathing. - Pace activities as tolerated. Avoid heavy physical exertion and lifting. Balance rest periods with activity. - No pushing, pulling, or lifting objects greater than 10 pounds for 3 months (sternal preca utions). - MAY shower. - MAY NOT drive for 4 to 6 weeks, until follow up visit with the surgeon. Discuss driving at your follow-up appointment. - Maintain a daily weight log. Use same scale, before breakfast, after voiding. Take the log to your follow-up appointments. * Call Provider If:- Redness, drainage or other problems with incisions, notify the Cardiac Surgeon'soffice. - Signs and symptoms of Heart Failure: call your Plant Tender if you have weight gain of 3 pounds or more in less than 3 days; shortness of breath at rest, with activity, or when lying flat; dizziness or fainting. - Notify the Cardiac Surgeon s office of any readmission to a hospital beforeyour follow-up appointment with the Cardiac Surgeon. * Home Care Face to Face Certification:Home Care Services Needed: yesSkilled Disciplines Ordered: RN/CASING WRINGER OPERATOR, PT, OTFace to Face Encounter Completed: yesDate of Encounter: [id number] Necessity for Homecare (based on clinical findings): Short-term RN/CASING WRINGER OPERATOR is needed to monitor for signs and symptomsof decompensation/adverse events after CABG. Patient at high risk for re- hospitalization. PT/OT services needed to restore ability to walk without support and establish home exercise program as patient is at high risk for falls.Homebound Status: homeboundHomebound Due to: Patient with recent exacerb ation of CAD disease. Patient experiences dyspnea with minimal exertion. Ambulates limited distance. Patient has poor endurance and requires use of walker for safe ambulation in the home. The totality of these findings support a considerable and taxing effort to leave home due to limited mobility, pain, and 6 week driving restriction.Face to Face Completed and Home Care Orders Reviewed: I certifythat this patient is under my care. I have reviewed the information included in the face to face and certify that the home care services ordered are medically necessary for this patient. * Home Care Skilled Service:Home Care Skilled Service: CABG carepath, Rehab (PT/OT/SP eval and treat)CABG: First Home Care Visit: day after dischargeRehab: First Home Care Visit: day after discharge * Follow Up Appointment 1:Physician/Dept/Service: Dr Guillen/KAREN Venegas for Referral: Incision checkScheduled Date/Time: 13-Feb-2022 10:00[facility] [address] [facility] [facility]Phone Number: [phone] * Follow Up Appointment 2:Physician/Dept/Service: Dr Souza for Referral: Post-op visitScheduled Date/Time: 27-Feb-2022 11:00Location: [address] [facility]Phone Number:[phone]: Please have Chest Xray completed prior to appointment * Follow Up Appointment 3:Physician/Dept/Service: Dr. Riya Kearney, EndocrinologyScheduled Date/Time: 06-Feb-2022 11:00[facility] [phone]: PLEASE DO NOT COME INTO THE OFFICE. The DrShilo will contact the patient VIA phone. * Follow Up Appointment 4:Physician/Dept/Service: DR Santana for Referral: POST CABGScheduled Date/Time: 20-Mar-2022 11:00Location: [address] [address]Phone Number: [phone] * Follow Up Appointment 5:Physician/Dept/Service: Dr Delmis Pope for Referral: Primary Care PhysicianPhone Number: [phone]: Please make appointment to be seen in 2-4 weeks [facility]10-19-[facility] History of Present illness Narrative* This 71 year old status [place] [facility] [place] hospital on 02/03/22. Patient seen today as post operative visit. * Midline sternal incision is well approximated with no redness or drainage noted. * Lungs are clear bilaterally, CXR looks normal. Right leg vein harvest sites X2 are well approximated with no redness or drainage noted. * He has no complaints of pain at this time. He has no edema and pedal pulses palpable bilaterally. * He has been taking short walks without shortness of breath. Heart sounds are normal. Bowel sounds are active with patient reporting normal bowel movements. Patient instructed to call with any questions or concerns. [facility] Work Phone: [phone] [facility]10-16-2022 History of Present illness Narrative* Dr. Jayden Simon had asked us to assess this patient urgently. He is a 71-year-old man, with evidence of coronary artery disease. A coronary angiogram last week showed significant three-vessel disease. * He is retired, but has been very symptomatic recently. He is unable to go very far, without significant fatigue, chest tightness and shortness of breath. His symptoms are frequent, and he has symptoms even walking to the bathroom. He has been housebound because of the symptoms for the past 1 or 2 weeks. * His past history significant for coronary artery disease, hypertension and dyslipidemia. He is a former smoker. There is a question of alcohol intake, listed in his chart for 4-6 beers per day. [facility] Work Phone: [phone] Discharge summary Author Eduardo Simon [facility] January 20, 2022 4:14pm Note Date/Time January 20, 2022 4 :13pm [facility] [address] [place] [address] Discharge Summary Signed Patient: Jerri Horne MR#: [id number] : 1950 Acct:[id number] Age/Sex: 71 / M Adm Date: 2 Loc: Room: Attending Dr: Eduardo Simon DO Copies to: DO Eduardo Jones DO~ Providers Date of Discharge: 01/20/22 Discharging Provider: Eduardo Simon Primary Care Provider: Forest Rodrigues Discharge Diagnosis Final Diagnosis Final Discharge Diagnosis: 1. Abnormal myocardial perfusion stress test 2. Unstable angina 3. Severe two-vessel ASHD Summary Hospital Course Hospital course: 71-year-old gentleman with progressive unstable angina, outpatient stress imaging with multiple perfusion defects with preserved left ventricular function. Catheterization revealed subtotal occlusion of the mid LAD with PONCE II flow, chronic occlusion of the large, dominant RCA with faint antegrade rightto right and xetx-fi-auvcq collaterals and preserved LV function. LAD is heavily calcified, lesion comes off at a 90 degree angle making it high risk Recommendations are for two-vessel CABG Condition Condition at Discharge: Stable Status at Discharge Functional status at discharge: independent ambulation Overall status at discharge: patient is back to baseline Time Spent with Patient Time spent providing/coordinating discharge services (# min): 15 Surgeries and Procedures Operation Date: 01/20/22 13:15 Actual Procedures p CL LHC & COR Angio - Eduardo Simon DO Complications Complications: None Diagnostic Studies Completed and Pending Studies Labs on day of discharge: 01/20/22 12:00: SARS Antigen (LFIA) Negative 01/20/22 12:00: PHA Creatinine Clear 77.45, Sodium 134 L, Potassium 4.2, Chloride 98, Carbon Dioxide 26.8, Anion Gap 13.4, BUN 11, Creatinine 1.04, Est GFR ( Amer) > 60, Est GFR (Non-Af Amer) > 60, Triglycerides 78, Cholesterol 132 L, LDL Cholesterol, Calc 67, VLDL Cholesterol 15, HDL Cholesterol 49, Cholesterol/HDL Ratio 2.7 01/20/22 12:00: PT 13.9 H, INR 1.2, APTT 30.6 01/20/22 12:00: Corrected WBC 5.8, Uncorrected WBC Count 5.8, RBC 4.12, Hgb 12.8L, Hct 38.7 L, MCV 93.9, MCH 31.1, MCHC 33.1, RDW 12.5, Plt Count 238, MPV 7.7, Neut % (Auto) 49.9, Lymph % (Auto) 35.3, [place] % (Auto) 10.6, Eos % (Auto) 3.6, Baso % (Auto) 0.6, Neut # (Auto) 2.9, Lymph # (Auto) 2.1, [place] # (Auto) 0.6, Eos# (Auto) 0.2, Baso # (Auto) 0.0, Nucleated RBC % (auto) 0.0 Exam Physical Exam Vital Signs: Temp Resp BP Pulse Ox O2 Del Method 98.1 F 18 145/76 H 99 Room Air 01/20/22 12:24 01/20/22 12:24 01/20/22 12:24 01/20/22 12:24 01/20/22 12:24 Discharge Plan Discharge Plan Patient Disposition: Home Diet: Low-Cholesterol Additional Instructions: DISCHARGE INSTRUCTIONS FOR CARDIAC DIVISION SUPERINTENDENT PHONE NUMBER OF YOUR PHYSICIAN: [phone] PROCEDURE: Heart Cath The following instructions have been prepared to help you care for yourself, or be cared for upon your return home. 1. You were given conscious sedation. Do not operate a vehicle, power tools, make important decisions, or drink alcohol for 24 hours. You might be drowsy orlight headed. Return to the Emergency Room if you have trouble breathing, walking or nausea and vomiting. 2. FOR BLEEDING: Apply continuous pressure to the site and call 911. 3. Operative Site Care: Keep the dressing clean and dry. You may change the dressing only if soiled or wet. You may remove the dressing the following morning. You may wash over the puncture site in the shower. If the puncture site is at the wrist no soaking for 3 days. Some bruising or slight swelling may be present. -Signs of infection are redness, warmth, swelling, getting more sore, colored drainage, fever or chills. -Should the arm or leg become cold, numb, blue or white, call the tape keller operator immediately. 4. ACTIVITY: You are advised to go directly home from the hospital. Restrict your activities for the rest of the day. Resume light or normal activities tomorrow. Do not engage in any activity that will stress the puncture site. Avoid heavy lifting (over 15 lbs.), straining or bending at the catheter site for 48 hours after discharge. If the puncture site is at the wrist do not manipulate wrist for 24 hours and no lifting more than 3 lbs for 3 days. 5. DIET:You may eat your regular diet when you desire. 6. MEDICATIONS: Resume your daily prescription schedule. Prescriptions may be sent with you if needed. Use as directed. When taking pain medications, you may experience dizziness or drowsiness. Do not drink alcohol or drive when taking pain medications. 7. If you should experience episodes of angina e.g. chest discomfort, heaviness, tightness, pressure, burning, with or without radiation to the neck, jaws, arms, or back- Use 1 Nitrostat under your tongue every 5-10 minutes, and up to 3 tablets. If no relief- Call 911 and go to the nearest Emergency Room. -Notify the office for recurrent angina, chest pain or other concerns. You may NOT drive yourself home! Follow the medication instructions provided on your discharge. If the dosages and instructions on this sheet differ from the dosage and instructions on the bottle, follow the instructions on the bottle. [facility] is not responsible for incorrect prescription information provided by thepatient during their visit. Do not stop your medications without consulting your health care provider. Please take the list with you to your next doctor's appointment. Prescriptions: Continued atorvastatin 40 mg tablet 40 mg PO HS Label Comments: TAKE 1 TABLET BY MOUTH AT BEDTIME isosorbide mononitrate 30 mg Tablet Extended Release 24 Hr 60 mg PO DAILY aspirin 81 mg Capsule,Delayed Release(Dr/Ec) 81 mg PO DAILY nitroglycerin 0.4 mg Tablet, Sublingual 0.4 mg sublingual Q5MIN benazepril 20 mg Tablet 20 mg PO DAILY ascorbic acid (vitamin C) 25 mg Tablet 25 mg PO DAILY B-complex with vitamin C Capsule 1 cap PO DAILY zinc Tablet,Chewable PO Q2D metoprolol tartrate 25 mg tablet 25 mg PO BID Label Comments: TAKE 1 TABLET BY MOUTH TWICE DAILY ferrous sulfate 27 mg iron Tablet 27 mg PO Q2D omega 8-pco-jkf-fish oil [Fish Oil] 1,000 mg (120 mg-180 mg) Capsule 1 cap PO BID Follow Up: Eduardo Simon DO [Active Staff - D.O.] - Forest Rodrigues DO [Primary Care Provider] - Documented By: Eduardo Simon DO 01/20/221609 Signed By: <Electronically signed by Eduardo Simon DO> 01/20/22 1614 [facility] Work Phone: [phone] [facility] Hospital Discharge instructions Additional Instructions DISCHARGE INSTRUCTIONS FOR CARDIAC DIVISION SUPERINTENDENT PHONE NUMBER OF YOUR PHYSICIAN: [phone] PROCEDURE: Heart Cath The following instructions have been prepared to help you care for yourself, or be cared for upon your return home. 1. You were given conscious sedation. Do not operate a vehicle, power tools, make important decisions, or drink alcohol for 24 hours. You might be drowsy or light headed. Return to the Emergency Room if you have trouble breathing, walking or nausea and vomiting. 2. FOR BLEEDING: Apply continuous pressure to the site and call 911. 3. Operative Site Care: Keep the dressing clean and dry. You may change the dressing only if soiled or wet. You may remove the dressing the following morning. You may wash over the puncture site in the shower. If the puncture site is at the wrist no soaking for 3 days. Some bruising or slight swelling may be present. -Signs of infection are redness, warmth, swelling, getting more sore, colored drainage, fever or chills. -Should the arm or leg become cold, numb, blue or white, call the tape keller operator immediately. 4. ACTIVITY: You are advised to go directly home from the hospital. Restrict your activities for the rest of the day. Resume light or normal activities tomorrow. Do not engage in any activity that will stress the puncture site. Avoid heavy lifting (over 15 lbs.), straining or bending at the catheter site for 48 hours after discharge. If the puncture site is at the wrist do not manipulate wrist for 24 hours and no lifting more than 3 lbs for 3 days. 5. DIET:You may eat your regular diet when you desire. 6. MEDICATIONS: Resume your daily prescription schedule. Prescriptions may be sent with you if needed. Use as directed. When taking pain medications, you may experience dizziness or drowsiness. Do not drink alcohol or drive when taking pain medications. 7. If you should experience episodes of angina e.g. chest discomfort, heaviness, tightness, pressure, burning, with or without radiation to the neck, jaws, arms, or back- Use 1 Nitrostat under your tongue every 5-10 minutes, and up to 3 tablets. If no relief- Call 911 and go to the nearest Emergency Room. -Notify the office for recurrent angina, chest pain or other concerns. You may NOT drive yourself home! Follow the medication instructions provided on your discharge. If the dosages and instructions on this sheet differ from the dosage and instructions on the bottle, follow the instructions on the bottle. [facility] is not responsible for incorrect prescription information provided by the patient during their visit. Do not stop your medications without consulting your health care provider. Please take the list with you to your next doctor's appointment.[facility] Work Phone: [phone] Evaluation note* Encounter Date Diagnosis Assessment Notes Treatment Notes Treatment Clinical Notes Nov, Iron deficiency anemia (ICD-10 - D50.9) Nov, Rectal bleeding (ICD-10 - K62.5) Nov, Hemorrhoids (ICD-10 - K64.9) Nov, Fatty liver (ICD-10 - K76.0) [place] Other Evaluation + Plan note Future Appointments Appointment Date:06/09/2022 01:00:00 PM Scheduled Provider:Regina RASCON CNP Location:[place].Cardiology Clinic Appointment Type:[facility] ([facility]No InformationNortKindred [facility] Other Evaluation noteNo assessment information available [facility] Work Phone: Evaluation note* Skin: Warm, pink and dry. No rashesEyes: clear scleraENMT: mucous membranes moistHead/Neck: Neck supple no JVDRespiratory/Thorax: Inspiratory effort improving, spirometry volumes 1750 mLPosteriorly CTA upper lobes; faint crackles LLLCT sites with sutures intact. No erythema or drainageCardiovascular: Regular rate and rhythm, pericardial rub has resolved, no rub or gallop, ventricular wires clipped at skin 02/01Midsternal incision BASKET ASSEMBLER without erythema or drainageExtremities: mild bilateral lowerextremity edema right greater than left, right SVG incisions diffusely ecchymotic without erythema,well approximated, bilateral pedal pulses 2+ palpableGenitourinary: Voiding clear yellowMusculoskeletal: JOY x 4. Generalized postoperative weaknessRight lower extremity decreased in comparison to left due to prior muscle transplant surgeryNeurological: alert and oriented x3, intact senses, motor, response and reflexes, normal strengthBreast: DeferredLymphatic: deferredPsychological: Appropriate mood and behavior. Very grumpyGastrointestinal: Softly distended, nontender, +BS, frequently passingflatusLBM 02/01Constitutional: Well-developed male in no distress. A&O x 3. [facility] [place] Other History general Narrative - Reported* Type Description Date Medical History Fatigue Medical History Anemia, unspecified type Medical History Acute blood loss anemia Medical History Acquired autoimmune hypothyroidi sm Medical History S/P CABG (coronary artery bypass graft) Medical History Nicotine dependence, cigarettes, in remission Medical History Hyperlipidemia type II Medical History Essential hypertension Medical History ASHD (arteriosclerotic heart dis ease) Medical History Hypoxemia Medical History Abnormal nuclear stress test Medical History COVID-19 Medical History GARCIA (dyspnea on exertion) Medical History Depression screening Medical History Obesity Medical History Contusion of right knee, initial encounter Medical History Pain in right shoulder Medical History Primary osteoarthritis of right shoulder Medical History Benign prostatic hyp erplasia with lower urinary tract symptoms Medical History Chest pain, exertional Medical History Traumatic arthritis of right ank le Medical History High risk medication use Medical History Screening PSA (prostate specific antigen) Medical History Dysuria Medical History Acute bronchitis due to other sp ecified organisms Surgical History BYPASS GRAFT, MACEDO RY ARTERY, COMBINED ARTERIAL AND VENOUS 01/2022 Surgical History RANGEL-LAD Surgical History CARDIAC CATHETERIZATION, LEFT H EART Surgical History COLONOSCOPY Hospitalization History SEE SURGICAL [employer] Other [facility] [place] Other history general Narrative - Reported* Type Description Date Medical History Fatigue Medical History Anemia, unspecified type Medical History Acute blood loss anemia Medical History Acquired autoimmune hypothyroidi sm Medical History S/P CABG (coronary artery bypass graft) Medical History Nicotine dependence, cigarettes, in remission Medical History Hyperlipidemia type II Medical History Essential hypertension Medical History ASHD (arteriosclerotic heart dis ease) Medical History Hypoxemia Medical History Abnormal nuclear stress test Medical History COVID-19 Medical History GARCIA (dyspnea on exertion) Medical History Depression screening Medical History Obesity Medical History Contusion of right knee, initial encounter Medical History Pain in right shoulder Medical History Primary osteoarthritis of right shoulder Medical History Benign prostatic hyp erplasia with lower urinary tract symptoms Medical History Chest pain, exertional Medical History Traumatic arthritis of right ank le Medical History High risk medication use Medical History Screening PSA (prostate specific antigen) Medical History Dysuria Medical History Acute bronchitis due to other sp ecified organisms Surgical History BYPASS GRAFT, MACEDO RY ARTERY, COMBINED ARTERIAL AND VENOUS 01/2022 Surgical History CARDIAC CATHETERIZATION, LEFT H EART Surgical History COLONOSCOPY Hospitalization History SEE SURGICAL [employer] Other Hisolek general Narrative - Reported* Type Description Date Medical History Fatigue Medical History Anemia, unspecified type Medical History Acute blood loss anemia Medical History Acquired autoimmune hypothyroidi sm Medical History S/P CABG (coronary artery bypass graft) Medical History Nicotine dependence, cigarettes, in remission Medical History Hyperlipidemia type II Medical History Essential hypertension Medical History ASHD (arteriosclerotic heart dis ease) Medical History Hypoxemia Medical History Abnormal nuclear stress test Medical History COVID-19 Medical History GARCIA (dyspnea on exertion) Medical History Depression screening Medical History Obesity Medical History Contusion of right knee, initial encounter Medical History Pain in right shoulder Medical History Primary osteoarthritis of right shoulder Medical History Benign prostatic hyp erplasia with lower urinary tract symptoms Medical History Chest pain, exertional Medical History Traumatic arthritis of right ank le Medical History High risk medication use Medical History Screening PSA (prostate specific antigen) Medical History Dysuria Medical History Acute bronchitis due to other sp ecified organisms Surgical History BYPASS GRAFT, MACEDO RY ARTERY, COMBINED ARTERIAL AND VENOUS 01/2022 Surgical History CARDIAC CATHETERIZATION, LEFT H EART Surgical History COLONOSCOPY 2013 Hospitalization History SEE SURGICAL HX [employer] Other History general Narrative - Reported* Type Description Date Medical History Fatigue Medical History Anemia, unspecified type Medical History Acute blood loss anemia Medical History Acquired autoimmune hypothyroidi sm Medical History S/P CABG (coronary artery bypass graft) Medical History Nicotine dependence, cigarettes, in remission Medical History Hyperlipidemia type II Medical History Essential hypertension Medical History ASHD (arteriosclerotic heart dis ease) Medical History Hypoxemia Medical History Abnormal nuclear stress test Medical History COVID-19 Medical History GARCIA (dyspnea on exertion) Medical History Depression screening Medical History Obesity Medical History Contusion of right knee, initial encounter Medical History Pain in right shoulder Medical History Primary osteoarthritis of right shoulder Medical History Benign prostatic hyp erplasia with lower urinary tract symptoms Medical History Chest pain, exertional Medical History Traumatic arthritis of right ank le Medical History High risk medication use Medical History Screening PSA (prostate specific antigen) Medical History Dysuria Medical History Acute bronchitis due to other sp ecified organisms Surgical History BYPASS GRAFT, MACEDO RY ARTERY, COMBINED ARTERIAL AND VENOUS 01/2022 Surgical History CARDIAC CATHETERIZATION, LEFT H EART Surgical History COLONOSCOPY 2013 Surgical History EGD 04/2023 Surgical History Colonoscopy w/ polypectomy (rep eat 3 years ) 04/2023 Hospitalization History SEE SURGICAL [employer] Other Hospital course Narrative No data available for this section [facility] Discharge instructions No data available for this section [facility] Discharge instructions Additional Instructions DISCHARGE INSTRUCTIONS FOR UPPER ENDOSCOPY WHAT TO EXPECT: - You may feel full, gassy or cramping after your procedure. In some cases, this may be from a few hours to a day. Walking may help relieve the discomfort. - Your throat may feel sore today from the scope that the doctor passed through your throat to visualize your stomach. Take a throat lozenge or suck on ice to ease the discomfort. - You may notice some streaks of blood in your sputum if the doctor has taken a biopsy. - You should begin to recover from anesthesia within 1 hour of the procedure, however may feel groggy for the next 24 hours. DO's AND DON'Ts: - Call your doctor right away if you have a hard abdomen, severe pain, vomiting or if you cough up large amounts of blood. - Call your doctor if you develop any rashes, hives or difficulty breathing. - If you take 81 mg aspirin for your heart it is safe to resume this medication. - If you take other blood thinner medications your doctor will instruct you when these can safely be resumed. - Do NOT drive for 24 hours. - Do NOT operate machinery such as power tools, lawn mowers, snow blowers, sewing machines, etc. for 24 hours. - Avoid alcoholic beverages and drugs for allergies, nerves, or sleep. - Do NOT stay alone. Do NOT leave your child unattended. - Do NOT make important personal or business decisions or sign any legal documents. - Eat solid foods and drink liquids in smaller amounts than usual until normal appetite returns. If you should experience an upset stomach, liquids high in sugar content (soda, Wiliam-Aid, non-acid juices) are recommended. - Do NOT smoke. - Do take it easy today. You need not stay in bed, but avoid strenuous activities such as jogging or working out. DISCHARGE INSTRUCTIONS FOR COLONOSCOPY WHAT TO EXPECT: - You may feel full, gassy or cramping after your procedure. In some cases, this may be from a few hours to a day. Walking may help relieve the discomfort. - If you have polyp(s) removed you may note some minor bloody discharge after your first bowel movements. - You should begin to recover from anesthesia within 1 hour of the procedure, however may feel groggy for the next 24 hours. DO's AND DON'Ts: - Call your doctor right away if you have a hard abdomen, sever pain, are passing lots of bright red blood or clots. - Call your doctor if you develop any rashes, hives or difficulty breathing. - Let your doctor know if you have not had a bowel movement by 3 days after your procedure. - If you take 81 mg aspirin for your heart it is safe to resume this medication. - If you take other blood thinner medications your doctor will instruct you when these can safely be resumed. - Do NOT drive for 24 hours. - Do NOT operate machinery such as power tools, lawn mowers, snow blowers, sewing machines, etc. for 24 hours. - Avoid alcoholic beverages and drugs for allergies, nerves, or sleep. - Do NOT stay alone. Do NOT leave your child unattended. - Do NOT make important personal or business decisions or sign any legal documents. - Eat solid foods and drink liquids in smaller amounts than usual until normal appetite returns. If you should experience an upset stomach, liquids high in sugar content (soda, Wiliam-Aid, non-acid juices) are recommended. - You can resume normal activities tomorrow. FOLLOW UP & RECOMMENDATIONS: -The GI office will schedule you a follow-up appointment. -Notify the doctor if you have any problems. -Repeat colonoscopy in 3 years. -Follow up with PCP. - Office number [phone].[facility] Work Phone: Progress note No data available for this section [facility] for referral (narrative)* Reason for Referral: s/p CABG x 2 [facility] for visit NarrativePATIENT HERE AT THE REQUEST OF DR. RODRIGUES FOR EVALUATION & TREATMENT OF IRON DEF ANEMIA.[employer] Other Family History Unknown Family Member Name Dates Details Family history of myocardial infarction: Father(V17.3, Z82.49) Status:Active Family history of stent: Sis ter(V19.8, Z84.89) Status:Active Relationship Condition Age at Onset Recorded Date/T rosa Not Specified Myocardial infarction Unknown Unknown Family Member Name Dates Details Family history of myocardial infarction: Father(V17.3, Z82.49) Status:Active Family history of stent: Sis ter(V19.8, Z84.89) Status:Active Unknown Family Member Name Dates Details Family history of myocardial infarction: Father(V17.3, Z82.49) Status:Active Family history of stent: Sis ter(V19.8, Z84.89) Status:Active Unknown Family Member Name Dates Details Family history of myocardial infarction: Father(V17.3, Z82.49) Status:Active Family history of stent: Sis ter(V19.8, Z84.89) Status:Active Unknown Family Member Name Dates Details Family history of myocardial infarction: Father(V17.3, Z82.49) Status:Active Family history of stent: Sis ter(V19.8, Z84.89) Status:Active Unknown Family Member Name Dates Details Family history of myocardial infarction: Father(V17.3, Z82.49) Status:Active Family history of stent: Bonnie matrinez(V19.8, Z84.89) Status:Active Unknown Family Member Name Dates Details Family history of myocardial infarction: Father(V17.3, Z82.49) Status:Active Family history of stent: Bonnie martinez(V19.8, Z84.89) Status:Active Relationship Condition Age at Onset Recorded Date/T rosa father Myocardial infarction Unknown Chief Complaint and Reason for Visit Chief Complaint Chest Pain, SOB, Abn ormal Stress Test Chief Complaint 3 Month Follow Up GERD, Screening Advance Directives Advance Directive Response Recorded Date/ Time Advance Directives No January 20, 2022 11:43am Advance Directive Response Recorded Date/ Time Advance Directives No January 20, 2022 10:43am Summary Purpose Chief Complaint * A telephone visit (audio only) between the patient (at the originating site) and the provider (at the distant site) was utilized to provide this telehealth service. * Verbal consent was requested and obtained from JERRI HORNE on this date, 01/26/2022 09:30 AM , for a telehealth visit. * Patient is having a virtual surgical evaluation for CAD following a referral by Dr. Errol Simon. MARCIA Louie, RN This 71 year old status post CABG X2 on 01/28/[address] [place] [facility] discharged from hospital on 02/03/22. Patient seen in office as nurse post operative visit. Midline sternal incision iswell approximated with no redness or drainage noted.Lungs are clear bilaterally. Two sutures were removed from previous chest tube sites which remain well approximated. Right leg vein harvest sites X2 are well approximated with no redness or drainage noted. He has no complaints of pain at this time. He has 1+ edema of right lower extremity and no edema of LLE and pedal pulses palpable bilaterally. He has been taking short walks without shortness of breath. Heart sounds are normal. Bowel sounds are active with patient reporting normal bowel movements. His appetite has been good with diet reviewed in detail with all questions reviewed. He had some concerns regarding his cholesterol medicationwhich he will contact his tape keller operator. He has a follow up with Dr Guillen on 02/27/22 with a chestx-ray prior to his visit. He had a CBC today still pending results at this time.Recommend discharge from Dr Guillen service at this time. Patient instructed to call with any questions or concerns. Reason for Referral Reason *Waiting for appt Patient being referred for screening colonoscopy and EGD Diagnosis 1 Encounter for screen ing colonoscopy (Z12.11) Diagnosis 2 Gastroesophageal ref lux disease with esophagitis without hemorrhage (K21.00) Referral Organization [facility] Referring Provider First Name Forest Referring Provider Last Name Gary Referring Provider Specialty Internal Me dicine Referred Organization [facility] Gastroenterolo gy Referred Provider Emerson Contreras Referred Address [address],[facility] [address] ,[place], [place],[address] Referred Provider Specialty Gastroentero logy Referral Priority Routine General Notes Mr. Horne is due for a screening colonoscopy. He is a low risk, asymptomatic patient w/o change noted with appetite, weight or bowel habits. He denies abdominal pain, melena or hematochezia. He has noticed an increased frequency or heartburn w/o dysphagia. I have recommended scheduling an EGD along with the colonoscopy. He was noted to have a mild anemia last fall w/ normal Fe, B12, FA results. However, he suffered ACS and completed a CABG, which postponed his referral until now. Audrey Olsen 03/23/2023 04:51:42 PM >received today, referral was faxed P2P Additional Source Comments REASON FOR VISIT (unrecogniz ed section and content) ClinicalStomach IssuesWELLNE SSRefillResultsRefill3 month Follow upLab resultsRefills3 month Follow upHolter resultsQuestionNo Informationorders per Dr. Choudhary Care Teams (unrecognized sec tion and content) Team Status: Inactive Member Role Status Dates Eduardo Simon DO Attending Provider Active Forest Rodrigues DO Primary Care Provider Active Team Status: Active Member Role Status Dates Forest Rodrigues DO Primary Care Provider Active Team Status: Inactive Member Role Status Dates Forest Rodrigues DO Attending Provider Active Sta rt: March 22, 2023 End: March 22, 2023 Team Status: Active Member Role Status Dates Forest Rodrigues DO Primary Care Provider Active Start: April 30, 2023 Emerson Contreras MD Attending Provider, Other Provider Active Start: April 30, 2023 (unrecognized sect ion and content) No Status Records FoundNo Status Records FoundNo Status Records FoundNo Status Records FoundNo Status Records FoundNo Status Records Found INFORMATION SOURCE (unrecogn ized section and content) DATE [facility]ATED [facility] DATE CREATED AUTHOR AUTHOR'S ORGANIZ ATION 02/28/2022 [employer] DATE CREATED AUTHOR AUTHOR'S ORGANIZ ATION 03/03/2022 [facility] DATE CREATED AUTHOR AUTHOR'S ORGANIZ ATION 07/05/2022 [facility] DATE CREATED AUTHOR AUTHOR'S ORGANIZ ATION 07/17/2022 Ramos Haresh [facility] DATE CREATED AUTHOR AUTHOR'S ORGANIZ ATION 05/03/2023 [facility] <item> Privacy Markings (unrecogniz ed section and content) Section Author: Patito Smiley PROHIBITION ON REDISCLOSURE OF CONFIDENTIAL INFORMATION This notice accompanies a disclosure of information concerning a client made to you with the consent of such client. Goals (unrecognized section and content) Goals may be documented in a n alternate section FOR RECORDS PERTAINING TO PATIENTS WHO ARE OR HAVE BEEN ENROLLED IN A CHEMICAL DEPENDENCY/SUBSTANCEABUSE PROGRAM, SOME INFORMATION MAY BE OMITTED. This clinical summary was aggregated from multiple sources. Caution should be exercised in using it in the provision of clinical care. This summary normalizes information from multiple sources, and as a consequence, information in this document may materially change the coding, format and clinical context of patient data. In addition, data may be omitted in some cases. CLINICAL DECISIONS SHOULD BE BASED ON THE PRIMARY CLINICAL RECORDS. [employer] provides no warranty or guarantee of the accuracy or completeness of information in this document.
--- NOTE | 2023-09-15 22:47 | ECG_ITS ---
[facility] Test Date: 2023-09-15 Pat Name: JERRI SOSA Department: Room: - Gender: Male Communications Lead: : 1950 Requested By: [id number] Order Number: [id number] Reading MD: CLARE RODRIGUES Measurements Intervals [place] Rate: 70 P: -4 [place]: 140 QRS: 38 QRSD: 78 T: 13 QT: 382 QTc: 403 Interpretive Statements 1100 Sinus rhythm 4068 Nonspecific Twave abnormality 9130 borderline ECG No previous ECG available for comparison Electronically Signed On 09-16-2023 6:47:25 EDT by CLAER RODRIGUES
--- NOTE | 2023-09-15 22:48 | ED.GENADUL1 ---
HPI HPI - General Adult General Chief complaint: Wound/Laceration Stated complaint: Head Injury, Laceration Time Seen by Provider: 09/15/23 22:41 Source: patient Mode of arrival: Wheelchair Limitations: no limitations History of Present Illness HPI narrative: This 73-year-old male presents for evaluation of 2 lacerations to his forehead. He states he was taking a spring loaded bracket apart from his garage door when it sprung and struck him in the forehead. He has an approximately 1.5 cm laceration at the midportion of his forehead and a 1 cm vertical laceration left of center. He states it bled a lot and he became nervous. He states that he is anemic and cannot afford to lose a lot of blood. He also states when he put his head back he felt dizzy. He has no neck or back pain. He does not fall at the time of the accident. He has no blurred vision slurred speech or focal weakness numbness or tingling. He thinks he may have taken an extra dose of his Synthroid earlier in the day. He does not know the date of his last tetanus shot but states that the bracket was clean. His female pastoral worker is encouraging him to get a tetanus shot. Related Data Home Medications ?Medication ?Instructions ?Recorded ?Confirmed levothyroxine 88 mcg tablet mcg 09/15/23 metoprolol tartrate 25 mg tablet mg 09/15/23 nitroglycerin 0.4 mg sublingual mg 09/15/23 tablet rosuvastatin 20 mg tablet mg 09/15/23 Allergies Allergy/AdvReac Type Severity Reaction Status Date / Time No Known Drug Allergies Allergy Verified 09/15/23 22:06 Opioid HPI Opioid Management Most Recent Opioid Data: No Data to Display Review of Systems ROS Status of ROS 10 or more systems reviewed and unremarkable except as noted in history and below [facility] Medical History (Updated 09/15/23 @ 22:55 by Hansa Roy MD) Hypothyroid ?E03.9 - Hypothyroidism, unspecified (ICD-10) Hypertension ?I10 - Essential (primary) hypertension (ICD-10) Anemia ?D64.9 - Anemia, unspecified (ICD-10) Surgical History (Updated 09/15/23 @ 22:18 by Yonatan Drake) H/O heart bypass surgery ?Z95.1 - Presence of aortocoronary bypass graft (ICD-10) Exam Narrative Exam Narrative: Vital signs and Nursing Notes reviewed: He is afebrile with a normal pulse, blood pressure is elevated at 189/101, he is not hypoxic with pulse ox of 96% on room air General: Awake, alert, oriented, no acute distress, lying comfortably on the stretcher HEENT: Normocephalic atraumatic, there is an approximately 1.5 cm V shaped horizontal laceration just above the patient's eyebrows in the center of the forehead and an additional approximately 1 cm vertical laceration left of center and closer to the patient's hairline. There is mild active bleeding from the 1.5 cm V-shaped laceration and no active bleeding from the additional laceration. There is mild local swelling. There is no step-off or bony deformity noted. Neck: Supple, nontender Chest: Lungs are clear to auscultation with good air entry, there is no wheezing rhonchi or rales appreciated no accessory muscle use, patient is speaking in complete sentences-no chest wall tenderness to palpation, healed midline sternotomy incision CVS: Regular rate and rhythm S1-S2, no murmurs rubs or gallops, pulses are brisk and equal bilaterally ABD: Soft, nondistended, nontender, no rebound guarding or rigidity, bowel sounds are normal, healed vertical incision on the left side of the abdomen Extremities: Moving all extremities, no lower extremity tenderness or swelling noted, negative Homans' sign, pulses are brisk and equal bilaterally Skin: Normal in appearance without rash,pallor, petechiae or purpura Neuro: No focal deficits Constitutional Vital Signs, click to edit/add: Last Vital Signs Temp 98.5 F 09/15/23 22:06 Pulse 68 09/15/23 23:07 Resp 18 09/15/23 23:07 BP 186/85 H 09/15/23 23:07 Pulse Ox 97 09/15/23 23:07 O2 Del Method Room Air 09/15/23 23:07 Course Vital Signs Vital signs: Vital Signs Temperature 98.5 F 09/15/23 22:06 Pulse Rate 89 09/15/23 22:06 Respiratory Rate 18 09/15/23 22:06 Blood Pressure 189/101 H 09/15/23 22:06 Pulse Oximetry 96 09/15/23 22:06 Oxygen Delivery Method Room Air 09/15/23 22:06 Temperature 98.5 F 09/15/23 22:06 Pulse Rate 68 09/15/23 23:07 Respiratory Rate 18 09/15/23 23:07 Blood Pressure 186/85 H 09/15/23 23:07 Pulse Oximetry 97 09/15/23 23:07 Oxygen Delivery Method Room Air 09/15/23 23:07 Medical Decision Making MDM Narrative Medical decision making narrative: This 73-year-old male who is on a daily baby aspirin due to a history of coronary artery disease presents for evaluation of 2 lacerations on his forehead that occurred after he was struck in the forehead by a spring-loaded bracket in his garage. He did not lose consciousness or fall. He sustained 2 forehead lacerations that were irrigated and closed with sutures. Bacitracin dressing was then applied by the nursing staff.. His neuroexam is normal. At 1 point he states he put his head back and felt dizzy so an EKG was ordered. EKG is normal sinus rhythm at 70 bpm with no acute changes. Procedure note: Laceration repair; laceration #1, V-shaped laceration at mid forehead approximately 1.5 cm -the laceration wound edges were infiltrated with 1% lidocaine with epinephrine and the laceration was irrigated with copious normal saline. It was closed with 6. 5-0 ethilon sutures The second laceration was cleansed with normal saline and the edges were infiltrated with 1% lidocaine, 4, 5-0 Ethilon sutures were placed into the laceration with good wound edge approximation. Patient tolerated both procedures well. Tetanus was updated, bacitracin dressing was applied by the nursing staff and he was discharged home with head injury instructions. ECG Data Attestation: I personally reviewed and interpreted this ECG as follows: (Normal sinus rhythm at 70 bpm, normal axis, normal intervals, no acute ST segment elevation or T wave inversion) Discharge Plan Discharge Stand Alone Forms: Portal Instructions Chief Complaint: Wound/Laceration Clinical Impression: Forehead laceration Patient Disposition: Home, Self-Care Prescriptions / Home Meds: No Action levothyroxine 88 mcg tablet nitroglycerin 0.4 mg tablet, sublingual rosuvastatin 20 mg tablet metoprolol tartrate 25 mg tablet Print Language: Romansh Instructions: Care For Your Stitches (ED), Laceration (ED) Additional Instructions: Sutures can be removed in 5 to 7 days. Apply a thin film of bacitracin or Neosporin over the suture site to help healing. Referrals: Physician,Non-Staff, MD [Primary Care Provider] - 1 week
[2023-09-15 23:07] VITALS: BP 186/85; PULSE 68; O2SAT 97
[2023-09-15] MEDS: ADACEL DIPH,PERTUSS(ACELL),TET VAC/PF 0.5 ML ADULT SYRINGE IM (23:16)
[2023-09-15] MEDS: BACITRACIN 0.9 GM PACKET 1 PACKET TOPICAL (23:17)
[2023-09-15] MEDS: LIDOCAINE HCL 2%-EPINEPHRINE 1:100,000 20 ML MDV 10 ML INJ (23:21)
--- NOTE | 2023-09-15 23:22 | PC.NURSE ---
Laceration to forehead, bleeding controlled, area cleansed with Hibicleanse.
[2023-09-15] MEDS: ACETAMINOPHEN 325 MG TABLET 650 MG PO (23:55)
== END 2023-09-16 00:05 | disposition home or self-care (01) ==
PROVIDERS: Emergency Provider Emergency Medicine
DX: S01.81XA Laceration without foreign body of other part of head, initial encounter (principal); Z23 Encounter for immunization; W22.8XXA Striking against or struck by other objects, initial encounter; I25.10 Atherosclerotic heart disease of native coronary artery without angina pectoris; Z79.82 Long term (current) use of aspirin
CPT/HCPCS: 12011; 90471; 90715; 93005; 99283

== ENCOUNTER 2023-09-21 13:40 | Outpatient (OUT) | payer MEDICARE, SELFPAY ==
[2023-09-21 14:26] LABS: Basophils Percent Auto 0.4 % (0.2-2.0); Eosinophils Absolute Auto 0.2 10^3/uL (0.0-0.7); Eosinophils Percent Auto 2.7 % (0.9-7.0); Hematocrit 42.7 % (42.0-54.0); Immature Granulocytes Abs Auto 0.09 10^3/uL (0.00-0.03); Immature Granulocytes Pct Auto 1.3 % (0.0-0.5); Lymphocytes Absolute Auto 2.6 10^3/uL (1.2-3.8); Mean Corpuscular HGB Conc 32.8 g/dL (29.9-35.2); Mean Corpuscular Hemoglobin 30.7 pg (25.9-34.0); Mean Corpuscular Volume 93.6 fL (80.0-94.0); Mean Platelet Volume 9.8 fL (9.5-13.5); Monocytes Absolute Auto 0.8 10^3/uL (0.3-0.8); Monocytes Percent Auto 10.7 % (1.7-12.0); Neutrophils Absolute Auto 3.5 10^3/uL (1.4-6.5); Neutrophils Percent Auto 48.9 % (43.0-75.0); Platelet Count 194 10^3/uL (150-450); Red Blood Count 4.56 10^6/uL (4.70-6.10); Red Cell Distribution Width 12.1 % (11.0-15.0); White Blood Count 7.1 10^3/uL (4.0-11.0)
[2023-09-21 15:01] LABS: Percent Iron Saturation 32.7 %
[2023-09-21 15:08] LABS: Thyroid Stimulating Hormone 6.845 uIU/mL (0.358-3.740)
== END 2023-09-21 13:41 | disposition home or self-care (01) ==
LOC: LAB 13:45
PROVIDERS: PCP Internal Medicine; Visit Provider Internal Medicine
DX: D64.9 Anemia, unspecified (principal); E03.8 Other specified hypothyroidism; E06.3 Autoimmune thyroiditis
CPT/HCPCS: 36415; 82607; 82728; 82746; 83540; 83550; 84443; 85025

== ENCOUNTER 2023-12-23 12:34 | Outpatient (OUT) | payer MEDICARE, SELFPAY ==
[2023-12-23 13:20] LABS: Basophils Percent Auto 0.6 % (0.2-2.0); Eosinophils Absolute Auto 0.2 10^3/uL (0.0-0.7); Eosinophils Percent Auto 3.2 % (0.9-7.0); Hematocrit 41.4 % (42.0-54.0); Hemoglobin 13.9 g/dL (14.0-18.0); Immature Granulocytes Abs Auto 0.02 10^3/uL (0.00-0.03); Immature Granulocytes Pct Auto 0.3 % (0.0-0.5); Lymphocytes Absolute Auto 2.3 10^3/uL (1.2-3.8); Lymphocytes Percent Auto 36.2 % (20.5-60.0); Mean Corpuscular HGB Conc 33.6 g/dL (29.9-35.2); Mean Corpuscular Hemoglobin 31.2 pg (25.9-34.0); Mean Corpuscular Volume 92.8 fL (80.0-94.0); Mean Platelet Volume 9.7 fL (9.5-13.5); Monocytes Absolute Auto 0.7 10^3/uL (0.3-0.8); Monocytes Percent Auto 10.7 % (1.7-12.0); Neutrophils Absolute Auto 3.1 10^3/uL (1.4-6.5); Platelet Count 205 10^3/uL (150-450); Red Blood Count 4.46 10^6/uL (4.70-6.10); Red Cell Distribution Width 11.9 % (11.0-15.0); White Blood Count 6.3 10^3/uL (4.0-11.0)
[2023-12-23 13:38] LABS: Percent Iron Saturation 30.3 %
[2023-12-23 13:49] LABS: Thyroid Stimulating Hormone 1.259 uIU/mL (0.358-3.740)
[2023-12-24 04:08] LABS: Vitamin B12 623 pg/mL (232-1245)
[2023-12-24 16:10] LABS: Albumin 3.9 g/dL (2.9-4.4); Alpha-1-Globulin 0.2 g/dL (0.0-0.4); Alpha-2-Globulin 0.8 g/dL (0.4-1.0); Free Kappa Lt Chains,S 25.9 mg/L (3.3-19.4); Free Lambda Lt Chains,S 14.6 mg/L (5.7-26.3); Gamma Globulin 1.3 g/dL (0.4-1.8); Immunoglobulin A, Qn, Serum 210 mg/dL (61-437); Immunoglobulin G, Qn, Serum 1266 mg/dL (603-1613); Immunoglobulin M, Qn, Serum 93 mg/dL (15-143); Kappa/Lambda Ratio,S 1.77 (0.26-1.65); Protein, Total 7.1 g/dL (6.0-8.5)
== END 2023-12-23 12:35 | disposition home or self-care (01) ==
LOC: LAB 12:37
PROVIDERS: PCP Internal Medicine; Visit Provider Internal Medicine
DX: D64.9 Anemia, unspecified (principal); R79.89 Other specified abnormal findings of blood chemistry; E03.8 Other specified hypothyroidism; E06.3 Autoimmune thyroiditis; D50.0 Iron deficiency anemia secondary to blood loss (chronic); D89.2 Hypergammaglobulinemia, unspecified
CPT/HCPCS: 36415; 82607; 82728; 82746; 82784; 83521; 83540; 83550; 84155; 84165; 84443; 85025

== ENCOUNTER 2024-03-28 14:49 | Outpatient (OUT) | payer MEDICARE, SELFPAY ==
[2024-03-28 15:22] LABS: Basophils Absolute Auto 0.1 10^3/uL (0.0-0.1); Basophils Percent Auto 0.7 % (0.2-2.0); Eosinophils Absolute Auto 0.2 10^3/uL (0.0-0.7); Eosinophils Percent Auto 2.4 % (0.9-7.0); Hematocrit 42.4 % (42.0-54.0); Hemoglobin 14.3 g/dL (14.0-18.0); Immature Granulocytes Abs Auto 0.02 10^3/uL (0.00-0.03); Immature Granulocytes Pct Auto 0.3 % (0.0-0.5); Lymphocytes Absolute Auto 2.1 10^3/uL (1.2-3.8); Lymphocytes Percent Auto 29.8 % (20.5-60.0); Mean Corpuscular HGB Conc 33.7 g/dL (29.9-35.2); Mean Corpuscular Hemoglobin 31.6 pg (25.9-34.0); Mean Corpuscular Volume 93.6 fL (80.0-94.0); Monocytes Absolute Auto 0.9 10^3/uL (0.3-0.8); Monocytes Percent Auto 12.5 % (1.7-12.0); Neutrophils Absolute Auto 3.8 10^3/uL (1.4-6.5); Neutrophils Percent Auto 54.3 % (43.0-75.0); Platelet Count 204 10^3/uL (150-450); Red Blood Count 4.53 10^6/uL (4.70-6.10); Red Cell Distribution Width 11.9 % (11.0-15.0); Reticulocyte Pct Auto 1.35 % (0.60-3.10)
[2024-03-28 15:28] LABS: Alanine Aminotransferase 34 U/L (16-63); Albumin Globulin Ratio 0.9; Albumin Level 3.6 g/dL (3.4-5.0); Alkaline Phosphatase 39 U/L (46-116); Anion Gap 11.5; Aspartate Amino Transferase 23 U/L (15-37); BUN Creatinine Ratio 12.9; Bilirubin Total 0.3 mg/dL (0.2-1.0); C Reactive Protein <0.50 mg/dL (<=0.50); Calcium 9.1 mg/dL (8.5-10.1); Carbon Dioxide 29.9 mmol/L (21.0-32.0); Chloride 104 mmol/L (98-107); Estimated GFR (African America >60 (>=60 mL/min/1.73m^2); Estimated GFR (Non-African Ame >60 (>=60 mL/min/1.73m^2); Globulin 3.8 g/dL; Glucose 96 mg/dL (74-106); Potassium 4.4 mmol/L (3.5-5.1); Sodium 141 mmol/L (136-145); Total Protein 7.4 g/dL (6.4-8.2)
[2024-03-28 15:44] LABS: Percent Iron Saturation 36.4 %
[2024-03-29 10:08] LABS: Vitamin B12 562 pg/mL (232-1245)
[2024-03-29 12:08] LABS: ANA Direct Negative (Negative)
== END 2024-03-28 14:50 | disposition home or self-care (01) ==
LOC: LAB 14:54
PROVIDERS: PCP Internal Medicine; Visit Provider Internal Medicine
DX: D64.9 Anemia, unspecified (principal); I10 Essential (primary) hypertension; I25.10 Atherosclerotic heart disease of native coronary artery without angina pectoris; K76.0 Fatty (change of) liver, not elsewhere classified
CPT/HCPCS: 36415; 80053; 82607; 82728; 82746; 83540; 83550; 85025; 85045; 86038; 86140

== ENCOUNTER 2024-06-28 13:10 | Outpatient (OUT) | payer MEDICARE, SELFPAY ==
[2024-06-28 13:39] LABS: Basophils Absolute Auto 0.1 10^3/uL (0.0-0.1); Basophils Percent Auto 0.6 % (0.2-2.0); Eosinophils Absolute Auto 0.2 10^3/uL (0.0-0.7); Eosinophils Percent Auto 2.9 % (0.9-7.0); Hematocrit 42.1 % (42.0-54.0); Hemoglobin 14.1 g/dL (14.0-18.0); Immature Granulocytes Abs Auto 0.02 10^3/uL (0.00-0.03); Immature Granulocytes Pct Auto 0.3 % (0.0-0.5); Lymphocytes Absolute Auto 2.1 10^3/uL (1.2-3.8); Lymphocytes Percent Auto 26.6 % (20.5-60.0); Mean Corpuscular HGB Conc 33.5 g/dL (29.9-35.2); Mean Corpuscular Hemoglobin 31.1 pg (25.9-34.0); Mean Corpuscular Volume 92.7 fL (80.0-94.0); Monocytes Absolute Auto 0.8 10^3/uL (0.3-0.8); Monocytes Percent Auto 10.1 % (1.7-12.0); Neutrophils Absolute Auto 4.7 10^3/uL (1.4-6.5); Neutrophils Percent Auto 59.5 % (43.0-75.0); Platelet Count 201 10^3/uL (150-450); Red Blood Count 4.54 10^6/uL (4.70-6.10); Red Cell Distribution Width 12.4 % (11.0-15.0); White Blood Count 7.9 10^3/uL (4.0-11.0)
[2024-06-28 15:16] LABS: Alanine Aminotransferase 36 U/L (16-63); Alkaline Phosphatase 41 U/L (46-116); Anion Gap 14.1; Aspartate Amino Transferase 22 U/L (15-37); BUN Creatinine Ratio 16.2; Bilirubin Total 0.4 mg/dL (0.2-1.0); Calcium 9.4 mg/dL (8.5-10.1); Carbon Dioxide 28.1 mmol/L (21.0-32.0); Chloride 103 mmol/L (98-107); Chol HDL Ratio 2.4; Cholesterol 127 mg/dL (<=200); Estimated GFR (African America >60 (>=60 mL/min/1.73m^2); Estimated GFR (Non-African Ame >60 (>=60 mL/min/1.73m^2); Glucose 99 mg/dL (74-106); HDL Cholesterol 54 mg/dL (40-60); LDL Cholesterol Calculated 51.8 mg/dL; Potassium 4.2 mmol/L (3.5-5.1); Sodium 141 mmol/L (136-145); Thyroid Stimulating Hormone 2.066 uIU/mL (0.358-3.740); Triglycerides 106 mg/dL (<=150); VLDL CHOLESTEROL 21.2 mg/dL
[2024-06-28 15:21] LABS: Prostate Specific Antigen Scrn 0.44 ng/mL (<=4.00)
[2024-06-30 16:09] LABS: Albumin 4.4 g/dL (2.9-4.4); Alpha-1-Globulin 0.2 g/dL (0.0-0.4); Alpha-2-Globulin 0.8 g/dL (0.4-1.0); Free Kappa Lt Chains,S 22.6 mg/L (3.3-19.4); Free Lambda Lt Chains,S 14.9 mg/L (5.7-26.3); Gamma Globulin 1.3 g/dL (0.4-1.8); Immunoglobulin A, Qn, Serum 251 mg/dL (61-437); Immunoglobulin G, Qn, Serum 1386 mg/dL (603-1613); Immunoglobulin M, Qn, Serum 99 mg/dL (15-143); Kappa/Lambda Ratio,S 1.52 (0.26-1.65); Protein, Total 7.7 g/dL (6.0-8.5)
== END 2024-06-28 13:11 | disposition home or self-care (01) ==
PROVIDERS: PCP Internal Medicine; Visit Provider Internal Medicine
DX: R00.2 Palpitations (principal); I10 Essential (primary) hypertension; I25.10 Atherosclerotic heart disease of native coronary artery without angina pectoris; E78.00 Pure hypercholesterolemia, unspecified; D64.9 Anemia, unspecified; R53.83 Other fatigue; R76.8 Other specified abnormal immunological findings in serum; E03.8 Other specified hypothyroidism; E06.3 Autoimmune thyroiditis; Z12.5 Encounter for screening for malignant neoplasm of prostate
CPT/HCPCS: 36415; 80053; 80061; 82784; 83521; 84155; 84165; 84443; 85025; 93246; G0103

== ENCOUNTER 2024-10-18 07:35 | Outpatient (RCR) | payer MEDICARE, SELFPAY ==
[2024-10-17 15:33] LABS: Hematocrit 42.2 % (42.0-54.0); Hemoglobin 14.2 g/dL (14.0-18.0); Mean Corpuscular HGB Conc 33.6 g/dL (29.9-35.2); Mean Corpuscular Hemoglobin 31.5 pg (25.9-34.0); Mean Corpuscular Volume 93.6 fL (80.0-94.0); Platelet Count 180 10^3/uL (150-450); Red Blood Count 4.51 10^6/uL (4.70-6.10); White Blood Count 7.1 10^3/uL (4.0-11.0)
[2024-10-17 16:15] LABS: Basophils Abs Manual 0.00 10^3/uL (0.00-0.10); Basophils Percent Manual 0.0 % (0.2-2.0); Eosinophils Absolute Manual 0.21 10^3/uL (0.00-0.70); Eosinophils Percent Manual 3.0 % (0.9-7.0); Lymphocytes Absolute Manual 2.84 10^3/uL (1.20-3.80); Lymphocytes Percent Manual 40.0 % (20.5-60.0); Monocytes Absolute Manual 0.42 10^3/uL (0.30-0.80); Monocytes Percent Manual 6.0 % (1.7-12.0); Segmented Neut Absolute Manual 3.62 10^3/uL (1.4-6.5); Segmented Neutrophils % Manual 51.0 (43.0-75.0)
== END 2024-11-09 23:59 | disposition home or self-care (01) ==
LOC: HEMC 07:35
PROVIDERS: PCP Internal Medicine; Visit Provider Internal Medicine Hematology & Oncology
DX: D64.9 Anemia, unspecified (principal); Z95.1 Presence of aortocoronary bypass graft; Z87.891 Personal history of nicotine dependence; I25.10 Atherosclerotic heart disease of native coronary artery without angina pectoris; K76.0 Fatty (change of) liver, not elsewhere classified
CPT/HCPCS: 36415; 83615; 85007; 85027; G0463

== ENCOUNTER 2024-11-14 08:04 | Outpatient (RCR) | payer MEDICARE, SELFPAY | END 2024-12-10 23:59 | disposition home or self-care (01) | LOC: HEMC 08:04 | PROVIDERS: PCP Internal Medicine; Visit Provider Internal Medicine Hematology & Oncology | DX: D64.9 Anemia, unspecified (principal); Z95.1 Presence of aortocoronary bypass graft; Z87.891 Personal history of nicotine dependence; I25.10 Atherosclerotic heart disease of native coronary artery without angina pectoris; K76.0 Fatty (change of) liver, not elsewhere classified | CPT/HCPCS: G0463 ==